=== PATIENT | female | born 1945 | race Caucasian/White ===

== ENCOUNTER 2021-08-04 17:06 | Inpatient (IN) | payer MEDICARE ==
[2021-08-04] MEDS ORDERED: NITROGLYCERIN OINT 1 INCH/GM PACKET TOPICAL STA (17:13)
[2021-08-04] MEDS ORDERED: DILTIAZEM DRIP BOLUS FROM BAG 1 MG SOLN IV ONE (17:48)
--- NOTE | 2021-08-04 17:48 | ED ---
General Adult HPI - General Chief complaint: Chest Pain Stated complaint: Chest Pain/STEPHENIE Time Seen by Provider: 08/04/21 17:06 Source: patient, EMS, RN notes reviewed, old records reviewed Mode of arrival: EMS Limitations: no limitations - History of Present Illness Initial comments: This is a 76-year-old female presents emergency department stating that she's been having chest pain for weeks. Patient states she also has associated shortness of breath. Patient states she has been [facility] the [facility] that she [facility] to commit to be evaluated but they refused to do a today she called EMS. Patient states currently she has no chest pain. Patient denies any recent fever chills or cough per patient denies any headache patient denies numbness weakness. Patient denies lightheadedness or dizziness. Patient denies abdominal pain patient denies nausea vomiting or diarrhea. - Related Data Home Medications Medication Instructions Recorded Confirmed Amiodarone HCl [Pacerone] 200 mg PO DAILY@0800 08/04/21 08/04/21 Apixaban [Eliquis] 2.5 mg PO BID@0800,1600 08/04/21 08/04/21 Aspirin EC [Ecotrin Low Dose] 81 mg PO DAILY@0800 08/04/21 08/04/21 Atorvastatin [Lipitor] 40 mg PO DAILY@1600 08/04/21 08/04/21 Cholecalciferol [Vitamin D3 (125 125 mcg PO DAILY@0800 08/04/21 08/04/21 Mcg = 5000 Iu)] Ciclopirox Solution 8% 1 applic TOPICAL HS@199908/04/21 08/04/21 Docusate [Colace] 100 mg PO BID@0800,1600 08/04/21 08/04/21 Famotidine [Pepcid] 20 mg PO DAILY@0800 08/04/21 08/04/21 Ferrous Sulfate [Feosol] 325 mg PO BID@0800,1600 08/04/21 08/04/21 HYDROcodone/APAP 5-325MG [[place] 1 tab PO Q6H PRN 08/04/21 08/04/21 5-325] Insulin Aspart 5 units SQ TID-W/MEALS 08/04/21 08/04/21 Insulin Aspart See Protocol SQ AC-TID 08/04/21 08/04/21 Insulin Detemir [Levemir Flextouch 10 units SQ BID@0800,199908/04/21 08/04/21 Pen] Isosorbide Mononitrate [Isosorbide 30 mg PO DAILY@0800 08/04/21 08/04/21 Mononitrate ER] Lactulose 20 gm PO DAILY PRN 08/04/21 08/04/21 Lisinopril [Prinivil] 10 mg PO DAILY@0800 08/04/21 08/04/21 Meclizine [Antivert] 12.5 mg PO Q8H PRN 08/04/21 08/04/21 Melatonin 10 mg PO DAILY@1600 08/04/21 08/04/21 Metoprolol Tartrate [Lopressor] 25 mg PO BID@0800,199908/04/21 08/04/21 Montelukast [Singulair] 10 mg PO DAILY@1600 08/04/21 08/04/21 Multivitamins, Thera [Multivitamin 1 tab PO DAILY@0800 08/04/21 08/04/21 (formulary)] Ondansetron [Zofran] 4 mg PO Q6H PRN 08/04/21 08/04/21 Sennosides [Senna] 8.6 mg PO BID PRN 08/04/21 08/04/21 Simethicone [Simethicone Chew] 80 mg PO Q4H PRN 08/04/21 08/04/21 Sodium Bicarbonate 650 mg PO BID@0800,1600 08/04/21 08/04/21 Sodium Chloride [Saline Nasal 2 spray EA NOSTRIL BID@0800,1600 08/04/21 08/04/21 [place]] Vit C/E/Zn/Coppr/Lutein/Zeaxan 1 tab PO BID@0800,1600 08/04/21 08/04/21 [Preservision Areds 2 Softgel] buPROPion HCL [Wellbutrin SR] 150 mg PO BID@0800,199908/04/21 08/04/21 cloNIDine HCL 0.2 mg PO TID@0500,1300,2100 08/04/21 08/04/21 polyethylene glycoL 3350 [Miralax] 17 gm PO DAILY@1600 08/04/21 08/04/21 Allergies Allergy/AdvReac Type Severity Reaction Status Date / Time amlodipine Allergy Unknown Verified 08/04/21 17:47 hydralazine Allergy Unknown Verified 08/04/21 17:47 Sulfa (Sulfonamide Allergy Unknown Verified 08/04/21 17:47 Antibiotics) Review of Systems ROS Statement: Those systems with pertinent positive or pertinent negative responses have been documented in the HPI. ROS Other: All systems not noted in ROS Statement are negative. Past Medical History Past Medical History: Atrial Fibrillation, Cancer, Heart Failure, Diabetes Mellitus, GERD/Reflux, Hypertension, Renal Disease Additional Past Medical History / Comment(s): generlaized weakness, constipation, insomnia, dizziness, cardiomegaly, anemia, chronic left heel ulcer, uterine and colon cancer History of Any Multi-Drug Resistant Organisms: None Reported Past Surgical History: Adenoidectomy, Bowel Resection, Hysterectomy, Tonsillecto my Past Psychological History: Depression Smoking Status: Former smoker Past Alcohol Use History: None Reported Past Drug Use History: None Reported General Exam - General Exam Comments Initial Comments: GENERAL: Patient is well-developed and well-nourished. Patient is nontoxic and well- hydrated and is in mild distress. ENT: Neck is soft and supple. No significant lymphadenopathy is noted. Oropharynx is clear. Moist mucous membranes. Neck has full range of motion without eliciting any pain. EYES: The sclera were anicteric and conjunctiva were pink and moist. Extraocular movements were intact and pupils were equal round and reactive to light. Eyelids were unremarkable. PULMONARY: Unlabored respirations. Good breath sounds bilaterally. No audible rales rhonchi or wheezing was noted. CARDIOVASCULAR: There is a regular rate and rhythm without any murmurs gallops or rubs. ABDOMEN: Soft and nontender with normal bowel sounds. SKIN: Skin is clear with no lesions or rashes and otherwise unremarkable. NEUROLOGIC: Patient is alert and oriented x3. Cranial nerves II through XII are grossly intact. Motor and sensory are also intact. Normal speech, volume and content. Symmetrical smile. MUSCULOSKELETAL: Normal extremities with adequate strength and full range of motion. Patient has a wound on the left foot that is newly wrapped and according to the patient it is slowly improving LYMPHATICS: No significant lymphadenopathy is noted PSYCHIATRIC: Normal psychiatric evaluation. Limitations: no limitations Course Vital Signs 08/04/21 17:14 Temperature 98.2 F Pulse Rate 112 H Respiratory 20 Rate Blood Pressure 156/104 O2 Sat by Pulse 100 Oximetry Medical Decision Making - Medical Decision Making EKG shows atrial fibrillation with rapid ventricular response at 117 bpm QRS is 100 a QT interval 320 QTC is 393. Patient's EKG shows no ST segment elevation or depression. Patient was having episodes where she was 130+ beats a minute so I started her on Cardizem after gave her a Cardizem bolus. Chest x-ray shows pulmonary edema. Patient received Lasix to the pulmonary edema. Patient will be admitted for A. fib with rapid ventricular response, pulmonary edema, chest pain. I spoke with some physicians and he agreed to admit the patient admitted the patient I wrote admitting orders. - Lab Data Result diagrams: 08/04/21 17:50 08/04/21 17:50 Lab Results 08/04/21 08/04/21 08/04/21 Range/Units 17:50 17:50 17:50 WBC 8.8 (3.8-10.6) k/uL RBC 3.45 L (3.80-5.40) m/uL Hgb 10.3 L (11.4-16.0) gm/dL Hct 33.4 L (34.0-46.0) % MCV 96.7 (80.0-100.0) fL MCH 29.7 (25.0-35.0) pg MCHC 30.7 L (31.0-37.0) g/dL RDW 15.6 H (11.5-15.5) % Plt Count 310 (150-450) k/uL MPV 7.5 Neutrophils % 83 % Lymphocytes % 8 % Monocytes % 6 % Eosinophils % 1 % Basophils % 0 % Neutrophils # 7.2 (1.3-7.7) k/uL Lymphocytes # 0.7 L (1.0-4.8) k/uL Monocytes # 0.5 (0-1.0) k/uL Eosinophils # 0.1 (0-0.7) k/uL Basophils # 0.0 (0-0.2) k/uL Hypochromasia Moderate PT 13.5 H (9.0-12.0) sec INR 1.3 H (<1.2) APTT 22.8 (22.0-30.0) sec Sodium 139 (137-145) mmol/L Potassium 3.5 (3.5-5.1) mmol/L Chloride 102 (98-107) mmol/L Carbon Dioxide 27 (22-30) mmol/L Anion Gap 10 mmol/L BUN 26 H (7-17) mg/dL Creatinine 1.60 H (0.52-1.04) mg/dL Est GFR (CKD-EPI)AfAm 35 (>60 ml/min/1.73 sqM) Est GFR (CKD-EPI)NonAf 31 (>60 ml/min/1.73 sqM) Glucose 241 H (74-99) mg/dL Calcium 8.9 (8.4-10.2) mg/dL Magnesium 1.8 (1.6-2.3) mg/dL Total Bilirubin 0.9 (0.2-1.3) mg/dL AST 366 H (14-36) U/L ALT 276 H (4-34) U/L Alkaline Phosphatase 150 H (38-126) U/L Troponin I (0.000-0.034) ng/mL Total Protein 6.6 (6.3-8.2) g/dL Albumin 3.7 (3.5-5.0) g/dL 08/04/21 Range/Units 17:50 WBC (3.8-10.6) k/uL RBC (3.80-5.40) m/uL Hgb (11.4-16.0) gm/dL Hct (34.0-46.0) % MCV (80.0-100.0) fL MCH (25.0-35.0) pg MCHC (31.0-37.0) g/dL RDW (11.5-15.5) % Plt Count (150-450) k/uL MPV Neutrophils % % Lymphocytes % % Monocytes % % Eosinophils % % Basophils % % Neutrophils # (1.3-7.7) k/uL Lymphocytes # (1.0-4.8) k/uL Monocytes # (0-1.0) k/uL Eosinophils # (0-0.7) k/uL Basophils # (0-0.2) k/uL Hypochromasia PT (9.0-12.0) sec INR (<1.2) APTT (22.0-30.0) sec Sodium (137-145) mmol/L Potassium (3.5-5.1) mmol/L Chloride (98-107) mmol/L Carbon Dioxide (22-30) mmol/L Anion Gap mmol/L BUN (7-17) mg/dL Creatinine (0.52-1.04) mg/dL Est GFR (CKD-EPI)AfAm (>60 ml/min/1.73 sqM) Est GFR (CKD-EPI)NonAf (>60 ml/min/1.73 sqM) Glucose (74-99) mg/dL Calcium (8.4-10.2) mg/dL Magnesium (1.6-2.3) mg/dL Total Bilirubin (0.2-1.3) mg/dL AST (14-36) U/L ALT (4-34) U/L Alkaline Phosphatase (38-126) U/L Troponin I 0.020 (0.000-0.034) ng/mL Total Protein (6.3-8.2) g/dL Albumin (3.5-5.0) g/dL Critical Care Time Critical Care Time: Yes Total Critical Care Time: 35 Disposition Clinical Impression: Chest pain, Acute pulmonary edema, Atrial fibrillation with rapid ventricular response Disposition: ADMITTED IP TO THIS HOSP Referrals: None,Stated [Primary Care Provider] - 1-2 days Time of Disposition: 19:00
[2021-08-04 18:04] LABS: Basophils % (A) 0 %; Eosinophils # (A) 0.1 k/uL (0-0.7); Eosinophils % (A) 1 %; HCT 33.4 % (34.0-46.0); HGB 10.3 gm/dL (11.4-16.0); Hypochromasia Moderate; Lymphocytes # (A) 0.7 k/uL (1.0-4.8); Lymphocytes % (A) 8 %; MCH 29.7 pg (25.0-35.0); MCHC 30.7 g/dL (31.0-37.0); MCV 96.7 fL (80.0-100.0); Mean Platelet Volume 7.5; Monocytes # (A) 0.5 k/uL (0-1.0); Monocytes % (A) 6 %; Neutrophils # (A) 7.2 k/uL (1.3-7.7); Neutrophils % (A) 83 %; Platelet Count 310 k/uL (150-450); RBC 3.45 m/uL (3.80-5.40); RDW 15.6 % (11.5-15.5); WBC 8.8 k/uL (3.8-10.6)
[2021-08-04 18:13] LABS: Albumin 3.7 g/dL (3.5-5.0); Calcium 8.9 mg/dL (8.4-10.2); Magnesium 1.8 mg/dL (1.6-2.3); Potassium 3.5 mmol/L (3.5-5.1); Total Bilirubin 0.9 mg/dL (0.2-1.3); Total Protein 6.6 g/dL (6.3-8.2)
--- NOTE | 2021-08-04 18:14 | XR ---
EXAMINATION TYPE: XR chest 2V DATE OF EXAM: 08/04/2021 COMPARISON: NONE HISTORY: Chest pain TECHNIQUE: Frontal and lateral views of the chest are obtained. FINDINGS: There is mild to moderate interstitial edema superimposed diffuse hazy/streaky opacities. There are small bilateral pleural effusions. No pneumothorax seen. The cardiac silhouette size is en larged. The osseous structures are intact. IMPRESSION: CHF as above.
[2021-08-04 18:15] LABS: INR 1.3 (<1.2); Partial Thromboplastin Time 22.8 sec (22.0-30.0); Prothrombin Time 13.5 sec (9.0-12.0)
[2021-08-04] MEDS ORDERED: FUROSEMIDE 10 MG/ML 10 ML VIAL IV STA (18:59)
[2021-08-04] MEDS: DILTIAZEM 125 MG in SODIUM CHLORIDE 0.9% 100 ML IV SCH (19:02)
[2021-08-04] MEDS: ASPIRIN 81 MG PO STA ×2 (19:02→19:07)
[2021-08-05] MEDS: NITROGLYCERIN OINT 1 INCH/GM PACKET TOPICAL SCH ×5 (01:09→20:26)
[2021-08-05] MEDS ORDERED: HEPARIN SODIUM 1,000 UN/ML (10ML VL) IV ONE (06:49)
[2021-08-05] MEDS ORDERED: HEPARIN SODIUM 1,000 UN/ML (10ML VL) IV PRN (06:49)
[2021-08-05] MEDS ORDERED: HEPARIN SOD,PORK IN 0.45% NACL 25,000 UNIT in 0.45% NACL 1 250ML.BAG IV SCH (07:00)
--- NOTE | 2021-08-05 07:07 | P.HPIM ---
History of Present Illness H&P Date: 08/04/21 Chief Complaint: Chest pain 76-year-old female with hypertension diabetes mellitus, CK D, A. fib on Eliquis Patient is a residential resident she reports that she's been complaining of intermittent chest pain for many weeks now she describes the chest pain as sharp episodes 8/10 that she feels on her left side of the chest can happen at rest or activity she has a sensation of doom and shortness of breath with that but denies any profuse sweating , she does report some palpitations with these episodes and sometimes feeling dizzy. Patient does not very reliable historian I felt that with my questions at suggesting symptoms and she randomly answers yes and no. There is no recent traveling no recent cardiac events patient , she does report history of congestive heart failure and A. fib Patient claims that at the residential she's been reporting to the staff that she's having chest pains but nothing has been done so far. Patient also reports some orthopnea, and edema of her legs In the ED she was found to be in A. fib with RVR, chest x-ray was suggestive of interstitial edema like mild congestive heart failure Blood work showed chronic kidney disease, stable chronic anemia, elevated liver enzymes Patient denies any smoking, recreational drugs or heavy alcohol use Review of Systems Pertinent positives as noted in HPI. All other systems were reviewed and are negative Past Medical History Past Medical History: Atrial Fibrillation, Cancer, Heart Failure, Diabetes Mellitus, GERD/Reflux, Hypertension, Renal Disease Additional Past Medical History / Comment(s): generlaized weakness, constipation, insomnia, dizziness, cardiomegaly, anemia, chronic left heel ulcer, uterine and colon cancer History of Any Multi-Drug Resistant Organisms: None Reported Past Surgical History: Adenoidectomy, Bowel Resection, Hysterectomy, Tonsillectomy Past Psychological History: Depression Smoking Status: Former smoker Past Alcohol Use History: None Reported Past Drug Use History: None Reported - Past Family History Family Family Medical History: No Reported History Medications and Allergies Home Medications Medication Instructions Recorded Confirmed Type Amiodarone HCl [Pacerone] 200 mg PO DAILY@0800 08/04/21 08/04/21 History Apixaban [Eliquis] 2.5 mg PO BID@0800,1600 08/04/21 08/04/21 History Aspirin EC [Ecotrin Low Dose] 81 mg PO DAILY@0800 08/04/21 08/04/21 History Atorvastatin [Lipitor] 40 mg PO DAILY@159908/04/21 08/04/21 History Cholecalciferol [Vitamin D3 (125 125 mcg PO DAILY@0808/04/21 08/04/21 History Mcg = 5000 Iu)] Ciclopirox Solution 8% 1 applic TOPICAL HS@199908/04/21 08/04/21 History Docusate [Colace] 100 mg PO BID@0800,159908/04/21 08/04/21 History Famotidine [Pepcid] 20 mg PO DAILY@0808/04/21 08/04/21 History Ferrous Sulfate [Feosol] 325 mg PO BID@0800,159908/04/21 08/04/21 History HYDROcodone/APAP 5-325MG [[place] 1 tab PO Q6H PRN 08/04/21 08/04/21 History 5-325] Insulin Aspart 5 units SQ TID-W/MEALS 08/04/21 08/04/21 History Insulin Aspart See Protocol SQ AC-TID 08/04/21 08/04/21 History Insulin Detemir [Levemir Flextouch 10 units SQ BID@08,199908/04/21 08/04/21 History Pen] Isosorbide Mononitrate [Isosorbide 30 mg PO DAILY@79908/04/21 08/04/21 History Mononitrate ER] Lactulose 20 gm PO DAILY PRN 08/04/21 08/04/21 History Lisinopril [Prinivil] 10 mg PO DAILY@0808/04/21 08/04/21 History Meclizine [Antivert] 12.5 mg PO Q8H PRN 08/04/21 08/04/21 History Melatonin 10 mg PO DAILY@159908/04/21 08/04/21 History Metoprolol Tartrate [Lopressor] 25 mg PO BID@0800,199908/04/21 08/04/21 History Montelukast [Singulair] 10 mg PO DAILY@1600 08/04/21 08/04/21 History Multivitamins, Thera [Multivitamin 1 tab PO DAILY@0808/04/21 08/04/21 History (formulary)] Ondansetron [Zofran] 4 mg PO Q6H PRN 08/04/21 08/04/21 History Sennosides [Senna] 8.6 mg PO BID PRN 08/04/21 08/04/21 History Simethicone [Simethicone Chew] 80 mg PO Q4H PRN 08/04/21 08/04/21 History Sodium Bicarbonate 650 mg PO BID@0800,1600 08/04/21 08/04/21 History Sodium Chloride [Saline Nasal 2 spray EA NOSTRIL BID@0800,1600 08/04/21 08/04/21 History [place]] Vit C/E/Zn/Coppr/Lutein/Zeaxan 1 tab PO BID@0800,1600 08/04/21 08/04/21 History [Preservision Areds 2 Softgel] buPROPion HCL [Wellbutrin SR] 150 mg PO BID@0800,2000 08/04/21 08/04/21 History cloNIDine HCL 0.2 mg PO TID@0500,1300,2100 08/04/21 08/04/21 History polyethylene glycoL 3350 [Miralax] 17 gm PO DAILY@1600 08/04/21 08/04/21 History Allergies Allergy/AdvReac Type Severity Reaction Status Date / Time amlodipine Allergy Unknown Verified 08/04/21 17:47 hydralazine Allergy Unknown Verified 08/04/21 17:47 Sulfa (Sulfonamide Allergy Unknown Verified 08/04/21 17:47 Antibiotics) Physical Exam Vitals: Vital Signs Temp Pulse Resp BP Pulse Ox 08/05/21 00:00 112 H 16 136/74 98 08/04/21 21:00 117 H 18 131/87 97 08/04/21 18:24 129 H 16 155/115 98 08/04/21 17:14 98.2 F 112 H 20 156/104 100 Intake and Output 08/04/21 08/04/21 08/05/21 14:59 22:59 06:59 Other: Weight 79.152 kg Constitutional: No acute distress, conversant, pleasant Eyes: Anicteric sclerae, moist conjunctiva, Pupils equal round reactive to light ENMT: NC/AT Oropharynx clear, no erythema, or exudates Neck: Supple, no masses, or JVD No carotid bruits No thyromegaly Lungs: diminished breath sounds at lung basis Clear to percussion Normal respiratory effort, no accessory muscle use Cardiovascular: Heart irregular No murmurs, gallops, or rubs + bilateral peripheral edema Abdominal: Soft Nontender, no guarding, rebound or rigidity Abdomen moving with respiration Normoactive bowel sounds No hepatomegaly, No splenomegaly No palpable mass No abdominal wall hernia noted Skin: multiple areas of echymosis over bilateral forearm , otherwise Normal temperature, tone, texture, turgor Extremities: No digital cyanosis No clubbing Pedal pulses weak and symmetrical capillary refill immediate Radial pulses intact and symmetrical No calf tenderness Psychiatric: Alert and oriented to person, place Neuro Muscles Strength 3-4/5 in all 4 extremities Sensation to light touch grossly present throughout Cranial nerves II-XII grossly intact Lymphatics: no palpable cervical or supraclavicular , or inguinal lymph nodes Results CBC & Chem 7: 08/04/21 17:50 08/04/21 17:50 Labs: Abnormal Lab Results - Last 24 Hours (Table) 08/04/21 08/04/21 08/04/21 Range/Units 17:50 17:50 17:50 RBC 3.45 L (3.80-5.40) m/uL Hgb 10.3 L (11.4-16.0) gm/dL Hct 33.4 L (34.0-46.0) % MCHC 30.7 L (31.0-37.0) g/dL RDW 15.6 H (11.5-15.5) % Lymphocytes # 0.7 L (1.0-4.8) k/uL PT 13.5 H (9.0-12.0) sec INR 1.3 H (<1.2) BUN 26 H (7-17) mg/dL Creatinine 1.60 H (0.52-1.04) mg/dL Glucose 241 H (74-99) mg/dL AST 366 H (14-36) U/L ALT 276 H (4-34) U/L Alkaline Phosphatase 150 H (38-126) U/L Assessment and Plan Assessment: A. fib with RVR Patient initiated on Cardizem drip Continue home meds Continue Eliquis EKG showed A. fib with RVR CHF exacerbation Check echocardiogram IV Lasix Monitor vital signs Daily weight Cardiology consult Supplemental oxygen as needed Resume home cardiac meds Chest x-ray showed CHF changes Trend troponins Elevated liver enzymes Possibly passive congestion from CHF exacerbation Check ultrasound of the liver Avoid hepatotoxic meds Chronic conditions CK D stable, continue with bicarb pills Chronic anemia Diabetes mellitus resume insulin sliding scale and long-acting basal insulin Hypertension resume cardiac meds Patient is full code Anticipated length of stay more than 2 midnights DVT prophylaxis patient on low-dose Eliquis from home for A. fib
--- NOTE | 2021-08-05 07:41 | US ---
EXAMINATION TYPE: US liver DATE OF EXAM: 08/05/2021 COMPARISON: NONE CLINICAL HISTORY: elevated liver enzymes. abn labs EXAM MEASUREMENTS: Liver Length: 16.9 cm Gallbladder Wall: 0.2 cm CBD: 0.4 cm Right Kidney: 9.2 x 5.4 x 4.3 cm Pancreas: Tail obscured by overlying bowel gas. Echogenic in appearance. Liver: Increased attenuation Gallbladder: Mobile chogenic focus with shadowing = 2.5 cm Evidence for sonographic Malloy's sign: neg CBD: wnl Right Kidney: Cystic lesions seen. Medial mid - 1.2 x 1.1 x 0.9 cm. Lower pole = 0.9 x 0.9 x 0.7 c m. IMPRESSION: 1. Coarsened echo pattern to the liver can be associated with hepatic steatosis or hepatocellular dis ease correlate clinically. 2. Cholelithiasis. 3. Probable tiny renal simple cysts
[2021-08-05] MEDS ORDERED: METOPROLOL TARTRATE 25 MG TAB PO SCH (08:00)
[2021-08-05 08:06] LABS: Basophils % (A) 0 %; Eosinophils # (A) 0.2 k/uL (0-0.7); Eosinophils % (A) 3 %; HCT 33.1 % (34.0-46.0); HGB 10.2 gm/dL (11.4-16.0); Hypochromasia Marked; Lymphocytes # (A) 0.7 k/uL (1.0-4.8); Lymphocytes % (A) 10 %; MCH 30.2 pg (25.0-35.0); MCHC 30.8 g/dL (31.0-37.0); Macrocytosis Slight; Mean Platelet Volume 7.3; Monocytes # (A) 0.6 k/uL (0-1.0); Monocytes % (A) 8 %; Neutrophils # (A) 5.8 k/uL (1.3-7.7); Neutrophils % (A) 76 %; Platelet Count 280 k/uL (150-450); RBC 3.38 m/uL (3.80-5.40); RDW 15.6 % (11.5-15.5); WBC 7.6 k/uL (3.8-10.6)
[2021-08-05] MEDS: FUROSEMIDE 10 MG/ML 4 ML VIAL IV SCH ×3 (08:09→20:28)
[2021-08-05] MEDS: FERROUS SULFATE 325 MG TAB PO SCH ×2 (08:10→16:39)
[2021-08-05] MEDS: SODIUM BICARBONATE TAB 650 MG TAB PO SCH ×3 (08:10→16:39)
[2021-08-05] MEDS: AMIODARONE 200 MG TAB PO SCH (08:10)
[2021-08-05] MEDS: ISOSORBIDE MONONITRATE ER 30 MG TAB.ER.24H PO SCH (08:10)
[2021-08-05] MEDS: buPROPion SR 150 MG TABLET.ER PO SCH ×2 (08:10→20:26)
[2021-08-05] MEDS: FAMOTIDINE 20 MG TAB PO SCH (08:11)
[2021-08-05] MEDS: lisinopriL 10 MG TAB PO SCH ×2 (08:11→08:16)
[2021-08-05] MEDS: APIXABAN 2.5 MG TABLET PO SCH ×2 (08:11→16:39)
[2021-08-05] MEDS: ASPIRIN 81 MG PO SCH (08:13)
[2021-08-05] MEDS: DOCUSATE 100 MG CAP PO SCH ×2 (08:14→16:39)
[2021-08-05 08:15] LABS: INR 1.2 (<1.2); Partial Thromboplastin Time 23.3 sec (22.0-30.0); Prothrombin Time 12.7 sec (9.0-12.0)
[2021-08-05 08:31] LABS: Glucose,Whole Blood 211 mg/dL (75-99)
[2021-08-05] MEDS: INSULIN DETEMIR (LEVEMIR) 100 UNIT/ML SYR SQ SCH ×2 (08:41→20:27)
--- NOTE | 2021-08-05 09:47 | ECHOF ---
Referral Reason:chf, afib MEASUREMENTS -------- HEIGHT: 160.0 cm WEIGHT: 78.9 kg BP: 136/75 RVIDd: 3.7 cm (< 3.3) IVSd: 1.5 cm (0.6 - 1.1) LVIDd: 3.7 cm (3.9 - 5.3) LVPWd: 1.5 cm (0.6 - 1.1) IVSs: 1.7 cm LVIDs: 2.7 cm LVPWs: 1.9 cm LAESV Index (A-L): 63.01 ml/m Ao Diam: 3.0 cm (2.0 - 3.7) AV Cusp: 1.7 cm (1.5 - 2.6) MV EXCURSION: 18.072 mm (> 18.000) MV EF SLOPE: 86 mm/s (70 - 150) EPSS: 0.7 cm RAP: 5.00 mmHg RVSP: 43.68 mmHg FINDINGS -------- Atrial fibrillation. This was a technically adequate study. The left ventricular size is normal. There is moderate concentric left ventricular hypertrophy. O verall left ventricular systolic function is mildly impaired with, an EF between 45 - 50 %. The right ventricle is mildly enlarged. LA is severely dilated >40 ml/m2 The right atrial size is normal. Interatrial and interventricular septum intact. There is mild aortic valve sclerosis. There is no evidence of aortic regurgitation. There is no e vidence of aortic stenosis. Moderate mitral regurgitation is present. [id number] tricuspid regurgitation present. There is mild to moderate pulmonary hypertension. The right ventricular systolic pressure, as measured by Doppler, is 43.68mmHg. There is no pulmonic regurgitation present. The aortic root size is normal. IVC Not well visulized. Echo free space represents a pericardial fat pad. There is no pericardial effusion. CONCLUSIONS -------- 1. The left ventricular size is normal. 2. There is moderate concentric left ventricular hypertrophy. 3. Overall left ventricular systolic function is mildly impaired with, an EF between 45 - 50 %. 4. The right ventricle is mildly enlarged. 5. LA is severely dilated >40 ml/m2 6. There is mild aortic valve sclerosis. 7. Moderate mitral regurgitation is present. 8. [id number] tricuspid regurgitation present. 9. There is mild to moderate pulmonary hypertension. 10. The right ventricular systolic pressure, as measured by Doppler, is 43.68mmHg. 11. Echo free space represents a pericardial fat pad. PAINT LABORATORY TECHNICIAN: Rosita Polanco RDCS
[2021-08-05] MEDS ORDERED: METOPROLOL TARTRATE 25 MG TAB PO STA (10:03)
--- NOTE | 2021-08-05 11:02 | CONS ---
CONSULTATION HISTORY OF PRESENT ILLNESS: Anabel is a 76-year-old lady with history of hypertension, diabetes and atrial fibrillation along with chronic renal insufficiency, who is currently residing in a detention complained of episodes of chest discomfort for which she was brought to the hospital and is being admitted for the same. She describes it as a sharp left- sided chest pain that is not clearly related to exertion and radiates to her neck. She also had intermittent episodes of palpitations and dizziness. The patient states that she had suffered from COVID back in February and has developed many symptoms since. At the time of my evaluation this morning, she appears comfortable at rest and is free of significant symptoms. She had 2 sets of troponins that are all within normal limits. Liver enzymes are elevated. Hemoglobin is normal at 10. Potassium is 3.5 and creatinine is elevated at 1.6. An EKG shows atrial fibrillation with nonspecific ST-T wave changes. She had an echocardiogram on this admission that revealed concentric left ventricular hypertrophy, LV systolic dysfunction with an ejection fraction of 45%. Mildly enlarged right ventricle and significantly enlarged left atrium with mild to moderate pulmonary hypertension. There is no history of coronary artery disease, but her history is significant for atrial fibrillation, hypertension and dyslipidemia along with diabetes. PAST MEDICAL HISTORY: Significant for persistent atrial fibrillation coronavirus infection, diabetes, hypertension, dyslipidemia. ALLERGIES: ALLERGIES TO AMLODIPINE, HYDRALAZINE, AND SULFA. FAMILY HISTORY: Negative for premature coronary artery disease. SOCIAL HISTORY: Negative for current smoking, EtOH abuse or drug abuse. REVIEW OF SYSTEMS: HEENT is unremarkable. CARDIAC as described above. RESPIRATORY negative. GI negative. GENITOURINARY negative. ALLERGY/IMMUNOLOGY: None. SKIN negative. MUSCULOSKELETAL: Significant for arthritis. PSYCHOSOCIAL: Negative. DERM negative. ONCOLOGICAL negative. 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 EXAM: Comfortable at rest. Afebrile. Heart rate is 86 beats per minute. Blood pressure is 140/88, respirations 18, O2 saturation is 96%. NECK: There is no jugular venous distention. CHEST exam reveals diminished air entry at the bases. HEART exam reveals first and second heart sounds. Systolic murmur at the apex. ABDOMEN: Soft. Exam of EXTREMITIES reveals mild edema. Peripheral pulses are felt. LABS: Labs show that the hemoglobin is low at 10.2, platelet count is 280, potassium is 3.5, BUN is 26, creatinine is 1.6. Troponins are negative. AST/ALT are elevated at 366 and 276. ASSESSMENT: 1. Precordial chest pain. 2. Persistent atrial fibrillation. 3. New onset congestive heart failure probably systolic. PLAN: I am going to hold the amiodarone at this time. Continue the anticoagulant. Continue the antihypertensives. Continue IV Lasix and the beta blockers. When she is more stable, I will consider an outpatient stress test on her to rule out ischemic heart disease. She follows with Dr. Abdalla in the office. We will review her outpatient records. MMODL / IJN: [id number] /
--- NOTE | 2021-08-05 11:07 | P.PN ---
Subjective Patient was examined in the emergency department not complaining of any new symptomatology. She does endorse having some shortness of breath for the past few weeks slightly progressing. She also has a pressure ulcer on her left foot/heel with no drainage noted. Patient denies any active chest pain today during my examination Leah states she had in the past and the last 24 hours which is on the left side radiating to the left neck region that was pressure- like in nature, lasted for a few seconds and resolves. During my examination she is completely asymptomatic resting comfortably vitals are stable. Case discussed with RN nurse present the ER. Objective - Vital Signs Vital signs: Vital Signs Temp 98.7 F 08/05/21 08:05 Pulse 86 08/05/21 09:59 Resp 18 08/05/21 09:59 BP 142/86 08/05/21 09:59 Pulse Ox 96 08/05/21 09:59 Intake & Output 08/04/21 08/05/21 08/05/21 18:59 06:59 18:59 Weight 79.152 kg 79.152 kg - Exam Gen. patient is awake alert oriented 3 Cardio normal S1/S2, irregularly irregular Respiratory no wheezing or rhonchi appreciated-currently on 2 L nasal cannula Abdomen is soft, nontender positive bowel sounds Extremities pressure ulcer on the left heel no erythema or drainage-dressing was removed Psych patient slightly anxious however normal - Labs CBC & Chem 7: 08/05/21 07:42 08/04/21 17:50 Labs: Abnormal Lab Results - Last 24 Hours (Table) 08/04/21 08/04/21 08/04/21 Range/Units 17:50 17:50 17:50 RBC 3.45 L (3.80-5.40) m/uL Hgb 10.3 L (11.4-16.0) gm/dL Hct 33.4 L (34.0-46.0) % MCHC 30.7 L (31.0-37.0) g/dL RDW 15.6 H (11.5-15.5) % Lymphocytes # 0.7 L (1.0-4.8) k/uL PT 13.5 H (9.0-12.0) sec INR 1.3 H (<1.2) BUN 26 H (7-17) mg/dL Creatinine 1.60 H (0.52-1.04) mg/dL Glucose 241 H (74-99) mg/dL POC Glucose (mg/dL) (75-99) mg/dL AST 366 H (14-36) U/L ALT 276 H (4-34) U/L Alkaline Phosphatase 150 H (38-126) U/L 08/05/21 08/05/21 08/05/21 Range/Units 07:42 07:42 08:29 RBC 3.38 L (3.80-5.40) m/uL Hgb 10.2 L (11.4-16.0) gm/dL Hct 33.1 L (34.0-46.0) % MCHC 30.8 L (31.0-37.0) g/dL RDW 15.6 H (11.5-15.5) % Lymphocytes # 0.7 L (1.0-4.8) k/uL PT 12.7 H (9.0-12.0) sec INR 1.2 H (<1.2) BUN (7-17) mg/dL Creatinine (0.52-1.04) mg/dL Glucose (74-99) mg/dL POC Glucose (mg/dL) 211 H (75-99) mg/dL AST (14-36) U/L ALT (4-34) U/L Alkaline Phosphatase (38-126) U/L Assessment and Plan Assessment: Assessment: #1 acute respiratory distress secondary to congestive heart failure exacerbation? #2 atrial fibrillation with RVR #3 essential hypertension #4 chronic kidney disease #5 diabetes mellitus #6 GERD #7 chest pain rule out ACS #8 transaminitis secondary to fluid overload most likely? Plan: -Admit to medicine for close monitoring -Aspiration/fall precaution -Obtain 2-D echocardiogram to evaluate for any form of hypokinesis or structural disease -Patient is currently on Cardizem will switch over to by mouth maintain heart rate less than 110 bpm. Transition with metoprolol 50 twice a day -Continue to monitor creatinine level baseline between 1.3-1.5 most likely cardiorenal syndrome -Continue to monitor LFTs most likely related to congestion. Ultrasound reviewed suggesting either hepatic steatosis or hepatocellular disease. Recommend outpatient follow-up with PCP as well. -Strict input/output, low-sodium diet, fluid restrict to less than 1.4 L -Continue with IV Lasix 40 mg 3 times a day for now will like to decrease we'll coordinate with cardiology as the patient does seem to be improving -DVT prophylaxis L course 2.5 twice a day-patient should ideally be on 5 mg twice a day we'll coordinate her cardio.
[2021-08-05] MEDS: cloNIDine HCL 0.2 MG TAB PO SCH ×2 (14:14→20:26)
[2021-08-05] MEDS ORDERED: MELATONIN 5 MG TABLET PO SCH (16:00)
[2021-08-05 16:35] LABS: Glucose,Whole Blood 284 mg/dL (75-99)
[2021-08-05] MEDS: MONTELUKAST 10 MG TAB PO SCH (16:39)
[2021-08-05] MEDS: ATORVASTATIN 40 MG TAB PO SCH (16:39)
[2021-08-05] MEDS: DILTIAZEM 125 MG in SODIUM CHLORIDE 0.9% 100 ML IV SCH (17:16)
[2021-08-05] MEDS: MELATONIN 5 MG TABLET PO SCH (20:25)
[2021-08-05] MEDS: METOPROLOL TARTRATE 50 MG TAB PO SCH (20:26)
[2021-08-05] MEDS: HYDROcodone/APAP 5-325MG 1 EACH TAB PO PRN (20:28)
[2021-08-05 20:38] LABS: Glucose,Whole Blood 275 mg/dL (75-99)
[2021-08-06] MEDS: FUROSEMIDE 10 MG/ML 4 ML VIAL IV SCH ×4 (05:03→20:34)
[2021-08-06] MEDS: cloNIDine HCL 0.2 MG TAB PO SCH ×4 (05:04→20:33)
[2021-08-06] MEDS: HYDROcodone/APAP 5-325MG 1 EACH TAB PO PRN ×2 (05:05→20:33)
[2021-08-06 06:42] LABS: Glucose,Whole Blood 231 mg/dL (75-99)
[2021-08-06 07:10] LABS: Basophils % (A) 0 %; Eosinophils # (A) 0.2 k/uL (0-0.7); Eosinophils % (A) 3 %; HCT 29.6 % (34.0-46.0); HGB 9.1 gm/dL (11.4-16.0); Hypochromasia Marked; INR 1.3 (<1.2); Lymphocytes # (A) 0.7 k/uL (1.0-4.8); Lymphocytes % (A) 12 %; MCH 30.1 pg (25.0-35.0); MCHC 30.8 g/dL (31.0-37.0); MCV 97.5 fL (80.0-100.0); Macrocytosis Slight; Mean Platelet Volume 7.1; Monocytes # (A) 0.5 k/uL (0-1.0); Monocytes % (A) 9 %; Neutrophils % (A) 72 %; Platelet Count 249 k/uL (150-450); Prothrombin Time 13.6 sec (9.0-12.0); RBC 3.03 m/uL (3.80-5.40); RDW 15.7 % (11.5-15.5); WBC 5.6 k/uL (3.8-10.6)
[2021-08-06] MEDS: AMIODARONE 200 MG TAB PO SCH (08:04)
[2021-08-06] MEDS: buPROPion SR 150 MG TABLET.ER PO SCH ×2 (08:13→20:32)
[2021-08-06] MEDS: ASPIRIN 81 MG PO SCH (08:13)
[2021-08-06] MEDS: lisinopriL 10 MG TAB PO SCH (08:13)
[2021-08-06] MEDS: DOCUSATE 100 MG CAP PO SCH ×2 (08:13→17:03)
[2021-08-06] MEDS: SODIUM BICARBONATE TAB 650 MG TAB PO SCH ×2 (08:14→17:03)
[2021-08-06] MEDS: INSULIN DETEMIR (LEVEMIR) 100 UNIT/ML SYR SQ SCH ×2 (08:14→20:34)
[2021-08-06] MEDS: FAMOTIDINE 20 MG TAB PO SCH (08:14)
[2021-08-06] MEDS: APIXABAN 2.5 MG TABLET PO SCH ×2 (08:14→17:03)
[2021-08-06] MEDS: FERROUS SULFATE 325 MG TAB PO SCH ×2 (08:14→17:03)
[2021-08-06] MEDS: ISOSORBIDE MONONITRATE ER 30 MG TAB.ER.24H PO SCH (08:14)
[2021-08-06] MEDS: METOPROLOL TARTRATE 50 MG TAB PO SCH ×2 (08:14→20:33)
[2021-08-06] MEDS: NITROGLYCERIN OINT 1 INCH/GM PACKET TOPICAL SCH ×3 (08:17→17:03)
[2021-08-06 09:49] LABS: Calcium 8.1 mg/dL (8.4-10.2); Potassium 2.8 mmol/L (3.5-5.1)
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
[2021-08-06] MEDS ORDERED: Potassium Replacement Protocol 1 EACH MISC MISCELLANE PRN (11:31)
[2021-08-06] MEDS: POTASSIUM CHLORIDE ER 20 MEQ TAB.ER PO SCH ×4 (11:39→17:03)
--- NOTE | 2021-08-06 12:47 | P.PN ---
Subjective This is a 76-year-old female past medical history of chronic kidney disease (patient did require dialysis during hospitalization in 03/2021 at [facility] due to worsening renal function and metabolic encephalopathy, Permacath not removed), hypertension, hyperlipidemia, colon cancer status post surgical resection, type 2 diabetes, Covid 19 pneumonia in 02/2021, persistent atrial fibrillation on Eliquis. She follows in the office with Dr. Abdalla. We have asked to see in consultation for congestive heart failure, chest pain, atrial fibrillation with RVR. She resides in a [facility]. She was brought to the hospital from nursing facility due to complaints of chest pain. On discharge from [facility] to the facility she states she was not placed on Lasix on discharge. EKG revealed atrial fibrillation with nonspecific STT wave changes. Troponins were negative 2.Echocardiogram revealed LV systolic dysfunction with an EF of 45, Mildly enlarged right ventricle, significant enlarged left atrium, mild to moderate pulmonary hypertension. She was started on Lasix 40mg Q8hr, and IV Cardizem 5mg/hr in the ER. 08/06/2021 Patient seen and examined at bedside, she continues to feel short of breath, with movement and ambulation. She is comfortable at rest. Her edema has improved. Per Nursing patient is refusing some of her medications. She's currently maintained on amiodarone 200mg daily, Eliquis 2.5mg BID, aspirin 80 mg daily, atorvastatin 40 mg daily, IV Lasix 40 mg every 8 hours, Imdur 30 mg daily, lisinopril 10 mg daily, Toprol titrate 50 mg twice a day Telemetry reviewed patient in atrial fibrillation with controlled rates, heart rate in the 70s-105 Lab: renal function improved sodium 138, potassium 2.8, BUN 20, sCr 1.42 GENERAL: In no acute distress. NECK: Supple without JVD or thyromegaly. LUNGS: Breath sounds crackles in the bilateral bases to auscultation bilaterally. Some wheezing left lower lobe. Respiration equal and unlabored. HEART: Irregular rate and rhythm, systolic ejection murmur, No rubs or gallops. S1 and S2 heard. EXTREMITIES: Normal range of motion, no edema. No clubbing or cyanosis. Peripheral pulses intact. 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 Replace potassium pre protocol Further recommendations based on clinical course Nurse Practitioner note has been reviewed, I agree with a documented findings and plan of care. Patient was seen and examined. Objective - Vital Signs Vital signs: Vital Signs Temp 98.5 F 08/05/21 14:16 Pulse 102 H 08/05/21 14:16 Resp 18 08/05/21 14:16 BP 147/97 08/05/21 14:16 Pulse Ox 99 08/05/21 14:16 Intake & Output 08/04/21 08/05/21 08/05/21 18:59 06:59 18:59 Weight 79.152 kg 79.152 kg - Labs CBC & Chem 7: 08/06/21 06:29 08/06/21 06:29 Labs: Abnormal Lab Results - Last 24 Hours (Table) 08/04/21 08/04/21 08/04/21 Range/Units 17:50 17:50 17:50 RBC 3.45 L (3.80-5.40) m/uL Hgb 10.3 L (11.4-16.0) gm/dL Hct 33.4 L (34.0-46.0) % MCHC 30.7 L (31.0-37.0) g/dL RDW 15.6 H (11.5-15.5) % Lymphocytes # 0.7 L (1.0-4.8) k/uL PT 13.5 H (9.0-12.0) sec INR 1.3 H (<1.2) BUN 26 H (7-17) mg/dL Creatinine 1.60 H (0.52-1.04) mg/dL Glucose 241 H (74-99) mg/dL POC Glucose (mg/dL) (75-99) mg/dL AST 366 H (14-36) U/L ALT 276 H (4-34) U/L Alkaline Phosphatase 150 H (38-126) U/L 08/05/21 08/05/21 08/05/21 Range/Units 07:42 07:42 08:29 RBC 3.38 L (3.80-5.40) m/uL Hgb 10.2 L (11.4-16.0) gm/dL Hct 33.1 L (34.0-46.0) % MCHC 30.8 L (31.0-37.0) g/dL RDW 15.6 H (11.5-15.5) % Lymphocytes # 0.7 L (1.0-4.8) k/uL PT 12.7 H (9.0-12.0) sec INR 1.2 H (<1.2) BUN (7-17) mg/dL Creatinine (0.52-1.04) mg/dL Glucose (74-99) mg/dL POC Glucose (mg/dL) 211 H (75-99) mg/dL AST (14-36) U/L ALT (4-34) U/L Alkaline Phosphatase (38-126) U/L
--- NOTE | 2021-08-06 15:20 | P.PN ---
Subjective Patient was examined at bedside today she is awake alert oriented 3. She has been slightly aggressive with the RNs. She is refusing potassium after multiple attempts and admitted by myself as well as to RNs. She states that she cannot take potassium no matter what happens. She does understand the risks associated with this including arrhythmias and worsening medical condition/and/or including . Objective - Vital Signs Vital signs: Vital Signs Temp 97.7 F 08/06/21 11:33 Pulse 91 08/06/21 11:33 Resp 16 08/06/21 11:33 BP 142/80 08/06/21 11:33 Pulse Ox 95 08/06/21 11:33 Intake & Output 08/05/21 08/06/21 08/06/21 18:59 06:59 18:59 Intake Total 111 240 Output Total 600 600 Balance 111 -360 -600 Weight 79.152 kg 75.3 kg 75.3 kg Intake: Intake, IV Titration 111 Amount Diltiazem 125 mg In 111 Sodium Chloride 0.9% 100 ml @ 5 MG/HR 5 mls/hr IV .Q24H [facility] Rx#:[id number] Oral 240 Output: Urine 600 600 Other: Voiding Method Bedside Commode # Voids 2 1 # Bowel Movements 0 - Exam Gen. patient is awake alert oriented 3 Cardio normal S1/S2, irregularly irregular Respiratory no wheezing or rhonchi appreciated-currently on 2 L nasal cannula Abdomen is soft, nontender positive bowel sounds Extremities pressure ulcer on the left heel no erythema or drainage-dressing was removed Psych patient slightly anxious however normal - Labs CBC & Chem 7: 08/06/21 06:29 08/06/21 06:29 Labs: Abnormal Lab Results - Last 24 Hours (Table) 08/05/21 08/05/21 08/06/21 Range/Units 16:33 20:37 06:29 RBC 3.03 L (3.80-5.40) m/uL Hgb 9.1 L (11.4-16.0) gm/dL Hct 29.6 L (34.0-46.0) % MCHC 30.8 L (31.0-37.0) g/dL RDW 15.7 H (11.5-15.5) % Lymphocytes # 0.7 L (1.0-4.8) k/uL PT (9.0-12.0) sec INR (<1.2) Potassium (3.5-5.1) mmol/L Carbon Dioxide (22-30) mmol/L BUN (7-17) mg/dL Creatinine (0.52-1.04) mg/dL Glucose (74-99) mg/dL POC Glucose (mg/dL) 284 H 275 H (75-99) mg/dL Calcium (8.4-10.2) mg/dL 08/06/21 08/06/21 08/06/21 Range/Units 06:29 06:29 06:31 RBC (3.80-5.40) m/uL Hgb (11.4-16.0) gm/dL Hct (34.0-46.0) % MCHC (31.0-37.0) g/dL RDW (11.5-15.5) % Lymphocytes # (1.0-4.8) k/uL PT 13.6 H (9.0-12.0) sec INR 1.3 H (<1.2) Potassium 2.8 L (3.5-5.1) mmol/L Carbon Dioxide 35 H (22-30) mmol/L BUN 20 H (7-17) mg/dL Creatinine 1.42 H (0.52-1.04) mg/dL Glucose 212 H (74-99) mg/dL POC Glucose (mg/dL) 231 H (75-99) mg/dL Calcium 8.1 L (8.4-10.2) mg/dL Assessment and Plan Assessment: Assessment: #1 acute respiratory distress secondary to congestive heart failure exacerbation? #2 atrial fibrillation with RVR #3 essential hypertension #4 chronic kidney disease #5 diabetes mellitus #6 GERD #7 chest pain rule out ACS #8 transaminitis secondary to fluid overload most likely? Plan: -Admit to medicine for close monitoring -Aspiration/fall precaution -2-D echocardiogram reviewed. -Transitioned to metoprolol 50 twice a day -Continue to monitor creatinine level baseline between 1.3-1.5 -Continue to monitor LFTs most likely related to congestion. Ultrasound reviewed suggesting either hepatic steatosis or hepatocellular disease. Recommend outpatient follow-up with PCP as well. -Strict input/output, low-sodium diet, fluid restrict to less than 1.4 L -Cardiology recommending diuresis for another 24 hours. -Patient is refusing potassium replacement after multiple times by myself as well as to RNs. -DVT prophylaxis L course 2.5 twice a day-patient should ideally be on 5 mg twi ce a day we'll coordinate her cardio.
[2021-08-06 16:35] LABS: Glucose,Whole Blood 213 mg/dL (75-99)
[2021-08-06] MEDS: INSULIN ASPART (NovoLOG) 100 UNIT/ML VIAL SQ SCH ×2 (16:58→20:35)
[2021-08-06] MEDS: MONTELUKAST 10 MG TAB PO SCH (17:03)
[2021-08-06] MEDS: ATORVASTATIN 40 MG TAB PO SCH (17:03)
[2021-08-06 20:32] LABS: Glucose,Whole Blood 181 mg/dL (75-99)
[2021-08-06] MEDS: MELATONIN 5 MG TABLET PO SCH (20:32)
[2021-08-07] MEDS: NITROGLYCERIN OINT 1 INCH/GM PACKET TOPICAL SCH ×4 (01:16→17:12)
[2021-08-07] MEDS ORDERED: HALOPERIDOL LACTATE 5 MG/ML 1 ML VIAL IM STA (01:27)
[2021-08-07] MEDS: FUROSEMIDE 10 MG/ML 4 ML VIAL IV SCH ×3 (06:00→20:37)
[2021-08-07] MEDS: cloNIDine HCL 0.2 MG TAB PO SCH ×3 (06:00→20:37)
[2021-08-07] MEDS: INSULIN ASPART (NovoLOG) 100 UNIT/ML VIAL SQ SCH ×4 (06:04→20:38)
[2021-08-07 06:30] LABS: Glucose,Whole Blood 122 mg/dL (75-99)
[2021-08-07 09:20] LABS: Albumin 3.2 g/dL (3.5-5.0); Calcium 8.4 mg/dL (8.4-10.2); Total Bilirubin 0.9 mg/dL (0.2-1.3)
[2021-08-07 09:22] LABS: Potassium 2.7 mmol/L (3.5-5.1)
[2021-08-07] MEDS ORDERED: Potassium Replacement Protocol 1 EACH MISC MISCELLANE PRN (09:24)
[2021-08-07 09:35] LABS: Basophils % (A) 0 %; Eosinophils # (A) 0.1 k/uL (0-0.7); Eosinophils % (A) 2 %; HGB 10.5 gm/dL (11.4-16.0); Hypochromasia Moderate; Lymphocytes # (A) 0.8 k/uL (1.0-4.8); Lymphocytes % (A) 10 %; MCH 29.9 pg (25.0-35.0); MCHC 30.9 g/dL (31.0-37.0); MCV 96.5 fL (80.0-100.0); Mean Platelet Volume 7.3; Monocytes # (A) 0.7 k/uL (0-1.0); Monocytes % (A) 9 %; Neutrophils # (A) 5.8 k/uL (1.3-7.7); Neutrophils % (A) 75 %; Platelet Count 283 k/uL (150-450); RBC 3.52 m/uL (3.80-5.40); RDW 15.6 % (11.5-15.5); WBC 7.7 k/uL (3.8-10.6)
[2021-08-07] MEDS: ASPIRIN 81 MG PO SCH (09:45)
[2021-08-07] MEDS: ISOSORBIDE MONONITRATE ER 30 MG TAB.ER.24H PO SCH (09:45)
[2021-08-07] MEDS: INSULIN DETEMIR (LEVEMIR) 100 UNIT/ML SYR SQ SCH ×2 (09:45→20:40)
[2021-08-07] MEDS: lisinopriL 10 MG TAB PO SCH (09:45)
[2021-08-07] MEDS: FERROUS SULFATE 325 MG TAB PO SCH ×2 (09:45→17:05)
[2021-08-07] MEDS: AMIODARONE 200 MG TAB PO SCH (09:45)
[2021-08-07] MEDS: DOCUSATE 100 MG CAP PO SCH ×2 (09:45→17:09)
[2021-08-07] MEDS: SODIUM BICARBONATE TAB 650 MG TAB PO SCH ×2 (09:46→17:09)
[2021-08-07] MEDS: FAMOTIDINE 20 MG TAB PO SCH (09:46)
[2021-08-07] MEDS: APIXABAN 2.5 MG TABLET PO SCH ×2 (09:46→17:05)
[2021-08-07] MEDS: METOPROLOL TARTRATE 50 MG TAB PO SCH ×2 (09:46→20:37)
[2021-08-07] MEDS: buPROPion SR 150 MG TABLET.ER PO SCH ×2 (09:47→20:40)
[2021-08-07] MEDS: POTASSIUM CHLORIDE ER 20 MEQ TAB.ER PO SCH ×3 (09:51→17:12)
[2021-08-07 11:43] LABS: Glucose,Whole Blood 200 mg/dL (75-99)
--- NOTE | 2021-08-07 11:56 | P.PN ---
Subjective Progress Note Date: 08/07/21 This is a 76-year-old female past medical history of chronic kidney disease (patient did require dialysis during hospitalization in 03/2021 at [facility] due to worsening renal function and metabolic encephalopathy, Permacath not removed), hypertension, hyperlipidemia, colon cancer status post surgical res ection, type 2 diabetes, Covid 19 pneumonia in 02/2021, persistent atrial fibrillation on Eliquis. She follows in the office with Dr. Abdalla. We have asked to see in consultation for congestive heart failure, chest pain, atrial fibrillation with RVR. She resides in a [place] [facility]. She was brought to the hospital from nursing facility due to complaints of chest pain. On discharge from [facility] to the facility she states she was not placed on Lasix on discharge. Telemetry reviewed patient remains in atrial fibrillation with a controlled ventricular rate. She reports her breathing is better today and feels better. She denies chest pain or shortness of breath at rest. And shortness of breath has improved with activity. Edema has improved as well. She is on Eliquis for anticoagulation. She remains on Lasix 40 mg every 8. Creatinine has improved today at 1.4. She's currently maintained on amiodarone Eliquis aspirin atorvastatin IV Lasix Imdur lisinopril Toprol Objective - Vital Signs Vital signs: Vital Signs Temp 98 F 08/07/21 09:40 Pulse 107 H 08/07/21 09:40 Resp 20 08/07/21 09:40 BP 170/87 08/07/21 09:40 Pulse Ox 98 08/07/21 09:40 Intake & Output 08/06/21 08/07/21 08/07/21 18:59 06:59 18:59 Intake Total 240 0 Output Total 1250 900 700 Balance -1010 -900 -700 Weight 75.3 kg 75.3 kg Intake: Oral 240 0 Output: Urine 1250 900 700 Other: Voiding Method Bedside Commode Bedside Commode - Exam GENERAL: In no acute distress. NECK: Supple without JVD or thyromegaly. LUNGS: Breath sounds crackles in the bilateral bases to auscultation bilaterally. Some wheezing left lower lobe. Respiration equal and unlabored. HEART: Irregular rate and rhythm, systolic ejection murmur, No rubs or gallops. S1 and S2 heard. EXTREMITIES: Normal range of motion, no edema. No clubbing or cyanosis. Peripheral pulses intact. - Labs CBC & Chem 7: 08/07/21 08:33 08/07/21 08:28 Labs: Abnormal Lab Results - Last 24 Hours (Table) 08/06/21 08/06/21 08/07/21 Range/Units 16:34 20:31 06:04 RBC (3.80-5.40) m/uL Hgb (11.4-16.0) gm/dL MCHC (31.0-37.0) g/dL RDW (11.5-15.5) % Lymphocytes # (1.0-4.8) k/uL Potassium (3.5-5.1) mmol/L Chloride (98-107) mmol/L Carbon Dioxide (22-30) mmol/L BUN (7-17) mg/dL Creatinine (0.52-1.04) mg/dL Glucose (74-99) mg/dL POC Glucose (mg/dL) 213 H 181 H 122 H (75-99) mg/dL AST (14-36) U/L ALT (4-34) U/L Total Protein (6.3-8.2) g/dL Albumin (3.5-5.0) g/dL 08/07/21 08/07/21 Range/Units 08:28 08:33 RBC 3.52 L (3.80-5.40) m/uL Hgb 10.5 L (11.4-16.0) gm/dL MCHC 30.9 L (31.0-37.0) g/dL RDW 15.6 H (11.5-15.5) % Lymphocytes # 0.8 L (1.0-4.8) k/uL Potassium 2.7 L* (3.5-5.1) mmol/L Chloride 96 L (98-107) mmol/L Carbon Dioxide 35 H (22-30) mmol/L BUN 18 H (7-17) mg/dL Creatinine 1.40 H (0.52-1.04) mg/dL Glucose 107 H (74-99) mg/dL POC Glucose (mg/dL) (75-99) mg/dL AST 72 H (14-36) U/L ALT 119 H (4-34) U/L Total Protein 6.0 L (6.3-8.2) g/dL Albumin 3.2 L (3.5-5.0) g/dL Assessment and Plan Assessment: Precordial chest pain Persistent atrial fibrillation New onset acute congestive heart failure with preserved ejection fraction, borderline EF 45-50% Chronic kidney disease History of hypertension Hyperlipidemia History of colon cancer status post surgical resection Type 2 diabetes Covid-19 Pneumonia in 02/2021 Hypokalemia Plan: We recommend continuing decreasing Lasix to 40 mg IV every 12 and possibly transitioning to by mouth tomorrow based on patient's clinical course Continue other cardiac medications 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 Replace potassium pre protocol Further recommendations based on clinical course Nurse Practitioner note has been reviewed, I agree with a documented findings and plan of care. Patient was seen and examined.
--- NOTE | 2021-08-07 13:32 | P.PN ---
Subjective Patient was examined at bedside today not complaining of any new symptomatology. Denies any chest pain, shortness of breath or palpitations. Case discussed with project management engineer. Objective - Vital Signs Vital signs: Vital Signs Temp 98 F 08/07/21 09:40 Pulse 107 H 08/07/21 09:40 Resp 20 08/07/21 09:40 BP 170/87 08/07/21 09:40 Pulse Ox 98 08/07/21 09:40 Intake & Output 08/06/21 08/07/21 08/07/21 18:59 06:59 18:59 Intake Total 240 0 Output Total 1250 900 700 Balance -1010 -900 -700 Weight 75.3 kg 75.3 kg Intake: Oral 240 0 Output: Urine 1250 900 700 Other: Voiding Method Bedside Commode Bedside Commode - Exam Gen. patient is awake alert oriented 3 Cardio normal S1/S2, irregularly irregular Respiratory no wheezing or rhonchi appreciated-currently on 2 L nasal cannula Abdomen is soft, nontender positive bowel sounds Extremities pressure ulcer on the left heel no erythema or drainage-dressing was removed Psych patient slightly anxious however normal - Labs CBC & Chem 7: 08/07/21 08:33 08/07/21 08:28 Labs: Abnormal Lab Results - Last 24 Hours (Table) 08/06/21 08/06/21 08/07/21 Range/Units 16:34 20:31 06:04 RBC (3.80-5.40) m/uL Hgb (11.4-16.0) gm/dL MCHC (31.0-37.0) g/dL RDW (11.5-15.5) % Lymphocytes # (1.0-4.8) k/uL Potassium (3.5-5.1) mmol/L Chloride (98-107) mmol/L Carbon Dioxide (22-30) mmol/L BUN (7-17) mg/dL Creatinine (0.52-1.04) mg/dL Glucose (74-99) mg/dL POC Glucose (mg/dL) 213 H 181 H 122 H (75-99) mg/dL AST (14-36) U/L ALT (4-34) U/L Total Protein (6.3-8.2) g/dL Albumin (3.5-5.0) g/dL 0308/07/21 08/07/21 Range/Units 08:28 08:33 11:42 RBC 3.52 L (3.80-5.40) m/uL Hgb 10.5 L (11.4-16.0) gm/dL MCHC 30.9 L (31.0-37.0) g/dL RDW 15.6 H (11.5-15.5) % Lymphocytes # 0.8 L (1.0-4.8) k/uL Potassium 2.7 L* (3.5-5.1) mmol/L Chloride 96 L (98-107) mmol/L Carbon Dioxide 35 H (22-30) mmol/L BUN 18 H (7-17) mg/dL Creatinine 1.40 H (0.52-1.04) mg/dL Glucose 107 H (74-99) mg/dL POC Glucose (mg/dL) 200 H (75-99) mg/dL AST 72 H (14-36) U/L ALT 119 H (4-34) U/L Total Protein 6.0 L (6.3-8.2) g/dL Albumin 3.2 L (3.5-5.0) g/dL Assessment and Plan Assessment: Assessment: #1 acute respiratory distress secondary to congestive heart failure exacerbation #2 atrial fibrillation with RVR #3 essential hypertension #4 chronic kidney disease #5 diabetes mellitus #6 GERD #7 chest pain rule out ACS #8 transaminitis secondary to fluid overload most likely? Plan: -Admit to medicine for close monitoring -Aspiration/fall precaution -2-D echocardiogram reviewed. -Transitioned to metoprolol 50 twice a day -Continue to monitor creatinine level baseline between 1.3-1.5 -LFTs are transitioning down most likely related to congestion. Recommend follow-up palpation as well. -Strict input/output, low-sodium diet, fluid restrict to less than 1.4 L -Cardiology recommending diuresis for another 24 hours. -Patient is refusing potassium replacement after multiple times by myself as well as to RNs. -DVT prophylaxis 2.5 twice a day-patient should ideally be on 5 mg twice a day we'll coordinate her cardio.
[2021-08-07 16:30] LABS: Glucose,Whole Blood 94 mg/dL (75-99)
[2021-08-07] MEDS: MONTELUKAST 10 MG TAB PO SCH (17:05)
[2021-08-07] MEDS: ATORVASTATIN 40 MG TAB PO SCH (17:09)
[2021-08-07 20:27] LABS: Glucose,Whole Blood 225 mg/dL (75-99)
[2021-08-07] MEDS: HYDROcodone/APAP 5-325MG 1 EACH TAB PO PRN (20:37)
[2021-08-07] MEDS: MELATONIN 5 MG TABLET PO SCH (20:37)
[2021-08-08] MEDS: NITROGLYCERIN OINT 1 INCH/GM PACKET TOPICAL SCH ×2 (04:24→09:28)
[2021-08-08] MEDS: FUROSEMIDE 10 MG/ML 4 ML VIAL IV SCH (05:45)
[2021-08-08] MEDS: cloNIDine HCL 0.2 MG TAB PO SCH ×3 (05:45→20:48)
[2021-08-08 06:06] LABS: Glucose,Whole Blood 41 mg/dL (75-99)
[2021-08-08] MEDS: INSULIN ASPART (NovoLOG) 100 UNIT/ML VIAL SQ SCH ×4 (06:16→20:48)
[2021-08-08 06:26] LABS: Glucose,Whole Blood 88 mg/dL (75-99)
[2021-08-08] MEDS: ISOSORBIDE MONONITRATE ER 30 MG TAB.ER.24H PO SCH (09:22)
[2021-08-08] MEDS: APIXABAN 2.5 MG TABLET PO SCH ×2 (09:22→17:26)
[2021-08-08] MEDS: FAMOTIDINE 20 MG TAB PO SCH (09:22)
[2021-08-08] MEDS: buPROPion SR 150 MG TABLET.ER PO SCH ×2 (09:23→20:47)
[2021-08-08] MEDS: DOCUSATE 100 MG CAP PO SCH ×2 (09:23→17:26)
[2021-08-08] MEDS: INSULIN DETEMIR (LEVEMIR) 100 UNIT/ML SYR SQ SCH ×2 (09:23→20:47)
[2021-08-08] MEDS: FERROUS SULFATE 325 MG TAB PO SCH ×2 (09:23→17:26)
[2021-08-08] MEDS: METOPROLOL TARTRATE 50 MG TAB PO SCH ×2 (09:23→20:48)
[2021-08-08] MEDS: SODIUM BICARBONATE TAB 650 MG TAB PO SCH ×2 (09:23→17:26)
[2021-08-08] MEDS: lisinopriL 10 MG TAB PO SCH (09:23)
[2021-08-08] MEDS: AMIODARONE 200 MG TAB PO SCH (09:23)
[2021-08-08] MEDS: ASPIRIN 81 MG PO SCH (09:32)
[2021-08-08 09:37] LABS: Basophils % (A) 0 %; Eosinophils # (A) 0.1 k/uL (0-0.7); Eosinophils % (A) 2 %; HCT 35.4 % (34.0-46.0); HGB 10.5 gm/dL (11.4-16.0); Hypochromasia Marked; Lymphocytes # (A) 0.7 k/uL (1.0-4.8); Lymphocytes % (A) 10 %; MCH 28.6 pg (25.0-35.0); MCHC 29.6 g/dL (31.0-37.0); MCV 96.5 fL (80.0-100.0); Monocytes # (A) 0.5 k/uL (0-1.0); Monocytes % (A) 7 %; Neutrophils # (A) 5.6 k/uL (1.3-7.7); Neutrophils % (A) 76 %; Platelet Count 287 k/uL (150-450); RBC 3.67 m/uL (3.80-5.40); WBC 7.3 k/uL (3.8-10.6)
[2021-08-08 09:57] LABS: Calcium 8.3 mg/dL (8.4-10.2); Potassium 3.1 mmol/L (3.5-5.1)
--- NOTE | 2021-08-08 10:31 | P.PN ---
Subjective Patient was examined at bedside today not complaining of any new symptomatology. I asked if she had any shortness of breath states that she does not want to repeat the same question asked multiple times by other people. She is saturating above 92% on room air case discussed with RN present at bedside. She continues to refuse potassium supplements despite going over the risks associated with hypokalemia including arrhythmia and . She is aware and states that she will never take potassium supplements. Objective - Vital Signs Vital signs: Vital Signs Temp 97.7 F 08/08/21 09:20 Pulse 96 08/08/21 09:20 Resp 20 08/08/21 09:20 BP 138/82 08/08/21 09:20 Pulse Ox 92 L 08/08/21 09:20 Intake & Output 08/07/21 08/08/21 08/08/21 17:59 06:59 18:59 Intake Total 180 Output Total Balance 180 Weight Intake: Oral 180 Output: Urine Other: Voiding Method # Voids - Exam Gen. patient is awake alert oriented 3 Cardio normal S1/S2, irregularly irregular Respiratory no wheezing or rhonchi appreciated-currently on 2 L nasal cannula Abdomen is soft, nontender positive bowel sounds Extremities pressure ulcer on the left heel no erythema or drainage-dressing was removed, no pitting edema noted Psych patient slightly anxious however normal - Labs CBC & Chem 7: 08/08/21 09:00 08/08/21 09:00 Labs: Abnormal Lab Results - Last 24 Hours (Table) 08/07/21 08/07/21 08/07/21 Range/Units 08:33 11:42 20:26 RBC 3.52 L (3.80-5.40) m/uL Hgb 10.5 L (11.4-16.0) gm/dL MCHC 30.9 L (31.0-37.0) g/dL RDW 15.6 H (11.5-15.5) % Lymphocytes # 0.8 L (1.0-4.8) k/uL Potassium (3.5-5.1) mmol/L Chloride (98-107) mmol/L Carbon Dioxide (22-30) mmol/L BUN (7-17) mg/dL Creatinine (0.52-1.04) mg/dL POC Glucose (mg/dL) 200 H 225 H (75-99) mg/dL Calcium (8.4-10.2) mg/dL 08/08/21 08/08/21 08/08/21 Range/Units 06:05 09:00 09:00 RBC 3.67 L (3.80-5.40) m/uL Hgb 10.5 L (11.4-16.0) gm/dL MCHC 29.6 L (31.0-37.0) g/dL RDW 16.0 H (11.5-15.5) % Lymphocytes # 0.7 L (1.0-4.8) k/uL Potassium 3.1 L (3.5-5.1) mmol/L Chloride 97 L (98-107) mmol/L Carbon Dioxide 38 H (22-30) mmol/L BUN 18 H (7-17) mg/dL Creatinine 1.61 H (0.52-1.04) mg/dL POC Glucose (mg/dL) 41 L (75-99) mg/dL Calcium 8.3 L (8.4-10.2) mg/dL Assessment and Plan Assessment: Assessment: #1 acute respiratory distress secondary to congestive heart failure exacerbation #2 atrial fibrillation currently rate controlled on anticoagulation #3 congestive heart failure with preserved ejection fraction NYHA class III Stage C #4 chronic kidney disease #5 diabetes mellitus #6 GERD #7 chest pain rule out ACS #8 transaminitis secondary to fluid overload most likely? Plan: -Admit to medicine for close monitoring -Aspiration/fall precaution -I will discontinue IV Lasix 40 mg 3 times a day and transitioned to 40 mg daily patient is euvolemic. -2-D echocardiogram reviewed. -Transitioned to metoprolol 50 twice a day -Continue to monitor creatinine level baseline between 1.3-1.5 -LFTs are transitioning down most likely related to congestion. Recommend follow-up outpatient. -Strict input/output, low-sodium diet, fluid restrict to less than 1.4 L -Patient is refusing potassium replacement after multiple times by myself as well as to RNs. -Disposition anticipate discharge pending authorization by case management. -DVT prophylaxis 2.5 twice a day-patient should ideally be on 5 mg twice a day we'll coordinate her cardio.
[2021-08-08] MEDS ORDERED: Potassium Replacement Protocol 1 EACH MISC MISCELLANE PRN (11:21)
[2021-08-08 11:39] LABS: Glucose,Whole Blood 197 mg/dL (75-99)
--- NOTE | 2021-08-08 12:52 | P.PN ---
Subjective Progress Note Date: 08/08/21 This is a 76-year-old female past medical history of chronic kidney disease (patient did require dialysis during hospitalization in 03/2021 at [facility] due to worsening renal function and metabolic encephalopathy, Permacath not removed), hypertension, hyperlipidemia, colon cancer status post surgical res ection, type 2 diabetes, Covid 19 pneumonia in 02/2021, persistent atrial fibrillation on Eliquis. She follows in the office with Dr. Abdalla. We have asked to see in consultation for congestive heart failure, chest pain, atrial fibrillation with RVR. She resides in a long-term. She was brought to the hospital from nursing facility due to complaints of chest pain. On discharge from [facility] to the facility she states she was not placed on Lasix on discharge. Telemetry reviewed she is atrial fibrillation with a controlled ventricular rate. She denies shortness of breath, chest pain, and improved lower extremity edema. She is on Eliquis for anticoagulation. Patient will be transitioned to oral Lasix Creatinine has improved today at 1.6. Potassium is 3.1 and has been supplemented She's currently maintained on amiodarone Eliquis aspirin atorvastatin Lasix Imdur lisinopril Toprol Objective - Vital Signs Vital signs: Vital Signs Temp 97.7 F 08/08/21 09:20 Pulse 96 08/08/21 09:20 Resp 20 08/08/21 09:20 BP 138/82 08/08/21 09:20 Pulse Ox 92 L 08/08/21 09:20 Intake & Output 08/07/21 08/08/21 08/08/21 17:59 06:59 18:59 Intake Total 180 Output Total Balance 180 Weight Intake: Oral 180 Output: Urine Other: Voiding Method Bedside Commode # Voids - Exam GENERAL: In no acute distress. NECK: Supple without JVD or thyromegaly. LUNGS: Breath sounds crackles in the bilateral bases to auscultation bilaterally. Some wheezing left lower lobe. Respiration equal and unlabored. HEART: Irregular rate and rhythm, systolic ejection murmur, No rubs or gallops. S1 and S2 heard. EXTREMITIES: Normal range of motion, no edema. No clubbing or cyanosis. Peripheral pulses intact. - Labs CBC & Chem 7: 08/08/21 09:00 08/08/21 09:00 Labs: Abnormal Lab Results - Last 24 Hours (Table) 08/07/21 08/08/21 08/08/21 Range/Units 20:26 06:05 09:00 RBC 3.67 L (3.80-5.40) m/uL Hgb 10.5 L (11.4-16.0) gm/dL MCHC 29.6 L (31.0-37.0) g/dL RDW 16.0 H (11.5-15.5) % Lymphocytes # 0.7 L (1.0-4.8) k/uL Potassium (3.5-5.1) mmol/L Chloride (98-107) mmol/L Carbon Dioxide (22-30) mmol/L BUN (7-17) mg/dL Creatinine (0.52-1.04) mg/dL POC Glucose (mg/dL) 225 H 41 L (75-99) mg/dL Calcium (8.4-10.2) mg/dL 08/08/21 08/08/21 Range/Units 09:00 11:37 RBC (3.80-5.40) m/uL Hgb (11.4-16.0) gm/dL MCHC (31.0-37.0) g/dL RDW (11.5-15.5) % Lymphocytes # (1.0-4.8) k/uL Potassium 3.1 L (3.5-5.1) mmol/L Chloride 97 L (98-107) mmol/L Carbon Dioxide 38 H (22-30) mmol/L BUN 18 H (7-17) mg/dL Creatinine 1.61 H (0.52-1.04) mg/dL POC Glucose (mg/dL) 197 H (75-99) mg/dL Calcium 8.3 L (8.4-10.2) mg/dL Assessment and Plan Assessment: Precordial chest pain Persistent atrial fibrillation New onset acute congestive heart failure with preserved ejection fraction, borderline EF 45-50% Chronic kidney disease History of hypertension Hyperlipidemia History of colon cancer status post surgical resection Type 2 diabetes Covid-19 Pneumonia in 02/2021 Hypokalemia Plan: Patient will be transitioned to oral Lasix Continue other cardiac medications 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 Replace potassium Expected discharge in the next 24 hours Further recommendations based on clinical course Nurse Practitioner note has been reviewed, I agree with a documented findings and plan of care. Patient was seen and examined.
[2021-08-08] MEDS: POTASSIUM CHLORIDE ER 20 MEQ TAB.ER PO SCH ×2 (13:22→17:25)
[2021-08-08 16:33] LABS: Glucose,Whole Blood 139 mg/dL (75-99)
[2021-08-08] MEDS: MONTELUKAST 10 MG TAB PO SCH (17:25)
[2021-08-08] MEDS: ATORVASTATIN 40 MG TAB PO SCH (17:26)
[2021-08-08] MEDS: HYDROcodone/APAP 5-325MG 1 EACH TAB PO PRN (17:36)
[2021-08-08 20:06] LABS: Glucose,Whole Blood 111 mg/dL (75-99)
[2021-08-08] MEDS: MELATONIN 5 MG TABLET PO SCH (20:48)
[2021-08-09 06:02] LABS: Glucose,Whole Blood 176 mg/dL (75-99)
[2021-08-09] MEDS: cloNIDine HCL 0.2 MG TAB PO SCH ×3 (06:11→20:54)
[2021-08-09] MEDS: INSULIN ASPART (NovoLOG) 100 UNIT/ML VIAL SQ SCH ×4 (06:12→20:55)
[2021-08-09] MEDS: DOCUSATE 100 MG CAP PO SCH ×2 (09:02→17:15)
[2021-08-09] MEDS: buPROPion SR 150 MG TABLET.ER PO SCH ×2 (09:02→20:53)
[2021-08-09] MEDS: METOPROLOL TARTRATE 50 MG TAB PO SCH ×2 (09:03→20:53)
[2021-08-09] MEDS: SPIRONOLACTONE 25 MG TAB PO SCH (09:03)
[2021-08-09] MEDS: lisinopriL 10 MG TAB PO SCH (09:03)
[2021-08-09] MEDS: FERROUS SULFATE 325 MG TAB PO SCH ×2 (09:03→17:16)
[2021-08-09] MEDS: FUROSEMIDE 40 MG TAB PO SCH (09:03)
[2021-08-09] MEDS: ISOSORBIDE MONONITRATE ER 30 MG TAB.ER.24H PO SCH (09:03)
[2021-08-09] MEDS: ASPIRIN 81 MG PO SCH (09:03)
[2021-08-09] MEDS: FAMOTIDINE 20 MG TAB PO SCH (09:03)
[2021-08-09] MEDS: INSULIN DETEMIR (LEVEMIR) 100 UNIT/ML SYR SQ SCH ×2 (09:04→20:54)
[2021-08-09] MEDS: AMIODARONE 200 MG TAB PO SCH (09:04)
[2021-08-09] MEDS: APIXABAN 2.5 MG TABLET PO SCH ×2 (09:04→17:15)
[2021-08-09] MEDS: SODIUM BICARBONATE TAB 650 MG TAB PO SCH ×2 (09:04→17:15)
[2021-08-09 11:21] LABS: Glucose,Whole Blood 199 mg/dL (75-99)
--- NOTE | 2021-08-09 14:00 | P.PN ---
Subjective Progress Note Date: 08/09/21 No new complaints today. Pt is cooperative with me and willing to work with PT. Discharge planning ongoing. Gen: awake, alert HEENT: normocephalic, atraumatic, good hearing acuity, moist mucous membranes Resp: good air exchange, breathing comfortably with no accessory muscle use CVS: good distal perfusion x 4, GI: soft, NTTP, ND : no SPT, no CVAT, bobo catheter not present MSK: no pitting edema, no clubbing Neuro: non-focal, moving all extremities Psych: cooperative, euthymic mood Assessment/plan: Acute hypoxemic respiratory failure Acute on chronic systolic heart failure, EF 45-50% -Admit inpatient, telemetry -Cardiology following -Lasix transitioned to by mouth -Added spironolactone -Echo with EF of 45% -Continue metoprolol -Oxygen as needed -Strict ins and outs -PT consult Permanent atrial fibrillation, rate controlled Chronic kidney disease, stage IIIB Diabetes type 2 Hypertension Hyperlipidemia -Home medications reviewed and reconciled Patient is a full code Objective - Vital Signs Vital signs: Vital Signs Temp 98 F 08/09/21 08:00 Pulse 109 H 08/09/21 12:00 Resp 16 08/09/21 12:00 BP 124/81 08/09/21 12:00 Pulse Ox 98 08/09/21 12:00 Intake & Output 08/08/21 08/09/21 08/09/21 18:59 06:59 18:59 Intake Total 660 360 Balance 660 360 Weight 83 kg Intake: Oral 660 360 Other: Voiding Method Bedside Commode Bedside Commode Bedside Commode # Voids 1 # Bowel Movements 1 - Labs CBC & Chem 7: 08/08/21 09:00 08/08/21 09:00 Labs: Abnormal Lab Results - Last 24 Hours (Table) 08/08/21 08/08/21 08/09/21 Range/Units 16:32 20:04 05:57 POC Glucose (mg/dL) 139 H 111 H 176 H (75-99) mg/dL 08/09/21 Range/Units 11:15 POC Glucose (mg/dL) 199 H (75-99) mg/dL
[2021-08-09 17:06] LABS: Glucose,Whole Blood 258 mg/dL (75-99)
[2021-08-09] MEDS: ATORVASTATIN 40 MG TAB PO SCH (17:15)
[2021-08-09] MEDS: MONTELUKAST 10 MG TAB PO SCH (17:15)
[2021-08-09 20:12] LABS: Glucose,Whole Blood 322 mg/dL (75-99)
[2021-08-09] MEDS: MELATONIN 5 MG TABLET PO SCH (20:53)
[2021-08-10 06:09] LABS: Glucose,Whole Blood 72 mg/dL (75-99)
[2021-08-10] MEDS: cloNIDine HCL 0.2 MG TAB PO SCH ×2 (06:17→12:34)
[2021-08-10] MEDS: INSULIN ASPART (NovoLOG) 100 UNIT/ML VIAL SQ SCH ×2 (06:20→12:35)
[2021-08-10 08:25] VITALS: RESP 18; TEMP 97.9
[2021-08-10] MEDS: FERROUS SULFATE 325 MG TAB PO SCH (08:26)
[2021-08-10] MEDS: FAMOTIDINE 20 MG TAB PO SCH (08:26)
[2021-08-10] MEDS: FUROSEMIDE 40 MG TAB PO SCH (08:26)
[2021-08-10] MEDS: ISOSORBIDE MONONITRATE ER 30 MG TAB.ER.24H PO SCH (08:26)
[2021-08-10] MEDS: ASPIRIN 81 MG PO SCH (08:26)
[2021-08-10] MEDS: buPROPion SR 150 MG TABLET.ER PO SCH (08:27)
[2021-08-10] MEDS: METOPROLOL TARTRATE 50 MG TAB PO SCH (08:27)
[2021-08-10] MEDS: APIXABAN 2.5 MG TABLET PO SCH (08:27)
[2021-08-10] MEDS: AMIODARONE 200 MG TAB PO SCH (08:27)
[2021-08-10] MEDS: SPIRONOLACTONE 25 MG TAB PO SCH (08:27)
[2021-08-10] MEDS: DOCUSATE 100 MG CAP PO SCH (08:28)
[2021-08-10] MEDS: SODIUM BICARBONATE TAB 650 MG TAB PO SCH (08:28)
[2021-08-10] MEDS: lisinopriL 10 MG TAB PO SCH (08:28)
[2021-08-10] MEDS: INSULIN DETEMIR (LEVEMIR) 100 UNIT/ML SYR SQ SCH (08:28)
[2021-08-10 10:52] VITALS: BMI 28.3
[2021-08-10 11:48] LABS: Glucose,Whole Blood 135 mg/dL (75-99)
[2021-08-10 12:34] VITALS: BP 134/87; PULSE 95
--- NOTE | 2021-08-10 13:57 | P.CN ---
Psychiatric Consult - . Consult date: 08/10/21 Consult:: 08/10/21 12:43 patient was referred to mental health for consultation of her behavior change : a few days ago she was described as exhibiting negative affect and had difficulty to engage with the nursing. She presented with multiple medical condtions including 1. hypertension Type II diabetes 3. hyperlipidemia 4. atrial fibrillation 5. history of chronic kidney disease requring dialysis at [facility] She was referred to [facility] and was admitted to medical team CONSULTation of her CHF, chest pain , atrial fibrillation and RVR ON further inquiry, I did not find any previous note documenting mood or any otehr psychiatric disorders. When the patient was assessed in person, she was alert, oriented , maintained good eye contact. She was not in any physical distress. Earlier< I reviewed Progress note and medical history to corroborate any of her medical complaints. She was very updated regarding how various medical team members attended to her medical care. She noted that prior to her admission, she experienced dizziness for whcih she was seen by neurologist. She was aware of her multiple medical problems as listed above, but I fail to find any excessive preoccupation with her somatic issues. She was not worried about any recuirrence of her colon cancer. She was aware of her cardiac history of CHF and her recent compaint of chest pain. No history of panic attacks. No hypochondirasis. I inquied whether bupropion was precribed for her derpession or for her smoking cessation. She has quit smoking for 3 years and has not relapsed. She attributed to maintenance therapy with bupropion. I inquried into her psycho-social history. She did not elaborate much on her spouse whether he is living or . She has close relationship with her granddaughter and her support consisted of her neighbor. She claimed she was otherwise independent in her ADL She has been invovled with her primary care provider who has been semi-retired after 35 years. She has a new PCP who has moved in to the new clinic. MSE: she was pleasant cooperative with good eye contact. Affect-authymic congruent with her thought content. no psychotic symptoms of hallucinations. She did not emdorse any delusional thought no loosening of associations. Cog: no complaint of any memory issues. 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 No MDD. 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 No further psychaitric follow up > I communicated with medical yessenia PEDROZA about the outcome of my brief consultation.
--- NOTE | 2021-08-10 15:12 | P.DS ---
Providers Date of admission: 08/04/21 19:01 Expected date of discharge: 08/10/21 Attending physician: Afshan Fenton MD Consults: 08/04/21 19:01 Consult Physician Routine Consulting Provider: [facility] Consult Reason/Comments: Acute pulmonary edema, chest pain, A. fib with rapid ventricular response Do you want consulting provider notified?: Yes 08/09/21 14:00 Consult Physician Routine Consulting Provider: Gary Blanco Consult Reason/Comments: behavioral issues, aggressive Do you want consulting provider notified?: Yes Primary care physician: Stated None Hospital Course: Acute hypoxemic respiratory failure Acute on chronic systolic heart failure, EF 45-50% -Admitted inpatient, with telemetry. Cardiology followed along, patient was diuresed with Lasix IV, then transition to by mouth Lasix. Echocardiogram was done and showed an ejection fraction of 45%. Patient had episodes of hypokalemia, but refused potassium supplements, was started on spironolactone for both hypokalemia as well as heart failure with reduced ejection fraction. Patient was returned to room air by the time of discharge. PT consult recommended half-way facility for rehab. Patient was subsequent sent to [facility]. Permanent atrial fibrillation, rate controlled Chronic kidney disease, stage IIIB Diabetes type 2 Hypertension Hyperlipidemia -Home medications reviewed and reconciled, notable changes include the addition of Lasix and Aldactone to her home regimen. I spent 45 minutes coordinating this complex discharge Gen: awake, alert HEENT: normocephalic, atraumatic, good hearing acuity, moist mucous membranes Resp: good air exchange, breathing comfortably with no accessory muscle use CVS: good distal perfusion x 4, GI: soft, NTTP, ND : no SPT, no CVAT, bobo catheter not present MSK: no pitting edema, no clubbing Neuro: non-focal, moving all extremities Psych: cooperative, euthymic mood Patient Condition at Discharge: Good Plan - Discharge Summary Discharge Rx Participant: No New Discharge Prescriptions: New Spironolactone [Aldactone] 25 mg PO DAILY #30 tab Furosemide [Lasix] 40 mg PO DAILY #30 tab Continue cloNIDine HCL 0.2 mg PO TID@0500,1300,2100 Sodium Bicarbonate 650 mg PO BID@0800,1600 Ferrous Sulfate [Iron (65 MG Elemental)] 325 mg PO BID@0800,1600 Multivitamins, Thera [Multivitamin (formulary)] 1 tab PO DAILY@0800 Lisinopril [Prinivil] 10 mg PO DAILY@0800 Isosorbide Mononitrate [Isosorbide Mononitrate ER] 30 mg PO DAILY@0800 Amiodarone HCl [Pacerone] 200 mg PO DAILY@0800 Docusate [Colace] 100 mg PO BID@0800,1600 Cholecalciferol [Vitamin D3 (125 Mcg = 5000 Iu)] 125 mcg PO DAILY@0800 Sennosides [Senna] 8.6 mg PO BID PRN PRN Reason: Constipation Insulin Aspart 5 units SQ TID-W/MEALS Vit C/E/Zn/Coppr/Lutein/Zeaxan [Preservision Areds 2 Softgel] 1 tab PO BID@0800,1600 Sodium Chloride [Saline Nasal Arnot] 2 spray EA NOSTRIL BID@0800,1600 polyethylene glycoL 3350 [Miralax] 17 gm PO DAILY@1600 Montelukast [Singulair] 10 mg PO DAILY@1600 Melatonin 10 mg PO DAILY@1600 Famotidine [Pepcid] 20 mg PO DAILY@0800 Ciclopirox Solution 8% 1 applic TOPICAL HS@2000 Atorvastatin [Lipitor] 40 mg PO DAILY@1600 Aspirin EC [Ecotrin Low Dose] 81 mg PO DAILY@0800 Apixaban [Eliquis] 2.5 mg PO BID@0800,1600 buPROPion HCL [Wellbutrin SR] 150 mg PO BID@0800,2000 Insulin Aspart See Protocol SQ AC-TID Ondansetron [Zofran] 4 mg PO Q6H PRN PRN Reason: Nausea HYDROcodone/APAP 5-325MG [[place] 5-325] 1 tab PO Q6H PRN PRN Reason: Pain Meclizine [Antivert] 12.5 mg PO Q8H PRN PRN Reason: Vertigo Lactulose 20 gm PO DAILY PRN PRN Reason: Constipation Simethicone [Simethicone Chew] 80 mg PO Q4H PRN PRN Reason: Heartburn Changed Insulin Detemir [Levemir Flextouch Pen] 3 units SQ BID@08,1999 #0 Metoprolol Tartrate [Lopressor] 50 mg PO BID@08,1999 #120 tab Discharge Medication List Amiodarone HCl [Pacerone] 200 mg PO DAILY@0800 08/04/21 [History] Apixaban [Eliquis] 2.5 mg PO BID@0800,1600 08/04/21 [History] Aspirin EC [Ecotrin Low Dose] 81 mg PO DAILY@0800 08/04/21 [History] Atorvastatin [Lipitor] 40 mg PO DAILY@1600 08/04/21 [History] Cholecalciferol [Vitamin D3 (125 Mcg = 5000 Iu)] 125 mcg PO DAILY@0808/04/21 [History] Ciclopirox Solution 8% 1 applic TOPICAL HS@199908/04/21 [History] Docusate [Colace] 100 mg PO BID@0800,1600 08/04/21 [History] Famotidine [Pepcid] 20 mg PO DAILY@0800 08/04/21 [History] Ferrous Sulfate [Iron (65 MG Elemental)] 325 mg PO BID@0800,1600 08/04/21 [History] HYDROcodone/APAP 5-325MG [[place] 5-325] 1 tab PO Q6H PRN 08/04/21 [History] Insulin Aspart 5 units SQ TID-W/MEALS 08/04/21 [History] Insulin Aspart See Protocol SQ AC-TID 08/04/21 [History] Isosorbide Mononitrate [Isosorbide Mononitrate ER] 30 mg PO DAILY@0800 08/04/21 [History] Lactulose 20 gm PO DAILY PRN 08/04/21 [History] Lisinopril [Prinivil] 10 mg PO DAILY@0800 08/04/21 [History] Meclizine [Antivert] 12.5 mg PO Q8H PRN 08/04/21 [History] Melatonin 10 mg PO DAILY@1600 08/04/21 [History] Montelukast [Singulair] 10 mg PO DAILY@1600 08/04/21 [History] Multivitamins, Thera [Multivitamin (formulary)] 1 tab PO DAILY@0800 08/04/21 [History] Ondansetron [Zofran] 4 mg PO Q6H PRN 08/04/21 [History] Sennosides [Senna] 8.6 mg PO BID PRN 08/04/21 [History] Simethicone [Simethicone Chew] 80 mg PO Q4H PRN 08/04/21 [History] Sodium Bicarbonate 650 mg PO BID@0800,1600 08/04/21 [History] Sodium Chloride [Saline Nasal Arnot] 2 spray EA NOSTRIL BID@0800,1600 08/04/21 [History] Vit C/E/Zn/Coppr/Lutein/Zeaxan [Preservision Areds 2 Softgel] 1 tab PO BID@0800,159908/04/21 [History] buPROPion HCL [Wellbutrin SR] 150 mg PO BID@0800,199908/04/21 [History] cloNIDine HCL 0.2 mg PO TID@0500,1300,2100 08/04/21 [History] polyethylene glycoL 3350 [Miralax] 17 gm PO DAILY@159908/04/21 [History] Furosemide [Lasix] 40 mg PO DAILY #30 tab 08/09/21 [Rx] Insulin Detemir [Levemir Flextouch Pen] 3 units SQ BID@799,1999 #0 08/09/21 [Rx] Metoprolol Tartrate [Lopressor] 50 mg PO BID@08,1999 #120 tab 08/09/21 [Rx] Spironolactone [Aldactone] 25 mg PO DAILY #30 tab 08/09/21 [Rx] Follow up Appointment(s)/Referral(s): Marilia Abdalla MD [STAFF PHYSICIAN] - 2 Weeks None,Stated [Primary Care Provider] - 1-2 days Discharge Disposition: TRANSFER TO SNF/ECF
[2021-08-10] MEDS ORDERED: HALOPERIDOL LACTATE 5 MG/ML 1 ML VIAL IM PRN (16:43)
[2021-08-10 16:53] LABS: Glucose,Whole Blood 233 mg/dL (75-99)
== END 2021-08-10 19:50 | DRG 291 ==
LOC: EC 17:06 → 3SCARD 19:01
PROVIDERS: ADMIT Internal Medicine; ATTEND Internal Medicine
DX: I13.0 Hypertensive heart and chronic kidney disease with heart failure and stage 1 through stage 4 chronic kidney disease, or unspecified chronic kidney disease (principal); I50.43 Acute on chronic combined systolic (congestive) and diastolic (congestive) heart failure; J96.21 Acute and chronic respiratory failure with hypoxia; I48.21 Permanent atrial fibrillation; K21.9 Gastro-esophageal reflux disease without esophagitis; L89.622 Pressure ulcer of left heel, stage 2; N18.32 Chronic kidney disease, stage 3b; L97.509 Non-pressure chronic ulcer of other part of unspecified foot with unspecified severity; E11.22 Type 2 diabetes mellitus with diabetic chronic kidney disease; D63.1 Anemia in chronic kidney disease; Z79.4 Long term (current) use of insulin; E11.40 Type 2 diabetes mellitus with diabetic neuropathy, unspecified; E11.621 Type 2 diabetes mellitus with foot ulcer; E78.5 Hyperlipidemia, unspecified; E87.6 Hypokalemia; F43.22 Adjustment disorder with anxiety; I27.20 Pulmonary hypertension, unspecified; F91.9 Conduct disorder, unspecified; Z79.01 Long term (current) use of anticoagulants; Z79.82 Long term (current) use of aspirin; Z79.899 Other long term (current) drug therapy; Z80.49 Family history of malignant neoplasm of other genital organs; Z80.7 Family history of other malignant neoplasms of lymphoid, hematopoietic and related tissues; Z82.49 Family history of ischemic heart disease and other diseases of the circulatory system; Z85.038 Personal history of other malignant neoplasm of large intestine; Z85.42 Personal history of malignant neoplasm of other parts of uterus; Z86.16 Personal history of COVID-19; Z87.01 Personal history of pneumonia (recurrent); Z87.891 Personal history of nicotine dependence; Z90.710 Acquired absence of both cervix and uterus; Z98.890 Other specified postprocedural states; Z98.42 Cataract extraction status, left eye; Z98.41 Cataract extraction status, right eye; Z96.1 Presence of intraocular lens; Z88.2 Allergy status to sulfonamides; Z88.8 Allergy status to other drugs, medicaments and biological substances
CPT/HCPCS: 36415; 71046; 76705; 80048; 80053; 83735; 84484; 85025; 85610; 85730; 93005; 93306; 94760; 96374; 96375; 99291

== ENCOUNTER 2021-11-11 06:24 | Day surgery (SDC) | payer OTHER ==
[2021-11-10 09:52] VITALS: BMI 29.3
[~2021-11-11 06:24] MED LIST: SODIUM CHLORIDE 0.9% 1,000 ML IV SCH
[2021-11-11 06:59] LABS: Glucose,Whole Blood 156 mg/dL (70-110)
[2021-11-11] MEDS ORDERED: ETOMIDATE 2 MG/ML 10 ML VIAL ONE (07:30)
[2021-11-11] MEDS ORDERED: SODIUM CHLORIDE 0.9% 500 ML 500 ML IV ONE (07:47)
[2021-11-11 07:57] VITALS: RESP 16
[2021-11-11 08:05] VITALS: TEMP 96.8
[2021-11-11 10:31] VITALS: BP 140/92; PULSE 56
--- NOTE | 2021-11-11 10:52 | PCN ---
PROCEDURE NOTE DATE OF SERVICE: 11/11/2021. PROCEDURE: Electrical cardioversion. INDICATION: Persistent atrial fibrillation. CLINICAL INFORMATION: Mrs. Muñoz is a 76-year-old lady with a history of diabetes, chronic kidney disease, who had short term dialysis in the past. She has hypertension, hyperlipidemia. She developed atrial fibrillation and this resulted in a significant decrease in LV function. 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 PROCEDURE NOTE: Under the influence of [id number] intravenous anesthetic agent with the attendance of the anesthesiologist, a single shock was given in a synchronized fashion to the R-wave with anterior and posterior patches. She converted to sinus rhythm and had sinus bradycardia at 46 beats per minute. Hemodynamically stable. Once she is more awake and alert, she will be ambulating and after having had a meal, she will be discharged back to [facility]. I will see her in the office in 1 week. We will reduce the beta ilene, metoprolol tartrate from 50 mg t.i.d. to 25 mg b.i.d. I discussed my thoughts in detail with the patient and the caregiver. There is no family available. She will go to the [facility] and once awake, alert and ambulatory after meals she will be discharged. SAMINA / SARA: [id number] / MTDD
== END 2021-11-11 10:33 | disposition home or self-care (01) ==
LOC: CATHCVL 06:24
PROVIDERS: ATTEND Internal Medicine Interventional Cardiology
DX: I48.19 Other persistent atrial fibrillation (principal); E78.5 Hyperlipidemia, unspecified; Z82.49 Family history of ischemic heart disease and other diseases of the circulatory system; Z72.0 Tobacco use; Z85.038 Personal history of other malignant neoplasm of large intestine; E11.22 Type 2 diabetes mellitus with diabetic chronic kidney disease; I13.0 Hypertensive heart and chronic kidney disease with heart failure and stage 1 through stage 4 chronic kidney disease, or unspecified chronic kidney disease; N18.32 Chronic kidney disease, stage 3b; I50.22 Chronic systolic (congestive) heart failure; Z79.4 Long term (current) use of insulin; Z79.01 Long term (current) use of anticoagulants; Z79.899 Other long term (current) drug therapy; Z88.2 Allergy status to sulfonamides
CPT/HCPCS: 92960

== ENCOUNTER 2022-04-17 09:17 | Inpatient (IN) | payer MEDICARE, OTHER ==
[2022-04-17 10:00] LABS: Basophils # (A) 0.1 k/uL (0-0.2); Basophils % (A) 1 %; Eosinophils # (A) 0.4 k/uL (0-0.7); Eosinophils % (A) 4 %; HCT 27.1 % (34.0-46.0); HGB 8.8 gm/dL (11.4-16.0); Hypochromasia Slight; Lymphocytes % (A) 10 %; MCHC 32.6 g/dL (31.0-37.0); MCV 92.1 fL (80.0-100.0); Mean Platelet Volume 7.6; Monocytes # (A) 0.5 k/uL (0-1.0); Monocytes % (A) 5 %; Neutrophils # (A) 7.4 k/uL (1.3-7.7); Neutrophils % (A) 77 %; Platelet Count 393 k/uL (150-450); RBC 2.94 m/uL (3.80-5.40); RDW 13.4 % (11.5-15.5); WBC 9.6 k/uL (3.8-10.6)
--- NOTE | 2022-04-17 10:01 | ED ---
General Adult HPI - General Chief complaint: Weakness Stated complaint: lethargic Time Seen by Provider: 04/17/22 09:19 Source: EMS Mode of arrival: EMS Limitations: altered mental status - History of Present Illness Initial comments: Dictation was produced using [employer] dictation software. please excuse any grammatical, word or spelling errors. Chief Complaint: 77-year-old female presents emergency department for weakness and burning urination History of Present Illness: 77-year-old female she is brought into the emergency department from local residential. Patient states that she is here today for weakness and burning in urination. Patient states that she has been at the residential for approximately one week. States that she was recently treated for UTI. She felt like she has UTI and because of burning on urination. According to EMS patient was also been having some weakness and lethargy for the last 2 days. Patient states that she feels mildly weak but does not really feel all that different. Denies any fever or constitutional symptoms. No chest pain or shortness of breath. The ROS documented in this emergency department record has been reviewed and confirmed by me. Those systems with pertinent positive or negative responses have been documented in the HPI. All other systems are other negative and/or noncontributory. PHYSICAL EXAM: General Impression: Alert and oriented x3, not in acute distress HEENT: Normocephalic atraumatic, extra-ocular movements intact, pupils equal and reactive to light bilaterally, mucous membranes moist. Cardiovascular: Heart regular rate and rhythm Chest: Able to complete full sentences, no retractions, no tachypnea Abdomen: abdomen soft, non-tender, non-distended, no organomegaly Musculoskeletal: Pulses present and equal in all extremities, no peripheral brayan a Motor: no focal deficits noted Neurological: CN II-XII grossly intact, no focal motor or sensory deficits noted Skin: Intact with no visualized rashes Psych: Normal affect and mood ED course: 77-year-old well-appearing female multiple comorbidities presents emergency department for allegedly to to 3 days of weakness. She complains of urinary symptoms. Vital signs upon arrival are within acceptable limits. Laboratory evaluation obtained. CBC, coag panel, metabolic panel is within acceptable limits. Patient's kidney markers are slightly above the spine according to recent labs. Urinalysis shows UTI. 4 panel viral PCR is negative. Patient observed in emergency department for approximately 3 hours. Reevaluated bedside at 12:20 PM found with stable medical condition. Patient be admitted for UTI with lethargy. Admitted to Dr. Woodruff. Patient given a dose of ceftriaxone. - Related Data Home Medications Medication Instructions Recorded Confirmed Apixaban [Eliquis] 2.5 mg PO BID@0800,1600 08/04/21 11/11/21 Atorvastatin [Lipitor] 40 mg PO HS 08/04/21 11/11/21 Cholecalciferol [Vitamin D3 (125 125 mcg PO DAILY@0800 08/04/21 11/10/21 Mcg = 5000 Iu)] Docusate [Colace] 100 mg PO BID@0800,1600 08/04/21 11/10/21 Famotidine [Pepcid] 20 mg PO DAILY@0800 08/04/21 11/11/21 Ferrous Sulfate [Iron (65 MG 325 mg PO BID@0800,1600 08/04/21 11/10/21 Elemental)] Insulin Aspart See Protocol SQ AC-TID 08/04/21 11/10/21 Isosorbide Mononitrate [Isosorbide 30 mg PO DAILY@0800 08/04/21 11/10/21 Mononitrate ER] Lactulose 20 gm PO DAILY PRN 08/04/21 11/10/21 Meclizine [Antivert] 12.5 mg PO Q8H PRN 08/04/21 11/10/21 Melatonin [Melatonin ER] 10 mg PO HS 08/04/21 11/11/21 Multivitamins, Thera [Multivitamin 1 tab PO DAILY@0800 08/04/21 11/10/21 (formulary)] Simethicone [Simethicone Chew] 80 mg PO Q4H PRN 08/04/21 11/10/21 Sodium Bicarbonate 650 mg PO BID@0800,1600 08/04/21 11/10/21 Vit C/E/Zn/Coppr/Lutein/Zeaxan 1 tab PO BID@0800,1600 08/04/21 11/10/21 [Preservision Areds 2 Softgel] buPROPion HCL [Wellbutrin SR] 150 mg PO BID@0800,2000 08/04/21 11/11/21 cloNIDine HCL 0.2 mg PO TID@0500,1300,2100 08/04/21 11/11/21 lisinopriL [Prinivil] 10 mg PO DAILY@0800 08/04/21 11/10/21 Insulin Lispro [humaLOG Kwikpen] 5 unit SQ TID-W/MEALS 11/10/21 11/10/21 Metoprolol Tartrate [Lopressor] 50 mg PO Q8H 11/10/21 11/11/21 Montelukast [Singulair] 10 mg PO DAILY 11/11/21 11/11/21 risperiDONE [RisperDAL] 1 mg PO BID 11/11/21 11/11/21 Previous Rx's Medication Instructions Recorded Furosemide [Lasix] 40 mg PO DAILY #30 tab 08/09/21 Insulin Detemir [Levemir Flextouch 3 units SQ BID@0800,1999 #0 08/09/21 Pen] Spironolactone [Aldactone] 25 mg PO DAILY #30 tab 08/09/21 Allergies Allergy/AdvReac Type Severity Reaction Status Date / Time amlodipine Allergy HIVES Verified 04/17/22 09:31 hydralazine Allergy HIVES Verified 04/17/22 09:31 Sulfa (Sulfonamide Allergy HIVES Verified 04/17/22 09:31 Antibiotics) Review of Systems ROS Statement: Those systems with pertinent positive or pertinent negative responses have been documented in the HPI. ROS Other: All systems not noted in ROS Statement are negative. Past Medical History Past Medical History: Atrial Fibrillation, Cancer, Heart Failure, Diabetes Mellitus, GERD/Reflux, Hypertension, Osteoarthritis (OA), Renal Disease Additional Past Medical History / Comment(s): IDDM type II, neuropathy bilateral feet, current L heel ulcer, cardiomegaly, CKD stage III, anemia, generalized weakness/FALLS, vertigo, covid 02/2021, uterine cancer with hysterectomy, bowel cancer with resection, i History of Any Multi-Drug Resistant Organisms: None Reported Past Surgical History: Adenoidectomy, Bowel Resection, Hysterectomy, Tonsillectomy Additional Past Surgical History / Comment(s): Abdominal laparoscopy, several D&Cs, bilateral cataract removal/lens implant. Past Anesthesia/Blood Transfusion Reactions: No Reported Reaction, Motion Sickness Past Psychological History: Depression Smoking Status: Former smoker Past Alcohol Use History: None Reported Past Drug Use History: None Reported - Past Family History Mother Family Medical History: Cancer Additional Family Medical History / Comment(s): Uterine cancer and of nonhodgkins lymphoma Father Family Medical History: Congestive Heart Failure (CHF) Family Family Medical History: No Reported History General Exam Limitations: altered mental status Course Vital Signs 04/17/22 04/17/22 09:19 10:32 Temperature 97.6 F 98.0 F Pulse Rate 83 93 Respiratory 18 14 Rate Blood Pressure 112/86 103/83 O2 Sat by Pulse 96 94 L Oximetry Medical Decision Making - Lab Data Result diagrams: 04/17/22 09:31 04/17/22 09:31 Lab Results 04/17/22 04/17/22 04/17/22 Range/Units 09:31 09:31 09:31 WBC 9.6 (3.8-10.6) k/uL RBC 2.94 L (3.80-5.40) m/uL Hgb 8.8 L (11.4-16.0) gm/dL Hct 27.1 L (34.0-46.0) % MCV 92.1 (80.0-100.0) fL MCH 30.0 (25.0-35.0) pg MCHC 32.6 (31.0-37.0) g/dL RDW 13.4 (11.5-15.5) % Plt Count 393 (150-450) k/uL MPV 7.6 Neutrophils % 77 % Lymphocytes % 10 % Monocytes % 5 % Eosinophils % 4 % Basophils % 1 % Neutrophils # 7.4 (1.3-7.7) k/uL Lymphocytes # 1.0 (1.0-4.8) k/uL Monocytes # 0.5 (0-1.0) k/uL Eosinophils # 0.4 (0-0.7) k/uL Basophils # 0.1 (0-0.2) k/uL Hypochromasia Slight PT 12.9 H (9.0-12.0) sec INR 1.2 H (<1.2) APTT 22.7 (22.0-30.0) sec Sodium 139 (137-145) mmol/L Potassium 3.4 L (3.5-5.1) mmol/L Chloride 104 (98-107) mmol/L Carbon Dioxide 26 (22-30) mmol/L Anion Gap 9 mmol/L BUN 41 H (7-17) mg/dL Creatinine 2.72 H (0.52-1.04) mg/dL Est GFR (CKD-EPI)AfAm 19 (>60 ml/min/1.73 sqM) Est GFR (CKD-EPI)NonAf 16 (>60 ml/min/1.73 sqM) Glucose 135 H (74-99) mg/dL Plasma Lactic Acid Kyle (0.7-2.0) mmol/L Calcium 8.1 L (8.4-10.2) mg/dL Magnesium 2.0 (1.6-2.3) mg/dL Total Bilirubin 0.7 (0.2-1.3) mg/dL AST 79 H (14-36) U/L ALT 79 H (4-34) U/L Alkaline Phosphatase 110 (38-126) U/L Total Protein 5.9 L (6.3-8.2) g/dL Albumin 2.9 L (3.5-5.0) g/dL TSH 2.690 (0.465-4.680) mIU/L Urine Color Urine Appearance (Clear) Urine pH (5.0-8.0) Ur Specific Preemption (1.001-1.035) Urine Protein (Negative) Urine Glucose (UA) (Negative) Urine Ketones (Negative) Urine Blood (Negative) Urine Nitrite (Negative) Urine Bilirubin (Negative) Urine Urobilinogen (<2.0) mg/dL Ur Leukocyte Esterase (Negative) Urine RBC (0-5) /hpf Urine WBC (0-5) /hpf Urine WBC Clumps (None) /hpf Urine Bacteria (None) /hpf Influenza Type A (PCR) (Not Detectd) Influenza Type B (PCR) (Not Detectd) RSV (PCR) (Not Detectd) SARS-CoV-2 (PCR) (Not Detectd) 04/17/22 04/17/22 04/17/22 Range/Units 09:31 10:10 10:39 WBC (3.8-10.6) k/uL RBC (3.80-5.40) m/uL Hgb (11.4-16.0) gm/dL Hct (34.0-46.0) % MCV (80.0-100.0) fL MCH (25.0-35.0) pg MCHC (31.0-37.0) g/dL RDW (11.5-15.5) % Plt Count (150-450) k/uL MPV Neutrophils % % Lymphocytes % % Monocytes % % Eosinophils % % Basophils % % Neutrophils # (1.3-7.7) k/uL Lymphocytes # (1.0-4.8) k/uL Monocytes # (0-1.0) k/uL Eosinophils # (0-0.7) k/uL Basophils # (0-0.2) k/uL Hypochromasia PT (9.0-12.0) sec INR (<1.2) APTT (22.0-30.0) sec Sodium (137-145) mmol/L Potassium (3.5-5.1) mmol/L Chloride (98-107) mmol/L Carbon Dioxide (22-30) mmol/L Anion Gap mmol/L BUN (7-17) mg/dL Creatinine (0.52-1.04) mg/dL Est GFR (CKD-EPI)AfAm (>60 ml/min/1.73 sqM) Est GFR (CKD-EPI)NonAf (>60 ml/min/1.73 sqM) Glucose (74-99) mg/dL Plasma Lactic Acid Kyle 1.8 (0.7-2.0) mmol/L Calcium (8.4-10.2) mg/dL Magnesium (1.6-2.3) mg/dL Total Bilirubin (0.2-1.3) mg/dL AST (14-36) U/L ALT (4-34) U/L Alkaline Phosphatase (38-126) U/L Total Protein (6.3-8.2) g/dL Albumin (3.5-5.0) g/dL TSH (0.465-4.680) mIU/L Urine Color Yellow Urine Appearance Cloudy H (Clear) Urine pH 6.5 (5.0-8.0) Ur Specific Preemption 1.013 (1.001-1.035) Urine Protein 1+ H (Negative) Urine Glucose (UA) Negative (Negative) Urine Ketones Negative (Negative) Urine Blood Small H (Negative) Urine Nitrite Positive H (Negative) Urine Bilirubin Negative (Negative) Urine Urobilinogen 2.0 (<2.0) mg/dL Ur Leukocyte Esterase Large H (Negative) Urine RBC 7 H (0-5) /hpf Urine WBC >182 H (0-5) /hpf Urine WBC Clumps Few H (None) /hpf Urine Bacteria Rare H (None) /hpf Influenza Type A (PCR) Not Detected (Not Detectd) Influenza Type B (PCR) Not Detected (Not Detectd) RSV (PCR) Not Detected (Not Detectd) SARS-CoV-2 (PCR) Not Detected (Not Detectd) Disposition Clinical Impression: UTI (urinary tract infection), Lethargy Disposition: ADMITTED IP TO THIS HOSP Condition: Fair Referrals: Ron Lynn MD [Primary Care Provider] - 1-2 days Decision Time: 12:23
[2022-04-17 10:12] LABS: Albumin 2.9 g/dL (3.5-5.0); Calcium 8.1 mg/dL (8.4-10.2); Potassium 3.4 mmol/L (3.5-5.1); Total Bilirubin 0.7 mg/dL (0.2-1.3); Total Protein 5.9 g/dL (6.3-8.2)
[2022-04-17 10:13] LABS: INR 1.2 (<1.2); Partial Thromboplastin Time 22.7 sec (22.0-30.0); Prothrombin Time 12.9 sec (9.0-12.0)
[2022-04-17 10:28] LABS: Appearance,Urine Cloudy (Clear); Bacteria,Urine Rare /hpf; Bilirubin,Urine Negative (Negative); Blood,Urine Small (Negative); Color,Urine Yellow; Glucose,Urine (UA) Negative (Negative); Ketones,Urine Negative (Negative); Leukocyte Esterase,Urine Large (Negative); Nitrite,Urine Positive (Negative); PH, Urine 6.5 (5.0-8.0); Protein,Urine 1+ (Negative); RBC,Urine 7 /hpf (0-5); Specific Gravity,Urine 1.013 (1.001-1.035); WBC,Urine >182 /hpf (0-5)
[2022-04-17] MEDS ORDERED: cefTRIAXone IN SWFI 1,000 MG/10 ML SYRINGE IVP STA (11:32)
[2022-04-17] MEDS ORDERED: NALOXONE 0.4 MG/ML 1 ML VIAL IV PRN (12:21)
[2022-04-17] MEDS ORDERED: ACETAMINOPHEN TAB 325 MG TAB PO PRN (12:21)
[2022-04-17] MEDS: SODIUM CHLORIDE 0.9% 1,000 ML IV SCH (13:58)
[2022-04-17] MEDS ORDERED: LACTULOSE 200 GM/300 ML (FROM 1/2 GAL JUG) PO PRN (16:46)
[2022-04-17] MEDS ORDERED: SENNOSIDES 8.6 MG TAB PO PRN (16:46)
[2022-04-17] MEDS ORDERED: MUPIROCIN 2% OINT 22 GM TUBE TOPICAL PRN (16:46)
[2022-04-17] MEDS ORDERED: ACETAMINOPHEN 650 MG PO PRN (16:46)
[2022-04-17] MEDS ORDERED: SIMETHICONE 80 MG CHEWABLE PO PRN (16:46)
[2022-04-17] MEDS ORDERED: MECLIZINE 12.5 MG TAB PO PRN (16:46)
[2022-04-17] MEDS: lisinopriL 10 MG TAB PO SCH (18:30)
[2022-04-17] MEDS: METOPROLOL TARTRATE 25 MG TAB PO SCH (18:30)
[2022-04-17] MEDS: cloNIDine HCL 0.2 MG TAB PO SCH (18:30)
[2022-04-17] MEDS: ISOSORBIDE MONONITRATE ER 30 MG TAB.ER.24H PO SCH (18:30)
[2022-04-17 18:34] LABS: Glucose,Whole Blood 121 mg/dL (70-110)
[2022-04-17] MEDS: INSULIN ASPART (NovoLOG) 100 UNIT/ML VIAL SQ SCH (19:22)
[2022-04-17] MEDS: INSULIN DETEMIR (LEVEMIR) 100 UNIT/ML SYR SQ SCH (19:22)
--- NOTE | 2022-04-18 00:59 | HP ---
HISTORY AND PHYSICAL CHIEF COMPLAINT: Weakness and has dysuria. HISTORY OF PRESENT ILLNESS: This 77-year-old woman with a past medical history of multiple medical problems including atrial fibrillation, diabetes mellitus type 2, GERD, was complaining of dysuria. The patient also complains of weakness. The patient came to [facility], was found to have evidence of UTI. The patient admitted for further evaluation and treatment. There is no history of any fever, rigors, or chills at this time. PAST MEDICAL HISTORY: Reviewed and include atrial fibrillation, history of diabetes mellitus type 2. The rest of the history and rest of the chart is reviewed. HOME MEDICATIONS: Reviewed and include Risperdal, dose and rest of medication reviewed, to be confirmed by Pharmacy yet. ALLERGIES: Reviewed and include Norvasc. FAMILY HISTORY: History of uterine cancer. SOCIAL HISTORY: Previous history of smoking. REVIEW OF SYSTEMS: A 14-point review of system is negative as mentioned earlier. PHYSICAL EXAMINATION: VITAL SIGNS: Pulse is 118, blood pressure 148/93, respirations 17. HEENT: Conjunctivae normal. NECK: No JVD. CARDIOVASCULAR: S1, S2 normal. RESPIRATIONS: Breath sounds diminished at the bases. Scattered rhonchi and crackles. ABDOMEN: Soft, nontender. LEGS: No edema. NERVOUS SYSTEM: Nonfocal. LABORATORY DATA: WBC ntd hemoglobin is 8.8. The rest of the labs are noted. ASSESSMENT: 1. Acute urinary tract infection, present on admission. 2. Atrial fibrillation. 3. Diabetes mellitus, type 2. 4. Multiple medical issues. RECOMMENDATIONS: In this 77-year-old woman, who presented with multiple complex medical issues, we will monitor the patient closely. We will initiate IV Rocephin and obtain the cultures. The overall prognosis is guarded. Further recommendations to follow. I would also recommend to resume the home medications as well, and see orders for further details. MMODL / IJN: [id number] / MTDD
[2022-04-18] MEDS: METOPROLOL TARTRATE 25 MG TAB PO SCH ×2 (03:03→10:37)
[2022-04-18] MEDS: MONTELUKAST 10 MG TAB PO SCH ×2 (05:44→21:10)
[2022-04-18] MEDS: buPROPion SR 150 MG TABLET.ER PO SCH ×3 (05:44→21:36)
[2022-04-18] MEDS: FERROUS SULFATE 325 MG TAB PO SCH ×3 (05:44→21:10)
[2022-04-18] MEDS: PSYLLIUM HUSK 100% 6 GM PACKET PO SCH ×2 (05:44→10:38)
[2022-04-18] MEDS: MULTIVITAMINS, THERA 1 EACH TAB PO SCH ×2 (05:44→21:34)
[2022-04-18] MEDS: DOCUSATE 100 MG CAP PO SCH ×3 (05:44→21:03)
[2022-04-18] MEDS: polyethylene glycoL 3350 17 GM POWD.PACK PO SCH ×2 (05:44→21:03)
[2022-04-18] MEDS: ATORVASTATIN 40 MG TAB PO SCH ×2 (05:44→21:10)
[2022-04-18] MEDS: NON FORMULARY DRUG (Vit C/E/Zn/Coppr/Lutein/Zeaxan [Preservision Areds 2 Softgel] 1 EACH C PO SCH ×3 (05:50→21:11)
[2022-04-18] MEDS: SODIUM BICARBONATE TAB 650 MG TAB PO SCH ×3 (05:51→21:10)
[2022-04-18] MEDS: cloNIDine HCL 0.2 MG TAB PO SCH ×2 (05:51→10:35)
[2022-04-18] MEDS: MELATONIN 5 MG TABLET PO SCH ×2 (05:51→21:10)
[2022-04-18 08:44] LABS: Glucose,Whole Blood 193 mg/dL (70-110)
[2022-04-18] MEDS ORDERED: cefTRIAXone 1,000 MG VIAL (IM USE) IM SCH (09:00)
[2022-04-18] MEDS ORDERED: FUROSEMIDE 40 MG TAB PO SCH (09:00)
[2022-04-18 09:03] LABS: Basophils # (A) 0.09 X 10*3/uL (0.00-0.10); Basophils % (A) 0.7 %; Eosinophils # (A) 0.41 X 10*3/uL (0.04-0.35); Eosinophils % (A) 3.1 %; HGB 9.1 g/dL (12.0-15.0); Lymphocytes # (A) 0.93 X 10*3/uL (0.90-5.00); Lymphocytes % (A) 6.9 %; MCH 30.2 pg (27.0-32.0); MCHC 31.4 g/dL (32.0-37.0); MCV 96.3 fL (80.0-97.0); Mean Platelet Volume 9.4 fL (9.5-12.2); Monocytes # (A) 1.01 X 10*3/uL (0.20-1.00); Monocytes % (A) 7.5 %; NRBC Per 100 WBC 0 /100 WBCS (0.0-0.0); Neutrophils # (A) 10.85 X 10*3/uL (1.80-7.70); Neutrophils % (A) 80.8 %; Platelet Count 381 X 10*3/uL (140-440); RBC 3.01 X 10*6/uL (4.10-5.20); WBC 13.43 X 10*3/uL (4.50-10.00)
[2022-04-18 09:20] LABS: African American GFR (CKD) 19.5 (60.0-200.0); Anion Gap 15.9 mmol/L (10.00-18.00); BUN/Creat Ratio 14.62 Ratio (12.00-20.00); Carbon Dioxide 24.1 mmol/L (20.0-27.5); Non-African American GFR(CKD) 16.9 (60.0-200.0); Potassium 4.1 mmol/L (3.5-5.5)
[2022-04-18] MEDS: SPIRONOLACTONE 25 MG TAB PO SCH (10:35)
[2022-04-18] MEDS: ISOSORBIDE MONONITRATE ER 30 MG TAB.ER.24H PO SCH (10:35)
[2022-04-18] MEDS: CHOLECALCIFEROL 125 MCG (5000 IU) TABLET PO SCH (10:35)
[2022-04-18] MEDS: FAMOTIDINE 20 MG TAB PO SCH (10:35)
[2022-04-18] MEDS: lisinopriL 10 MG TAB PO SCH (10:35)
[2022-04-18] MEDS: APIXABAN 2.5 MG TABLET PO SCH ×2 (10:35→17:27)
[2022-04-18] MEDS: INSULIN DETEMIR (LEVEMIR) 100 UNIT/ML SYR SQ SCH ×2 (10:38→17:28)
[2022-04-18] MEDS: INSULIN ASPART (NovoLOG) 100 UNIT/ML VIAL SQ SCH ×3 (10:38→17:04)
[2022-04-18] MEDS ORDERED: METOPROLOL TARTRATE 25 MG TAB PO STA (11:20)
[2022-04-18] MEDS: SODIUM CHLORIDE 0.9% 1,000 ML IV SCH ×2 (11:36→11:59)
[2022-04-18] MEDS: SODIUM CHLORIDE 0.9% 250 ML IV SCH ×7 (11:36→21:04)
[2022-04-18 11:43] LABS: Glucose,Whole Blood 281 mg/dL (70-110)
[2022-04-18] MEDS: risperiDONE 1 MG TAB PO SCH ×2 (11:58→17:28)
[2022-04-18] MEDS: cloNIDine HCL 0.1 MG TAB PO SCH ×2 (11:58→21:10)
--- NOTE | 2022-04-18 12:51 | P.CRDCN ---
History of Present Illness Consult date: 04/18/22 History of present illness: HISTORY OF PRESENT ILLNESS: This is a 77-year-old female with a past medical history significant for hypertension, hyperlipidemia, diabetes, atrial fibrillation, nonischemic cardiomyopathy with ejection fraction around 30%, and cardioversion in October 2021. Patient follows in the office with Dr. Abdalla. We have been asked to see the patient in consultation for atrial fibrillation with RVR. Patient examined at the bedside. Patient is admitted to the hospital secondary to altered mental status and urinary tract infection. Patient is currently in atrial fibrillation with uncontrolled heart rates. She denies chest pain or pressure. Denies SOB. Blood pressure is stable. * EKG reveals atrial fibrillation with a heart rate of 105 * Laboratory data: WBC 13.4. Hemoglobin 9.1. Platelet count 381. Sodium 138. Potassium 4.1. BUN 38. Creatinine 2.6. TSH 2.690. * Current home cardiac medications include Eliquis 2.5mg BID, Lipitor 40 mg at night, Imdur 30 mg daily, Lasix 40 mg daily, Aldactone 25 mg daily, metoprolol titrate 25 mg twice a day, clonidine 0.2 mg every 8 hours * Most recent echocardiogram obtained in October 2021 revealed ejection fraction 30%, global hypokinesis, mild MR, and moderate TR * Cardiac catheterization history: Unknown REVIEW OF SYSTEMS: At the time of my exam: CONSTITUTIONAL: Denies fever or chills. HEENT: Denies blurred vision, vision changes, or eye pain. Denies hemoptysis CARDIOVASCULAR: Denies chest pain. Denies orthopnea. Denies PND. Denies palp itations RESPIRATORY: Denies shortness of breath. GASTROINTESTINAL: Denies abdominal pain. Denies nausea or vomiting. HEMATOLOGIC: Denies bleeding disorders. GENITOURINARY: Denies any blood in urine. SKIN: Denies pruitis. Denies rash. PHYSICAL EXAM: VITAL SIGNS: Reviewed. GENERAL: Well-developed in no acute distress. HEENT: Head is normocephalic. Pupils are equal, round. Sclerae anicteric. Mucous membranes of the mouth are moist. Neck supple. No JVD or thyromegaly LUNGS: Respirations even and unlabored. Lungs essentially clear to auscultation bilaterally. HEART: Tachycardic. Iregular rate and rhythm. S1 and S2 heard. ABDOMEN: Soft. Nondistended. Nontender. EXTREMITIES: Normal range of motion. No clubbing or cyanosis. Peripheral pulses intact. No lower extremity edema NEUROLOGIC: Lethargic. Oriented x 1-2. ASSESSMENT: Mental status Urinary tract infection Paroxysmal atrial fibrillation with RVR History of cardioversion, October 2021 Nonischemic cardiomyopathy, ejection fraction 30% Hypertension Hyperlipidemia Diabetes Former nicotine dependence PLAN: Hold Lasix Give 250cc bolus and begin fluids at 50cc/hr Decrease Catapres to 0.1 mg 3 times a day Increase metoprolol to 50mg BID Begin telemetry monitoring Further recommendations pending patient course Nurse practitioner note has been reviewed by physician. Signing provider agrees with the documented findings, assessment, and plan of care. Past Medical History Past Medical History: Atrial Fibrillation, Cancer, Heart Failure, Diabetes Mellitus, GERD/Reflux, Hypertension, Osteoarthritis (OA), Renal Disease Additional Past Medical History / Comment(s): IDDM type II, neuropathy bilateral feet, current L heel ulcer, cardiomegaly, CKD stage III, anemia, generalized weakness/FALLS, vertigo, covid 02/2021, uterine cancer with hysterectomy, bowel cancer with resection, i History of Any Multi-Drug Resistant Organisms: None Reported Past Surgical History: Adenoidectomy, Bowel Resection, Hysterectomy, Tonsillect unruly Additional Past Surgical History / Comment(s): Abdominal laparoscopy, several D&Cs, bilateral cataract removal/lens implant. Past Anesthesia/Blood Transfusion Reactions: No Reported Reaction, Motion Sickness Smoking Status: Former smoker - Past Family History Mother Family Medical History: Cancer Additional Family Medical History / Comment(s): Uterine cancer and of nonhodgkins lymphoma Father Family Medical History: Congestive Heart Failure (CHF) Family Family Medical History: No Reported History Medications and Allergies Home Medications Medication Instructions Recorded Confirmed Type Apixaban [Eliquis] 2.5 mg PO BID@0800,1600 08/04/21 04/17/22 History Atorvastatin [Lipitor] 40 mg PO HS@199908/04/21 04/17/22 History Cholecalciferol [Vitamin D3 (125 125 mcg PO DAILY 08/04/21 04/17/22 History Mcg = 5000 Iu)] Docusate [Colace] 100 mg PO BID 08/04/21 04/17/22 History Famotidine [Pepcid] 20 mg PO DAILY 08/04/21 04/17/22 History Ferrous Sulfate [Iron (65 MG 325 mg PO BID 08/04/21 04/17/22 History Elemental)] Isosorbide Mononitrate [Isosorbide 30 mg PO DAILY 08/04/21 04/17/22 History Mononitrate ER] Lactulose 30 ml PO DAILY PRN 08/04/21 04/17/22 History Meclizine [Antivert] 12.5 mg PO Q8H PRN 08/04/21 04/17/22 History Melatonin [Melatonin ER] 10 mg PO HS 08/04/21 04/17/22 History Multivitamins, Thera [Multivitamin 1 tab PO HS 08/04/21 04/17/22 History (formulary)] Simethicone [Simethicone Chew] 80 mg PO Q4H PRN 08/04/21 04/17/22 History Sodium Bicarbonate 650 mg PO BID 08/04/21 04/17/22 History Vit C/E/Zn/Coppr/Lutein/Zeaxan 1 cap PO BID 08/04/21 04/17/22 History [Preservision Areds 2 Softgel] buPROPion HCL [Wellbutrin SR] 150 mg PO BID@0800,2000 08/04/21 04/17/22 History cloNIDine HCL 0.2 mg PO Q8H 08/04/21 04/17/22 History lisinopriL [Prinivil] 10 mg PO DAILY 08/04/21 04/17/22 History Furosemide [Lasix] 40 mg PO DAILY #30 tab 08/09/21 04/17/22 Rx Spironolactone [Aldactone] 25 mg PO DAILY #30 tab 08/09/21 04/17/22 Rx Insulin Lispro [humaLOG Kwikpen] 10 unit SQ AC-TID 11/10/21 04/17/22 History Metoprolol Tartrate [Lopressor] 25 mg PO BID 11/10/21 04/17/22 History Montelukast [Singulair] 10 mg PO HS 11/11/21 04/17/22 History risperiDONE [RisperDAL] 1 mg PO BID@0800,1600 11/11/21 04/17/22 History Acetaminophen [Acetaminophen ER] 650 mg PO Q6H PRN 04/17/22 04/17/22 History Glucagon Emergency Kit 1 mg IM ONCE PRN 04/17/22 04/17/22 History Hydrocodone/Acetaminophen 1 tab PO Q6H PRN 04/17/22 04/17/22 History [Hydrocodone/Acetaminophen 5-325] Insulin Glargine,Hum.rec.anlog 10 unit SQ Q12H 04/17/22 04/17/22 History [Lantus Solostar Pen] Metamucil 28% Packet 1 packet PO DAILY 04/17/22 04/17/22 History Mupirocin 2% Oint [Bactroban 2% 1 applic TOPICAL Q12H PRN 04/17/22 04/17/22 History Oint] Sennosides [Senokot] 8.6 mg PO Q12H PRN 04/17/22 04/17/22 History polyethylene glycoL 3350 [Miralax] 17 gm PO HS 04/17/22 04/17/22 History Allergies Allergy/AdvReac Type Severity Reaction Status Date / Time amlodipine Allergy HIVES Verified 04/17/22 14:15 hydralazine Allergy HIVES Verified 04/17/22 14:15 Sulfa (Sulfonamide Allergy HIVES Verified 04/17/22 14:15 Antibiotics) Physical Exam Vitals: Vital Signs Temp Pulse Pulse Resp BP BP Pulse Ox 04/18/22 08:57 97.8 F 121 H 16 122/81 97 04/18/22 07:28 97.9 F 133 H 18 121/82 98 04/18/22 07:00 121 H 16 04/18/22 06:41 126 H 16 108/76 99 04/18/22 04:56 99.1 F 135 H 16 108/90 98 04/18/22 03:49 118 H 16 150/65 04/18/22 01:49 138 H 16 117/87 95 04/17/22 18:44 99 F 130 H 18 128/89 96 04/17/22 17:00 134 H 18 137/83 96 04/17/22 16:05 116 H 18 137/90 94 L 04/17/22 15:00 104 H 18 127/80 94 L 04/17/22 14:00 97.8 F 126 H 16 142/92 94 L 04/17/22 13:00 118 H 17 141/93 94 L Intake and Output 04/17/22 04/18/22 04/18/22 22:59 06:59 14:59 Other: Voiding Method Bedside Commode Diaper Incontinent Weight 77.564 kg Results 04/18/22 06:11 04/18/22 06:11 CBC 04/18/22 Range/Units 06:11 WBC 13.43 H (4.50-10.00) X 10*3/uL RBC 3.01 L (4.10-5.20) X 10*6/uL Hgb 9.1 L (12.0-15.0) g/dL Hct 29.0 L (37.2-46.3) % Plt Count 381 (140-440) X 10*3/uL Comprehensive Metabolic Panel 04/18/22 Range/Units 06:11 Sodium 138 (135-145) mmol/L Potassium 4.1 (3.5-5.5) mmol/L Chloride 98 (96-109) mmol/L Carbon Dioxide 24.1 (20.0-27.5) mmol/L BUN 38.0 H (9.0-27.0) mg/dL Creatinine 2.6 H (0.6-1.5) mg/dL Glucose 115 H (70-110) mg/dL Calcium 9.0 (8.7-10.3) mg/dL Current Medications Generic Name Dose Route Start Last Admin Trade Name Freq PRN Reason Stop Dose Admin Acetaminophen 650 mg 04/17/22 12:21 Acetaminophen Tab 325 Mg Tab PO Q6HR PRN Mild Pain or Fever > 100.5 Hydrocodone Bitart/Acetaminophen 1 each 04/17/22 16:46 Hydrocodone/Apap 5-325mg 1 Each Tab PO Q6H PRN Moderate Pain (Scale 4 to 6) Apixaban 2.5 mg 04/18/22 08:00 04/18/22 10:35 Apixaban 2.5 Mg Tablet PO 2.5 mg BID@0800,1600 [facility] Administration Protocol Atorvastatin Calcium 40 mg 04/17/22 20:00 04/18/22 05:44 Atorvastatin 40 Mg Tab PO 40 mg HS@1999 MAIKEL Administration Bupropion HCl 150 mg 04/17/22 20:00 04/18/22 11:58 Bupropion Sr 150 Mg Tablet.Er PO 150 mg BID@799,1999 [facility] Administration Cholecalciferol 125 mcg 04/18/22 09:00 04/18/22 10:35 Cholecalciferol 125 Mcg (5000 Iu) Tablet PO 125 mcg DAILY MAIKEL Administration Clonidine 0.1 mg 04/18/22 13:00 04/18/22 11:58 Clonidine Hcl 0.1 Mg Tab PO 0.1 mg 0500,1300,2100 MAIKEL Administration Docusate Sodium 100 mg 04/17/22 21:00 04/18/22 10:43 Docusate 100 Mg Cap PO Not Given BID MAIKEL Famotidine 20 mg 04/18/22 09:00 04/18/22 10:35 Famotidine 20 Mg Tab PO 20 mg DAILY [facility]IKEL Administration Ferrous Sulfate 325 mg 04/17/22 21:00 04/18/22 10:37 Ferrous Sulfate 325 Mg Tab PO 325 mg BID MAIKEL Administration Furosemide 40 mg 04/18/22 09:00 04/18/22 10:35 Furosemide 40 Mg Tab PO 40 mg DAILY [facility]IKEL Administration Sodium Chloride 1,000 mls @ 20 mls/hr 04/17/22 12:30 04/18/22 11:59 Saline 0.9% IV 20 mls/hr .Q24H [facility]IKEL Administration Sodium Chloride 250 mls @ 999 mls/hr 04/18/22 11:30 04/18/22 12:22 Saline 0.9% IV Not Given .Q16M MAIKEL Sodium Chloride 1,000 mls @ 50 mls/hr 04/18/22 11:30 04/18/22 11:36 Saline 0.9% IV 50 mls/hr .Q20H [facility]IK[facility] Administration Ceftriaxone Sodium 1 gm/ 50 mls @ 100 mls/hr 04/18/22 12:00 04/18/22 11:57 Sodium Chloride IVPB 100 mls/hr Q24HR [facility]IK[facility] Administration Protocol Insulin Aspart 10 unit 04/17/22 17:30 04/18/22 11:58 Insulin Aspart (Novolog) 100 Unit/Ml Vial SQ 10 unit AC-TID [facility]IKEL Administration Insulin Detemir 10 unit 04/17/22 17:00 04/18/22 10:38 Insulin Detemir (Levemir) 100 Unit/Ml Syr SQ 10 unit Q12H [facility] Administration Isosorbide Mononitrate 30 mg 04/17/22 17:00 04/18/22 10:35 Isosorbide Mononitrate Er 30 Mg Tab.Er.24h PO 30 mg DAILY [facility]IKEL Administration Lactulose 20 gm 04/17/22 16:46 Lactulose 200 Gm/300 Ml (From 12 Gal Jug) PO DAILY PRN Constipation Lisinopril 10 mg 04/17/22 17:00 04/18/22 10:35 Lisinopril 10 Mg Tab PO 10 mg DAILY [facility]IK[facility] Administration Meclizine HCl 12.5 mg 04/17/22 16:46 Meclizine 12.5 Mg Tab PO Q8H PRN Vertigo Melatonin 10 mg 04/17/22 21:00 04/18/22 05:51 Melatonin 5 Mg Tablet PO Not Given HS MAIKEL Metoprolol Tartrate 50 mg 04/18/22 21:00 Metoprolol Tartrate 50 Mg Tab PO BID MAIKEL Montelukast Sodium 10 mg 04/17/22 21:00 04/18/22 05:44 Montelukast 10 Mg Tab PO 10 mg HS [facility]IK[facility] Administration Multivitamins 1 each 04/17/22 21:00 04/18/22 05:44 Multivitamins, Thera 1 Each Tab PO 1 each HS [facility]IKEL Administration Mupirocin 1 applic 04/17/22 16:46 Mupirocin 2% Oint 22 Gm Tube TOPICAL Q12H PRN Inflammation from excoriation Protocol Naloxone HCl 0.2 mg 04/17/22 12:21 Naloxone 0.4 Mg/Ml 1 Ml Vial IV Q2M PRN Opioid Reversal Non-Formulary Medication 1 cap 04/17/22 21:00 04/18/22 10:35 Vit C/E/Zn/Coppr/Lutein/Zeaxan [Preservision Areds 2 Softgel] PO Not Given BID MAIKEL Polyethylene Glycol 17 gm 04/17/22 21:00 04/18/22 05:44 Polyethylene Glycol 3350 17 Gm Powd.Pack PO 17 gm HS [facility]IKEL Administration Psyllium Hydrophilic Mucilloid 1 gm 04/17/22 17:00 04/18/22 10:38 Psyllium Husk 100% 6 Gm Packet PO 1 gm DAILY [facility] Administration Risperidone 1 mg 04/18/22 08:00 04/18/22 11:58 Risperidone 1 Mg Tab PO 1 mg BID@0800,1600 [facility] Administration Senna 8.6 mg 04/17/22 16:46 Sennosides 8.6 Mg Tab PO Q12H PRN Constipation Simethicone 80 mg 04/17/22 16:46 Simethicone 80 Mg Chewable PO Q4H PRN Heartburn Sodium Bicarbonate 650 mg 04/17/22 21:00 04/18/22 10:37 Sodium Bicarbonate Tab 650 Mg Tab PO 650 mg BID [facility] Administration Spironolactone 25 mg 04/18/22 09:00 04/18/22 10:35 Spironolactone 25 Mg Tab PO 25 mg DAILY [facility] Administration Intake and Output 04/17/22 04/18/22 04/18/22 22:59 06:59 14:59 Other: Voiding Method Bedside Commode Diaper Incontinent Weight 77.564 kg 04/18/22 06:11 04/18/22 06:11
[2022-04-18 17:02] LABS: Glucose,Whole Blood 166 mg/dL (70-110)
[2022-04-18 21:07] LABS: Glucose,Whole Blood 196 mg/dL (70-110)
[2022-04-18] MEDS: METOPROLOL TARTRATE 50 MG TAB PO SCH (21:10)
--- NOTE | 2022-04-18 22:39 | P.PN ---
Progress Note - Text Progress Note Date: 04/18/22 Presenting complaint: Weakness Hospital course: Patient admitted with weakness and lethargy for 2 days. and urinary symptoms. Admitted with medical debility acute, acute UTI. A. fib. 04/18/2022: I assumed care of the patient. From [facility] hospitalist today. Appetite fair. Tired. Laying in bed. Atrial fibrillation on 100. IV ceftriaxone. Active Medications Acetaminophen (Acetaminophen Tab 325 Mg Tab) 650 mg PO Q6HR PRN PRN Reason: Mild Pain or Fever > 100.5 Hydrocodone Bitart/Acetaminophen (Hydrocodone/Apap 5-325mg 1 Each Tab) 1 each PO Q6H PRN PRN Reason: Moderate Pain (Scale 4 to 6) Apixaban (Apixaban 2.5 Mg Tablet) 2.5 mg PO BID@0800,1600 [facility]; Protocol Last Admin: 04/18/22 17:27 Dose: 2.5 mg Atorvastatin Calcium (Atorvastatin 40 Mg Tab) 40 mg PO HS@2000 [facility] Last Admin: 04/18/22 21:10 Dose: 40 mg Bupropion HCl (Bupropion Sr 150 Mg Tablet.Er) 150 mg PO BID@0800,2000 [facility] Last Admin: 04/18/22 21:36 Dose: 150 mg Cholecalciferol (Cholecalciferol 125 Mcg (5000 Iu) Tablet) 125 mcg PO DAILY [facility] Last Admin: 04/18/22 10:35 Dose: 125 mcg Clonidine (Clonidine Hcl 0.1 Mg Tab) 0.1 mg PO 0500,1300,2100 [facility] Last Admin: 04/18/22 21:10 Dose: 0.1 mg Docusate Sodium (Docusate 100 Mg Cap) 100 mg PO BID [facility] Last Admin: 04/18/22 21:03 Dose: Not Given Famotidine (Famotidine 20 Mg Tab) 20 mg PO DAILY [facility] Last Admin: 04/18/22 10:35 Dose: 20 mg Ferrous Sulfate (Ferrous Sulfate 325 Mg Tab) 325 mg PO BID [facility] Last Admin: 04/18/22 21:10 Dose: 325 mg Sodium Chloride (Saline 0.9%) 1,000 mls @ 20 mls/hr IV .Q24H [facility] Last Admin: 04/18/22 11:59 Dose: 20 mls/hr Sodium Chloride (Saline 0.9%) 1,000 mls @ 50 mls/hr IV .Q20H [facility] Last Admin: 04/18/22 11:36 Dose: 50 mls/hr Ceftriaxone Sodium 1 gm/ (Sodium Chloride) 50 mls @ 100 mls/hr IVPB Q24HR [facility]; Protocol Last Admin: 04/18/22 11:57 Dose: 100 mls/hr Insulin Aspart (Insulin Aspart (Novolog) 100 Unit/Ml Vial) 10 unit SQ AC-TID [facility] Last Admin: 04/18/22 17:04 Dose: Not Given Insulin Detemir (Insulin Detemir (Levemir) 100 Unit/Ml Syr) 10 unit SQ Q12H [facility] Last Admin: 04/18/22 17:28 Dose: 10 unit Isosorbide Mononitrate (Isosorbide Mononitrate Er 30 Mg Tab.Er.24h) 30 mg PO DAILY [facility] Last Admin: 04/18/22 10:35 Dose: 30 mg Lactulose (Lactulose 200 Gm/300 Ml (From 05/30 Gal Jug)) 20 gm PO DAILY PRN PRN Reason: Constipation Lisinopril (Lisinopril 10 Mg Tab) 10 mg PO DAILY [facility] Last Admin: 04/18/22 10:35 Dose: 10 mg Meclizine HCl (Meclizine 12.5 Mg Tab) 12.5 mg PO Q8H PRN PRN Reason: Vertigo Melatonin (Melatonin 5 Mg Tablet) 10 mg PO [facility] Last Admin: 04/18/22 21:10 Dose: 10 mg Metoprolol Tartrate (Metoprolol Tartrate 50 Mg Tab) 50 mg PO BID [facility] Last Admin: 04/18/22 21:10 Dose: 50 mg Montelukast Sodium (Montelukast 10 Mg Tab) 10 mg PO [facility] Last Admin: 04/18/22 21:10 Dose: 10 mg Multivitamins (Multivitamins, Thera 1 Each Tab) 1 each PO [facility] Last Admin: 04/18/22 21:34 Dose: Not Given Mupirocin (Mupirocin 2% Oint 22 Gm Tube) 1 applic TOPICAL Q12H PRN; Protocol PRN Reason: Inflammation from excoriation Naloxone HCl (Naloxone 0.4 Mg/Ml 1 Ml Vial) 0.2 mg IV Q2M PRN PRN Reason: Opioid Reversal Non-Formulary Medication (Vit C/E/Zn/Coppr/Lutein/Zeaxan [Preservision Areds 2 Softgel]) 1 cap PO BID [facility] Last Admin: 04/18/22 21:11 Dose: Not Given Polyethylene Glycol (Polyethylene Glycol 3350 17 Gm Powd.Pack) 17 gm PO HS [facility] Last Admin: 04/18/22 21:03 Dose: Not Given Psyllium Hydrophilic Mucilloid (Psyllium Husk 100% 6 Gm Packet) 1 gm PO DAILY [facility] Last Admin: 04/18/22 10:38 Dose: 1 gm Risperidone (Risperidone 1 Mg Tab) 1 mg PO BID@0800,1600 [facility] Last Admin: 04/18/22 17:28 Dose: 1 mg Senna (Sennosides 8.6 Mg Tab) 8.6 mg PO Q12H PRN PRN Reason: Constipation Simethicone (Simethicone 80 Mg Chewable) 80 mg PO Q4H PRN PRN Reason: Heartburn Sodium Bicarbonate (Sodium Bicarbonate Tab 650 Mg Tab) 650 mg PO BID [facility] Last Admin: 04/18/22 21:10 Dose: 650 mg Spironolactone (Spironolactone 25 Mg Tab) 25 mg PO DAILY [facility] Last Admin: 04/18/22 10:35 Dose: 25 mg On examination: VITAL SIGNS: [97.8, 120, 16, 122/81, 97% on 2 L] GENERAL APPEARANCE: Laying in bed, awake, tired HEENT: Normal external appearance of nose and ear. Oral cavity normal EYES: Pupils equal. Conjunctiva normal. NECK: JVD not raised. Mass not palpable. RESPIRATORY: Respiratory effort normal. Lungs clear to auscultation. CARDIOVASCULAR: Heart sounds irregular. No edema. ABDOMEN: Soft. Liver and spleen not palpable. No tenderness. No mass palpable. PSYCHIATRY: Laying in bed awake, tired, answering questions INVESTIGATIONS, reviewed in the clinical context: WBC 13.4 hemoglobin 9.1 platelets 381 potassium 4.1 BUN 38 creatinine 2.6 EKG tracing personally reviewed by me-atrial fibrillation. Rate 105 Assessment and plan: -Paroxysmal atrial fibrillation, currently in atrial fibrillation rate uncontrolled Eliquis. 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 Other medications to continue. If Blood pressure is on the lower then DC Catapres. Discussed with patient. IV ceftriaxone.
[2022-04-19] MEDS: INSULIN ASPART (NovoLOG) 100 UNIT/ML VIAL SQ SCH ×3 (05:56→16:37)
[2022-04-19 05:57] LABS: Glucose,Whole Blood 81 mg/dL (70-110)
[2022-04-19] MEDS: cloNIDine HCL 0.1 MG TAB PO SCH (05:59)
[2022-04-19] MEDS: HYDROcodone/APAP 5-325MG 1 EACH TAB PO PRN (06:02)
[2022-04-19] MEDS: INSULIN DETEMIR (LEVEMIR) 100 UNIT/ML SYR SQ SCH ×3 (06:05→22:39)
[2022-04-19] MEDS: SODIUM CHLORIDE 0.9% 250 ML IV SCH ×3 (06:06→08:59)
[2022-04-19 07:54] LABS: African American GFR (CKD) 21 (>60 ml/min/1.73 sqM); Anion Gap 10 mmol/L; Blood Urea Nitrogen 37 mg/dL (7-17); Calcium 8.2 mg/dL (8.4-10.2); Carbon Dioxide 26 mmol/L (22-30); Chloride 103 mmol/L (98-107); Glucose 133 mg/dL (74-99); Non-African American GFR(CKD) 18 (>60 ml/min/1.73 sqM); Potassium 3.6 mmol/L (3.5-5.1); Sodium 139 mmol/L (137-145)
[2022-04-19] MEDS: NON FORMULARY DRUG (Vit C/E/Zn/Coppr/Lutein/Zeaxan [Preservision Areds 2 Softgel] 1 EACH C PO SCH ×2 (08:22→22:44)
[2022-04-19] MEDS: APIXABAN 2.5 MG TABLET PO SCH ×2 (08:26→15:21)
[2022-04-19] MEDS: SODIUM CHLORIDE 0.9% 1,000 ML IV SCH (08:26)
[2022-04-19] MEDS: buPROPion SR 150 MG TABLET.ER PO SCH ×2 (08:27→22:38)
[2022-04-19] MEDS: risperiDONE 1 MG TAB PO SCH ×2 (08:27→15:21)
[2022-04-19] MEDS: CHOLECALCIFEROL 125 MCG (5000 IU) TABLET PO SCH (08:27)
[2022-04-19] MEDS: DOCUSATE 100 MG CAP PO SCH ×2 (08:27→22:38)
[2022-04-19] MEDS: lisinopriL 10 MG TAB PO SCH (08:28)
[2022-04-19] MEDS: METOPROLOL TARTRATE 50 MG TAB PO SCH ×2 (08:28→22:41)
[2022-04-19] MEDS: ISOSORBIDE MONONITRATE ER 30 MG TAB.ER.24H PO SCH (08:28)
[2022-04-19] MEDS: SPIRONOLACTONE 25 MG TAB PO SCH (08:28)
[2022-04-19] MEDS: FAMOTIDINE 20 MG TAB PO SCH (08:28)
[2022-04-19] MEDS: PSYLLIUM HUSK 100% 6 GM PACKET PO SCH (08:28)
[2022-04-19] MEDS: FERROUS SULFATE 325 MG TAB PO SCH ×2 (08:28→22:40)
[2022-04-19] MEDS: SODIUM BICARBONATE TAB 650 MG TAB PO SCH ×2 (08:28→22:38)
[2022-04-19] MEDS ORDERED: lisinopriL 5 MG TAB PO SCH (09:30)
--- NOTE | 2022-04-19 10:47 | P.PN ---
Subjective Progress Note Date: 04/19/22 HISTORY OF PRESENT ILLNESS: This is a 77-year-old female with a past medical history significant for hypertension, hyperlipidemia, diabetes, atrial fibrillation, nonischemic cardiomyopathy with ejection fraction around 30%, and cardioversion in October 2021. Patient follows in the office with Dr. Abdalla. We have been asked to see the patient in consultation for atrial fibrillation with RVR. Patient examined at the bedside. Patient is admitted to the hospital secondary to altered mental status and urinary tract infection. Patient is currently in atrial fibrillation with uncontrolled heart rates. She denies chest pain or pressure. Denies SOB. Blood pressure is stable. * EKG reveals atrial fibrillation with a heart rate of 105 * Laboratory data: WBC 13.4. Hemoglobin 9.1. Platelet count 381. Sodium 138. Potassium 4.1. BUN 38. Creatinine 2.6. TSH 2.690. * Current home cardiac medications include Eliquis 2.5mg BID, Lipitor 40 mg at night, Imdur 30 mg daily, Lasix 40 mg daily, Aldactone 25 mg daily, metoprolol titrate 25 mg twice a day, clonidine 0.2 mg every 8 hours * Most recent echocardiogram obtained in October 2021 revealed ejection fraction 30%, global hypokinesis, mild MR, and moderate TR * Cardiac catheterization history: Unknown 04/19/2022 Patient examined this morning. Patient is sitting up in the chair. Patient appears more awake and alert today. She denies any chest pain or pressure. She denies any shortness of breath. She does report having episodes of lightheadedness. She also reports like she feels her legs are going to give out when she walks. Telemetry reveals atrial fibrillation with a heart rate in the low 100s. Blood pressures remain soft. PHYSICAL EXAM: VITAL SIGNS: Reviewed. GENERAL: Well-developed in no acute distress. HEENT: Head is normocephalic. Pupils are equal, round. Sclerae anicteric. Mucous membranes of the mouth are moist. Neck supple. No JVD or thyromegaly LUNGS: Respirations even and unlabored. Lungs essentially clear to auscultation bilaterally. HEART: Tachycardic. Irregular rate and rhythm. S1 and S2 heard. ABDOMEN: Soft. Nondistended. Nontender. EXTREMITIES: Normal range of motion. No clubbing or cyanosis. Peripheral pulses intact. No lower extremity edema NEUROLOGIC: Lethargic. Oriented x 1-2. ASSESSMENT: Altered mental status Urinary tract infection Paroxysmal atrial fibrillation with RVR History of cardioversion, October 2021 Nonischemic cardiomyopathy, ejection fraction 30% Hypertension Hyperlipidemia Diabetes Former nicotine dependence PLAN: Hold Lasix Continue gentle IV fluid hydration Discontinue Catapres Decrease lisinopril to 5 mg daily Continue to monitor blood pressure Check orthostatic blood pressures Continue telemetry monitoring Further recommendations pending patient course Nurse practitioner note has been reviewed by physician. Signing provider agrees with the documented findings, assessment, and plan of care. Objective - Vital Signs Vital signs: Vital Signs Temp 98.1 F 04/19/22 07:34 Pulse 110 H 04/19/22 07:34 Resp 15 04/19/22 07:34 BP 98/62 04/19/22 07:34 Pulse Ox 95 04/19/22 07:34 FiO2 Intake & Output 04/18/22 04/19/22 04/19/22 18:59 06:59 18:59 Intake Total 500 Balance 500 Intake: Oral 500 Other: Voiding Method Bedside Commode Bedside Commode Bedside Commode Diaper Incontinent # Voids 1 2 - Labs CBC & Chem 7: 04/18/22 06:11 04/19/22 06:50 Labs: Abnormal Lab Results - Last 24 Hours (Table) 04/18/22 04/18/22 04/18/22 Range/Units 11:35 17:00 21:06 BUN (7-17) mg/dL Creatinine (0.52-1.04) mg/dL Glucose (74-99) mg/dL POC Glucose (mg/dL) 281 H 166 H 196 H (70-110) mg/dL Calcium (8.4-10.2) mg/dL 04/19/22 Range/Units 06:50 BUN 37 H (7-17) mg/dL Creatinine 2.46 H (0.52-1.04) mg/dL Glucose 133 H (74-99) mg/dL POC Glucose (mg/dL) (70-110) mg/dL Calcium 8.2 L (8.4-10.2) mg/dL Microbiology - Last 24 Hours (Table) 04/17/22 10:10 Urine Culture - Final Urine,Voided Pseudomonas aeruginosa 04/17/22 14:51 Blood Culture - Preliminary Blood No Growth after 24 hours
[2022-04-19 11:25] LABS: Glucose,Whole Blood 180 mg/dL (70-110)
--- NOTE | 2022-04-19 14:50 | CDI ---
Documentation Clarification Form Date: 04/19/2022 02:32:42 PM From: Michelle Pierre Admit Date: 04/17/2022 12:21:00 PM Patient Name: Anabel Muñoz Visit Number: [id number] Discharge Date: ATTENTION: The Clinical Documentation Specialists (CDI) and [facility] Coding Staff appreciate your assistance in clarifying documentation. Please respond to the clarification below the line at the bottom and electronically sign. The CDI & [facility] Coding staff will review the response and follow-up if needed. Please note: Queries are made part of the Legal Health Record. If you have any questions, please contact the author of this message via ITS. Dr. Kyler Osborne Your patient has the documented diagnosis of unspecified Heart failure 04/18, Cardiology consult. Additional information regarding the type, acuity of Heart failure is requested. History/Risk Factors: 77-year-old female presents to the ED with weakness. Medical history: Heart failure; Atrial fibrillation and renal disease. Cardiology consult, 04/18. Clinical Indicators: VS/Pulse OX: 04/17 B/P 112/86; HR 83; Temp 97.6 F Oral; RR 18; SpO2 96% room air Echocardiogram Results: 08/05/21 EF 45-50% Moderate left ventricular hypertrophy. Right ventricle is mildly enlarged. LA is severely dilated >40 ml/m2. Mild aortic valve sclerosis. Moderate mitral regurgitation is present mild to moderate tricuspid regurgitation . mild to moderate pulmonary hypertension. Cardiology consult: 04/18 Nonischemic cardiomyopathy, ejection fraction 30%. Treatment: Lasix 40mg PO Daily one dose then d/cd; Lopressor 25mg PO x 1; Lopressor 50mg PO BID; Aldactone 25mg PO Daily; Imdur 30mg PO Daily. In your professional opinion, can you please clarify the acuity and type of CHF if known? [ + ] Chronic Systolic Heart Failure (reduced EF) [ ] Chronic Diastolic Heart Failure (preserved EF) [ ] Chronic Systolic & Diastolic Heart Failure [ ] Other, please specify [ ] Unable to determine (Template Last Revised: June 2020) MTDD
--- NOTE | 2022-04-19 15:24 | P.PN ---
Progress Note - Text Progress Note Date: 04/19/22 Presenting complaint: Weakness Hospital course: Patient admitted with weakness and lethargy for 2 days. and urinary symptoms. Admitted with medical debility acute, acute UTI. A. fib. 04/18/2022: I assumed care of the patient. From [facility] hospitalist today. Appetite fair. Tired. Laying in bed. Atrial fibrillation on 100. IV ceftriaxone. 04/19/2022: Oral intake better. Eating about 50%. A. fib with heart rate around 1 teens. On Lopressor. Blood pressure the lower side. Catapres discontinued. Patient tired. Urine culture growing Pseudomonas. Change IV ceftriaxone to Levaquin. Active Medications Acetaminophen (Acetaminophen Tab 325 Mg Tab) 650 mg PO Q6HR PRN PRN Reason: Mild Pain or Fever > 100.5 Hydrocodone Bitart/Acetaminophen (Hydrocodone/Apap 5-325mg 1 Each Tab) 1 each PO Q6H PRN PRN Reason: Moderate Pain (Scale 4 to 6) Last Admin: 04/19/22 06:02 Dose: 1 each Apixaban (Apixaban 2.5 Mg Tablet) 2.5 mg PO BID@0800,1600 [facility]; Protocol Last Admin: 04/19/22 08:26 Dose: 2.5 mg Atorvastatin Calcium (Atorvastatin 40 Mg Tab) 40 mg PO HS@1999 [facility] Last Admin: 04/18/22 21:10 Dose: 40 mg Bupropion HCl (Bupropion Sr 150 Mg Tablet.Er) 150 mg PO BID@0800,2000 [facility] Last Admin: 04/19/22 08:27 Dose: 150 mg Cholecalciferol (Cholecalciferol 125 Mcg (5000 Iu) Tablet) 125 mcg PO DAILY [facility] Last Admin: 04/19/22 08:27 Dose: 125 mcg Docusate Sodium (Docusate 100 Mg Cap) 100 mg PO BID [facility] Last Admin: 04/19/22 08:27 Dose: 100 mg Famotidine (Famotidine 20 Mg Tab) 20 mg PO DAILY [facility] Last Admin: 04/19/22 08:28 Dose: 20 mg Ferrous Sulfate (Ferrous Sulfate 325 Mg Tab) 325 mg PO BID [facility] Last Admin: 04/19/22 08:28 Dose: 325 mg Sodium Chloride (Saline 0.9%) 1,000 mls @ 50 mls/hr IV .Q20H [facility] Last Admin: 04/19/22 08:26 Dose: 50 mls/hr Ceftriaxone Sodium 1 gm/ (Sodium Chloride) 50 mls @ 100 mls/hr IVPB Q24HR [facility]; Protocol Last Admin: 04/19/22 08:27 Dose: 100 mls/hr Insulin Aspart (Insulin Aspart (Novolog) 100 Unit/Ml Vial) 10 unit SQ AC-TID [facility] Last Admin: 04/19/22 12:24 Dose: 10 unit Insulin Detemir (Insulin Detemir (Levemir) 100 Unit/Ml Syr) 10 unit SQ Q12H [facility] Last Admin: 04/19/22 08:27 Dose: 10 unit Isosorbide Mononitrate (Isosorbide Mononitrate Er 30 Mg Tab.Er.24h) 30 mg PO DAILY [facility] Last Admin: 04/19/22 08:28 Dose: 30 mg Lactulose (Lactulose 200 Gm/300 Ml (From 05/30 Gal Jug)) 20 gm PO DAILY PRN PRN Reason: Constipation Lisinopril (Lisinopril 5 Mg Tab) 5 mg PO DAILY [facility] Meclizine HCl (Meclizine 12.5 Mg Tab) 12.5 mg PO Q8H PRN PRN Reason: Vertigo Melatonin (Melatonin 5 Mg Tablet) 10 mg PO HS [facility] Last Admin: 04/18/22 21:10 Dose: 10 mg Metoprolol Tartrate (Metoprolol Tartrate 50 Mg Tab) 50 mg PO BID [facility] Last Admin: 04/19/22 08:28 Dose: 50 mg Montelukast Sodium (Montelukast 10 Mg Tab) 10 mg PO HS [facility] Last Admin: 04/18/22 21:10 Dose: 10 mg Multivitamins (Multivitamins, Thera 1 Each Tab) 1 each PO HS [facility] Last Admin: 04/18/22 21:34 Dose: Not Given Mupirocin (Mupirocin 2% Oint 22 Gm Tube) 1 applic TOPICAL Q12H PRN; Protocol PRN Reason: Inflammation from excoriation Naloxone HCl (Naloxone 0.4 Mg/Ml 1 Ml Vial) 0.2 mg IV Q2M PRN PRN Reason: Opioid Reversal Non-Formulary Medication (Vit C/E/Zn/Coppr/Lutein/Zeaxan [Preservision Areds 2 Softgel]) 1 cap PO BID [facility] Last Admin: 04/19/22 08:22 Dose: Not Given Polyethylene Glycol (Polyethylene Glycol 3350 17 Gm Powd.Pack) 17 gm PO HS [facility] Last Admin: 04/18/22 21:03 Dose: Not Given Psyllium Hydrophilic Mucilloid (Psyllium Husk 100% 6 Gm Packet) 1 gm PO DAILY [facility] Last Admin: 04/19/22 08:28 Dose: 1 gm Risperidone (Risperidone 1 Mg Tab) 1 mg PO BID@0800,1600 [facility] Last Admin: 04/19/22 08:27 Dose: 1 mg Senna (Sennosides 8.6 Mg Tab) 8.6 mg PO Q12H PRN PRN Reason: Constipation Simethicone (Simethicone 80 Mg Chewable) 80 mg PO Q4H PRN PRN Reason: Heartburn Sodium Bicarbonate (Sodium Bicarbonate Tab 650 Mg Tab) 650 mg PO BID [facility] Last Admin: 04/19/22 08:28 Dose: 650 mg Spironolactone (Spironolactone 25 Mg Tab) 25 mg PO DAILY [facility] Last Admin: 04/19/22 08:28 Dose: 25 mg On examination: VITAL SIGNS: 98.1, 110, 15, 98/62, 95% on 1 L GENERAL APPEARANCE: Laying in bed, awake, tired HEENT: Normal external appearance of nose and ear. Oral cavity normal EYES: Pupils equal. Conjunctiva normal. NECK: JVD not raised. Mass not palpable. RESPIRATORY: Respiratory effort normal. Lungs clear to auscultation. CARDIOVASCULAR: Heart sounds irregular. No edema. ABDOMEN: Soft. Liver and spleen not palpable. No tenderness. No mass palpable. PSYCHIATRY: Laying in bed awake, tired, answering questions INVESTIGATIONS, reviewed in the clinical context: Urine culture growing: IV ceftriaxone. 04/19/2022: Potassium 3.6 BUN 37 creatinine 2.46 WBC 13.4 hemoglobin 9.1 platelets 381 potassium 4.1 BUN 38 creatinine 2.6 EKG tracing personally reviewed by me-atrial fibrillation. Rate 105 Assessment and plan: -Paroxysmal atrial fibrillation, currently in atrial fibrillation rate uncontrolled Eliquis. Lopressor 50 mg twice a day -Hyperlipidemia Lipitor -Depression and anxiety not otherwise specified Wellbutrin SR 150 mg twice a day -Acute UTI with cystitis, pseudomonas aeruginosa IV ceftriaxone, oil changer to oral Levaquin -Essential hypertension, blood pressure in lower side. 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 DC IV ceftriaxone. Changed to oral Levaquin. Eating better.
[2022-04-19] MEDS ORDERED: LEVOFLOXACIN 500 MG TAB PO SCH (16:00)
[2022-04-19 16:21] LABS: Glucose,Whole Blood 126 mg/dL (70-110)
[2022-04-19 22:01] LABS: Glucose,Whole Blood 95 mg/dL (70-110)
[2022-04-19] MEDS: MONTELUKAST 10 MG TAB PO SCH (22:37)
[2022-04-19] MEDS: ATORVASTATIN 40 MG TAB PO SCH (22:38)
[2022-04-19] MEDS: MULTIVITAMINS, THERA 1 EACH TAB PO SCH (22:38)
[2022-04-19] MEDS: MELATONIN 5 MG TABLET PO SCH (22:38)
[2022-04-19] MEDS: polyethylene glycoL 3350 17 GM POWD.PACK PO SCH (22:39)
[2022-04-20] MEDS: SODIUM CHLORIDE 0.9% 1,000 ML IV SCH ×2 (03:03→21:28)
[2022-04-20] MEDS: INSULIN ASPART (NovoLOG) 100 UNIT/ML VIAL SQ SCH ×3 (06:09→17:30)
[2022-04-20 06:13] LABS: Glucose,Whole Blood 98 mg/dL (70-110)
[2022-04-20] MEDS: METOPROLOL TARTRATE 50 MG TAB PO SCH ×3 (09:07→21:23)
[2022-04-20] MEDS: NON FORMULARY DRUG (Vit C/E/Zn/Coppr/Lutein/Zeaxan [Preservision Areds 2 Softgel] 1 EACH C PO SCH ×2 (09:17→21:25)
[2022-04-20] MEDS: lisinopriL 5 MG TAB PO SCH (09:19)
[2022-04-20] MEDS: SODIUM BICARBONATE TAB 650 MG TAB PO SCH ×2 (09:19→21:23)
[2022-04-20] MEDS: ISOSORBIDE MONONITRATE ER 30 MG TAB.ER.24H PO SCH (09:19)
[2022-04-20] MEDS: SPIRONOLACTONE 25 MG TAB PO SCH (09:19)
[2022-04-20] MEDS: CHOLECALCIFEROL 125 MCG (5000 IU) TABLET PO SCH (09:19)
[2022-04-20] MEDS: APIXABAN 2.5 MG TABLET PO SCH ×2 (09:19→17:30)
[2022-04-20] MEDS: FERROUS SULFATE 325 MG TAB PO SCH ×2 (09:20→21:22)
[2022-04-20] MEDS: DOCUSATE 100 MG CAP PO SCH ×2 (09:20→21:22)
[2022-04-20] MEDS: INSULIN DETEMIR (LEVEMIR) 100 UNIT/ML SYR SQ SCH ×2 (09:20→21:24)
[2022-04-20] MEDS: buPROPion SR 150 MG TABLET.ER PO SCH ×2 (09:20→21:22)
[2022-04-20] MEDS: FAMOTIDINE 20 MG TAB PO SCH (09:20)
[2022-04-20] MEDS: PSYLLIUM HUSK 100% 6 GM PACKET PO SCH (09:20)
[2022-04-20] MEDS: risperiDONE 1 MG TAB PO SCH ×2 (09:20→17:30)
--- NOTE | 2022-04-20 10:48 | P.PN ---
Subjective Progress Note Date: 04/20/22 HISTORY OF PRESENT ILLNESS: This is a 77-year-old female with a past medical history significant for hypertension, hyperlipidemia, diabetes, atrial fibrillation, nonischemic cardiomyopathy with ejection fraction around 30%, and cardioversion in October 2021. Patient follows in the office with Dr. Abdalla. We have been asked to see the patient in consultation for atrial fibrillation with RVR. Patient examined at the bedside. Patient is admitted to the hospital secondary to altered mental status and urinary tract infection. Patient is currently in atrial fibrillation with uncontrolled heart rates. She denies chest pain or pressure. Denies SOB. Blood pressure is stable. * EKG reveals atrial fibrillation with a heart rate of 105 * Laboratory data: WBC 13.4. Hemoglobin 9.1. Platelet count 381. Sodium 138. Potassium 4.1. BUN 38. Creatinine 2.6. TSH 2.690. * Current home cardiac medications include Eliquis 2.5mg BID, Lipitor 40 mg at night, Imdur 30 mg daily, Lasix 40 mg daily, Aldactone 25 mg daily, metoprolol titrate 25 mg twice a day, clonidine 0.2 mg every 8 hours * Most recent echocardiogram obtained in October 2021 revealed ejection fraction 30%, global hypokinesis, mild MR, and moderate TR * Cardiac catheterization history: Unknown 04/19/2022 Patient examined this morning. Patient is sitting up in the chair. Patient appears more awake and alert today. She denies any chest pain or pressure. She denies any shortness of breath. She does report having episodes of lightheadedness. She also reports like she feels her legs are going to give out when she walks. Telemetry reveals atrial fibrillation with a heart rate in the low 100s. Blood pressures remain soft. 04/20/2022 Patient examined this morning the bedside. Patient denies chest pain or pressure. She denies shortness of breath. Telemetry reveals atrial fibrillation with a heart rate between 120s and 130s. She does report feeling dizzy occasionally. Blood pressure 146/91. PHYSICAL EXAM: VITAL SIGNS: Reviewed. GENERAL: Well-developed in no acute distress. HEENT: Head is normocephalic. Pupils are equal, round. Sclerae anicteric. Mucous membranes of the mouth are moist. Neck supple. No JVD or thyromegaly LUNGS: Respirations even and unlabored. Lungs essentially clear to auscultation bilaterally. HEART: Tachycardic. Irregular rate and rhythm. S1 and S2 heard. ABDOMEN: Soft. Nondistended. Nontender. EXTREMITIES: Normal range of motion. No clubbing or cyanosis. Peripheral pulses intact. No lower extremity edema NEUROLOGIC: Lethargic. Oriented x 1-2. ASSESSMENT: Altered mental status Urinary tract infection Paroxysmal atrial fibrillation with RVR History of cardioversion, October 2021 Nonischemic cardiomyopathy, ejection fraction 30% Hypertension Hyperlipidemia Diabetes Former nicotine dependence PLAN: Continue to hold Lasix Catapres discontinued yesterday secondary to borderline hypotension Increase metoprolol to 100 mg twice a day for optimal heart rate control Continue telemetry monitoring Further recommendations pending patient course Nurse practitioner note has been reviewed by physician. Signing provider agrees with the documented findings, assessment, and plan of care. Objective - Vital Signs Vital signs: Vital Signs Temp 98.4 F 04/20/22 07:43 Pulse 132 H 04/20/22 07:43 Resp 17 04/20/22 07:43 BP 146/91 04/20/22 07:43 Pulse Ox 96 04/20/22 07:43 FiO2 Intake & Output 04/19/22 04/20/22 04/20/22 18:59 06:59 18:59 Other: Voiding Method Bedside Commode Bedside Commode Bedside Commode # Voids 1 4 - Labs CBC & Chem 7: 04/18/22 06:11 04/19/22 06:50 Labs: Abnormal Lab Results - Last 24 Hours (Table) 04/19/22 04/19/22 Range/Units 11:19 16:17 POC Glucose (mg/dL) 180 H 126 H (70-110) mg/dL Microbiology - Last 24 Hours (Table) 04/17/22 14:51 Blood Culture - Preliminary Blood No Growth after 48 hours 04/17/22 10:10 Urine Culture - Final Urine,Voided Pseudomonas aeruginosa
[2022-04-20 11:21] LABS: Glucose,Whole Blood 177 mg/dL (70-110)
[2022-04-20 16:30] LABS: Glucose,Whole Blood 173 mg/dL (70-110)
--- NOTE | 2022-04-20 17:05 | P.PN ---
Progress Note - Text Progress Note Date: 04/20/22 Presenting complaint: Weakness Hospital course: Patient admitted with weakness and lethargy for 2 days. and urinary symptoms. Admitted with medical debility acute, acute UTI. A. fib. 04/18/2022: I assumed care of the patient. From [facility] hospitalist today. Appetite fair. Tired. Laying in bed. Atrial fibrillation on 100. IV ceftriaxone. 04/19/2022: Oral intake better. Eating about 50%. A. fib with heart rate around 1 teens. On Lopressor. Blood pressure the lower side. Catapres discontinued. Patient tired. Urine culture growing Pseudomonas. Change IV ceftriaxone to Levaquin. 04/20/2022: Remains in A. fib uncontrolled heart rate up to 130s. Lopressor increased to 100 mg twice a day. On Levaquin. Blood pressure medications cutback. Active Medications Acetaminophen (Acetaminophen Tab 325 Mg Tab) 650 mg PO Q6HR PRN PRN Reason: Mild Pain or Fever > 100.5 Hydrocodone Bitart/Acetaminophen (Hydrocodone/Apap 5-325mg 1 Each Tab) 1 each PO Q6H PRN PRN Reason: Moderate Pain (Scale 4 to 6) Last Admin: 04/19/22 06:02 Dose: 1 each Apixaban (Apixaban 2.5 Mg Tablet) 2.5 mg PO BID@0800,1600 [facility]; Protocol Last Admin: 04/20/22 09:19 Dose: 2.5 mg Atorvastatin Calcium (Atorvastatin 40 Mg Tab) 40 mg PO HS@1999 [facility] Last Admin: 04/19/22 22:38 Dose: 40 mg Bupropion HCl (Bupropion Sr 150 Mg Tablet.Er) 150 mg PO BID@0800,1999 [facility] Last Admin: 04/20/22 09:20 Dose: 150 mg Cholecalciferol (Cholecalciferol 125 Mcg (5000 Iu) Tablet) 125 mcg PO DAILY [facility] Last Admin: 04/20/22 09:19 Dose: 125 mcg Docusate Sodium (Docusate 100 Mg Cap) 100 mg PO BID [facility] Last Admin: 04/20/22 09:20 Dose: 100 mg Famotidine (Famotidine 20 Mg Tab) 20 mg PO DAILY [facility] Last Admin: 04/20/22 09:20 Dose: 20 mg Ferrous Sulfate (Ferrous Sulfate 325 Mg Tab) 325 mg PO BID [facility] Last Admin: 04/20/22 09:20 Dose: 325 mg Sodium Chloride (Saline 0.9%) 1,000 mls @ 50 mls/hr IV .Q20H [facility] Last Admin: 04/20/22 03:03 Dose: Not Given Insulin Aspart (Insulin Aspart (Novolog) 100 Unit/Ml Vial) 10 unit SQ AC-TID [facility] Last Admin: 04/20/22 15:27 Dose: Not Given Insulin Detemir (Insulin Detemir (Levemir) 100 Unit/Ml Syr) 10 unit SQ Q12H [facility] Last Admin: 04/20/22 09:20 Dose: 10 unit Isosorbide Mononitrate (Isosorbide Mononitrate Er 30 Mg Tab.Er.24h) 30 mg PO DAILY [facility] Last Admin: 04/20/22 09:19 Dose: 30 mg Lactulose (Lactulose 200 Gm/300 Ml (From 05/30 Gal Jug)) 20 gm PO DAILY PRN PRN Reason: Constipation Levofloxacin (Levofloxacin 250 Mg Tab) 250 mg PO Q48H [facility]; Protocol Lisinopril (Lisinopril 5 Mg Tab) 5 mg PO DAILY [facility] Last Admin: 04/20/22 09:19 Dose: 5 mg Meclizine HCl (Meclizine 12.5 Mg Tab) 12.5 mg PO Q8H PRN PRN Reason: Vertigo Melatonin (Melatonin 5 Mg Tablet) 10 mg PO [facility] Last Admin: 04/19/22 22:38 Dose: 10 mg Metoprolol Tartrate (Metoprolol Tartrate 50 Mg Tab) 100 mg PO BID [facility] Last Admin: 04/20/22 09:19 Dose: 100 mg Montelukast Sodium (Montelukast 10 Mg Tab) 10 mg PO [facility] Last Admin: 04/19/22 22:37 Dose: 10 mg Multivitamins (Multivitamins, Thera 1 Each Tab) 1 each PO [facility] Last Admin: 04/19/22 22:38 Dose: 1 each Mupirocin (Mupirocin 2% Oint 22 Gm Tube) 1 applic TOPICAL Q12H PRN; Protocol PRN Reason: Inflammation from excoriation Naloxone HCl (Naloxone 0.4 Mg/Ml 1 Ml Vial) 0.2 mg IV Q2M PRN PRN Reason: Opioid Reversal Non-Formulary Medication (Vit C/E/Zn/Coppr/Lutein/Zeaxan [Preservision Areds 2 Softgel]) 1 cap PO BID [facility] Last Admin: 04/20/22 09:17 Dose: Not Given Polyethylene Glycol (Polyethylene Glycol 3350 17 Gm Powd.Pack) 17 gm PO HS [facility] Last Admin: 04/19/22 22:39 Dose: 17 gm Psyllium Hydrophilic Mucilloid (Psyllium Husk 100% 6 Gm Packet) 1 gm PO DAILY [facility] Last Admin: 04/20/22 09:20 Dose: 1 gm Risperidone (Risperidone 1 Mg Tab) 1 mg PO BID@0800,1600 [facility] Last Admin: 04/20/22 09:20 Dose: 1 mg Senna (Sennosides 8.6 Mg Tab) 8.6 mg PO Q12H PRN PRN Reason: Constipation Simethicone (Simethicone 80 Mg Chewable) 80 mg PO Q4H PRN PRN Reason: Heartburn Sodium Bicarbonate (Sodium Bicarbonate Tab 650 Mg Tab) 650 mg PO BID [facility] Last Admin: 04/20/22 09:19 Dose: 650 mg Spironolactone (Spironolactone 25 Mg Tab) 25 mg PO DAILY [facility] Last Admin: 04/20/22 09:19 Dose: 25 mg On examination: VITAL SIGNS: 98.4, 132, 17, 146.91, 96% room air GENERAL APPEARANCE: Laying in bed, awake, tired HEENT: Normal external appearance of nose and ear. Oral cavity normal EYES: Pupils equal. Conjunctiva normal. NECK: JVD not raised. Mass not palpable. RESPIRATORY: Respiratory effort normal. Lungs clear to auscultation. CARDIOVASCULAR: Heart sounds irregular. No edema. ABDOMEN: Soft. Liver and spleen not palpable. No tenderness. No mass palpable. PSYCHIATRY: Laying in bed awake, tired, answering questions INVESTIGATIONS, reviewed in the clinical context: Urine culture growing: IV ceftriaxone. 04/19/2022: Potassium 3.6 BUN 37 creatinine 2.46 WBC 13.4 hemoglobin 9.1 platelets 381 potassium 4.1 BUN 38 creatinine 2.6 EKG tracing personally reviewed by me-atrial fibrillation. Rate 105 Assessment and plan: -Paroxysmal atrial fibrillation, currently in atrial fibrillation rate uncontrolled Eliquis. 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 A. fib uncontrolled. Lopressor increased 100 mg twice a day. Other medications to continue. Discussed.
[2022-04-20] MEDS: LEVOFLOXACIN 250 MG TAB PO SCH (17:30)
[2022-04-20] MEDS: ATORVASTATIN 40 MG TAB PO SCH (21:22)
[2022-04-20] MEDS: MONTELUKAST 10 MG TAB PO SCH (21:23)
[2022-04-20] MEDS: polyethylene glycoL 3350 17 GM POWD.PACK PO SCH (21:23)
[2022-04-20] MEDS: MULTIVITAMINS, THERA 1 EACH TAB PO SCH (21:23)
[2022-04-20] MEDS: MELATONIN 5 MG TABLET PO SCH (21:23)
[2022-04-20 21:24] LABS: Glucose,Whole Blood 126 mg/dL (70-110)
[2022-04-21 06:14] LABS: Glucose,Whole Blood 70 mg/dL (70-110)
[2022-04-21] MEDS: INSULIN ASPART (NovoLOG) 100 UNIT/ML VIAL SQ SCH ×3 (06:20→17:22)
[2022-04-21] MEDS: APIXABAN 2.5 MG TABLET PO SCH ×2 (08:36→15:38)
[2022-04-21] MEDS: lisinopriL 5 MG TAB PO SCH (08:36)
[2022-04-21] MEDS: risperiDONE 1 MG TAB PO SCH ×2 (08:36→15:38)
[2022-04-21] MEDS: METOPROLOL TARTRATE 50 MG TAB PO SCH ×2 (08:36→22:52)
[2022-04-21] MEDS: FAMOTIDINE 20 MG TAB PO SCH (08:36)
[2022-04-21] MEDS: SPIRONOLACTONE 25 MG TAB PO SCH (08:36)
[2022-04-21] MEDS: buPROPion SR 150 MG TABLET.ER PO SCH ×2 (08:36→22:51)
[2022-04-21] MEDS: DOCUSATE 100 MG CAP PO SCH ×2 (08:36→22:52)
[2022-04-21] MEDS: SODIUM BICARBONATE TAB 650 MG TAB PO SCH ×2 (08:36→22:52)
[2022-04-21] MEDS: CHOLECALCIFEROL 125 MCG (5000 IU) TABLET PO SCH (08:36)
[2022-04-21] MEDS: FERROUS SULFATE 325 MG TAB PO SCH ×2 (08:36→22:52)
[2022-04-21] MEDS: ISOSORBIDE MONONITRATE ER 30 MG TAB.ER.24H PO SCH (08:36)
[2022-04-21] MEDS: NON FORMULARY DRUG (Vit C/E/Zn/Coppr/Lutein/Zeaxan [Preservision Areds 2 Softgel] 1 EACH C PO SCH ×2 (08:37→22:55)
[2022-04-21] MEDS: PSYLLIUM HUSK 100% 6 GM PACKET PO SCH (08:37)
[2022-04-21 08:49] LABS: African American GFR (CKD) 32 (>60 ml/min/1.73 sqM); Anion Gap 10 mmol/L; Blood Urea Nitrogen 24 mg/dL (7-17); Calcium 8.7 mg/dL (8.4-10.2); Carbon Dioxide 23 mmol/L (22-30); Chloride 108 mmol/L (98-107); Glucose 84 mg/dL (74-99); Non-African American GFR(CKD) 28 (>60 ml/min/1.73 sqM); Potassium 3.9 mmol/L (3.5-5.1); Sodium 141 mmol/L (137-145)
[2022-04-21] MEDS: INSULIN DETEMIR (LEVEMIR) 100 UNIT/ML SYR SQ SCH ×2 (10:27→22:44)
[2022-04-21 11:48] LABS: Glucose,Whole Blood 155 mg/dL (70-110)
--- NOTE | 2022-04-21 14:59 | P.PN ---
Progress Note - Text Progress Note Date: 04/21/22 Presenting complaint: Weakness Hospital course: Patient admitted with weakness and lethargy for 2 days. and urinary symptoms. Admitted with medical debility acute, acute UTI. A. fib. 04/18/2022: I assumed care of the patient. From [facility] hospitalist today. Appetite fair. Tired. Laying in bed. Atrial fibrillation on 100. IV ceftriaxone. 04/19/2022: Oral intake better. Eating about 50%. A. fib with heart rate around 1 teens. On Lopressor. Blood pressure the lower side. Catapres discontinued. Patient tired. Urine culture growing Pseudomonas. Change IV ceftriaxone to Levaquin. 04/20/2022: Remains in A. fib uncontrolled heart rate up to 130s. Lopressor increased to 100 mg twice a day. On Levaquin. Blood pressure medications cutback. 04/21/2022: Remains in atrial fibrillation. Heart rate remains uncontrolled. Add Cardizem 30 mg 3 times a day. Active Medications Acetaminophen (Acetaminophen Tab 325 Mg Tab) 650 mg PO Q6HR PRN PRN Reason: Mild Pain or Fever > 100.5 Hydrocodone Bitart/Acetaminophen (Hydrocodone/Apap 5-325mg 1 Each Tab) 1 each PO Q6H PRN PRN Reason: Moderate Pain (Scale 4 to 6) Last Admin: 04/19/22 06:02 Dose: 1 each Apixaban (Apixaban 2.5 Mg Tablet) 2.5 mg PO BID@0800,1600 [facility]; Protocol Last Admin: 04/21/22 08:36 Dose: 2.5 mg Atorvastatin Calcium (Atorvastatin 40 Mg Tab) 40 mg PO HS@1999 [facility] Last Admin: 04/20/22 21:22 Dose: 40 mg Bupropion HCl (Bupropion Sr 150 Mg Tablet.Er) 150 mg PO BID@0800,1999 [facility] Last Admin: 04/21/22 08:36 Dose: 150 mg Cholecalciferol (Cholecalciferol 125 Mcg (5000 Iu) Tablet) 125 mcg PO DAILY [facility] Last Admin: 04/21/22 08:36 Dose: 125 mcg Docusate Sodium (Docusate 100 Mg Cap) 100 mg PO BID [facility] Last Admin: 04/21/22 08:36 Dose: 100 mg Famotidine (Famotidine 20 Mg Tab) 20 mg PO DAILY [facility] Last Admin: 04/21/22 08:36 Dose: 20 mg Ferrous Sulfate (Ferrous Sulfate 325 Mg Tab) 325 mg PO BID [facility] Last Admin: 04/21/22 08:36 Dose: 325 mg Sodium Chloride (Saline 0.9%) 1,000 mls @ 50 mls/hr IV .Q20H [facility] Last Admin: 04/20/22 21:28 Dose: 50 mls/hr Insulin Aspart (Insulin Aspart (Novolog) 100 Unit/Ml Vial) 10 unit SQ AC-TID [facility] Last Admin: 04/21/22 11:51 Dose: 5 unit Insulin Detemir (Insulin Detemir (Levemir) 100 Unit/Ml Syr) 10 unit SQ Q12H [facility] Last Admin: 04/21/22 10:27 Dose: Not Given Isosorbide Mononitrate (Isosorbide Mononitrate Er 30 Mg Tab.Er.24h) 30 mg PO DAILY [facility] Last Admin: 04/21/22 08:36 Dose: 30 mg Lactulose (Lactulose 200 Gm/300 Ml (From 05/30 Jug)) 20 gm PO DAILY PRN PRN Reason: Constipation Levofloxacin (Levofloxacin 250 Mg Tab) 250 mg PO Q48H [facility]; Protocol Last Admin: 04/20/22 17:30 Dose: 250 mg Lisinopril (Lisinopril 5 Mg Tab) 5 mg PO DAILY [facility] Last Admin: 04/21/22 08:36 Dose: 5 mg Meclizine HCl (Meclizine 12.5 Mg Tab) 12.5 mg PO Q8H PRN PRN Reason: Vertigo Melatonin (Melatonin 5 Mg Tablet) 10 mg PO [facility] Last Admin: 04/20/22 21:23 Dose: 10 mg Metoprolol Tartrate (Metoprolol Tartrate 50 Mg Tab) 100 mg PO BID [facility] Last Admin: 04/21/22 08:36 Dose: 100 mg Montelukast Sodium (Montelukast 10 Mg Tab) 10 mg PO [facility] Last Admin: 04/20/22 21:23 Dose: 10 mg Multivitamins (Multivitamins, Thera 1 Each Tab) 1 each PO [facility] Last Admin: 04/20/22 21:23 Dose: 1 each Mupirocin (Mupirocin 2% Oint 22 Gm Tube) 1 applic TOPICAL Q12H PRN; Protocol PRN Reason: Inflammation from excoriation Naloxone HCl (Naloxone 0.4 Mg/Ml 1 Ml Vial) 0.2 mg IV Q2M PRN PRN Reason: Opioid Reversal Non-Formulary Medication (Vit C/E/Zn/Coppr/Lutein/Zeaxan [Preservision Areds 2 Softgel]) 1 cap PO BID [facility] Last Admin: 04/21/22 08:37 Dose: Not Given Polyethylene Glycol (Polyethylene Glycol 3350 17 Gm Powd.Pack) 17 gm PO HS [facility] Last Admin: 04/20/22 21:23 Dose: Not Given Psyllium Hydrophilic Mucilloid (Psyllium Husk 100% 6 Gm Packet) 1 gm PO DAILY [facility] Last Admin: 04/21/22 08:37 Dose: Not Given Risperidone (Risperidone 1 Mg Tab) 1 mg PO BID@0800,1600 [facility] Last Admin: 04/21/22 08:36 Dose: 1 mg Senna (Sennosides 8.6 Mg Tab) 8.6 mg PO Q12H PRN PRN Reason: Constipation Simethicone (Simethicone 80 Mg Chewable) 80 mg PO Q4H PRN PRN Reason: Heartburn Sodium Bicarbonate (Sodium Bicarbonate Tab 650 Mg Tab) 650 mg PO BID [facility] Last Admin: 04/21/22 08:36 Dose: 650 mg Spironolactone (Spironolactone 25 Mg Tab) 25 mg PO DAILY [facility] Last Admin: 04/21/22 08:36 Dose: 25 mg On examination: VITAL SIGNS: 97.3, 124, 15, 1 4587, 94% room air GENERAL APPEARANCE: Laying in bed, awake, tired HEENT: Normal external appearance of nose and ear. Oral cavity normal EYES: Pupils equal. Conjunctiva normal. NECK: JVD not raised. Mass not palpable. RESPIRATORY: Respiratory effort normal. Lungs clear to auscultation. CARDIOVASCULAR: Heart sounds irregular. No edema. ABDOMEN: Soft. Liver and spleen not palpable. No tenderness. No mass palpable. PSYCHIATRY: Laying in bed awake, tired, answering questions INVESTIGATIONS, reviewed in the clinical context: Urine culture: Pseudomonas aeruginosa 04/19/2022: Potassium 3.6 BUN 37 creatinine 2.46 WBC 13.4 hemoglobin 9.1 platelets 381 potassium 4.1 BUN 38 creatinine 2.6 EKG tracing personally reviewed by me-atrial fibrillation. Rate 105 Assessment and plan: -Paroxysmal atrial fibrillation, currently in atrial fibrillation rate uncontrolled Eliquis. Lopressor 100 mg twice a day. 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 A. fib uncontrolled. Add Cardizem 30 mg 3 times a day. Other medications to continue.
--- NOTE | 2022-04-21 15:17 | P.PN ---
Subjective HISTORY OF PRESENT ILLNESS: This is a 77-year-old female with a past medical history significant for hypertension, hyperlipidemia, diabetes, atrial fibrillation, nonischemic cardiomyopathy with ejection fraction around 30%, and cardioversion in October 2021. Patient follows in the office with Dr. Abdalla. We have been asked to see the patient in consultation for atrial fibrillation with RVR. Patient examined at the bedside. Patient is admitted to the hospital secondary to altered mental status and urinary tract infection. Patient is currently in atrial fibrillation with uncontrolled heart rates. She denies chest pain or pressure. Denies SOB. Blood pressure is stable. * EKG reveals atrial fibrillation with a heart rate of 105 * Laboratory data: WBC 13.4. Hemoglobin 9.1. Platelet count 381. Sodium 138. Potassium 4.1. BUN 38. Creatinine 2.6. TSH 2.690. * Current home cardiac medications include Eliquis 2.5mg BID, Lipitor 40 mg at night, Imdur 30 mg daily, Lasix 40 mg daily, Aldactone 25 mg daily, metoprolol titrate 25 mg twice a day, clonidine 0.2 mg every 8 hours * Most recent echocardiogram obtained in October 2021 revealed ejection fraction 30%, global hypokinesis, mild MR, and moderate TR * Cardiac catheterization history: Unknown 04/19/2022 Patient examined this morning. Patient is sitting up in the chair. Patient appears more awake and alert today. She denies any chest pain or pressure. She denies any shortness of breath. She does report having episodes of lightheadedness. She also reports like she feels her legs are going to give out when she walks. Telemetry reveals atrial fibrillation with a heart rate in the low 100s. Blood pressures remain soft. 04/20/2022 Patient examined this morning the bedside. Patient denies chest pain or pressure. She denies shortness of breath. Telemetry reveals atrial fibri llation with a heart rate between 120s and 130s. She does report feeling dizzy occasionally. Blood pressure 146/91. 04/19 Patient seen and examined. Heart rates somewhat improved to 100s to 110s on telemetry and vitals reading more in the 120s. Cardizem was added today. Denies any chest pain or pressure. Patient still somewhat confused however feeling somewhat better. So receiving normal saline at 50 mL per hour. PHYSICAL EXAM: VITAL SIGNS: Reviewed. GENERAL: Well-developed in no acute distress. HEENT: Head is normocephalic. Pupils are equal, round. Sclerae anicteric. Mucous membranes of the mouth are moist. Neck supple. No JVD or thyromegaly LUNGS: Respirations even and unlabored. Lungs essentially clear to auscultation bilaterally. HEART: Tachycardic. Irregular rate and rhythm. S1 and S2 heard. ABDOMEN: Soft. Nondistended. Nontender. EXTREMITIES: Normal range of motion. No clubbing or cyanosis. Peripheral pulses intact. No lower extremity edema NEUROLOGIC: More alert Oriented x 1-2. ASSESSMENT: Altered mental status Urinary tract infection Paroxysmal atrial fibrillation with RVR History of cardioversion, October 2021 Nonischemic cardiomyopathy, ejection fraction 30% Hypertension Hyperlipidemia Diabetes Former nicotine dependence PLAN: Continue to hold Lasix Catapres discontinued secondary to borderline hypotension Increased metoprolol to 100 mg twice a day and Cardizem was added to day. Monitor and may consider increasing Metoprolol to TID if HR remains elevated. Continue telemetry monitoring Further recommendations pending patient course Objective - Vital Signs Vital signs: Vital Signs Temp 97.3 F L 04/21/22 07:02 Pulse 124 H 04/21/22 07:02 Resp 15 04/21/22 07:02 BP 145/87 04/21/22 07:02 Pulse Ox 94 L 04/21/22 07:02 FiO2 Intake & Output 04/20/22 04/21/22 04/21/22 18:59 06:59 18:59 Intake Total 900 Balance 900 Intake: Oral 900 Other: Voiding Method Bedside Commode # Voids 2 2 - Labs CBC & Chem 7: 04/18/22 06:11 04/21/22 07:48 Labs: Abnormal Lab Results - Last 24 Hours (Table) 04/20/22 04/20/22 04/21/22 Range/Units 16:27 21:19 07:48 Chloride 108 H (98-107) mmol/L BUN 24 H (7-17) mg/dL Creatinine 1.74 H (0.52-1.04) mg/dL POC Glucose (mg/dL) 173 H 126 H (70-110) mg/dL 04/21/22 Range/Units 11:47 Chloride (98-107) mmol/L BUN (7-17) mg/dL Creatinine (0.52-1.04) mg/dL POC Glucose (mg/dL) 155 H (70-110) mg/dL Microbiology - Last 24 Hours (Table) 04/17/22 14:51 Blood Culture - Preliminary Blood No Growth after 72 hours
[2022-04-21] MEDS: DILTIAZEM ORAL 30 MG TAB PO SCH ×2 (15:38→22:51)
[2022-04-21 16:13] LABS: Glucose,Whole Blood 196 mg/dL (70-110)
[2022-04-21 22:44] LABS: Glucose,Whole Blood 98 mg/dL (70-110)
[2022-04-21] MEDS: MONTELUKAST 10 MG TAB PO SCH (22:51)
[2022-04-21] MEDS: MELATONIN 5 MG TABLET PO SCH (22:51)
[2022-04-21] MEDS: MULTIVITAMINS, THERA 1 EACH TAB PO SCH (22:51)
[2022-04-21] MEDS: ATORVASTATIN 40 MG TAB PO SCH (22:52)
[2022-04-21] MEDS: polyethylene glycoL 3350 17 GM POWD.PACK PO SCH (22:53)
[2022-04-21] MEDS: SODIUM CHLORIDE 0.9% 1,000 ML IV SCH (22:53)
[2022-04-22 06:43] LABS: Glucose,Whole Blood 142 mg/dL (70-110)
[2022-04-22] MEDS: INSULIN ASPART (NovoLOG) 100 UNIT/ML VIAL SQ SCH ×3 (07:40→16:35)
[2022-04-22] MEDS: METOPROLOL TARTRATE 50 MG TAB PO SCH ×4 (07:51→22:30)
[2022-04-22] MEDS: buPROPion SR 150 MG TABLET.ER PO SCH ×2 (07:53→22:27)
[2022-04-22] MEDS: risperiDONE 1 MG TAB PO SCH ×2 (07:53→15:19)
[2022-04-22] MEDS: lisinopriL 5 MG TAB PO SCH (07:53)
[2022-04-22] MEDS: FERROUS SULFATE 325 MG TAB PO SCH ×2 (07:53→22:27)
[2022-04-22] MEDS: DILTIAZEM ORAL 30 MG TAB PO SCH (07:53)
[2022-04-22] MEDS: DOCUSATE 100 MG CAP PO SCH ×2 (07:53→22:27)
[2022-04-22] MEDS: FAMOTIDINE 20 MG TAB PO SCH (07:53)
[2022-04-22] MEDS: ISOSORBIDE MONONITRATE ER 30 MG TAB.ER.24H PO SCH (07:54)
[2022-04-22] MEDS: APIXABAN 2.5 MG TABLET PO SCH ×2 (07:54→15:18)
[2022-04-22] MEDS: NON FORMULARY DRUG (Vit C/E/Zn/Coppr/Lutein/Zeaxan [Preservision Areds 2 Softgel] 1 EACH C PO SCH ×2 (07:54→20:23)
[2022-04-22] MEDS: SODIUM BICARBONATE TAB 650 MG TAB PO SCH ×2 (07:54→22:27)
[2022-04-22] MEDS: CHOLECALCIFEROL 125 MCG (5000 IU) TABLET PO SCH (07:54)
[2022-04-22] MEDS: SPIRONOLACTONE 25 MG TAB PO SCH (07:54)
[2022-04-22] MEDS: PSYLLIUM HUSK 100% 6 GM PACKET PO SCH (07:55)
[2022-04-22] MEDS: INSULIN DETEMIR (LEVEMIR) 100 UNIT/ML SYR SQ SCH ×2 (08:07→22:18)
--- NOTE | 2022-04-22 08:35 | P.PN ---
Subjective Progress Note Date: 04/22/22 HISTORY OF PRESENT ILLNESS: This is a 77-year-old female with a past medical history significant for hypertension, hyperlipidemia, diabetes, atrial fibrillation, nonischemic cardiomyopathy with ejection fraction around 30%, and cardioversion in October 2021. Patient follows in the office with Dr. Abdalla. We have been asked to see the patient in consultation for atrial fibrillation with RVR. Patient examined at the bedside. Patient is admitted to the hospital secondary to altered mental status and urinary tract infection. Patient is currently in atrial fibrillation with uncontrolled heart rates. She denies chest pain or pressure. Denies SOB. Blood pressure is stable. * EKG reveals atrial fibrillation with a heart rate of 105 * Laboratory data: WBC 13.4. Hemoglobin 9.1. Platelet count 381. Sodium 138. Potassium 4.1. BUN 38. Creatinine 2.6. TSH 2.690. * Current home cardiac medications include Eliquis 2.5mg BID, Lipitor 40 mg at night, Imdur 30 mg daily, Lasix 40 mg daily, Aldactone 25 mg daily, metoprolol titrate 25 mg twice a day, clonidine 0.2 mg every 8 hours * Most recent echocardiogram obtained in October 2021 revealed ejection fraction 30%, global hypokinesis, mild MR, and moderate TR * Cardiac catheterization history: Unknown 04/19/2022 Patient examined this morning. Patient is sitting up in the chair. Patient appears more awake and alert today. She denies any chest pain or pressure. She denies any shortness of breath. She does report having episodes of lightheadedness. She also reports like she feels her legs are going to give out when she walks. Telemetry reveals atrial fibrillation with a heart rate in the low 100s. Blood pressures remain soft. 04/20/2022 Patient examined this morning the bedside. Patient denies chest pain or pressure. She denies shortness of breath. Telemetry reveals atrial fibrillation with a heart rate between 120s and 130s. She does report feeling dizzy occasionally. Blood pressure 146/91. 04/22/2022 Patient examined this morning at the bedside. Patient denies chest pain or pressure. She denies shortness of breath. She reports having episodes of diarrhea this morning. Telemetry reveals atrial fibrillation with a heart rate around 110. Blood pressure 153/91. PHYSICAL EXAM: VITAL SIGNS: Reviewed. GENERAL: Well-developed in no acute distress. HEENT: Head is normocephalic. Pupils are equal, round. Sclerae anicteric. Mucous membranes of the mouth are moist. Neck supple. No JVD or thyromegaly LUNGS: Respirations even and unlabored. Lungs essentially clear to auscultation bilaterally. HEART: Tachycardic. Irregular rate and rhythm. S1 and S2 heard. ABDOMEN: Soft. Nondistended. Nontender. EXTREMITIES: Normal range of motion. No clubbing or cyanosis. Peripheral pulses intact. No lower extremity edema NEUROLOGIC: Lethargic. Oriented x 1-2. ASSESSMENT: Altered mental status Urinary tract infection Paroxysmal atrial fibrillation with RVR History of cardioversion, October 2021 Nonischemic cardiomyopathy, ejection fraction 30% Hypertension Hyperlipidemia Diabetes Former nicotine dependence PLAN: Continue to hold Lasix Catapres discontinued secondary to borderline hypotension Increase metoprolol to 3 times a day dosing for optimal heart rate control Oral Cardizem added by primary service 04/21/2022. Not optimal treatment due to cardiomyopathy but will defer to internal medicine as they prescribed it. Add amio 400mg BID pending repeat LFTs this morning. If normal, begin amio. Continue telemetry monitoring. Further recommendations pending patient course Nurse practitioner note has been reviewed by physician. Signing provider agrees with the documented findings, assessment, and plan of care. Objective - Vital Signs Vital signs: Vital Signs Temp 97.4 F L 04/22/22 07:25 Pulse 121 H 04/22/22 07:25 Resp 18 04/22/22 07:25 BP 153/91 04/22/22 07:25 Pulse Ox 90 L 04/22/22 07:25 FiO2 Intake & Output 04/21/22 04/22/22 04/22/22 18:59 06:59 18:59 Intake Total 540 Balance 540 Intake: Oral 540 Other: Voiding Method Bedside Commode # Voids 2 - Labs CBC & Chem 7: 04/18/22 06:11 04/21/22 07:48 Labs: Abnormal Lab Results - Last 24 Hours (Table) 04/21/22 04/21/22 04/21/22 Range/Units 07:48 11:47 16:11 Chloride 108 H (98-107) mmol/L BUN 24 H (7-17) mg/dL Creatinine 1.74 H (0.52-1.04) mg/dL POC Glucose (mg/dL) 155 H 196 H (70-110) mg/dL 04/22/22 Range/Units 06:41 Chloride (98-107) mmol/L BUN (7-17) mg/dL Creatinine (0.52-1.04) mg/dL POC Glucose (mg/dL) 142 H (70-110) mg/dL Microbiology - Last 24 Hours (Table) 04/17/22 14:51 Blood Culture - Preliminary Blood No Growth after 96 hours
[2022-04-22 10:26] LABS: Glucose,Whole Blood 150 mg/dL (70-110)
[2022-04-22 11:44] LABS: ALT 42 U/L (4-34); AST 34 U/L (14-36)
[2022-04-22] MEDS: SODIUM CHLORIDE 0.9% 1,000 ML IV SCH (12:43)
[2022-04-22] MEDS: LEVOFLOXACIN 250 MG TAB PO SCH (15:18)
--- NOTE | 2022-04-22 16:23 | CDI ---
Documentation Clarification Form Date: 04/22/2022 04:16:44 PM From: Merlene Pritchett RN, CCDS Email: [email or web address] Admit Date: 04/17/2022 12:21:00 PM Patient Name: Anabel Muñoz Visit Number: [id number] Discharge Date: ATTENTION: The Clinical Documentation Specialists (CDI) and [facility] Coding Staff appreciate your assistance in clarifying documentation. Please respond to the clarification below the line at the bottom and electronically sign. The CDI & [facility] Coding staff will review the response and follow-up if needed. Please note: Queries are made part of the Legal Health Record. If you have any questions, please contact the author of this message via ITS. Dr. Kyler Osborne Your patient has the documented symptom of Altered Mental Status in the ED note and progress notes. Additional clarification regarding the etiology/cause of this symptom is requested. History/Risk Factors: atrial fibrillation,diabetes mellitus type 2,GERD, was complaining of dysuria. The patient also complains ofweakness. Patient was found to have evidence of UTI. Clinical Indicators: 04/17 ED: "altered mental status." 04/18 Cardiology Consult: "Patient is admitted to the hospital secondary to altered mental status and urinary tract infection. Patient is currently in atrial fibrillation with uncontrolled heart rates." 04/21 Cardiology: "Altered mental status. Neurologic: More alert Oriented x 1- 2." Labs: 04/18 WBC 13.43, Cr 2.72, positive U/A Treatment: IV Rocephin 1gm Q24H, Levaquin 250mg po Q48H, 1L IV bolus, Amiodarone 400mg po BID Please clarify the etiology of the symptom of Altered Mental Status: [ + ] Metabolic encephalopathy [ ] Other condition (please specify) [ ] Unable to determine MTDD
[2022-04-22 16:29] LABS: Glucose,Whole Blood 119 mg/dL (70-110)
[2022-04-22] MEDS: SODIUM CHLORIDE 0.9% 250 ML IV SCH ×2 (16:37→16:38)
[2022-04-22 20:05] LABS: Glucose,Whole Blood 84 mg/dL (70-110)
--- NOTE | 2022-04-22 20:17 | P.PN ---
Progress Note - Text Progress Note Date: 04/22/22 Presenting complaint: Weakness Hospital course: Patient admitted with weakness and lethargy for 2 days. and urinary symptoms. Admitted with medical debility acute, acute UTI. A. fib. 04/18/2022: I assumed care of the patient. From [facility] hospitalist today. Appetite fair. Tired. Laying in bed. Atrial fibrillation on 100. IV ceftriaxone. 04/19/2022: Oral intake better. Eating about 50%. A. fib with heart rate around 1 teens. On Lopressor. Blood pressure the lower side. Catapres discontinued. Patient tired. Urine culture growing Pseudomonas. Change IV ceftriaxone to Levaquin. 04/20/2022: Remains in A. fib uncontrolled heart rate up to 130s. Lopressor increased to 100 mg twice a day. On Levaquin. Blood pressure medications cutback. 04/21/2022: Remains in atrial fibrillation. Heart rate remains uncontrolled. Add Cardizem 30 mg 3 times a day. 04/22/2022: Remains in atrial fibrillation uncontrolled. Sitting up in a chair. Lopressor increased to 100 mg 3 times a day. I did stop the Cardizem. Active Medications Acetaminophen (Acetaminophen Tab 325 Mg Tab) 650 mg PO Q6HR PRN PRN Reason: Mild Pain or Fever > 100.5 Hydrocodone Bitart/Acetaminophen (Hydrocodone/Apap 5-325mg 1 Each Tab) 1 each PO Q6H PRN PRN Reason: Moderate Pain (Scale 4 to 6) Last Admin: 04/19/22 06:02 Dose: 1 each Apixaban (Apixaban 2.5 Mg Tablet) 2.5 mg PO BID@0800,1600 ON LICENSE OF [facility]; Protocol Last Admin: 04/22/22 15:18 Dose: 2.5 mg Atorvastatin Calcium (Atorvastatin 40 Mg Tab) 40 mg PO HS@1999 ON LICENSE OF [facility] Last Admin: 04/21/22 22:52 Dose: 40 mg Bupropion HCl (Bupropion Sr 150 Mg Tablet.Er) 150 mg PO BID@799,1999 ON LICENSE OF [facility] Last Admin: 04/22/22 07:53 Dose: 150 mg Cholecalciferol (Cholecalciferol 125 Mcg (5000 Iu) Tablet) 125 mcg PO DAILY ON LICENSE OF [facility] Last Admin: 04/22/22 07:54 Dose: 125 mcg Docusate Sodium (Docusate 100 Mg Cap) 100 mg PO BID ON LICENSE OF [facility] Last Admin: 04/22/22 07:53 Dose: Not Given Famotidine (Famotidine 20 Mg Tab) 20 mg PO DAILY ON LICENSE OF [facility] Last Admin: 04/22/22 07:53 Dose: 20 mg Ferrous Sulfate (Ferrous Sulfate 325 Mg Tab) 325 mg PO BID ON LICENSE OF [facility] Last Admin: 04/22/22 07:53 Dose: 325 mg Sodium Chloride (Saline 0.9%) 1,000 mls @ 50 mls/hr IV .Q20H ON LICENSE OF [facility] Last Admin: 04/22/22 12:43 Dose: 50 mls/hr Insulin Aspart (Insulin Aspart (Novolog) 100 Unit/Ml Vial) 10 unit SQ AC-TID ON LICENSE OF [facility] Last Admin: 04/22/22 16:35 Dose: Not Given Insulin Detemir (Insulin Detemir (Levemir) 100 Unit/Ml Syr) 10 unit SQ Q12H ON LICENSE OF [facility] Last Admin: 04/22/22 08:07 Dose: 10 unit Isosorbide Mononitrate (Isosorbide Mononitrate Er 30 Mg Tab.Er.24h) 30 mg PO DAILY ON LICENSE OF [facility] Last Admin: 04/22/22 07:54 Dose: 30 mg Lactulose (Lactulose 200 Gm/300 Ml (From 05/30)) 20 gm PO DAILY PRN PRN Reason: Constipation Levofloxacin (Levofloxacin 250 Mg Tab) 250 mg PO Q48H ON LICENSE OF [facility]; Protocol Last Admin: 04/22/22 15:18 Dose: 250 mg Lisinopril (Lisinopril 5 Mg Tab) 5 mg PO DAILY ON LICENSE OF [facility] Last Admin: 04/22/22 07:53 Dose: 5 mg Meclizine HCl (Meclizine 12.5 Mg Tab) 12.5 mg PO Q8H PRN PRN Reason: Vertigo Melatonin (Melatonin 5 Mg Tablet) 10 mg PO [facility] Last Admin: 04/21/22 22:51 Dose: 10 mg Metoprolol Tartrate (Metoprolol Tartrate 50 Mg Tab) 100 mg PO TID ON LICENSE OF [facility] Last Admin: 04/22/22 15:18 Dose: 100 mg Montelukast Sodium (Montelukast 10 Mg Tab) 10 mg PO [facility] Last Admin: 04/21/22 22:51 Dose: 10 mg Multivitamins (Multivitamins, Thera 1 Each Tab) 1 each PO HS ON LICENSE OF [facility] Last Admin: 04/21/22 22:51 Dose: 1 each Mupirocin (Mupirocin 2% Oint 22 Gm Tube) 1 applic TOPICAL Q12H PRN; Protocol PRN Reason: Inflammation from excoriation Naloxone HCl (Naloxone 0.4 Mg/Ml 1 Ml Vial) 0.2 mg IV Q2M PRN PRN Reason: Opioid Reversal Non-Formulary Medication (Vit C/E/Zn/Coppr/Lutein/Zeaxan [Preservision Areds 2 Softgel]) 1 cap PO BID ON LICENSE OF [facility] Last Admin: 04/22/22 07:54 Dose: Not Given Polyethylene Glycol (Polyethylene Glycol 3350 17 Gm Powd.Pack) 17 gm PO HS ON LICENSE OF [facility] Last Admin: 04/21/22 22:53 Dose: Not Given Psyllium Hydrophilic Mucilloid (Psyllium Husk 100% 6 Gm Packet) 1 gm PO DAILY ON LICENSE OF [facility] Last Admin: 04/22/22 07:55 Dose: Not Given Risperidone (Risperidone 1 Mg Tab) 1 mg PO BID@0800,1600 ON LICENSE OF [facility] Last Admin: 04/22/22 15:19 Dose: 1 mg Senna (Sennosides 8.6 Mg Tab) 8.6 mg PO Q12H PRN PRN Reason: Constipation Simethicone (Simethicone 80 Mg Chewable) 80 mg PO Q4H PRN PRN Reason: Heartburn Sodium Bicarbonate (Sodium Bicarbonate Tab 650 Mg Tab) 650 mg PO BID ON LICENSE OF [facility] Last Admin: 04/22/22 07:54 Dose: 650 mg Spironolactone (Spironolactone 25 Mg Tab) 25 mg PO DAILY ON LICENSE OF [facility] Last Admin: 04/22/22 07:54 Dose: 25 mg On examination: VITAL SIGNS: 97.4, 120, 18, 153.91, 90% room air GENERAL APPEARANCE: Sitting on a chair, tired HEENT: Normal external appearance of nose and ear. Oral cavity normal EYES: Pupils equal. Conjunctiva normal. NECK: JVD not raised. Mass not palpable. RESPIRATORY: Respiratory effort normal. Lungs clear to auscultation. CARDIOVASCULAR: Heart sounds irregular. No edema. ABDOMEN: Soft. Liver and spleen not palpable. No tenderness. No mass palpable. PSYCHIATRY: AO 3, mood and affect tired INVESTIGATIONS, reviewed in the clinical context: Urine culture: Pseudomonas aeruginosa 04/19/2022: Potassium 3.6 BUN 37 creatinine 2.46 WBC 13.4 hemoglobin 9.1 platelets 381 potassium 4.1 BUN 38 creatinine 2.6 EKG tracing personally reviewed by me-atrial fibrillation. Rate 105 Assessment and plan: -Paroxysmal atrial fibrillation, currently in atrial fibrillation rate uncontrolled Eliquis. Increase Lopressor 100 mg 3 times a day -Hyperlipidemia Lipitor -Depression and anxiety not otherwise specified Wellbutrin SR 150 mg twice a day -Acute UTI with cystitis, pseudomonas aeruginosa Levaquin -Essential hypertension, Zestril 10 mg, Lopressor 100 mg twice a day -Diabetes mellitus type 2, chronically on insulin Follow Accu-Cheks with sliding scale -Acute kidney injury, probable previously no Admission creatinine 2.72. 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 A. fib uncontrolled. Increase Lopressor to 100 mg 3 times a day. Cardizem discontinued.. Follow labs.
[2022-04-22 21:43] LABS: Glucose,Whole Blood 69 mg/dL (70-110)
[2022-04-22] MEDS: DEXTROSE 50% SYRINGE 50 ML IVP STA ×2 (21:58→22:26)
[2022-04-22 22:18] LABS: Glucose,Whole Blood 72 mg/dL (70-110)
[2022-04-22] MEDS: MELATONIN 5 MG TABLET PO SCH (22:27)
[2022-04-22] MEDS: MONTELUKAST 10 MG TAB PO SCH (22:27)
[2022-04-22] MEDS: ATORVASTATIN 40 MG TAB PO SCH (22:27)
[2022-04-22] MEDS: MULTIVITAMINS, THERA 1 EACH TAB PO SCH (22:28)
[2022-04-22] MEDS: polyethylene glycoL 3350 17 GM POWD.PACK PO SCH (22:30)
[2022-04-22 22:34] LABS: Glucose,Whole Blood 117 mg/dL (70-110)
[2022-04-23 01:48] LABS: Glucose,Whole Blood 207 mg/dL (70-110)
[2022-04-23 06:12] LABS: Glucose,Whole Blood 154 mg/dL (70-110)
[2022-04-23] MEDS: NON FORMULARY DRUG (Vit C/E/Zn/Coppr/Lutein/Zeaxan [Preservision Areds 2 Softgel] 1 EACH C PO SCH ×2 (07:11→21:31)
[2022-04-23] MEDS: INSULIN ASPART (NovoLOG) 100 UNIT/ML VIAL SQ SCH ×3 (07:30→17:27)
[2022-04-23] MEDS: APIXABAN 2.5 MG TABLET PO SCH ×2 (07:31→15:53)
[2022-04-23] MEDS: METOPROLOL TARTRATE 50 MG TAB PO SCH ×3 (07:31→21:30)
[2022-04-23] MEDS: INSULIN DETEMIR (LEVEMIR) 100 UNIT/ML SYR SQ SCH ×2 (07:31→21:46)
[2022-04-23] MEDS: risperiDONE 1 MG TAB PO SCH ×2 (07:31→15:53)
[2022-04-23] MEDS: SODIUM BICARBONATE TAB 650 MG TAB PO SCH ×2 (07:31→21:30)
[2022-04-23] MEDS: PSYLLIUM HUSK 100% 6 GM PACKET PO SCH (07:32)
[2022-04-23] MEDS: SPIRONOLACTONE 25 MG TAB PO SCH (07:32)
[2022-04-23] MEDS: ISOSORBIDE MONONITRATE ER 30 MG TAB.ER.24H PO SCH (07:32)
[2022-04-23] MEDS: CHOLECALCIFEROL 125 MCG (5000 IU) TABLET PO SCH (07:32)
[2022-04-23] MEDS: lisinopriL 5 MG TAB PO SCH (07:32)
[2022-04-23] MEDS: DOCUSATE 100 MG CAP PO SCH ×2 (07:32→21:30)
[2022-04-23] MEDS: buPROPion SR 150 MG TABLET.ER PO SCH ×2 (07:32→21:30)
[2022-04-23] MEDS: FAMOTIDINE 20 MG TAB PO SCH (07:32)
[2022-04-23] MEDS: FERROUS SULFATE 325 MG TAB PO SCH ×2 (07:32→21:30)
[2022-04-23] MEDS: SODIUM CHLORIDE 0.9% 1,000 ML IV SCH (07:53)
[2022-04-23 10:05] LABS: Potassium 3.8 mmol/L (3.5-5.1)
[2022-04-23 10:06] LABS: African American GFR (CKD) 31 (>60 ml/min/1.73 sqM); Anion Gap 11 mmol/L; Blood Urea Nitrogen 27 mg/dL (7-17); Calcium 8.6 mg/dL (8.4-10.2); Carbon Dioxide 21 mmol/L (22-30); Chloride 108 mmol/L (98-107); Glucose 206 mg/dL (74-99); Non-African American GFR(CKD) 27 (>60 ml/min/1.73 sqM); Sodium 140 mmol/L (137-145)
[2022-04-23 11:30] LABS: Glucose,Whole Blood 216 mg/dL (70-110)
--- NOTE | 2022-04-23 15:48 | P.PN ---
Progress Note - Text Progress Note Date: 04/23/22 Presenting complaint: Weakness Hospital course: Patient admitted with weakness and lethargy for 2 days. and urinary symptoms. Admitted with medical debility acute, acute UTI. A. fib. 04/18/2022: I assumed care of the patient. From [facility] hospitalist today. Appetite fair. Tired. Laying in bed. Atrial fibrillation on 100. IV ceftriaxone. 04/19/2022: Oral intake better. Eating about 50%. A. fib with heart rate around 1 teens. On Lopressor. Blood pressure the lower side. Catapres discontinued. Patient tired. Urine culture growing Pseudomonas. Change IV ceftriaxone to Levaquin. 04/20/2022: Remains in A. fib uncontrolled heart rate up to 130s. Lopressor increased to 100 mg twice a day. On Levaquin. Blood pressure medications cutback. 04/21/2022: Remains in atrial fibrillation. Heart rate remains uncontrolled. Add Cardizem 30 mg 3 times a day. 04/22/2022: Remains in atrial fibrillation uncontrolled. Sitting up in a chair. Lopressor increased to 100 mg 3 times a day. I did stop the Cardizem. 04/23/2022: Remains in atrial fibrillation, around 110. On Lopressor 100 mg 3 times a day. Oral intake fair. Up in a chair. On eliquis. Active Medications Acetaminophen (Acetaminophen Tab 325 Mg Tab) 650 mg PO Q6HR PRN PRN Reason: Mild Pain or Fever > 100.5 Hydrocodone Bitart/Acetaminophen (Hydrocodone/Apap 5-325mg 1 Each Tab) 1 each PO Q6H PRN PRN Reason: Moderate Pain (Scale 4 to 6) Last Admin: 04/19/22 06:02 Dose: 1 each Apixaban (Apixaban 2.5 Mg Tablet) 2.5 mg PO BID@0800,1600 [facility]; Protocol Last Admin: 04/23/22 07:31 Dose: 2.5 mg Atorvastatin Calcium (Atorvastatin 40 Mg Tab) 40 mg PO HS@1999 [facility] Last Admin: 04/22/22 22:27 Dose: 40 mg Bupropion HCl (Bupropion Sr 150 Mg Tablet.Er) 150 mg PO BID@0800,1999 [facility] Last Admin: 04/23/22 07:32 Dose: 150 mg Cholecalciferol (Cholecalciferol 125 Mcg (5000 Iu) Tablet) 125 mcg PO DAILY [facility] Last Admin: 04/23/22 07:32 Dose: 125 mcg Docusate Sodium (Docusate 100 Mg Cap) 100 mg PO BID [facility] Last Admin: 04/23/22 07:32 Dose: 100 mg Famotidine (Famotidine 20 Mg Tab) 20 mg PO DAILY [facility] Last Admin: 04/23/22 07:32 Dose: 20 mg Ferrous Sulfate (Ferrous Sulfate 325 Mg Tab) 325 mg PO BID [facility] Last Admin: 04/23/22 07:32 Dose: 325 mg Sodium Chloride (Saline 0.9%) 1,000 mls @ 50 mls/hr IV .Q20H [facility] Last Admin: 04/23/22 07:53 Dose: Not Given Insulin Aspart (Insulin Aspart (Novolog) 100 Unit/Ml Vial) 10 unit SQ AC-TID [facility] Last Admin: 04/23/22 11:43 Dose: 10 unit Insulin Detemir (Insulin Detemir (Levemir) 100 Unit/Ml Syr) 10 unit SQ Q12H [facility] Last Admin: 04/23/22 07:31 Dose: 10 unit Isosorbide Mononitrate (Isosorbide Mononitrate Er 30 Mg Tab.Er.24h) 30 mg PO DAILY [facility] Last Admin: 04/23/22 07:32 Dose: 30 mg Lactulose (Lactulose 200 Gm/300 Ml (From 05/30 Gal Jug)) 20 gm PO DAILY PRN PRN Reason: Constipation Levofloxacin (Levofloxacin 250 Mg Tab) 250 mg PO Q48H [facility]; Protocol Last Admin: 04/22/22 15:18 Dose: 250 mg Lisinopril (Lisinopril 5 Mg Tab) 5 mg PO DAILY [facility] Last Admin: 04/23/22 07:32 Dose: 5 mg Meclizine HCl (Meclizine 12.5 Mg Tab) 12.5 mg PO Q8H PRN PRN Reason: Vertigo Melatonin (Melatonin 5 Mg Tablet) 10 mg PO [facility] Last Admin: 04/22/22 22:27 Dose: 10 mg Metoprolol Tartrate (Metoprolol Tartrate 50 Mg Tab) 100 mg PO TID [facility] Last Admin: 04/23/22 07:31 Dose: 100 mg Montelukast Sodium (Montelukast 10 Mg Tab) 10 mg PO [facility] Last Admin: 04/22/22 22:27 Dose: 10 mg Multivitamins (Multivitamins, Thera 1 Each Tab) 1 each PO HS [facility] Last Admin: 04/22/22 22:28 Dose: 1 each Mupirocin (Mupirocin 2% Oint 22 Gm Tube) 1 applic TOPICAL Q12H PRN; Protocol PRN Reason: Inflammation from excoriation Naloxone HCl (Naloxone 0.4 Mg/Ml 1 Ml Vial) 0.2 mg IV Q2M PRN PRN Reason: Opioid Reversal Non-Formulary Medication (Vit C/E/Zn/Coppr/Lutein/Zeaxan [Preservision Areds 2 Softgel]) 1 cap PO BID [facility] Last Admin: 04/23/22 07:11 Dose: Not Given Polyethylene Glycol (Polyethylene Glycol 3350 17 Gm Powd.Pack) 17 gm PO HS [facility] Last Admin: 04/22/22 22:30 Dose: 17 gm Psyllium Hydrophilic Mucilloid (Psyllium Husk 100% 6 Gm Packet) 1 gm PO DAILY [facility] Last Admin: 04/23/22 07:32 Dose: 1 gm Risperidone (Risperidone 1 Mg Tab) 1 mg PO BID@0800,1600 [facility] Last Admin: 04/23/22 07:31 Dose: 1 mg Senna (Sennosides 8.6 Mg Tab) 8.6 mg PO Q12H PRN PRN Reason: Constipation Simethicone (Simethicone 80 Mg Chewable) 80 mg PO Q4H PRN PRN Reason: Heartburn Sodium Bicarbonate (Sodium Bicarbonate Tab 650 Mg Tab) 650 mg PO BID [facility] Last Admin: 04/23/22 07:31 Dose: 650 mg Spironolactone (Spironolactone 25 Mg Tab) 25 mg PO DAILY [facility] Last Admin: 04/23/22 07:32 Dose: 25 mg On examination: VITAL SIGNS: 97.4, 112, 17, 1 3688, 94% room air GENERAL APPEARANCE: Sitting on a chair, HEENT: Normal external appearance of nose and ear. Oral cavity normal EYES: Pupils equal. Conjunctiva normal. NECK: JVD not raised. Mass not palpable. RESPIRATORY: Respiratory effort normal. Lungs clear to auscultation. CARDIOVASCULAR: Heart sounds irregular. No edema. ABDOMEN: Soft. Liver and spleen not palpable. No tenderness. No mass palpable. PSYCHIATRY: AO 3, mood and affect tired INVESTIGATIONS, reviewed in the clinical context: 04/23/2022: Potassium 3.8 creatinine 1.78 Urine culture: Pseudomonas aeruginosa 04/19/2022: Potassium 3.6 BUN 37 creatinine 2.46 WBC 13.4 hemoglobin 9.1 platelets 381 potassium 4.1 BUN 38 creatinine 2.6 EKG tracing personally reviewed by me-atrial fibrillation. Rate 105 Assessment and plan: -Paroxysmal atrial fibrillation, currently in atrial fibrillation rate uncontrolled Eliquis. Lopressor 100 mg 3 times a day -Hyperlipidemia Lipitor -Depression and anxiety not otherwise specified Wellbutrin SR 150 mg twice a day -Acute UTI with cystitis, pseudomonas aeruginosa Levaquin -Essential hypertension, Zestril 10 mg, Lopressor 100 mg 3 times a day -Diabetes mellitus type 2, chronically on insulin Follow Accu-Cheks with sliding scale -Acute kidney injury, probable prerenal Admission creatinine 2.72. 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 A. fib uncontrolled. Continue Lopressor to 100 mg 3 times a day. The medications to continue.
[2022-04-23 16:31] LABS: Glucose,Whole Blood 159 mg/dL (70-110)
--- NOTE | 2022-04-23 17:40 | P.PN ---
Subjective HISTORY OF PRESENT ILLNESS: This is a 77-year-old female with a past medical history significant for hypertension, hyperlipidemia, diabetes, atrial fibrillation, nonischemic cardiomyopathy with ejection fraction around 30%, and cardioversion in October 2021. Patient follows in the office with Dr. Abdalla. We have been asked to see the patient in consultation for atrial fibrillation with RVR. Patient examined at the bedside. Patient is admitted to the hospital secondary to altered mental status and urinary tract infection. Patient is currently in atrial fibrillation with uncontrolled heart rates. She denies chest pain or pressure. Denies SOB. Blood pressure is stable. * EKG reveals atrial fibrillation with a heart rate of 105 * Laboratory data: WBC 13.4. Hemoglobin 9.1. Platelet count 381. Sodium 138. Potassium 4.1. BUN 38. Creatinine 2.6. TSH 2.690. * Current home cardiac medications include Eliquis 2.5mg BID, Lipitor 40 mg at night, Imdur 30 mg daily, Lasix 40 mg daily, Aldactone 25 mg daily, metoprolol titrate 25 mg twice a day, clonidine 0.2 mg every 8 hours * Most recent echocardiogram obtained in October 2021 revealed ejection fraction 30%, global hypokinesis, mild MR, and moderate TR * Cardiac catheterization history: Unknown 04/19/2022 Patient examined this morning. Patient is sitting up in the chair. Patient appears more awake and alert today. She denies any chest pain or pressure. She denies any shortness of breath. She does report having episodes of lightheadedness. She also reports like she feels her legs are going to give out when she walks. Telemetry reveals atrial fibrillation with a heart rate in the low 100s. Blood pressures remain soft. 04/20/2022 Patient examined this morning the bedside. Patient denies chest pain or pressure. She denies shortness of breath. Telemetry reveals atrial fibri llation with a heart rate between 120s and 130s. She does report feeling dizzy occasionally. Blood pressure 146/91. 04/22/2022 Patient examined this morning at the bedside. Patient denies chest pain or pressure. She denies shortness of breath. She reports having episodes of diarrhea this morning. Telemetry reveals atrial fibrillation with a heart rate around 110. Blood pressure 153/91. 04/23 Patient seen and examined. She states she did have a little bit of shortness breath this morning. Creatinine 1.78 this morning with bicarb 21, potassium 3.8. HR's still 90-110's. PHYSICAL EXAM: VITAL SIGNS: Reviewed. GENERAL: Well-developed in no acute distress. HEENT: Head is normocephalic. Pupils are equal, round. Sclerae anicteric. Mucous membranes of the mouth are moist. Neck supple. No JVD or thyromegaly LUNGS: Respirations even and unlabored. Lungs essentially clear to auscultation bilaterally. HEART: Tachycardic. Irregular rate and rhythm. S1 and S2 heard. ABDOMEN: Soft. Nondistended. Nontender. EXTREMITIES: Normal range of motion. No clubbing or cyanosis. Peripheral puls es intact. No lower extremity edema NEUROLOGIC: Lethargic. Oriented x 1-2. ASSESSMENT: Altered mental status Urinary tract infection Paroxysmal atrial fibrillation with RVR History of cardioversion, October 2021 Nonischemic cardiomyopathy, ejection fraction 30% Hypertension Hyperlipidemia Diabetes Former nicotine dependence PLAN: Continue to hold Lasix Catapres discontinued secondary to borderline hypotension Increased metoprolol to 3 times a day dosing for optimal heart rate control Add amio 400mg BID , LFTs normal 04/22. Cr improving Continue telemetry monitoring. Further recommendations pending patient course Objective - Vital Signs Vital signs: Vital Signs Temp 97.6 F 04/23/22 14:00 Pulse 98 04/23/22 14:00 Resp 16 04/23/22 14:00 BP 116/69 04/23/22 14:00 Pulse Ox 94 L 04/23/22 14:00 FiO2 Intake & Output 04/22/22 04/23/22 04/23/22 18:59 06:59 18:59 Intake Total 1000 360 480 Output Total 500 300 Balance 500 360 180 Intake: Intake, IV Titration 500 Amount Sodium Chloride 0.9% 1, 500 000 ml @ 50 mls/hr IV . Q20H [facility] Rx#:[id number] Oral 500 360 480 Output: Urine 500 300 Other: Voiding Method Bedside Commode Bedside Commode # Voids 2 - Labs CBC & Chem 7: 04/18/22 06:11 04/23/22 09:20 Labs: Abnormal Lab Results - Last 24 Hours (Table) 04/22/22 04/22/22 04/23/22 Range/Units 21:41 22:32 01:46 Chloride (98-107) mmol/L Carbon Dioxide (22-30) mmol/L BUN (7-17) mg/dL Creatinine (0.52-1.04) mg/dL Glucose (74-99) mg/dL POC Glucose (mg/dL) 69 L 117 H 207 H (70-110) mg/dL 04/23/22 04/23/22 04/23/22 Range/Units 06:09 09:20 11:28 Chloride 108 H (98-107) mmol/L Carbon Dioxide 21 L (22-30) mmol/L BUN 27 H (7-17) mg/dL Creatinine 1.78 H (0.52-1.04) mg/dL Glucose 206 H (74-99) mg/dL POC Glucose (mg/dL) 154 H 216 H (70-110) mg/dL 04/23/22 Range/Units 16:29 Chloride (98-107) mmol/L Carbon Dioxide (22-30) mmol/L BUN (7-17) mg/dL Creatinine (0.52-1.04) mg/dL Glucose (74-99) mg/dL POC Glucose (mg/dL) 159 H (70-110) mg/dL Microbiology - Last 24 Hours (Table) 04/17/22 14:51 Blood Culture - Final Blood No Growth after 144 hours
[2022-04-23] MEDS: AMIODARONE 200 MG TAB PO SCH ×2 (18:05→21:34)
[2022-04-23 21:20] LABS: Glucose,Whole Blood 65 mg/dL (70-110)
[2022-04-23] MEDS: polyethylene glycoL 3350 17 GM POWD.PACK PO SCH (21:28)
[2022-04-23] MEDS: ATORVASTATIN 40 MG TAB PO SCH (21:30)
[2022-04-23] MEDS: MONTELUKAST 10 MG TAB PO SCH (21:30)
[2022-04-23] MEDS: MELATONIN 5 MG TABLET PO SCH (21:30)
[2022-04-23] MEDS: MULTIVITAMINS, THERA 1 EACH TAB PO SCH (21:31)
[2022-04-23 21:38] LABS: Glucose,Whole Blood 77 mg/dL (70-110)
[2022-04-24 05:18] LABS: Glucose,Whole Blood 65 mg/dL (70-110)
[2022-04-24 05:27] LABS: Glucose,Whole Blood 79 mg/dL (70-110)
[2022-04-24 06:25] LABS: Glucose,Whole Blood 128 mg/dL (70-110)
[2022-04-24] MEDS: INSULIN ASPART (NovoLOG) 100 UNIT/ML VIAL SQ SCH ×2 (08:13→13:01)
[2022-04-24] MEDS: APIXABAN 2.5 MG TABLET PO SCH ×2 (08:17→15:44)
[2022-04-24] MEDS: FAMOTIDINE 20 MG TAB PO SCH (08:17)
[2022-04-24] MEDS: CHOLECALCIFEROL 125 MCG (5000 IU) TABLET PO SCH (08:17)
[2022-04-24] MEDS: AMIODARONE 200 MG TAB PO SCH ×2 (08:17→21:37)
[2022-04-24] MEDS: ISOSORBIDE MONONITRATE ER 30 MG TAB.ER.24H PO SCH (08:17)
[2022-04-24] MEDS: DOCUSATE 100 MG CAP PO SCH ×2 (08:17→21:38)
[2022-04-24] MEDS: SPIRONOLACTONE 25 MG TAB PO SCH (08:18)
[2022-04-24] MEDS: SODIUM BICARBONATE TAB 650 MG TAB PO SCH ×2 (08:18→21:38)
[2022-04-24] MEDS: METOPROLOL TARTRATE 50 MG TAB PO SCH ×3 (08:18→21:38)
[2022-04-24] MEDS: risperiDONE 1 MG TAB PO SCH ×2 (08:18→15:44)
[2022-04-24] MEDS: lisinopriL 5 MG TAB PO SCH (08:18)
[2022-04-24] MEDS: INSULIN DETEMIR (LEVEMIR) 100 UNIT/ML SYR SQ SCH (08:18)
[2022-04-24] MEDS: FERROUS SULFATE 325 MG TAB PO SCH ×2 (08:18→21:38)
[2022-04-24] MEDS: buPROPion SR 150 MG TABLET.ER PO SCH ×2 (08:18→21:40)
[2022-04-24 08:19] LABS: Glucose,Whole Blood 137 mg/dL (70-110)
[2022-04-24] MEDS: PSYLLIUM HUSK 100% 6 GM PACKET PO SCH (08:19)
[2022-04-24] MEDS: NON FORMULARY DRUG (Vit C/E/Zn/Coppr/Lutein/Zeaxan [Preservision Areds 2 Softgel] 1 EACH C PO SCH ×2 (08:27→21:33)
[2022-04-24] MEDS ORDERED: DEXTROSE 50% SYRINGE 50 ML IVP PRN ×2 (08:28)
[2022-04-24 11:14] LABS: Glucose,Whole Blood 148 mg/dL (70-110)
--- NOTE | 2022-04-24 13:55 | P.PN ---
Subjective HISTORY OF PRESENT ILLNESS: This is a 77-year-old female with a past medical history significant for hypertension, hyperlipidemia, diabetes, atrial fibrillation, nonischemic cardiomyopathy with ejection fraction around 30%, and cardioversion in October 2021. Patient follows in the office with Dr. Abdalla. We have been asked to see the patient in consultation for atrial fibrillation with RVR. Patient examined at the bedside. Patient is admitted to the hospital secondary to altered mental status and urinary tract infection. Patient is currently in atrial fibrillation with uncontrolled heart rates. She denies chest pain or pressure. Denies SOB. Blood pressure is stable. * EKG reveals atrial fibrillation with a heart rate of 105 * Laboratory data: WBC 13.4. Hemoglobin 9.1. Platelet count 381. Sodium 138. Potassium 4.1. BUN 38. Creatinine 2.6. TSH 2.690. * Current home cardiac medications include Eliquis 2.5mg BID, Lipitor 40 mg at night, Imdur 30 mg daily, Lasix 40 mg daily, Aldactone 25 mg daily, metoprolol titrate 25 mg twice a day, clonidine 0.2 mg every 8 hours * Most recent echocardiogram obtained in October 2021 revealed ejection fraction 30%, global hypokinesis, mild MR, and moderate TR * Cardiac catheterization history: Unknown 04/19/2022 Patient examined this morning. Patient is sitting up in the chair. Patient appears more awake and alert today. She denies any chest pain or pressure. She denies any shortness of breath. She does report having episodes of lightheadedness. She also reports like she feels her legs are going to give out when she walks. Telemetry reveals atrial fibrillation with a heart rate in the low 100s. Blood pressures remain soft. 04/20/2022 Patient examined this morning the bedside. Patient denies chest pain or pressure. She denies shortness of breath. Telemetry reveals atrial fibri llation with a heart rate between 120s and 130s. She does report feeling dizzy occasionally. Blood pressure 146/91. 04/22/2022 Patient examined this morning at the bedside. Patient denies chest pain or pressure. She denies shortness of breath. She reports having episodes of diarrhea this morning. Telemetry reveals atrial fibrillation with a heart rate around 110. Blood pressure 153/91. 04/23 Patient seen and examined. She states she did have a little bit of shortness breath this morning. Creatinine 1.78 this morning with bicarb 21, potassium 3.8. HR's still 90-110's. 04/24 Patient still has some nausea at times sometimes when she moves around. No chest pain or pressure. Blood work not resulted today. HRs better controlled in the 80-90's PHYSICAL EXAM: VITAL SIGNS: Reviewed. GENERAL: Well-developed in no acute distress. HEENT: Head is normocephalic. Pupils are equal, round. Sclerae anicteric. Mucous membranes of the mouth are moist. Neck supple. No JVD or thyromegaly LUNGS: Respirations even and unlabored. Lungs essentially clear to auscultation bilaterally. HEART: Tachycardic. Irregular rate and rhythm. S1 and S2 heard. ABDOMEN: Soft. Nondistended. Nontender. EXTREMITIES: Normal range of motion. No clubbing or cyanosis. Peripheral pulses intact. No lower extremity edema NEUROLOGIC: Lethargic. Oriented x 1-2. ASSESSMENT: Altered mental status Urinary tract infection Paroxysmal atrial fibrillation with RVR History of cardioversion, October 2021 Nonischemic cardiomyopathy, ejection fraction 30% Hypertension Hyperlipidemia Diabetes Former nicotine dependence PLAN: Continue to hold Lasix Catapres discontinued secondary to borderline hypotension Increased metoprolol to 3 times a day dosing for optimal heart rate control Continue amio 400mg BID , LFTs normal 04/22. Monitor Cr Continue telemetry monitoring. Hopeful DC home soon. HR's appear stable Objective - Vital Signs Vital signs: Vital Signs Temp 98.2 F 04/24/22 07:42 Pulse 93 04/24/22 07:42 Resp 17 04/24/22 07:42 BP 126/64 04/24/22 07:42 Pulse Ox 95 04/24/22 08:20 FiO2 21 04/24/22 08:20 Intake & Output 04/23/22 04/24/22 04/24/22 18:59 06:59 18:59 Intake Total 480 Output Total 300 Balance 180 Intake: Oral 480 Output: Urine 300 Other: Voiding Method Bedside Commode Bedside Commode - Labs CBC & Chem 7: 04/18/22 06:11 04/23/22 09:20 Labs: Abnormal Lab Results - Last 24 Hours (Table) 04/23/22 04/23/22 04/24/22 Range/Units 16:29 21:18 05:15 POC Glucose (mg/dL) 159 H 65 L 65 L (70-110) mg/dL 04/24/22 04/24/22 04/24/22 Range/Units 06:24 08:17 11:12 POC Glucose (mg/dL) 128 H 137 H 148 H (70-110) mg/dL Microbiology - Last 24 Hours (Table) 04/17/22 14:51 Blood Culture - Final Blood No Growth after 144 hours
[2022-04-24] MEDS: LEVOFLOXACIN 250 MG TAB PO SCH (15:44)
[2022-04-24] MEDS: SODIUM CHLORIDE 0.9% 1,000 ML IV SCH (15:44)
[2022-04-24 16:47] LABS: Glucose,Whole Blood 115 mg/dL (70-110)
[2022-04-24 18:51] LABS: Glucose,Whole Blood 137 mg/dL (70-110)
--- NOTE | 2022-04-24 19:09 | P.PN ---
Progress Note - Text Progress Note Date: 04/24/22 Presenting complaint: Weakness Hospital course: Patient admitted with weakness and lethargy for 2 days. and urinary symptoms. Admitted with medical debility acute, acute UTI. A. fib. 04/18/2022: I assumed care of the patient. From [facility] hospitalist today. Appetite fair. Tired. Laying in bed. Atrial fibrillation on 100. IV ceftriaxone. 04/19/2022: Oral intake better. Eating about 50%. A. fib with heart rate around 1 teens. On Lopressor. Blood pressure the lower side. Catapres discontinued. Patient tired. Urine culture growing Pseudomonas. Change IV ceftriaxone to Levaquin. 04/20/2022: Remains in A. fib uncontrolled heart rate up to 130s. Lopressor increased to 100 mg twice a day. On Levaquin. Blood pressure medications cutback. 04/21/2022: Remains in atrial fibrillation. Heart rate remains uncontrolled. Add Cardizem 30 mg 3 times a day. 04/22/2022: Remains in atrial fibrillation uncontrolled. Sitting up in a chair. Lopressor increased to 100 mg 3 times a day. I did stop the Cardizem. 04/23/2022: Remains in atrial fibrillation, around 110. On Lopressor 100 mg 3 times a day. Oral intake fair. Up in a chair. On eliquis. 04/24/2022: Heart rate better controlled to about 90s. Oral intake remediable. Patient sleepy during the daytime 2. Stop morning dose of Risperdal. Active Medications Acetaminophen (Acetaminophen Tab 325 Mg Tab) 650 mg PO Q6HR PRN PRN Reason: Mild Pain or Fever > 100.5 Hydrocodone Bitart/Acetaminophen (Hydrocodone/Apap 5-325mg 1 Each Tab) 1 each PO Q6H PRN PRN Reason: Moderate Pain (Scale 4 to 6) Last Admin: 04/19/22 06:02 Dose: 1 each Apixaban (Apixaban 2.5 Mg Tablet) 2.5 mg PO BID@0800,1600 MAIKEL; Protocol Last Admin: 04/23/22 07:31 Dose: 2.5 mg Atorvastatin Calcium (Atorvastatin 40 Mg Tab) 40 mg PO HS@2000 MAIKEL Last Admin: 04/22/22 22:27 Dose: 40 mg Bupropion HCl (Bupropion Sr 150 Mg Tablet.Er) 150 mg PO BID@0800,2000 [facility] Last Admin: 04/23/22 07:32 Dose: 150 mg Cholecalciferol (Cholecalciferol 125 Mcg (5000 Iu) Tablet) 125 mcg PO DAILY [facility] Last Admin: 04/23/22 07:32 Dose: 125 mcg Docusate Sodium (Docusate 100 Mg Cap) 100 mg PO BID [facility] Last Admin: 04/23/22 07:32 Dose: 100 mg Famotidine (Famotidine 20 Mg Tab) 20 mg PO DAILY [facility] Last Admin: 04/23/22 07:32 Dose: 20 mg Ferrous Sulfate (Ferrous Sulfate 325 Mg Tab) 325 mg PO BID [facility] Last Admin: 04/23/22 07:32 Dose: 325 mg Sodium Chloride (Saline 0.9%) 1,000 mls @ 50 mls/hr IV .Q20H [facility] Last Admin: 04/23/22 07:53 Dose: Not Given Insulin Aspart (Insulin Aspart (Novolog) 100 Unit/Ml Vial) 10 unit SQ AC-TID [facility] Last Admin: 04/23/22 11:43 Dose: 10 unit Insulin Detemir (Insulin Detemir (Levemir) 100 Unit/Ml Syr) 10 unit SQ Q12H [facility] Last Admin: 04/23/22 07:31 Dose: 10 unit Isosorbide Mononitrate (Isosorbide Mononitrate Er 30 Mg Tab.Er.24h) 30 mg PO DAILY [facility] Last Admin: 04/23/22 07:32 Dose: 30 mg Lactulose (Lactulose 200 Gm/300 Ml (From 05/30 Gal Jug)) 20 gm PO DAILY PRN PRN Reason: Constipation Levofloxacin (Levofloxacin 250 Mg Tab) 250 mg PO Q48H [facility]; Protocol Last Admin: 04/22/22 15:18 Dose: 250 mg Lisinopril (Lisinopril 5 Mg Tab) 5 mg PO DAILY [facility] Last Admin: 04/23/22 07:32 Dose: 5 mg Meclizine HCl (Meclizine 12.5 Mg Tab) 12.5 mg PO Q8H PRN PRN Reason: Vertigo Melatonin (Melatonin 5 Mg Tablet) 10 mg PO HS [facility] Last Admin: 04/22/22 22:27 Dose: 10 mg Metoprolol Tartrate (Metoprolol Tartrate 50 Mg Tab) 100 mg PO TID [facility] Last Admin: 04/23/22 07:31 Dose: 100 mg Montelukast Sodium (Montelukast 10 Mg Tab) 10 mg PO HS [facility] Last Admin: 04/22/22 22:27 Dose: 10 mg Multivitamins (Multivitamins, Thera 1 Each Tab) 1 each PO HS [facility] Last Admin: 04/22/22 22:28 Dose: 1 each Mupirocin (Mupirocin 2% Oint 22 Gm Tube) 1 applic TOPICAL Q12H PRN; Protocol PRN Reason: Inflammation from excoriation Naloxone HCl (Naloxone 0.4 Mg/Ml 1 Ml Vial) 0.2 mg IV Q2M PRN PRN Reason: Opioid Reversal Non-Formulary Medication (Vit C/E/Zn/Coppr/Lutein/Zeaxan [Preservision Areds 2 Softgel]) 1 cap PO BID [facility] Last Admin: 04/23/22 07:11 Dose: Not Given Polyethylene Glycol (Polyethylene Glycol 3350 17 Gm Powd.Pack) 17 gm PO HS [facility] Last Admin: 04/22/22 22:30 Dose: 17 gm Psyllium Hydrophilic Mucilloid (Psyllium Husk 100% 6 Gm Packet) 1 gm PO DAILY [facility] Last Admin: 04/23/22 07:32 Dose: 1 gm Risperidone (Risperidone 1 Mg Tab) 1 mg PO BID@0800,1600 [facility] Last Admin: 04/23/22 07:31 Dose: 1 mg Senna (Sennosides 8.6 Mg Tab) 8.6 mg PO Q12H PRN PRN Reason: Constipation Simethicone (Simethicone 80 Mg Chewable) 80 mg PO Q4H PRN PRN Reason: Heartburn Sodium Bicarbonate (Sodium Bicarbonate Tab 650 Mg Tab) 650 mg PO BID [facility] Last Admin: 04/23/22 07:31 Dose: 650 mg Spironolactone (Spironolactone 25 Mg Tab) 25 mg PO DAILY [facility] Last Admin: 04/23/22 07:32 Dose: 25 mg On examination: VITAL SIGNS: 97.4, 112, 17, 1 3688, 94% room air GENERAL APPEARANCE: Sitting on a chair, HEENT: Normal external appearance of nose and ear. Oral cavity normal EYES: Pupils equal. Conjunctiva normal. NECK: JVD not raised. Mass not palpable. RESPIRATORY: Respiratory effort normal. Lungs clear to auscultation. CARDIOVASCULAR: Heart sounds irregular. No edema. ABDOMEN: Soft. Liver and spleen not palpable. No tenderness. No mass palpable. PSYCHIATRY: AO 3, mood and affect tired INVESTIGATIONS, reviewed in the clinical context: 04/23/2022: Potassium 3.8 creatinine 1.78 Urine culture: Pseudomonas aeruginosa 04/19/2022: Potassium 3.6 BUN 37 creatinine 2.46 WBC 13.4 hemoglobin 9.1 platelets 381 potassium 4.1 BUN 38 creatinine 2.6 EKG tracing personally reviewed by me-atrial fibrillation. Rate 105 Assessment and plan: -Paroxysmal atrial fibrillation, currently in atrial fibrillation rate controlled Eliquis. Lopressor 100 mg 3 times a day -Daytime somnolence. DC morning dose of Risperdal. -Hyperlipidemia Lipitor -Depression and anxiety not otherwise specified Wellbutrin SR 150 mg twice a day -Acute UTI with cystitis, pseudomonas aeruginosa Levaquin -Essential hypertension, Zestril 10 mg, Lopressor 100 mg 3 times a day -Diabetes mellitus type 2, chronically on insulin Follow Accu-Cheks with sliding scale -Acute kidney injury, probable prerenal Admission creatinine 2.72. 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 A. fib controlled. DC morning dose of Risperdal due to somnolence. Looking to go to rehab.
[2022-04-24 19:34] VITALS: TEMP 97.4
[2022-04-24] MEDS ORDERED: INSULIN DETEMIR (LEVEMIR) 100 UNIT/ML SYR SQ SCH (21:00)
[2022-04-24] MEDS ORDERED: MELATONIN 5 MG TABLET PO SCH (21:00)
[2022-04-24] MEDS: MONTELUKAST 10 MG TAB PO SCH (21:38)
[2022-04-24] MEDS: MULTIVITAMINS, THERA 1 EACH TAB PO SCH (21:39)
[2022-04-24] MEDS: ATORVASTATIN 40 MG TAB PO SCH (21:39)
[2022-04-24] MEDS: polyethylene glycoL 3350 17 GM POWD.PACK PO SCH (21:43)
[2022-04-25] MEDS: SODIUM CHLORIDE 0.9% 1,000 ML IV SCH (03:00)
[2022-04-25 03:15] LABS: Glucose,Whole Blood 45 mg/dL (70-110)
[2022-04-25 03:15] LABS: Glucose,Whole Blood 41 mg/dL (70-110)
[2022-04-25 03:20] LABS: Glucose,Whole Blood 56 mg/dL (70-110)
[2022-04-25 03:26] LABS: Glucose,Whole Blood 57 mg/dL (70-110)
[2022-04-25 03:32] LABS: Glucose,Whole Blood 61 mg/dL (70-110)
[2022-04-25 03:42] LABS: Glucose,Whole Blood 223 mg/dL (70-110)
[2022-04-25 04:25] LABS: Glucose,Whole Blood 153 mg/dL (70-110)
[2022-04-25 05:18] LABS: Glucose,Whole Blood 136 mg/dL (70-110)
[2022-04-25 06:12] LABS: Glucose,Whole Blood 124 mg/dL (70-110)
[2022-04-25] MEDS: DOCUSATE 100 MG CAP PO SCH (08:55)
[2022-04-25] MEDS: lisinopriL 5 MG TAB PO SCH (08:55)
[2022-04-25] MEDS: FAMOTIDINE 20 MG TAB PO SCH (08:55)
[2022-04-25] MEDS: SPIRONOLACTONE 25 MG TAB PO SCH (08:55)
[2022-04-25] MEDS: METOPROLOL TARTRATE 50 MG TAB PO SCH (08:55)
[2022-04-25] MEDS: FERROUS SULFATE 325 MG TAB PO SCH (08:55)
[2022-04-25] MEDS: ISOSORBIDE MONONITRATE ER 30 MG TAB.ER.24H PO SCH (08:55)
[2022-04-25] MEDS: AMIODARONE 200 MG TAB PO SCH (08:55)
[2022-04-25] MEDS: SODIUM BICARBONATE TAB 650 MG TAB PO SCH (08:55)
[2022-04-25] MEDS: APIXABAN 2.5 MG TABLET PO SCH (08:55)
[2022-04-25] MEDS: buPROPion SR 150 MG TABLET.ER PO SCH (08:55)
[2022-04-25] MEDS: PSYLLIUM HUSK 100% 6 GM PACKET PO SCH (08:56)
[2022-04-25] MEDS: CHOLECALCIFEROL 125 MCG (5000 IU) TABLET PO SCH (08:56)
[2022-04-25] MEDS: NON FORMULARY DRUG (Vit C/E/Zn/Coppr/Lutein/Zeaxan [Preservision Areds 2 Softgel] 1 EACH C PO SCH (09:03)
--- NOTE | 2022-04-25 09:25 | P.PN ---
Subjective This is a 77-year-old female with a past medical history significant for hypertension, hyperlipidemia, diabetes, atrial fibrillation, nonischemic car diomyopathy with ejection fraction around 30%, and cardioversion in October 2021. Patient follows in the office with Dr. Abdalla. We have been asked to see the patient in consultation for atrial fibrillation with RVR. Patient examined at the bedside. Patient is admitted to the hospital secondary to altered mental status and urinary tract infection. Patient is currently in atrial fibrillation with uncontrolled heart rates. She denies chest pain or pressure. Denies SOB. Blood pressure is stable. * EKG reveals atrial fibrillation with a heart rate of 105 * Most recent echocardiogram obtained in October 2021 revealed ejection fraction 30%, global hypokinesis, mild MR, and moderate TR * Cardiac catheterization history: Unknown 04/25 Patient's and examined at bedside, no distress. She denies any chest pain or shortness of breath. She continues to be in atrial fibrillation. Her heart rates are controlled, heart rates 70s90s. Blood pressure 121/63. She is currently maintained on amiodarone 400 mg twice a day, Eliquis 2.5 mg twice a day, atorvastatin 40 mg nightly, Imdur 30 mg daily, lisinopril 5 mg daily, metoprolol titrate 100 mg 3 times a day, spironolactone 25 mg daily PHYSICAL EXAM: VITAL SIGNS: Reviewed. GENERAL: Well-developed in no acute distress. HEENT: Head is normocephalic. Neck supple. No JVD or thyromegaly LUNGS: Respirations even and unlabored. Lungs essentially clear to auscultation bilaterally. HEART: Irregular rate and rhythm. S1 and S2 heard. ABDOMEN: Soft. Nondistended. Nontender. EXTREMITIES: Normal range of motion. No clubbing or cyanosis. Peripheral pulses intact. No lower extremity edema NEUROLOGIC: Lethargic. Oriented x 1-2. ASSESSMENT: Altered mental status Urinary tract infection Paroxysmal atrial fibrillation with RVR History of cardioversion, October 2021 Nonischemic cardiomyopathy, ejection fraction 30% Hypertension Hyperlipidemia Diabetes Former nicotine dependence PLAN: Continue to hold Lasix Catapres discontinued secondary to borderline hypotension Continue metoprolol TID dosing for optimal heart rate control Continue amio 400mg BID , LFTs normal 04/22, taper as outpatient From a cardiology perspective, patient stable to be discharged home. Follow-up with Dr. Abdalla in one week Nurse practitioner note has been reviewed by physician. Signing provider agrees with the documented findings, assessment, and plan of care. Objective - Vital Signs Vital signs: Vital Signs Temp 97.4 F L 04/25/22 01:46 Pulse 96 04/25/22 01:46 Resp 13 04/25/22 01:46 BP 121/63 04/25/22 01:46 Pulse Ox 94 L 04/25/22 01:46 FiO2 21 04/24/22 08:20 Intake & Output 04/24/22 04/25/22 04/25/22 18:59 06:59 18:59 Other: Voiding Method Bedside Commode Bedside Commode # Voids 3 1 # Bowel Movements 1 - Labs CBC & Chem 7: 04/18/22 06:11 04/23/22 09:20 Labs: Abnormal Lab Results - Last 24 Hours (Table) 04/24/22 04/24/22 04/24/22 Range/Units 08:17 11:12 16:45 POC Glucose (mg/dL) 137 H 148 H 115 H (70-110) mg/dL 04/24/22 04/25/22 04/25/22 Range/Units 18:50 03:05 03:13 POC Glucose (mg/dL) 137 H 45 L 41 L (70-110) mg/dL 04/25/22 04/25/22 04/25/22 Range/Units 03:18 03:25 03:31 POC Glucose (mg/dL) 56 L 57 L 61 L (70-110) mg/dL 04/25/22 04/25/22 04/25/22 Range/Units 03:40 04:24 05:17 POC Glucose (mg/dL) 223 H 153 H 136 H (70-110) mg/dL 04/25/22 Range/Units 06:11 POC Glucose (mg/dL) 124 H (70-110) mg/dL
[2022-04-25 11:47] LABS: Glucose,Whole Blood 133 mg/dL (70-110)
--- NOTE | 2022-04-25 13:09 | P.DS ---
Providers Date of admission: 04/17/22 12:21 Expected date of discharge: 04/25/22 Attending physician: Kyler Osborne Consults: 04/17/22 16:51 Consult Physician Urgent Consulting Provider: John Cruz Consult Reason/Comments: afib rvr Do you want consulting provider notified?: Yes Primary care physician: Ron Lynn Procedures: Presenting complaint: Weakness Hospital course: Patient admitted with weakness and lethargy for 2 days. and urinary symptoms. Admitted with medical debility acute, acute UTI. A. fib. 04/18/2022: I assumed care of the patient. From [facility] Hospitalist today. Appetite fair. Tired. Laying in bed. Atrial fibrillation on 100. IV ceftriaxone. 04/19/2022: Oral intake better. Eating about 50%. A. fib with heart rate around 1 teens. On Lopressor. Blood pressure the lower side. Catapres discontinued. Patient tired. Urine culture growing Pseudomonas. Change IV ceftriaxone to Levaquin. 04/20/2022: Remains in A. fib uncontrolled heart rate up to 130s. Lopressor increased to 100 mg twice a day. On Levaquin. Blood pressure medications cutback. 04/21/2022: Remains in atrial fibrillation. Heart rate remains uncontrolled. Add Cardizem 30 mg 3 times a day. 04/22/2022: Remains in atrial fibrillation uncontrolled. Sitting up in a chair. Lopressor increased to 100 mg 3 times a day. I did stop the Cardizem. 04/23/2022: Remains in atrial fibrillation, around 110. On Lopressor 100 mg 3 times a day. Oral intake fair. Up in a chair. On eliquis. 04/24/2022: Heart rate better controlled to about 90s. Oral intake remediable. Patient sleepy during the daytime 2. Stop morning dose of Risperdal. 04/25/2022: Stable. Discussed with cardiology. Okay for DC. Discussed with patient.. Accu-Chek stable on current dose of Lantus. Discussion and discharge planning more than 35 minutes . On examination: VITAL SIGNS: 97.4, 96, 13, 1 21 x 63, 94% room air GENERAL APPEARANCE: Sitting on a chair, comfortable HEENT: Normal external appearance of nose and ear. Oral cavity normal EYES: Pupils equal. Conjunctiva normal. NECK: JVD not raised. Mass not palpable. RESPIRATORY: Respiratory effort normal. Lungs clear to auscultation. CARDIOVASCULAR: Heart sounds irregular. No edema. ABDOMEN: Soft. Liver and spleen not palpable. No tenderness. No mass palpable. PSYCHIATRY: AO 3, mood and affect tired INVESTIGATIONS, reviewed in the clinical context: 04/23/2022: Potassium 3.8 creatinine 1.78 Urine culture: Pseudomonas aeruginosa 04/19/2022: Potassium 3.6 BUN 37 creatinine 2.46 WBC 13.4 hemoglobin 9.1 platelets 381 potassium 4.1 BUN 38 creatinine 2.6 EKG tracing personally reviewed by me-atrial fibrillation. Rate 105 Assessment and plan: -Paroxysmal atrial fibrillation, currently in atrial fibrillation rate controlled Eliquis. Lopressor 100 mg 3 times a day -Daytime somnolence. morning dose of Risperdal discontinued. -Hyperlipidemia Lipitor -Depression and anxiety not otherwise specified Wellbutrin SR 150 mg twice a day -Acute UTI with cystitis, pseudomonas aeruginosa Levaquin complete course -Essential hypertension, Lopressor 100 mg 3 times a day -Diabetes mellitus type 2, chronically on insulin Lantus 15 units subcu daily at bedtime. Follow Accu-Cheks with sliding scale -Acute kidney injury, probable prerenal Admission creatinine 2.72. 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 Patient Condition at Discharge: Fair Plan - Discharge Summary New Discharge Prescriptions: New Amiodarone [Cordarone] 400 mg PO BID #120 tab Levofloxacin [Levaquin] 250 mg PO Q48H #3 tab Melatonin 5 mg PO HS tab Metoprolol Tartrate [Lopressor] 100 mg PO TID tab polyethylene glycoL 3350 [Miralax] 17 gm PO HS packet lisinopriL [Zestril] 5 mg PO DAILY tab Continue Sodium Bicarbonate 650 mg PO BID Ferrous Sulfate [Iron (65 MG Elemental)] 325 mg PO BID Multivitamins, Thera [Multivitamin (formulary)] 1 tab PO HS Isosorbide Mononitrate [Isosorbide Mononitrate ER] 30 mg PO DAILY Cholecalciferol [Vitamin D3 (125 Mcg = 5000 Iu)] 125 mcg PO DAILY Spironolactone [Aldactone] 25 mg PO DAILY #30 tab Metamucil 28% Packet 1 packet PO DAILY Acetaminophen [Acetaminophen ER] 650 mg PO Q6H PRN PRN Reason: Pain Glucagon Emergency Kit 1 mg IM ONCE PRN PRN Reason: BS <60 Mupirocin 2% Oint [Bactroban 2% Oint] 1 applic TOPICAL Q12H PRN PRN Reason: Inflammation from excoriation Vit C/E/Zn/Coppr/Lutein/Zeaxan [Preservision Areds 2 Softgel] 1 cap PO BID Famotidine [Pepcid] 20 mg PO DAILY Atorvastatin [Lipitor] 40 mg PO HS@1999 Apixaban [Eliquis] 2.5 mg PO BID@0800,1600 buPROPion HCL [Wellbutrin SR] 150 mg PO BID@0800,1999 Meclizine [Antivert] 12.5 mg PO Q8H PRN PRN Reason: Vertigo Lactulose 30 ml PO DAILY PRN PRN Reason: Constipation Simethicone [Simethicone Chew] 80 mg PO Q4H PRN PRN Reason: Heartburn Montelukast [Singulair] 10 mg PO HS Sennosides [Senokot] 8.6 mg PO Q12H PRN PRN Reason: Constipation Hydrocodone/Acetaminophen [Hydrocodone/Acetaminophen 5-325] 1 tab PO Q6H PRN #12 tab PRN Reason: Moderate Pain (Scale 4 To 6) Changed Insulin Glargine,Hum.rec.anlog [Lantus Solostar Pen] 15 unit SQ HS #0 risperiDONE [RisperDAL] 1 mg PO HS #3 tab Discontinued cloNIDine HCL 0.2 mg PO Q8H lisinopriL [Prinivil] 10 mg PO DAILY Docusate [Colace] 100 mg PO BID Furosemide [Lasix] 40 mg PO DAILY #30 tab Insulin Lispro [humaLOG Kwikpen] 10 unit SQ AC-TID Melatonin [Melatonin ER] 10 mg PO HS Metoprolol Tartrate [Lopressor] 25 mg PO BID polyethylene glycoL 3350 [Miralax] 17 gm PO HS Discharge Medication List Apixaban [Eliquis] 2.5 mg PO BID@0800,1600 08/04/21 [History] Atorvastatin [Lipitor] 40 mg PO HS@199908/04/21 [History] Cholecalciferol [Vitamin D3 (125 Mcg = 5000 Iu)] 125 mcg PO DAILY 08/04/21 [History] Famotidine [Pepcid] 20 mg PO DAILY 08/04/21 [History] Ferrous Sulfate [Iron (65 MG Elemental)] 325 mg PO BID 08/04/21 [History] Isosorbide Mononitrate [Isosorbide Mononitrate ER] 30 mg PO DAILY 08/04/21 [History] Lactulose 30 ml PO DAILY PRN 08/04/21 [History] Meclizine [Antivert] 12.5 mg PO Q8H PRN 08/04/21 [History] Multivitamins, Thera [Multivitamin (formulary)] 1 tab PO HS 08/04/21 [History] Simethicone [Simethicone Chew] 80 mg PO Q4H PRN 08/04/21 [History] Sodium Bicarbonate 650 mg PO BID 08/04/21 [History] Vit C/E/Zn/Coppr/Lutein/Zeaxan [Preservision Areds 2 Softgel] 1 cap PO BID 08/04/21 [History] buPROPion HCL [Wellbutrin SR] 150 mg PO BID@08,199908/04/21 [History] Spironolactone [Aldactone] 25 mg PO DAILY #30 tab 08/09/21 [Rx] Montelukast [Singulair] 10 mg PO HS 11/11/21 [History] Acetaminophen [Acetaminophen ER] 650 mg PO Q6H PRN 04/17/22 [History] Glucagon Emergency Kit 1 mg IM ONCE PRN 04/17/22 [History] Metamucil 28% Packet 1 packet PO DAILY 04/17/22 [History] Mupirocin 2% Oint [Bactroban 2% Oint] 1 applic TOPICAL Q12H PRN 04/17/22 [History] Sennosides [Senokot] 8.6 mg PO Q12H PRN 04/17/22 [History] Amiodarone [Cordarone] 400 mg PO BID #120 tab 04/25/22 [Rx] Hydrocodone/Acetaminophen [Hydrocodone/Acetaminophen 5-325] 1 tab PO Q6H PRN #12 tab 11/28/22 [Rx] Insulin Glargine,Hum.rec.anlog [Lantus Solostar Pen] 15 unit SQ HS #0 04/25/22 [Rx] Levofloxacin [Levaquin] 250 mg PO Q48H #3 tab 04/25/22 [Rx] Melatonin 5 mg PO HS tab 04/25/22 [Rx] Metoprolol Tartrate [Lopressor] 100 mg PO TID tab 04/25/22 [Rx] lisinopriL [Zestril] 5 mg PO DAILY tab 04/25/22 [Rx] polyethylene glycoL 3350 [Miralax] 17 gm PO HS packet 04/25/22 [Rx] risperiDONE [RisperDAL] 1 mg PO HS #3 tab 04/25/22 [Rx] Follow up Appointment(s)/Referral(s): Marilia Abdalla MD [STAFF PHYSICIAN] - 05/09/22 2:15 pm Ron Lynn MD [Primary Care Provider] - 1-2 days Patient Instructions/Handouts: Amiodarone (By mouth) Activity/Diet/Wound Care/Special Instructions: Your new medication Amiodarone dose needs to be decreased. Please follow these instructions with further changes by Dr. Abdalla in the office on your follow up appointment. Take 400mg Twice a day 04/25/2022-04/29/2022 Then decrease dose to 200mg Twice a day starting 04/30/2022-05/06/2022 Then decrease dose to 200mg daily starting 05/07/2022-05/13/2022 Then take 100mg daily starting 05/14 for 1 week. Or further changes by Dr. Abdalla in the office.
[2022-04-25 13:50] VITALS: BMI 31.2
[2022-04-25] MEDS: HYDROcodone/APAP 5-325MG 1 EACH TAB PO PRN (14:16)
[2022-04-25 15:17] VITALS: BP 128/65; PULSE 82; RESP 16
[2022-04-25] MEDS ORDERED: risperiDONE 1 MG TAB PO SCH (21:00)
== END 2022-04-25 16:22 | DRG 689 ==
LOC: EC 09:17 → EEVIPCON 12:21 → 5NMEDONC 12:21 → 4SSUR 04-18 04:32
PROVIDERS: ADMIT Hospitalist; ATTEND Hospitalist
DX: N30.90 Cystitis, unspecified without hematuria (principal); G93.41 Metabolic encephalopathy; N17.9 Acute kidney failure, unspecified; I13.0 Hypertensive heart and chronic kidney disease with heart failure and stage 1 through stage 4 chronic kidney disease, or unspecified chronic kidney disease; I42.8 Other cardiomyopathies; L97.429 Non-pressure chronic ulcer of left heel and midfoot with unspecified severity; N18.30 Chronic kidney disease, stage 3 unspecified; B96.5 Pseudomonas (aeruginosa) (mallei) (pseudomallei) as the cause of diseases classified elsewhere; E11.22 Type 2 diabetes mellitus with diabetic chronic kidney disease; E11.42 Type 2 diabetes mellitus with diabetic polyneuropathy; E78.5 Hyperlipidemia, unspecified; F32.A Depression, unspecified; F41.9 Anxiety disorder, unspecified; I48.0 Paroxysmal atrial fibrillation; I50.9 Heart failure, unspecified; K21.9 Gastro-esophageal reflux disease without esophagitis; K59.00 Constipation, unspecified; M19.91 Primary osteoarthritis, unspecified site; Z79.01 Long term (current) use of anticoagulants; Z79.4 Long term (current) use of insulin; Z79.899 Other long term (current) drug therapy; Z80.49 Family history of malignant neoplasm of other genital organs; Z80.7 Family history of other malignant neoplasms of lymphoid, hematopoietic and related tissues; Z82.49 Family history of ischemic heart disease and other diseases of the circulatory system; Z85.42 Personal history of malignant neoplasm of other parts of uterus; Z86.16 Personal history of COVID-19; Z87.440 Personal history of urinary (tract) infections; Z87.891 Personal history of nicotine dependence; Z90.710 Acquired absence of both cervix and uterus; Z71.3 Dietary counseling and surveillance; Z90.49 Acquired absence of other specified parts of digestive tract
CPT/HCPCS: 36415; 80048; 80053; 81001; 83605; 83735; 84443; 84450; 84460; 85025; 85610; 85730; 87040; 87077; 87086; 87186; 87636; 93005; 94760; 96374; 99285

== ENCOUNTER 2022-04-29 13:43 | Emergency (ER) | payer MEDICARE, OTHER ==
[2022-04-29 13:51] VITALS: TEMP 97.6
--- NOTE | 2022-04-29 14:48 | ED ---
Fall HPI - General Chief Complaint: Fall Stated Complaint: Fall Time Seen by Provider: 04/29/22 13:48 Source: patient, EMS, RN notes reviewed, old records reviewed Mode of arrival: EMS - History of Present Illness Initial Comments: Patient is a pleasant 77 female presents to the emergency room via EMS after attempting to reach a magazine while lying in bed earlier today at [facility] where she has been living and fell out of bed hitting the left side of her head. She denies any headache not directly related to the trauma, loss of consciousness, dizziness, focal neurological deficits, weakness or changes in mental status with baseline of poor historian due to early dementia. She denies pain to any other regions and denies hitting any extremity. She is on Eliquis for history of A. fib which she is being given as prescribed. She denies any other complaints or concerns and is hopeful to be able to return to [facility] later today. In addition to her atrial fibrillation and dementia history she has a past medical history significant for diabetes chronic kidney disease stage III, anemia, uterine cancer with hysterectomy bowel cancer with resection, hypertension, GERD and osteoarthritis. - Related Data Home Medications Medication Instructions Recorded Confirmed Apixaban [Eliquis] 2.5 mg PO BID@0800,1600 08/04/21 04/17/22 Atorvastatin [Lipitor] 40 mg PO HS@199908/04/21 04/17/22 Cholecalciferol [Vitamin D3 (125 125 mcg PO DAILY 08/04/21 04/17/22 Mcg = 5000 Iu)] Famotidine [Pepcid] 20 mg PO DAILY 08/04/21 04/17/22 Ferrous Sulfate [Iron (65 MG 325 mg PO BID 08/04/21 04/17/22 Elemental)] Isosorbide Mononitrate [Isosorbide 30 mg PO DAILY 08/04/21 04/17/22 Mononitrate ER] Lactulose 30 ml PO DAILY PRN 08/04/21 04/17/22 Meclizine [Antivert] 12.5 mg PO Q8H PRN 08/04/21 04/17/22 Multivitamins, Thera [Multivitamin 1 tab PO HS 08/04/21 04/17/22 (formulary)] Simethicone [Simethicone Chew] 80 mg PO Q4H PRN 08/04/21 04/17/22 Sodium Bicarbonate 650 mg PO BID 08/04/21 04/17/22 Vit C/E/Zn/Coppr/Lutein/Zeaxan 1 cap PO BID 08/04/21 04/17/22 [Preservision Areds 2 Softgel] buPROPion HCL [Wellbutrin SR] 150 mg PO BID@0800,199908/04/21 04/17/22 Montelukast [Singulair] 10 mg PO HS 11/11/21 04/17/22 Acetaminophen [Acetaminophen ER] 650 mg PO Q6H PRN 04/17/22 04/17/22 Glucagon Emergency Kit 1 mg IM ONCE PRN 04/17/22 04/17/22 Metamucil 28% Packet 1 packet PO DAILY 04/17/22 04/17/22 Mupirocin 2% Oint [Bactroban 2% 1 applic TOPICAL Q12H PRN 04/17/22 04/17/22 Oint] Sennosides [Senokot] 8.6 mg PO Q12H PRN 04/17/22 04/17/22 Previous Rx's Medication Instructions Recorded Spironolactone [Aldactone] 25 mg PO DAILY #30 tab 08/09/21 Amiodarone [Cordarone] 400 mg PO BID #120 tab 04/25/22 Hydrocodone/Acetaminophen 1 tab PO Q6H PRN #12 tab 04/25/22 [Hydrocodone/Acetaminophen 5-325] Insulin Glargine,Hum.rec.anlog 15 unit SQ HS #0 04/25/22 [Lantus Solostar Pen] Levofloxacin [Levaquin] 250 mg PO Q48H #3 tab 04/25/22 Melatonin 5 mg PO HS tab 04/25/22 Metoprolol Tartrate [Lopressor] 100 mg PO TID tab 04/25/22 lisinopriL [Zestril] 5 mg PO DAILY tab 04/25/22 polyethylene glycoL 3350 [Miralax] 17 gm PO HS packet 04/25/22 risperiDONE [RisperDAL] 1 mg PO HS #3 tab 04/25/22 Allergies Allergy/AdvReac Type Severity Reaction Status Date / Time amlodipine Allergy HIVES Verified 04/29/22 13:51 hydralazine Allergy HIVES Verified 04/29/22 13:51 Sulfa (Sulfonamide Allergy HIVES Verified 04/29/22 13:51 Antibiotics) Review of Systems ROS Statement: Those systems with pertinent positive or pertinent negative responses have been documented in the HPI. ROS Other: All systems not noted in ROS Statement are negative. Past Medical History Past Medical History: Atrial Fibrillation, Cancer, Heart Failure, Diabetes Mellitus, GERD/Reflux, Hypertension, Osteoarthritis (OA), Renal Disease Additional Past Medical History / Comment(s): IDDM type II, neuropathy bilateral feet, current L heel ulcer, cardiomegaly, CKD stage III, anemia, generalized weakness/FALLS, vertigo, covid 02/2021, uterine cancer with hysterectomy, bowel cancer with resection, i History of Any Multi-Drug Resistant Organisms: None Reported Past Surgical History: Adenoidectomy, Bowel Resection, Hysterectomy, Tonsillectomy Additional Past Surgical History / Comment(s): Abdominal laparoscopy, several D&Cs, bilateral cataract removal/lens implant. Past Anesthesia/Blood Transfusion Reactions: No Reported Reaction, Motion Sickness Past Psychological History: Depression Smoking Status: Former smoker Past Alcohol Use History: None Reported Past Drug Use History: None Reported - Past Family History Mother Family Medical History: Cancer Additional Family Medical History / Comment(s): Uterine cancer and of nonhodgkins lymphoma Father Family Medical History: Congestive Heart Failure (CHF) Family Family Medical History: No Reported History General Exam General appearance: alert, in no apparent distress Head exam: Present: normocephalic, normal inspection Expanded Head exam: Absent: laceration, abrasion, contusion, hematoma, general tenderness Eye exam: Present: normal appearance, PERRL, EOMI. Absent: scleral icterus, conjunctival injection, periorbital swelling ENT exam: Present: normal exam, mucous membranes moist Neck exam: Present: normal inspection, full ROM Respiratory exam: Present: normal lung sounds bilaterally. Absent: respiratory distress, wheezes, rales, rhonchi, stridor Cardiovascular Exam: Present: regular rate, irregular rhythm, normal heart so unds, systolic murmur. Absent: diastolic murmur, rubs, gallop, clicks GI/Abdominal exam: Present: soft, normal bowel sounds. Absent: distended, tenderness, guarding, rebound, rigid Extremities exam: Present: normal inspection. Absent: tenderness, pedal edema, joint swelling Back exam: Present: normal inspection Neurological exam: Present: alert, oriented X3, CN II-XII intact Psychiatric exam: Present: normal affect, normal mood Skin exam: Present: warm, dry, intact, normal color. Absent: rash Course Vital Signs 04/29/22 13:46 Temperature 97.6 F Pulse Rate 102 H Respiratory 19 Rate Blood Pressure 136/87 O2 Sat by Pulse 97 Oximetry Medical Decision Making - Medical Decision Making 77-year-old female presenting to the emergency room with evaluate for evaluation after a fall hitting her head on blood thinners earlier today at her skilled nursing facility. No loss of consciousness, no dizziness, no focal neurolo gical deficits are altered mental status. Will obtain CT of the brain and cervical spine due to fall on blood thinners. No indication for other diagnostic imaging or laboratory studies at this time. No significant pain. She denies any analgesic need. Will monitor. CT of the brain and cervical spine without contrast image intravertebral him a showing significant atrophy no evidence of intracranial hemorrhage, mass or acute ischemia. No cervical spine fracture or dislocation. Radiologist's report also reviewed. Patient resting comfortably. No indication for further diagnostic imaging or laboratory studies. Will arrange for discharge back to [facility] in stable condition with follow-up with her primary team at the facility. Fall precautions encouraged. Case discussed with Dr. Servin. - Radiology Data Radiology results: report reviewed, image reviewed CT of the brain and cervical spine without contrast and impression by radiologist moderate generalized atrophy and moderate burden of chronic small vessel ischemic disease. 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 No acute intracranial abnormality seen. No acute fracture or malalignment of the cervical spine. Moderate to advanced spondylitic changes. Abnormal upper chest clear with underlying pleural effusions and airspace disease. Possible pulmonary edema (this is consistent with previous past medical history). Disposition Clinical Impression: Fall Disposition: HOME SELF-CARE Condition: Stable Instructions (If sedation given, give patient instructions): Fall Prevention for Older Adults (ED), Fall Prevention (ED) Additional Instructions: Please return to the Emergency Department if symptoms worsen or any other concerns. Patient may utilize Tylenol as needed for pain. Please maintain safety utilizing fall precautions. Is patient prescribed a controlled substance at d/c from ED?: No Referrals: Ron Lynn MD [Primary Care Provider] - 1-2 days Time of Disposition: 17:02
--- NOTE | 2022-04-29 15:29 | CT ---
EXAMINATION TYPE: CT brain rich james DATE OF EXAM: 04/29/2022 COMPARISON: None HISTORY: 77-year-old female with pain after Fall CT DLP: 1593.4 mGycm Automated exposure control for dose reduction was used. Technique: Examination of the head was done in axial plane without intravenous contrast. Coronal and sagittal reconstructions performed. CT of the cervical spine was obtained in axial plane without intravenous injection of contrast mater ial. Coronal and sagittal reformatted images were obtained from the axial views for evaluation of f ractures, spinal alignment and canal. FINDINGS: Head: There is no evidence of acute intracranial hemorrhage, acute ischemic changes, mass, mass-effect, or extra-axial fluid collection. There is no effacement of cerebral sulci or basal subarachnoid cister ns. There is no midline shift. Hanson-white matter distinction is preserved. Moderate generalized supratentorial volume loss. Secondary prominence to the ventricular system. Mode rate white matter hypodensities in posterior hemispheres. There is encephalomalacia within the left t emporal lobe and also anterior medial right frontal lobe from prior infarcts. Additional encephalomal acia posterior inferior left cerebellar hemisphere. Rightward nasal septal deviation. Mastoid air cells well pneumatized. Orbits and globes are intact. Cervical spine: No craniocervical junction abnormality, predental space widening, or prevertebral soft tissue swellin g. Degenerative change at the C1 dens articulation. Moderate to advanced disc/endplate degenerative change especially mid to lower cervical spine. Disc osteophyte complex C3-C4 contributes to mild spinal canal stenosis. Alignment is maintained. Multilevel facet and uncovertebral joint arthropathy is present. No acute fracture seen of the cervical spine. Left lobe thyroid gland either small or surgically absent. Underlying layering pleural effusions and groundglass airspace disease in the visualized upper lungs. Sagittal and coronal reformatted images confirm above findings. COMBINED IMPRESSION: 1. Moderate generalized atrophy and moderate burden of chronic small vessel ischemic disease. A few a reas of encephalomalacia relating to old infarcts, medial right frontal lobe, left temporal lobe, and left PICA distribution. No acute intracranial abnormality seen. 2. No acute fracture or malalignment of the cervical spine. Moderate to advanced spondylotic change. 3. Abnormal upper chest with layering pleural effusions and airspace disease. Possible pulmonary huseyin ma.
[2022-04-29 17:11] VITALS: BP 142/93; PULSE 107; RESP 18
== END 2022-04-29 17:11 | disposition home or self-care (01) ==
LOC: EC 13:43
DX: Z04.3 Encounter for examination and observation following other accident (principal); I48.91 Unspecified atrial fibrillation; I13.0 Hypertensive heart and chronic kidney disease with heart failure and stage 1 through stage 4 chronic kidney disease, or unspecified chronic kidney disease; I50.9 Heart failure, unspecified; N18.30 Chronic kidney disease, stage 3 unspecified; E11.9 Type 2 diabetes mellitus without complications; K21.9 Gastro-esophageal reflux disease without esophagitis; M19.90 Unspecified osteoarthritis, unspecified site; F32.A Depression, unspecified; Z87.891 Personal history of nicotine dependence; Z88.8 Allergy status to other drugs, medicaments and biological substances; Z88.2 Allergy status to sulfonamides; Z79.01 Long term (current) use of anticoagulants; Z79.899 Other long term (current) drug therapy; W06.XXXA Fall from bed, initial encounter
CPT/HCPCS: 70450; 72125; 99284

== ENCOUNTER 2022-05-04 17:10 | Emergency (ER) | payer MEDICARE, OTHER ==
--- NOTE | 2022-05-04 17:47 | ED ---
General Adult HPI - General Stated complaint: Weakness Time Seen by Provider: 05/04/22 17:31 - History of Present Illness Initial comments: This patient is a 77-year-old woman [facility] to have evaluation for change in respiratory status. The [facility] transferred notes state that the patient seemed to be different so they listened and they reported to find crackles over the lungs bilaterally. When I review the patient, she states that she feels crappy but that she has done so going back approximately one year since she first contracted coronavirus. She has not noted fever or chills. She is denying pain except for some low back pain that she states is chronic. She states she does have occasional cough. The patient reportedly on oxygen long-term at the nursing facility. Onset/Timin -: days(s) Severity scale (1-10): 0 Consistency: constant Improves with: none Worsens with: none Associated Symptoms: denies other symptoms - Related Data Home Medications Medication Instructions Recorded Confirmed Apixaban [Eliquis] 2.5 mg PO BID 08/04/21 05/04/22 Atorvastatin [Lipitor] 40 mg PO HS 08/04/21 05/04/22 Famotidine [Pepcid] 20 mg PO DAILY 08/04/21 05/04/22 Ferrous Sulfate [Iron (65 MG 325 mg PO BID 08/04/21 05/04/22 Elemental)] Lactulose 30 ml PO DAILY PRN 08/04/21 05/04/22 Meclizine [Antivert] 12.5 mg PO Q8H PRN 08/04/21 05/04/22 Multivitamins, Thera [Multivitamin 1 tab PO HS 08/04/21 05/04/22 (formulary)] Simethicone [Simethicone Chew] 80 mg PO Q4H PRN 08/04/21 05/04/22 Sodium Bicarbonate 650 mg PO BID 08/04/21 05/04/22 Vit C/E/Zn/Coppr/Lutein/Zeaxan 2 cap PO BID@0800,1600 08/04/21 05/04/22 [Preservision Areds 2 Softgel] buPROPion HCL [Wellbutrin SR] 150 mg PO BID@0800,1600 08/04/21 05/04/22 Montelukast [Singulair] 10 mg PO HS 11/11/21 05/04/22 Glucagon Emergency Kit 1 mg IM ONCE PRN 04/17/22 05/04/22 Metamucil 28% Packet 1 packet PO HS 04/17/22 05/04/22 Mupirocin 2% Oint [Bactroban 2% 1 applic TOPICAL Q12H PRN 04/17/22 05/04/22 Oint] Sennosides [Senokot] 8.6 mg PO Q12H PRN 04/17/22 05/04/22 Acetaminophen Tab [Tylenol] 650 mg PO Q6H PRN 04/29/22 05/04/22 Cholecalciferol [Vitamin D3 (25 25 mcg PO DAILY@0800 04/29/22 05/04/22 Mcg = 1000 Iu)] Metoprolol Tartrate [Lopressor] 100 mg PO TID@05,,04/29/22 05/04/22 polyethylene glycoL 3350 [Miralax] 17 gm PO DAILY@0800 04/29/22 05/04/22 Amiodarone [Cordarone] See Taper PO DIRECTED 05/04/22 05/04/22 House Supplement 120 ml PO DAILY 05/04/22 05/04/22 Insulin Glargine,Hum.rec.anlog 20 unit SQ HS 05/04/22 05/04/22 [Lantus Solostar Pen] Isosorbide Mononitrate ER [Imdur] 30 mg PO DAILY@0800 05/04/22 05/04/22 Previous Rx's Medication Instructions Recorded Spironolactone [Aldactone] 25 mg PO DAILY #30 tab 08/09/21 Hydrocodone/Acetaminophen 1 tab PO Q6H PRN #12 tab 04/25/22 [Hydrocodone/Acetaminophen 5-325] Melatonin 5 mg PO HS tab 04/25/22 lisinopriL [Zestril] 5 mg PO DAILY tab 04/25/22 Allergies Allergy/AdvReac Type Severity Reaction Status Date / Time amlodipine Allergy HIVES Verified 05/04/22 18:00 hydralazine Allergy HIVES Verified 05/04/22 18:00 Sulfa (Sulfonamide Allergy HIVES Verified 05/04/22 18:00 Antibiotics) Review of Systems ROS Statement: Those systems with pertinent positive or pertinent negative responses have been documented in the HPI. ROS Other: All systems not noted in ROS Statement are negative. Constitutional: Reports: weakness (Chronic). Denies: fever, chills Respiratory: Reports: as per HPI, cough. Denies: stridor Cardiovascular: Denies: chest pain, palpitations, edema Gastrointestinal: Denies: abdominal pain, vomiting, diarrhea Genitourinary: Denies: dysuria, hematuria Musculoskeletal: Reports: back pain (Chronic) Skin: Denies: rash Neurological: Denies: headache, weakness Past Medical History Past Medical History: Atrial Fibrillation, Cancer, Heart Failure, Diabetes Mellitus, GERD/Reflux, Hypertension, Osteoarthritis (OA), Renal Disease Additional Past Medical History / Comment(s): IDDM type II, neuropathy bilateral feet, current L heel ulcer, cardiomegaly, CKD stage III, anemia, generalized weakness/FALLS, vertigo, covid 02/2021, uterine cancer with hysterectomy, bowel cancer with resection, i History of Any Multi-Drug Resistant Organisms: None Reported Past Surgical History: Adenoidectomy, Bowel Resection, Hysterectomy, Tonsillectomy Additional Past Surgical History / Comment(s): Abdominal laparoscopy, several D&Cs, bilateral cataract removal/lens implant. Past Anesthesia/Blood Transfusion Reactions: No Reported Reaction, Motion Sickness Past Psychological History: Depression Smoking Status: Former smoker Past Alcohol Use History: None Reported Past Drug Use History: None Reported - Past Family History Mother Family Medical History: Cancer Additional Family Medical History / Comment(s): Uterine cancer and of nonhodgkins lymphoma Father Family Medical History: Congestive Heart Failure (CHF) Family Family Medical History: No Reported History General Exam General appearance: alert, in no apparent distress Head exam: Present: atraumatic, normocephalic Eye exam: Present: normal appearance. Absent: scleral icterus, conjunctival injection Neck exam: Present: normal inspection Respiratory exam: Present: normal lung sounds bilaterally, rales (Trace crackles at the bases bilaterally). Absent: respiratory distress, wheezes, rhonchi, stridor Cardiovascular Exam: Present: regular rate, normal rhythm, normal heart sounds. Absent: systolic murmur, diastolic murmur, rubs, gallop GI/Abdominal exam: Present: soft. Absent: distended, tenderness, guarding, rebound, rigid, mass Extremities exam: Present: normal inspection, normal capillary refill. Absent: pedal edema, calf tenderness Back exam: Present: normal inspection. Absent: CVA tenderness (R), CVA tenderness (L) Neurological exam: Present: alert Skin exam: Present: warm, dry, intact, normal color. Absent: rash Course Vital Signs 05/04/22 05/04/22 05/04/22 17:48 18:30 18:56 Temperature 97.4 F L Pulse Rate 80 103 H Respiratory 15 21 20 Rate Blood Pressure 140/115 150/105 O2 Sat by Pulse 95 100 Oximetry EKG Findings - EKG Results: EKG: interpreted by ERMD - Dysrhythmias: Supraventricular dysrhythmia: atrial fibrillation (Rate 87 bpm) - Blocks, [place], Hypertrophy, ST Abn: QRS axis and voltage: low voltage (<0.5 MV total QRS and <1.0 MV in each precordial lead) Medical Decision Making - Lab Data Result diagrams: 05/04/22 17:56 05/04/22 17:56 Lab Results 05/04/22 05/04/22 05/04/22 Range/Units 17:56 17:56 17:56 WBC 8.8 (3.8-10.6) k/uL RBC 3.03 L (3.80-5.40) m/uL Hgb 9.5 L (11.4-16.0) gm/dL Hct 28.9 L (34.0-46.0) % MCV 95.4 (80.0-100.0) fL MCH 31.3 (25.0-35.0) pg MCHC 32.8 (31.0-37.0) g/dL RDW 15.3 (11.5-15.5) % Plt Count 271 (150-450) k/uL MPV 8.1 Neutrophils % 75 % Lymphocytes % 12 % Monocytes % 5 % Eosinophils % 4 % Basophils % 1 % Neutrophils # 6.6 (1.3-7.7) k/uL Lymphocytes # 1.0 (1.0-4.8) k/uL Monocytes # 0.5 (0-1.0) k/uL Eosinophils # 0.3 (0-0.7) k/uL Basophils # 0.1 (0-0.2) k/uL Hypochromasia Marked Poikilocytosis Slight PT 12.0 (9.0-12.0) sec INR 1.2 H (<1.2) APTT 24.9 (22.0-30.0) sec Sodium 140 (137-145) mmol/L Potassium 3.9 (3.5-5.1) mmol/L Chloride 108 H (98-107) mmol/L Carbon Dioxide 25 (22-30) mmol/L Anion Gap 7 mmol/L BUN 23 H (7-17) mg/dL Creatinine 1.52 H (0.52-1.04) mg/dL Est GFR (CKD-EPI)AfAm 37 (>60 ml/min/1.73 sqM) Est GFR (CKD-EPI)NonAf 32 (>60 ml/min/1.73 sqM) Glucose 164 H (74-99) mg/dL Plasma Lactic Acid Kyle (0.7-2.0) mmol/L Calcium 8.7 (8.4-10.2) mg/dL Total Bilirubin 0.7 (0.2-1.3) mg/dL AST 28 (14-36) U/L ALT 22 (4-34) U/L Alkaline Phosphatase 118 (38-126) U/L Troponin I (0.000-0.034) ng/mL NT-Pro-B Natriuret Pep pg/mL Total Protein 6.4 (6.3-8.2) g/dL Albumin 3.3 L (3.5-5.0) g/dL 05/04/22 05/04/22 05/04/22 Range/Units 17:56 17:56 17:56 WBC (3.8-10.6) k/uL RBC (3.80-5.40) m/uL Hgb (11.4-16.0) gm/dL Hct (34.0-46.0) % MCV (80.0-100.0) fL MCH (25.0-35.0) pg MCHC (31.0-37.0) g/dL RDW (11.5-15.5) % Plt Count (150-450) k/uL MPV Neutrophils % % Lymphocytes % % Monocytes % % Eosinophils % % Basophils % % Neutrophils # (1.3-7.7) k/uL Lymphocytes # (1.0-4.8) k/uL Monocytes # (0-1.0) k/uL Eosinophils # (0-0.7) k/uL Basophils # (0-0.2) k/uL Hypochromasia Poikilocytosis PT (9.0-12.0) sec INR (<1.2) APTT (22.0-30.0) sec Sodium (137-145) mmol/L Potassium (3.5-5.1) mmol/L Chloride (98-107) mmol/L Carbon Dioxide (22-30) mmol/L Anion Gap mmol/L BUN (7-17) mg/dL Creatinine (0.52-1.04) mg/dL Est GFR (CKD-EPI)AfAm (>60 ml/min/1.73 sqM) Est GFR (CKD-EPI)NonAf (>60 ml/min/1.73 sqM) Glucose (74-99) mg/dL Plasma Lactic Acid Kyle 1.2 (0.7-2.0) mmol/L Calcium (8.4-10.2) mg/dL Total Bilirubin (0.2-1.3) mg/dL AST (14-36) U/L ALT (4-34) U/L Alkaline Phosphatase (38-126) U/L Troponin I <0.012 (0.000-0.034) ng/mL NT-Pro-B Natriuret Pep 5110 pg/mL Total Protein (6.3-8.2) g/dL Albumin (3.5-5.0) g/dL Disposition Clinical Impression: Congestive heart failure Disposition: HOME SELF-CARE Condition: Good Is patient prescribed a controlled substance at d/c from ED?: No Referrals: Ron Lynn MD [Primary Care Provider] - 1-2 days
[2022-05-04 17:53] VITALS: TEMP 97.4
[2022-05-04 18:16] LABS: Basophils # (A) 0.1 k/uL (0-0.2); Basophils % (A) 1 %; Eosinophils # (A) 0.3 k/uL (0-0.7); Eosinophils % (A) 4 %; HCT 28.9 % (34.0-46.0); HGB 9.5 gm/dL (11.4-16.0); Hypochromasia Marked; Lymphocytes % (A) 12 %; MCH 31.3 pg (25.0-35.0); MCHC 32.8 g/dL (31.0-37.0); MCV 95.4 fL (80.0-100.0); Mean Platelet Volume 8.1; Monocytes # (A) 0.5 k/uL (0-1.0); Monocytes % (A) 5 %; Neutrophils # (A) 6.6 k/uL (1.3-7.7); Neutrophils % (A) 75 %; Platelet Count 271 k/uL (150-450); Poikilocytosis Slight; RBC 3.03 m/uL (3.80-5.40); RDW 15.3 % (11.5-15.5); WBC 8.8 k/uL (3.8-10.6)
[2022-05-04 18:26] LABS: INR 1.2 (<1.2); Partial Thromboplastin Time 24.9 sec (22.0-30.0)
[2022-05-04 18:28] LABS: Albumin 3.3 g/dL (3.5-5.0); Calcium 8.7 mg/dL (8.4-10.2); Potassium 3.9 mmol/L (3.5-5.1); Total Bilirubin 0.7 mg/dL (0.2-1.3); Total Protein 6.4 g/dL (6.3-8.2)
--- NOTE | 2022-05-04 18:45 | XR ---
EXAMINATION TYPE: XR chest 2V DATE OF EXAM: 05/04/2022 COMPARISON: 08/04/2021 HISTORY: Difficulty breathing TECHNIQUE: 2 views FINDINGS: Heart is borderline enlarged. There is mild pulmonary vascular congestion. There is bluntin g of the costophrenic angles bilaterally. There is fluid in the major fissures. There are chest leads . IMPRESSION: Congestive heart failure with pleural effusions and no significant change compared to old exam.
[2022-05-04] MEDS ORDERED: FUROSEMIDE 10 MG/ML 4 ML VIAL IV STA (19:22)
[2022-05-04] MEDS ORDERED: ENALAPRILAT 1.25 MG/ML 1 ML VIAL IVP STA (19:24)
[2022-05-04 21:26] VITALS: BP 129/92; PULSE 84; RESP 18
== END 2022-05-04 21:26 | disposition home or self-care (01) ==
LOC: EC 17:10
DX: I50.20 Unspecified systolic (congestive) heart failure (principal); I48.91 Unspecified atrial fibrillation; E11.9 Type 2 diabetes mellitus without complications; I13.0 Hypertensive heart and chronic kidney disease with heart failure and stage 1 through stage 4 chronic kidney disease, or unspecified chronic kidney disease; N18.30 Chronic kidney disease, stage 3 unspecified; M19.90 Unspecified osteoarthritis, unspecified site; K21.9 Gastro-esophageal reflux disease without esophagitis; F32.A Depression, unspecified; Z87.891 Personal history of nicotine dependence; Z88.8 Allergy status to other drugs, medicaments and biological substances; Z88.2 Allergy status to sulfonamides; Z79.01 Long term (current) use of anticoagulants; Z79.4 Long term (current) use of insulin; Z79.899 Other long term (current) drug therapy
CPT/HCPCS: 36415; 93005; 83880; 80053; 83605; 84484; 85025; 85610; 85730; 71046; 99285; 96374; 96375; J1940

== ENCOUNTER 2022-05-19 11:39 | Inpatient (IN) | payer MEDICARE, OTHER ==
[2022-05-19] MEDS ORDERED: IPRATROPIUM-ALBUTEROL 3 ML NEB INHALATION STA (12:00)
[2022-05-19 12:37] LABS: Anisocytosis Slight; Basophils % (A) 0 %; Eosinophils # (A) 0.1 k/uL (0-0.7); Eosinophils % (A) 2 %; HCT 30.5 % (34.0-46.0); HGB 9.6 gm/dL (11.4-16.0); Hypochromasia Marked; Lymphocytes # (A) 0.7 k/uL (1.0-4.8); Lymphocytes % (A) 7 %; MCH 30.8 pg (25.0-35.0); MCHC 31.4 g/dL (31.0-37.0); MCV 98.1 fL (80.0-100.0); Macrocytosis Slight; Mean Platelet Volume 7.6; Monocytes # (A) 0.7 k/uL (0-1.0); Monocytes % (A) 7 %; Neutrophils % (A) 81 %; Platelet Count 227 k/uL (150-450); RBC 3.11 m/uL (3.80-5.40); WBC 9.8 k/uL (3.8-10.6)
--- NOTE | 2022-05-19 12:38 | ED ---
SOB HPI - General Chief Complaint: Fall Stated Complaint: Fall,SOB Time Seen by Provider: 05/19/22 11:46 Source: patient, EMS, RN notes reviewed Mode of arrival: EMS Limitations: no limitations - History of Present Illness Initial Comments: This is a 77-year-old female who presents to the emergency department for shortness of breath. Patient is from [facility]. States that she has felt short of breath over the last 1-2 days. Denies any chest pain. She does have minor associated coughing and body aches. Additionally, [facility] states that she had a fall 3 days ago and hit her head. She is on Eliquis daily. Patient states that she does not particularly recall this event. Per EMS and review of prior records, the patient is on oxygen at home. It is not clear how much oxygen she is on. The provider at [facility] was reportedly concerned about the mottling in her feet and wanted to rule out an NC. Denies any fevers, chills, sore throat, chest pain, palpitations, abdominal pain, nausea, vomiting, diarrhea, or headaches. MD Complaint: shortness of breath, cough - Related Data Home Medications Medication Instructions Recorded Confirmed Apixaban [Eliquis] 2.5 mg PO BID 08/04/21 05/19/22 Atorvastatin [Lipitor] 40 mg PO HS 08/04/21 05/19/22 Famotidine [Pepcid] 20 mg PO DAILY 08/04/21 05/19/22 Ferrous Sulfate [Iron (65 MG 325 mg PO BID 08/04/21 05/19/22 Elemental)] Lactulose 30 ml PO DAILY PRN 08/04/21 05/19/22 Meclizine [Antivert] 12.5 mg PO Q8H PRN 08/04/21 05/19/22 Multivitamins, Thera [Multivitamin 1 tab PO HS 08/04/21 05/19/22 (formulary)] Simethicone [Simethicone Chew] 80 mg PO Q4H PRN 08/04/21 05/19/22 Sodium Bicarbonate 650 mg PO BID 08/04/21 05/19/22 Vit C/E/Zn/Coppr/Lutein/Zeaxan 2 cap PO BID@0800,1600 08/04/21 05/19/22 [Preservision Areds 2 Softgel] buPROPion HCL [Wellbutrin SR] 150 mg PO BID@0800,1600 08/04/21 05/19/22 Montelukast [Singulair] 10 mg PO HS 11/11/21 05/19/22 Metamucil 28% Packet 1 packet PO HS 04/17/22 05/19/22 Mupirocin 2% Oint [Bactroban 2% 1 applic TOPICAL Q12H PRN 04/17/22 05/19/22 Oint] Sennosides [Senokot] 8.6 mg PO Q12H PRN 04/17/22 05/19/22 Acetaminophen Tab [Tylenol] 650 mg PO Q6H PRN 04/29/22 05/19/22 Cholecalciferol [Vitamin D3 (25 25 mcg PO DAILY@0800 04/29/22 05/19/22 Mcg = 1000 Iu)] polyethylene glycoL 3350 [Miralax] 17 gm PO DAILY@0800 04/29/22 05/19/22 Amiodarone [Cordarone] 200 mg PO DAILY@0800 05/04/22 05/19/22 House Supplement 120 ml PO DAILY 05/04/22 05/19/22 Insulin Glargine,Hum.rec.anlog 20 unit SQ HS 05/04/22 05/19/22 [Lantus Solostar Pen] Isosorbide Mononitrate ER [Imdur] 30 mg PO DAILY@0800 05/04/22 05/19/22 Metoprolol Tartrate [Lopressor] 100 mg PO BID@0800,1600 05/19/22 05/19/22 Previous Rx's Medication Instructions Recorded Spironolactone [Aldactone] 25 mg PO DAILY #30 tab 08/09/21 Hydrocodone/Acetaminophen 1 tab PO Q6H PRN #12 tab 04/25/22 [Hydrocodone/Acetaminophen 5-325] Melatonin 5 mg PO HS tab 04/25/22 lisinopriL [Zestril] 5 mg PO DAILY tab 04/25/22 Allergies Allergy/AdvReac Type Severity Reaction Status Date / Time amlodipine Allergy HIVES Verified 05/19/22 11:48 hydralazine Allergy HIVES Verified 05/19/22 11:48 Sulfa (Sulfonamide Allergy HIVES Verified 05/19/22 11:48 Antibiotics) Review of Systems ROS Statement: Those systems with pertinent positive or pertinent negative responses have been documented in the HPI. ROS Other: All systems not noted in ROS Statement are negative. Past Medical History Past Medical History: Atrial Fibrillation, Cancer, Heart Failure, Diabetes Mellitus, GERD/Reflux, Hypertension, Osteoarthritis (OA), Renal Disease Additional Past Medical History / Comment(s): IDDM type II, neuropathy bilateral feet, current L heel ulcer, cardiomegaly, CKD stage III, anemia, generalized weakness/FALLS, vertigo, covid 02/2021, uterine cancer with hysterectomy, bowel cancer with resection, i History of Any Multi-Drug Resistant Organisms: None Reported Past Surgical History: Adenoidectomy, Bowel Resection, Hysterectomy, Tonsillectomy Additional Past Surgical History / Comment(s): Abdominal laparoscopy, several D&Cs, bilateral cataract removal/lens implant. Past Anesthesia/Blood Transfusion Reactions: No Reported Reaction, Motion Sickness Past Psychological History: Depression Smoking Status: Former smoker Past Alcohol Use History: None Reported Past Drug Use History: None Reported - Past Family History Mother Family Medical History: Cancer Additional Family Medical History / Comment(s): Uterine cancer and of nonhodgkins lymphoma Father Family Medical History: Congestive Heart Failure (CHF) Family Family Medical History: No Reported History General Exam Limitations: no limitations General appearance: alert, in no apparent distress Head exam: Present: atraumatic, normocephalic, normal inspection Respiratory exam: Present: wheezes, rhonchi Cardiovascular Exam: Present: regular rate, normal rhythm, normal heart sounds. Absent: systolic murmur, diastolic murmur, rubs, gallop, clicks Extremities exam: Absent: pedal edema Neurological exam: Present: alert Psychiatric exam: Present: normal affect, normal mood Skin exam: Present: warm, dry, intact, normal color. Absent: rash Course Vital Signs 05/19/22 05/19/22 05/19/22 11:40 13:56 14:06 Temperature 97.3 F L Pulse Rate 99 90 94 Respiratory 20 Rate Blood Pressure 136/99 O2 Sat by Pulse 100 Oximetry 05/19/22 05/19/22 14:52 17:44 Temperature Pulse Rate 88 Respiratory 28 H 18 Rate Blood Pressure 137/89 O2 Sat by Pulse 84 L 96 Oximetry Medical Decision Making - Medical Decision Making This is a 77-year-old female who presents to the emergency department for shortness of breath and a fall. Lab work obtained revealing an elevated BNP at 12,000. My interpretation of the chest x-ray reveals pulmonary venous congestion with cardiomegaly. However, she does appear to have a distal right clavicle fracture. We attempted to give the patient 40 mg of Lasix, however she refused this and states that she does not like to take this because it makes her urinate too much. She is on spironolactone at home and no other diuretics. Because she was noted to fall 3 days ago, computed tomography scan of the brain and C-spine obtained, revealing no evidence of an acute intracranial hemorrhage or neck fractures. A couple of hours later, she started to complain of right hip and right mid to upper back pain as a result of the fall. Computed tomography scan of the right hip and thoracic/lumbar spine was subsequently obtained. My interpretation of these identifies no acute fractures or dislocations. Patient be admitted to medicine with cardiology consult for CHF exacerbation. Orthopedics consulted for the clavicle fracture. This case was discussed in detail with the attending ED physician. Presentation, findings, and treatment plan discussed in detail as well. Was pt. sent in by a medical professional or institution? @ -[facility] Did you speak to anyone other than the patient for history? @ -EMS Did you review nursing and triage notes? @ -Agree, accurate with regards to the patient's symptoms. Were old charts reviewed? @ -group home records, prior EKGs Differential Diagnosis? @ -Differential Dyspnea: Coronary syndrome, arrhythmia, tamponade, asthma, COPD, pulmonary embolism, pneumonia, pneumothorax, pulmonary effusion, anaphylaxis, diabetic ketoacidosis, flailed chest, pulmonary contusion, diaphragmatic rupture, anemia, neuromuscular, this is not meant to be an all-inclusive list. EKG interpreted by me (3pts min.)? @ Atrial fibrillation. Ventricular rate 87 bpm, QRS duration 101 ms, QTC 434 ms. EKG interpreted by myself and ED attending. What testing was considered but not performed? (CT, X-rays, U/S, labs)? Why? @ D-dimer was considered, however due to patient's multiple comorbidities, this will likely be elevated regardless. Additionally, the patient is already taking Eliquis. Did you discuss the management of the patient with other professionals? @ - Dr. Villaseñor and Lela Nieves NP Did you reconcile home meds? @ -Yes Were there social determinants of health that impacted care today? How? (Homelessness, low income, unemployed, alcoholism, drug addiction, transportation, low edu. Level, literacy, decrease access to med. care, fpc, rehab)? @ -No Was there de-escalation of care discussed even if they declined? (Discuss DNR or withdrawal of care, Hospice)? @ -No What co-morbidities impacted this encounter? (DM, HTN, Smoking, COPD, CAD, Cancer, CVA, Hep., AIDS, mental health diagnosis, sleep apnea, morbid obesity)? @ -Diabetes, CHF, renal disease, A. fib Drug Therapy requiring intensive monitoring for toxicity (Heparin, Nitro, Insulin, Cardizem)? @ -None Were any procedures done? @ -None Diagnosis/symptom? @ -Acute CHF exacerbation Acute, or Chronic, or Acute on Chronic? @ -Acute on chronic Uncomplicated (without systemic symptoms) or Complicated (systemic symptoms)? @ -Complicated Side effects of treatment? @ -Attempted to treat with Lasix, if the patient agrees, this can lead to increased urination and increased thirst. There is also the concern for worsening renal function. Exacerbation, Progression, or Severe Exacerbation] @ -Severe exacerbation Poses a threat to life or bodily function? @ -Yes Diagnosis/symptom? @ -Right clavicle fracture Acute, or Chronic, or Acute on Chronic? @ -Acute Uncomplicated (without systemic symptoms) or Complicated (systemic symptoms)? @ -Uncomplicated Side effects of treatment? @ -Reduced use of right upper extremity when in a sling Poses a threat to life or bodily function? @ -May pose a threat to bodily function in terms of adequate use of the right upper extremity - Lab Data Result diagrams: 05/19/22 12:12 05/19/22 12:12 Lab Results 05/19/22 05/19/22 05/19/22 Range/Units 12:12 12:12 12:12 WBC 9.8 (3.8-10.6) k/uL RBC 3.11 L (3.80-5.40) m/uL Hgb 9.6 L (11.4-16.0) gm/dL Hct 30.5 L (34.0-46.0) % MCV 98.1 (80.0-100.0) fL MCH 30.8 (25.0-35.0) pg MCHC 31.4 (31.0-37.0) g/dL RDW 16.0 H (11.5-15.5) % Plt Count 227 (150-450) k/uL MPV 7.6 Neutrophils % 81 % Lymphocytes % 7 % Monocytes % 7 % Eosinophils % 2 % Basophils % 0 % Neutrophils # 8.0 H (1.3-7.7) k/uL Lymphocytes # 0.7 L (1.0-4.8) k/uL Monocytes # 0.7 (0-1.0) k/uL Eosinophils # 0.1 (0-0.7) k/uL Basophils # 0.0 (0-0.2) k/uL Hypochromasia Marked Anisocytosis Slight Macrocytosis Slight PT 13.5 H (9.0-12.0) sec INR 1.3 H (<1.2) APTT 25.2 (22.0-30.0) sec VBG pH (7.31-7.41) VBG pCO2 (37-51) mmHg VBG HCO3 (24-28) mmol/L Sodium 141 (137-145) mmol/L Potassium 3.7 (3.5-5.1) mmol/L Chloride 105 (98-107) mmol/L Carbon Dioxide 29 (22-30) mmol/L Anion Gap 7 mmol/L BUN 24 H (7-17) mg/dL Creatinine 1.65 H (0.52-1.04) mg/dL Est GFR (CKD-EPI)AfAm 34 (>60 ml/min/1.73 sqM) Est GFR (CKD-EPI)NonAf 29 (>60 ml/min/1.73 sqM) Glucose 94 (74-99) mg/dL Plasma Lactic Acid Kyle (0.7-2.0) mmol/L Calcium 8.7 (8.4-10.2) mg/dL Total Bilirubin 1.2 (0.2-1.3) mg/dL AST 32 (14-36) U/L ALT 21 (4-34) U/L Alkaline Phosphatase 111 (38-126) U/L Troponin I (0.000-0.034) ng/mL NT-Pro-B Natriuret Pep pg/mL Total Protein 6.4 (6.3-8.2) g/dL Albumin 3.4 L (3.5-5.0) g/dL Influenza Type A (PCR) (Not Detectd) Influenza Type B (PCR) (Not Detectd) RSV (PCR) (Not Detectd) SARS-CoV-2 (PCR) (Not Detectd) 05/19/22 05/19/22 05/19/22 Range/Units 12:12 12:12 12:12 WBC (3.8-10.6) k/uL RBC (3.80-5.40) m/uL Hgb (11.4-16.0) gm/dL Hct (34.0-46.0) % MCV (80.0-100.0) fL MCH (25.0-35.0) pg MCHC (31.0-37.0) g/dL RDW (11.5-15.5) % Plt Count (150-450) k/uL MPV Neutrophils % % Lymphocytes % % Monocytes % % Eosinophils % % Basophils % % Neutrophils # (1.3-7.7) k/uL Lymphocytes # (1.0-4.8) k/uL Monocytes # (0-1.0) k/uL Eosinophils # (0-0.7) k/uL Basophils # (0-0.2) k/uL Hypochromasia Anisocytosis Macrocytosis PT (9.0-12.0) sec INR (<1.2) APTT (22.0-30.0) sec VBG pH (7.31-7.41) VBG pCO2 (37-51) mmHg VBG HCO3 (24-28) mmol/L Sodium (137-145) mmol/L Potassium (3.5-5.1) mmol/L Chloride (98-107) mmol/L Carbon Dioxide (22-30) mmol/L Anion Gap mmol/L BUN (7-17) mg/dL Creatinine (0.52-1.04) mg/dL Est GFR (CKD-EPI)AfAm (>60 ml/min/1.73 sqM) Est GFR (CKD-EPI)NonAf (>60 ml/min/1.73 sqM) Glucose (74-99) mg/dL Plasma Lactic Acid Kyle 1.4 (0.7-2.0) mmol/L Calcium (8.4-10.2) mg/dL Total Bilirubin (0.2-1.3) mg/dL AST (14-36) U/L ALT (4-34) U/L Alkaline Phosphatase (38-126) U/L Troponin I 0.014 (0.000-0.034) ng/mL NT-Pro-B Natriuret Pep 08010 pg/mL Total Protein (6.3-8.2) g/dL Albumin (3.5-5.0) g/dL Influenza Type A (PCR) (Not Detectd) Influenza Type B (PCR) (Not Detectd) RSV (PCR) (Not Detectd) SARS-CoV-2 (PCR) (Not Detectd) 05/19/22 05/19/22 Range/Units 12:12 13:10 WBC (3.8-10.6) k/uL RBC (3.80-5.40) m/uL Hgb (11.4-16.0) gm/dL Hct (34.0-46.0) % MCV (80.0-100.0) fL MCH (25.0-35.0) pg MCHC (31.0-37.0) g/dL RDW (11.5-15.5) % Plt Count (150-450) k/uL MPV Neutrophils % % Lymphocytes % % Monocytes % % Eosinophils % % Basophils % % Neutrophils # (1.3-7.7) k/uL Lymphocytes # (1.0-4.8) k/uL Monocytes # (0-1.0) k/uL Eosinophils # (0-0.7) k/uL Basophils # (0-0.2) k/uL Hypochromasia Anisocytosis Macrocytosis PT (9.0-12.0) sec INR (<1.2) APTT (22.0-30.0) sec VBG pH 7.37 (7.31-7.41) VBG pCO2 53 H (37-51) mmHg VBG HCO3 29 H (24-28) mmol/L Sodium (137-145) mmol/L Potassium (3.5-5.1) mmol/L Chloride (98-107) mmol/L Carbon Dioxide (22-30) mmol/L Anion Gap mmol/L BUN (7-17) mg/dL Creatinine (0.52-1.04) mg/dL Est GFR (CKD-EPI)AfAm (>60 ml/min/1.73 sqM) Est GFR (CKD-EPI)NonAf (>60 ml/min/1.73 sqM) Glucose (74-99) mg/dL Plasma Lactic Acid Kyle (0.7-2.0) mmol/L Calcium (8.4-10.2) mg/dL Total Bilirubin (0.2-1.3) mg/dL AST (14-36) U/L ALT (4-34) U/L Alkaline Phosphatase (38-126) U/L Troponin I (0.000-0.034) ng/mL NT-Pro-B Natriuret Pep pg/mL Total Protein (6.3-8.2) g/dL Albumin (3.5-5.0) g/dL Influenza Type A (PCR) Not Detected (Not Detectd) Influenza Type B (PCR) Not Detected (Not Detectd) RSV (PCR) Not Detected (Not Detectd) SARS-CoV-2 (PCR) Not Detected (Not Detectd) - EKG Data EKG Comments: Atrial fibrillation. Ventricular rate 87 bpm, QRS duration 101 ms, QTC 434 ms. EKG interpreted by myself and ED attending. - Radiology Data Radiology results: report reviewed, image reviewed Disposition Clinical Impression: Acute exacerbation of CHF (congestive heart failure), Acute pulmonary edema, Right clavicle fracture Disposition: ADMITTED IP TO THIS HOSP
[2022-05-19 12:49] LABS: Albumin 3.4 g/dL (3.5-5.0); Calcium 8.7 mg/dL (8.4-10.2); Potassium 3.7 mmol/L (3.5-5.1); Total Bilirubin 1.2 mg/dL (0.2-1.3); Total Protein 6.4 g/dL (6.3-8.2)
[2022-05-19 13:06] LABS: INR 1.3 (<1.2); Partial Thromboplastin Time 25.2 sec (22.0-30.0); Prothrombin Time 13.5 sec (9.0-12.0)
[2022-05-19 13:38] LABS: VBG PH 7.37 (7.31-7.41)
--- NOTE | 2022-05-19 14:03 | CT ---
EXAMINATION TYPE: CT brain rich james DATE OF EXAM: 05/19/2022 COMPARISON: 04/29/2022 HISTORY: Fall CT DLP: 1506.[address] of the brain was performed. The ventricles, basal cisterns and sulci overlying the cerebral convexities demonstrate moderate enla rgement. Remote left cerebellar insult. There is no evidence for intracranial hemorrhage or sulcal effacement. There is decreased attenuatio n about the periventricular white matter and deep white matter of both cerebral hemispheres, compatib le with chronic small vessel ischemia. No mass effects are seen. If symptoms persist consider MRI. Osseous calvarium is intact. IMPRESSION: 1. Age related atrophic and chronic small vessel ischemic change without acute intracranial process seen at this time. CT Cervical Spine: Unenhanced CT of the cervical spine was performed with bone and soft tissue window settings submitted . Coronal and sagittal reconstruction is obtained. There is normal alignment and prevertebral soft tissues. No evidence for acute cervical fracture . Scattered degenerative disc disease and spondylosis. Biapical scarring. Comminuted distal right cla vicular fracture appears acute. Correlate clinically. IMPRESSION: 1. No evidence for acute fracture or subluxation of the cervical spine. 2.Comminuted distal right clavicular fracture appears acute. Correlate clinically.
--- NOTE | 2022-05-19 14:06 | XR ---
EXAMINATION TYPE: XR chest 2V DATE OF EXAM: 05/19/2022 COMPARISON: 05/04/2022 HISTORY: Shortness of breath TECHNIQUE: Frontal and lateral views of the chest are obtained. FINDINGS: Scattered senescent parenchymal changes noted. Hyperinflation compatible with COPD. No evidence for infiltrate. No evidence for atelectasis. Organomegaly pulmonary venous congestion and pleural effusions. Correlate for congestive failure. Mediastinal structures are stable and grossly unremarkable. No evidence for hilar prominence. Degenerative changes dorsal spine. Distal right clavicular fracture. IMPRESSION: 1. Correlate for congestive failure. 2. Right clavicular fracture.
[2022-05-19] MEDS ORDERED: FUROSEMIDE 10 MG/ML 4 ML VIAL IV STA (14:40)
[2022-05-19] MEDS ORDERED: MORPHINE SULFATE 2 MG/ML SYRINGE IVP STA (15:38)
--- NOTE | 2022-05-19 16:20 | CT ---
EXAMINATION TYPE: CT thor lumbar spine wo con DATE OF EXAM: 05/19/2022 COMPARISON: None HISTORY: back pain following fall CT DLP: 2314.5 mGycm Automated exposure control for dose reduction was used. Unenhanced CT of the thoracic and lumbar spin e was performed with bone and soft tissue window settings submitted. FINDINGS: There is no evidence for fracture or malalignment. Severe multilevel degenerative disc disease is see n with vacuum disc at multiple lower thoracic and thoracic levels. Degenerative ventral spurring dors al spur formation noted. Multilevel lower lumbar central stenosis at L1-2 through L4-5. IMPRESSION: NO EVIDENCE FOR FRACTURE OR MALALIGNMENT.
--- NOTE | 2022-05-19 16:28 | CT ---
EXAMINATION TYPE: CT hip RT wo con DATE OF EXAM: 05/19/2022 COMPARISON: None HISTORY: right hip pain following fall CT DLP: 770.9 mGycm Automated exposure control for dose reduction was used. Unenhanced CT of the right hip was performed with bone and soft tissue window settings submitted. FINDINGS: There is no evidence for fracture or dislocation. [id number] degenerative narrowing right hip j oint space. No evidence of soft tissue mass. Pelvic structures are unremarkable. IMPRESSION: NO EVIDENCE FOR FRACTURE OR DISLOCATION.
[2022-05-19] MEDS ORDERED: ONDANSETRON 4 MG/2 ML VIAL IVP PRN (17:02)
[2022-05-19] MEDS ORDERED: NALOXONE 0.4 MG/ML 1 ML VIAL IV PRN (17:02)
[2022-05-19] MEDS ORDERED: MECLIZINE 12.5 MG TAB PO PRN (17:04)
[2022-05-19] MEDS ORDERED: LACTULOSE 20 GM/30 ML CUP PO PRN (17:04)
--- NOTE | 2022-05-19 19:49 | XR ---
EXAMINATION TYPE: XR shoulder complete RT DATE OF EXAM: 05/19/2022 COMPARISON: NONE HISTORY: Pain TECHNIQUE: Shoulder examined in 3 projections FINDINGS: The humeral head articulates with the glenoid. The acromio-clavicular junction has inferior spurring. Distal right clavicular fracture may be presen t. Clinical correlation with location of patient's pain is recommended Humerus appears intact. Scapula appears intact. A follow up study can be performed 7-10 days from acute trauma for continued pain. IMPRESSION: 1. Clinical correlation recommended for distal clavicular fracture.
[2022-05-19 20:05] LABS: Glucose,Whole Blood 94 mg/dL (70-110)
--- NOTE | 2022-05-19 20:36 | HP ---
HISTORY AND PHYSICAL CHIEF COMPLAINT: Fall and shortness of breath. HISTORY OF PRESENT ILLNESS: This 77-year-old woman with a past medical history of multiple medical problems including atrial fibrillation, diabetes mellitus type 2, was complaining of shortness of breath. The patient apparently had a fall and pain in the right shoulder also. There is no history of any fever, rigors, or chills. The patient is refusing Lasix at this time. The patient is mildly confused. PAST MEDICAL HISTORY: Reviewed and include diabetes mellitus type 2, GERD. HOME MEDICATIONS: Again, reviewed and include amiodarone. Dose and rest of medications reviewed. ALLERGIES: Amlodipine. The rest of the allergies reviewed. FAMILY HISTORY: History of uterine cancer. SOCIAL HISTORY: Previous history of smoking. REVIEW OF SYSTEMS: A 14-point review of systems is negative except as mentioned earlier. PHYSICAL EXAMINATION: VITAL SIGNS: Pulse is 88, blood pressure n, respirations 18. HEENT: Conjunctivae normal. NECK: No jugular venous distention. CARDIOVASCULAR: S1, S2. RESPIRATION: Breath sounds diminished at the bases. A few scattered rhonchi and crackles. ABDOMEN: Soft, nontender. LEGS: Bilateral leg edema. NERVOUS SYSTEM: Nonfocal. EXTREMITIES: Right shoulder is slightly painful. LABORATORY DATA: Hemoglobin _ntd ASSESSMENT: 1. Congestive heart failure acute exacerbation. 2. Atrial fibrillation. 3. Diabetes mellitus type 2. 4. Hypertension. 5. Right shoulder pain. RECOMMENDATIONS AND DISCUSSION: I recommend to continue current medications and symptomatic treatment. Otherwise at this time, I would recommend IV diuretics. Cardiology consultation. Continue symptomatic treatment, right shoulder x-ray. Prognosis guarded. Further recommendations to follow. MMODL / IJN: [id number] / MTDD
[2022-05-19] MEDS: SODIUM BICARBONATE TAB 650 MG TAB PO SCH (21:26)
[2022-05-19] MEDS: FERROUS SULFATE 325 MG TAB PO SCH (21:26)
[2022-05-19] MEDS: ATORVASTATIN 40 MG TAB PO SCH (21:26)
[2022-05-19] MEDS: MONTELUKAST 10 MG TAB PO SCH (21:26)
[2022-05-19] MEDS: APIXABAN 2.5 MG TABLET PO SCH (21:27)
[2022-05-19] MEDS: MELATONIN 5 MG TABLET PO SCH (21:27)
[2022-05-19] MEDS: MULTIVITAMINS, THERA 1 EACH TAB PO SCH (21:27)
[2022-05-20 05:59] LABS: Glucose,Whole Blood 64 mg/dL (70-110)
[2022-05-20 06:17] LABS: Glucose,Whole Blood 52 mg/dL (70-110)
[2022-05-20] MEDS ORDERED: DEXTROSE 50% SYRINGE 50 ML IVP PRN ×2 (06:22)
[2022-05-20 06:32] LABS: Glucose,Whole Blood 86 mg/dL (70-110)
[2022-05-20] MEDS: INSULIN ASPART (NovoLOG) 100 UNIT/ML VIAL SQ SCH ×4 (06:34→20:34)
[2022-05-20 06:40] LABS: Appearance,Urine Cloudy (Clear); Bacteria,Urine Rare /hpf; Bilirubin,Urine Negative (Negative); Blood,Urine Trace (Negative); Color,Urine Yellow; Glucose,Urine (UA) Negative (Negative); Hyaline Casts,Urine 41 /lpf (0-2); Ketones,Urine Negative (Negative); Leukocyte Esterase,Urine Large (Negative); Mucus,Urine Rare /hpf; Nitrite,Urine Negative (Negative); PH, Urine 6.5 (5.0-8.0); Protein,Urine 2+ (Negative); RBC,Urine 32 /hpf (0-5); Specific Gravity,Urine 1.021 (1.001-1.035); Squamous Epithelial Cell,Urine 2 /hpf (0-4); WBC,Urine >182 /hpf (0-5)
[2022-05-20 07:33] LABS: Anisocytosis Slight; Basophils % (A) 0 %; Eosinophils # (A) 0.1 k/uL (0-0.7); Eosinophils % (A) 2 %; HCT 31.5 % (34.0-46.0); HGB 9.6 gm/dL (11.4-16.0); Hypochromasia Marked; Lymphocytes # (A) 0.5 k/uL (1.0-4.8); Lymphocytes % (A) 7 %; MCHC 30.6 g/dL (31.0-37.0); MCV 101.5 fL (80.0-100.0); Macrocytosis Slight; Mean Platelet Volume 7.9; Monocytes # (A) 0.4 k/uL (0-1.0); Monocytes % (A) 6 %; Neutrophils # (A) 6.2 k/uL (1.3-7.7); Neutrophils % (A) 82 %; Platelet Count 203 k/uL (150-450); RBC 3.11 m/uL (3.80-5.40); RDW 16.2 % (11.5-15.5); WBC 7.5 k/uL (3.8-10.6)
[2022-05-20 07:51] LABS: Calcium 8.6 mg/dL (8.4-10.2); Potassium 3.5 mmol/L (3.5-5.1)
[2022-05-20] MEDS: polyethylene glycoL 3350 17 GM POWD.PACK PO SCH (09:24)
[2022-05-20] MEDS: AMIODARONE 100 MG TAB PO SCH (09:25)
[2022-05-20] MEDS: METOPROLOL TARTRATE 50 MG TAB PO SCH ×2 (09:26→15:13)
[2022-05-20] MEDS: FERROUS SULFATE 325 MG TAB PO SCH ×2 (09:26→20:33)
[2022-05-20] MEDS: FAMOTIDINE 20 MG TAB PO SCH (09:26)
[2022-05-20] MEDS: SODIUM BICARBONATE TAB 650 MG TAB PO SCH ×2 (09:26→20:33)
[2022-05-20] MEDS: APIXABAN 2.5 MG TABLET PO SCH ×2 (09:26→20:32)
[2022-05-20] MEDS: SPIRONOLACTONE 25 MG TAB PO SCH (09:26)
[2022-05-20] MEDS: ISOSORBIDE MONONITRATE ER 30 MG TAB.ER.24H PO SCH (09:26)
[2022-05-20] MEDS: NON FORMULARY DRUG (Vit C/E/Zn/Coppr/Lutein/Zeaxan [Preservision Areds 2 Softgel] 1 EACH C PO SCH ×2 (09:27→14:59)
[2022-05-20] MEDS: CHOLECALCIFEROL 25 MCG (1000 IU) TABLET PO SCH (09:27)
[2022-05-20] MEDS: buPROPion SR 150 MG TABLET.ER PO SCH ×2 (09:27→15:16)
--- NOTE | 2022-05-20 11:08 | P.CRDCN ---
History of Present Illness History of present illness: HISTORY OF PRESENT ILLNESS: This is a 77-year-old female with a past medical history significant for hypertension, hyperlipidemia, diabetes, atrial fibrillation, nonischemic cardiomyopathy with ejection fraction around 30%, and cardioversion in October 2021. Patient follows in the office with Dr. Abdalla. Patient states she had a mechanical fall and fell on her right shoulder as well as states she hit her head. She feels sore all over however no chest pain or pressure. She additionally feels short of breath which has been going on the last few days. She has been refusing Lasix. She also unable to supply a clear history and appears somewhat confused. She has had 3 hospitalizations this month. * EKG shows atrial fibrillation with controlled rates with nonspecific ST depressions in the inferior and lateral leads. * White blood cell 9.8, hemoglobin 9.6, creatinine 1.6, proBNP 12,000 previously 5000, troponin 0.014, 0.016. * Most recent echocardiogram obtained in October 2021 revealed ejection fraction 30%, global hypokinesis, mild MR, and moderate TR * Cardiac catheterization history: Unknown REVIEW OF SYSTEMS: At the time of my exam: CONSTITUTIONAL: Denies fever or chills. HEENT: Denies blurred vision, vision changes, or eye pain. Denies hemoptysis CARDIOVASCULAR: Denies chest pain. Denies orthopnea. Denies PND. Denies palpitations RESPIRATORY: +shortness of breath. GASTROINTESTINAL: Denies abdominal pain. Denies nausea or vomiting. HEMATOLOGIC: Denies bleeding disorders. GENITOURINARY: Denies any blood in urine. SKIN: Denies pruitis. Denies rash. PHYSICAL EXAM: VITAL SIGNS: Reviewed. GENERAL: Well-developed in no acute distress. HEENT: Head is normocephalic. Pupils are equal, round. Sclerae anicteric. Mucous membranes of the mouth are moist. Neck supple. No JVD or thyromegaly LUNGS: Respirations even and unlabored. Mild crackles at bases HEART: Tachycardic. Iregular rate and rhythm. S1 and S2 heard. ABDOMEN: Soft. Nondistended. Nontender. EXTREMITIES: Normal range of motion. No clubbing or cyanosis. Peripheral pulses intact. No lower extremity edema NEUROLOGIC: Lethargic. Oriented x 1-2. ASSESSMENT: Mechanical fall Acute on chronic systolic heart failure Paroxysmal atrial fibrillation with RVR History of cardioversion, October 2021 Nonischemic cardiomyopathy, ejection fraction 30% Hypertension Hyperlipidemia Diabetes Former nicotine dependence PLAN: Patient with mechanical fall and has had multiple admissions with debility and altered mental status. Appears more mechanical fall and in Senior monitor hemodynamics. Patient does however appear mildly volume overloaded and had been refusing Lasix. IV Lasix and monitor response. Past Medical History Past Medical History: Atrial Fibrillation, Cancer, Heart Failure, Diabetes Mellitus, GERD/Reflux, Hypertension, Osteoarthritis (OA), Renal Disease Additional Past Medical History / Comment(s): IDDM type II, neuropathy bilateral feet, current L heel ulcer, cardiomegaly, CKD stage III, anemia, generalized weakness/FALLS, vertigo, covid 02/2021, uterine cancer with hysterectomy, bowel cancer with resection, i History of Any Multi-Drug Resistant Organisms: None Reported Past Surgical History: Adenoidectomy, Bowel Resection, Hysterectomy, Tonsillectomy Additional Past Surgical History / Comment(s): Abdominal laparoscopy, several D&Cs, bilateral cataract removal/lens implant. Past Anesthesia/Blood Transfusion Reactions: No Reported Reaction, Motion Sickness Past Psychological History: Depression Smoking Status: Former smoker Past Alcohol Use History: None Reported Past Drug Use History: None Reported - Past Family History Mother Family Medical History: Cancer Additional Family Medical History / Comment(s): Uterine cancer and of nonhodgkins lymphoma Father Family Medical History: Congestive Heart Failure (CHF) Family Family Medical History: No Reported History Medications and Allergies Home Medications Medication Instructions Recorded Confirmed Type Apixaban [Eliquis] 2.5 mg PO BID 08/04/21 05/19/22 History Atorvastatin [Lipitor] 40 mg PO HS 08/04/21 05/19/22 History Famotidine [Pepcid] 20 mg PO DAILY 08/04/21 05/19/22 History Ferrous Sulfate [Iron (65 MG 325 mg PO BID 08/04/21 05/19/22 History Elemental)] Lactulose 30 ml PO DAILY PRN 08/04/21 05/19/22 History Meclizine [Antivert] 12.5 mg PO Q8H PRN 08/04/21 05/19/22 History Multivitamins, Thera [Multivitamin 1 tab PO HS 08/04/21 05/19/22 History (formulary)] Simethicone [Simethicone Chew] 80 mg PO Q4H PRN 08/04/21 05/19/22 History Sodium Bicarbonate 650 mg PO BID 08/04/21 05/19/22 History Vit C/E/Zn/Coppr/Lutein/Zeaxan 2 cap PO BID@0800,1600 08/04/21 05/19/22 History [Preservision Areds 2 Softgel] buPROPion HCL [Wellbutrin SR] 150 mg PO BID@0800,1600 08/04/21 05/19/22 History Spironolactone [Aldactone] 25 mg PO DAILY #30 tab 08/09/21 05/19/22 Rx Montelukast [Singulair] 10 mg PO HS 11/11/21 05/19/22 History Metamucil 28% Packet 1 packet PO HS 04/17/22 05/19/22 History Mupirocin 2% Oint [Bactroban 2% 1 applic TOPICAL Q12H PRN 04/17/22 05/19/22 History Oint] Sennosides [Senokot] 8.6 mg PO Q12H PRN 04/17/22 05/19/22 History Hydrocodone/Acetaminophen 1 tab PO Q6H PRN #12 tab 04/25/22 05/19/22 Rx [Hydrocodone/Acetaminophen 5-325] Melatonin 5 mg PO HS tab 04/25/22 05/19/22 Rx lisinopriL [Zestril] 5 mg PO DAILY tab 04/25/22 05/19/22 Rx Acetaminophen Tab [Tylenol] 650 mg PO Q6H PRN 04/29/22 05/19/22 History Cholecalciferol [Vitamin D3 (25 25 mcg PO DAILY@0800 04/29/22 05/19/22 History Mcg = 1000 Iu)] polyethylene glycoL 3350 [Miralax] 17 gm PO DAILY@0800 04/29/22 05/19/22 History Amiodarone [Cordarone] 200 mg PO DAILY@0800 05/04/22 05/19/22 History House Supplement 120 ml PO DAILY 05/04/22 05/19/22 History Insulin Glargine,Hum.rec.anlog 20 unit SQ HS 05/04/22 05/19/22 History [Lantus Solostar Pen] Isosorbide Mononitrate ER [Imdur] 30 mg PO DAILY@0800 05/04/22 05/19/22 History Metoprolol Tartrate [Lopressor] 100 mg PO BID@0800,1600 05/19/22 05/19/22 History Allergies Allergy/AdvReac Type Severity Reaction Status Date / Time amlodipine Allergy HIVES Verified 05/19/22 11:48 hydralazine Allergy HIVES Verified 05/19/22 11:48 Sulfa (Sulfonamide Allergy HIVES Verified 05/19/22 11:48 Antibiotics) Physical Exam Vitals: Vital Signs Temp Pulse Pulse Resp BP BP Pulse Ox 05/20/22 08:00 97.0 F L 94 20 103/64 100 05/20/22 03:20 97.1 F L 95 18 139/87 97 05/19/22 23:51 97.7 F 95 18 137/86 96 05/19/22 19:59 97.1 F L 100 18 146/96 98 05/19/22 18:18 97.8 F 05/19/22 18:13 93 L 05/19/22 18:12 85 20 119/83 80 L 05/19/22 17:44 88 18 137/89 96 05/19/22 14:52 28 H 84 L 05/19/22 14:06 94 05/19/22 13:56 90 05/19/22 11:40 97.3 F L 99 20 136/99 100 Intake and Output 05/19/22 05/20/22 05/20/22 22:59 06:59 14:59 Output Total 450 Balance -450 Output: Urine 450 Straight 450 Other: Voiding Method Incontinent Incontinent External Catheter External Catheter Weight 63.957 kg Results 05/20/22 06:26 05/20/22 06:26 Cardiac Enzymes 05/19/22 05/19/22 05/19/22 Range/Units 12:12 12:12 17:33 AST 32 (14-36) U/L Troponin I 0.014 0.016 (0.000-0.034) ng/mL 05/19/22 Range/Units 20:29 AST (14-36) U/L Troponin I <0.012 (0.000-0.034) ng/mL Coagulation 05/19/22 Range/Units 12:12 PT 13.5 H (9.0-12.0) sec APTT 25.2 (22.0-30.0) sec CBC 05/19/22 05/20/22 Range/Units 12:12 06:26 WBC 9.8 7.5 (3.8-10.6) k/uL RBC 3.11 L 3.11 L (3.80-5.40) m/uL Hgb 9.6 L 9.6 L (11.4-16.0) gm/dL Hct 30.5 L 31.5 L (34.0-46.0) % Plt Count 227 203 (150-450) k/uL Comprehensive Metabolic Panel 05/19/22 05/20/22 Range/Units 12: 06:26 Sodium 141 142 (137-145) mmol/L Potassium 3.7 3.5 (3.5-5.1) mmol/L Chloride 105 108 H (98-107) mmol/L Carbon Dioxide 29 27 (22-30) mmol/L BUN 24 H 25 H (7-17) mg/dL Creatinine 1.65 H 1.54 H (0.52-1.04) mg/dL Glucose 94 55 L (74-99) mg/dL Calcium 8.7 8.6 (8.4-10.2) mg/dL AST 32 (14-36) U/L ALT 21 (4-34) U/L Alkaline Phosphatase 111 (38-126) U/L Total Protein 6.4 (6.3-8.2) g/dL Albumin 3.4 L (3.5-5.0) g/dL Current Medications Generic Name Dose Route Start Last Admin Trade Name Ernestoq PRN Reason Stop Dose Admin Acetaminophen 650 mg 05/19/22 17:02 Acetaminophen Tab 325 Mg Tab PO Q6HR PRN Mild Pain or Fever > 100.5 Hydrocodone Bitart/Acetaminophen 1 each 05/19/22 17:04 Hydrocodone/Apap 5-325mg 1 Each Tab PO Q6H PRN Moderate Pain (Scale 4 to 6) Amiodarone HCl 200 mg 05/20/22 08:00 05/20/22 09:25 Amiodarone 100 Mg Tab PO 200 mg DAILY@0800 MAIKEL Administration Apixaban 2.5 mg 05/19/22 21:00 05/20/22 09:26 Apixaban 2.5 Mg Tablet PO 2.5 mg BID MAIKEL Administration Protocol Atorvastatin Calcium 40 mg 05/19/22 21:00 05/19/22 21:26 Atorvastatin 40 Mg Tab PO 40 mg HS [facility] Administration Bupropion HCl 150 mg 05/20/22 08:00 05/20/22 09:27 Bupropion Sr 150 Mg Tablet.Er PO 150 mg BID@0800,1600 [facility] Administration Cholecalciferol 25 mcg 05/20/22 08:00 05/20/22 09:27 Cholecalciferol 25 Mcg (1000 Iu) Tablet PO 25 mcg DAILY@0800 MAIKEL Administration Dextrose/Water 25 ml 05/20/22 06:22 Dextrose 50% Syringe 50 Ml IVP PER PROTOCOL PRN Hypoglycemia Protocol Dextrose/Water 50 ml 05/20/22 06:22 Dextrose 50% Syringe 50 Ml IVP PER PROTOCOL PRN Hypoglycemia Protocol Famotidine 20 mg 05/20/22 09:00 05/20/22 09:26 Famotidine 20 Mg Tab PO 20 mg DAILY MAIKEL Administration Ferrous Sulfate 325 mg 05/19/22 21:00 05/20/22 09:26 Ferrous Sulfate 325 Mg Tab PO 325 mg BID MAIKEL Administration Insulin Aspart 0 unit 05/20/22 07:30 05/20/22 06:34 Insulin Aspart (Novolog) 100 Unit/Ml Vial SQ Not Given ACHS [facility] Protocol Isosorbide Mononitrate 30 mg 05/20/22 08:00 05/20/22 09:26 Isosorbide Mononitrate Er 30 Mg Tab.Er.24h PO 30 mg DAILY@0800 [facility] Administration Lactulose 20 gm 05/19/22 17:04 Lactulose 20 Gm/30 Ml Cup PO DAILY PRN Constipation Lisinopril 5 mg 05/20/22 09:00 Lisinopril 5 Mg Tab PO DAILY MAIKEL Meclizine HCl 12.5 mg 05/19/22 17:04 Meclizine 12.5 Mg Tab PO Q8H PRN dizziness Melatonin 5 mg 05/19/22 21:00 05/19/22 21:27 Melatonin 5 Mg Tablet PO 5 mg HS [facility] Administration Metoprolol Tartrate 100 mg 05/20/22 08:00 05/20/22 09:26 Metoprolol Tartrate 50 Mg Tab PO 100 mg BID@0800,1600 [facility] Administration Montelukast Sodium 10 mg 05/19/22 21:00 05/19/22 21:26 Montelukast 10 Mg Tab PO 10 mg HS [facility] Administration Multivitamins 1 each 05/19/22 21:00 05/19/22 21:27 Multivitamins, Thera 1 Each Tab PO 1 each HS [facility]IK[facility] Administration Naloxone HCl 0.2 mg 05/19/22 17:02 Naloxone 0.4 Mg/Ml 1 Ml Vial IV Q2M PRN Opioid Reversal Non-Formulary Medication 2 cap 05/20/22 08:00 05/20/22 09:27 Vit C/E/Zn/Coppr/Lutein/Zeaxan [Preservision Areds 2 Softgel] PO Not Given BID@0800,1600 [facility] Ondansetron HCl 4 mg 05/19/22 17:02 Ondansetron 4 Mg/2 Ml Vial IVP Q8HR PRN Nausea And Vomiting Polyethylene Glycol 17 gm 05/20/22 08:00 05/20/22 09:24 Polyethylene Glycol 3350 17 Gm Powd.Pack PO 17 gm DAILY@0800 MAIKEL Administration Sodium Bicarbonate 650 mg 05/19/22 21:00 05/20/22 09:26 Sodium Bicarbonate Tab 650 Mg Tab PO 650 mg BID [facility]IKEL Administration Spironolactone 25 mg 05/20/22 09:00 05/20/22 09:26 Spironolactone 25 Mg Tab PO 25 mg DAILY [facility]IKEL Administration Intake and Output 05/19/22 05/20/22 05/20/22 22:59 06:59 14:59 Output Total 450 Balance -450 Output: Urine 450 Straight 450 Other: Voiding Method Incontinent Incontinent External Catheter External Catheter Weight 63.957 kg 05/20/22 06:26 05/20/22 06:26
[2022-05-20 11:36] LABS: Glucose,Whole Blood 77 mg/dL (70-110)
[2022-05-20] MEDS ORDERED: SENNOSIDES 8.6 MG TAB PO PRN (12:02)
[2022-05-20] MEDS ORDERED: SIMETHICONE 80 MG CHEWABLE PO PRN (12:02)
[2022-05-20] MEDS: lisinopriL 5 MG TAB PO SCH (12:15)
[2022-05-20] MEDS: FUROSEMIDE 10 MG/ML 4 ML VIAL IV SCH (12:15)
--- NOTE | 2022-05-20 12:38 | P.CNOR ---
History of Present Illness - [facility] Consult date: 05/20/22 Consult reason: fracture (Right clavicle fracture) History of present illness: The patient is a 77 y/o female with a extensive medical history, who presented to the ER yesterday from [facility] for shortness of breath. She states she fell twice in the recent past, the last fall being a couple of days ago. She has had right shoulder pain since. The patient states she did hit her head. She has right hip pain as well. CT of the head/neck and hip were all negative for fractures. She was found to have a distal clavicle fracture. Orthopedics was consulted for further evaluation and care for the fracture. Today, the patient states she is unable to lift her arm due to the pain. She does not ambulate. Review of Systems Constitutional: Denies chills, Denies fatigue, Denies fever Cardiovascular: Reports shortness of breath, Denies chest pain Gastrointestinal: Denies diarrhea, Denies nausea, Denies vomiting Musculoskeletal: right: shoulder pain, shoulder stiffness, shoulder swelling Past Medical History Past Medical History: Atrial Fibrillation, Cancer, Heart Failure, Diabetes Mellitus, GERD/Reflux, Hypertension, Osteoarthritis (OA), Renal Disease Additional Past Medical History / Comment(s): IDDM type II, neuropathy bilateral feet, current L heel ulcer, cardiomegaly, CKD stage III, anemia, generalized weakness/FALLS, vertigo, covid 02/2021, uterine cancer with hysterectomy, bowel cancer with resection, i History of Any Multi-Drug Resistant Organisms: None Reported Past Surgical History: Adenoidectomy, Bowel Resection, Hysterectomy, Tonsillectomy Additional Past Surgical History / Comment(s): Abdominal laparoscopy, several D&Cs, bilateral cataract removal/lens implant. Past Anesthesia/Blood Transfusion Reactions: No Reported Reaction, Motion Sickness Past Psychological History: Depression Smoking Status: Former smoker Past Alcohol Use History: None Reported Past Drug Use History: None Reported - Past Family History Mother Family Medical History: Cancer Additional Family Medical History / Comment(s): Uterine cancer and of nonhodgkins lymphoma Father Family Medical History: Congestive Heart Failure (CHF) Family Family Medical History: No Reported History Medications and Allergies Home Medications Medication Instructions Recorded Confirmed Type Apixaban [Eliquis] 2.5 mg PO BID 08/04/21 05/19/22 History Atorvastatin [Lipitor] 40 mg PO HS 08/04/21 05/19/22 History Famotidine [Pepcid] 20 mg PO DAILY 08/04/21 05/19/22 History Ferrous Sulfate [Iron (65 MG 325 mg PO BID 08/04/21 05/19/22 History Elemental)] Lactulose 30 ml PO DAILY PRN 08/04/21 05/19/22 History Meclizine [Antivert] 12.5 mg PO Q8H PRN 08/04/21 05/19/22 History Multivitamins, Thera [Multivitamin 1 tab PO HS 08/04/21 05/19/22 History (formulary)] Simethicone [Simethicone Chew] 80 mg PO Q4H PRN 08/04/21 05/19/22 History Sodium Bicarbonate 650 mg PO BID 08/04/21 05/19/22 History Vit C/E/Zn/Coppr/Lutein/Zeaxan 2 cap PO BID@0800,1600 08/04/21 05/19/22 History [Preservision Areds 2 Softgel] buPROPion HCL [Wellbutrin SR] 150 mg PO BID@0800,1600 08/04/21 05/19/22 History Spironolactone [Aldactone] 25 mg PO DAILY #30 tab 08/09/21 05/19/22 Rx Montelukast [Singulair] 10 mg PO HS 11/11/21 05/19/22 History Metamucil 28% Packet 1 packet PO HS 04/17/22 05/19/22 History Mupirocin 2% Oint [Bactroban 2% 1 applic TOPICAL Q12H PRN 04/17/22 05/19/22 History Oint] Sennosides [Senokot] 8.6 mg PO Q12H PRN 04/17/22 05/19/22 History Hydrocodone/Acetaminophen 1 tab PO Q6H PRN #12 tab 04/25/22 05/19/22 Rx [Hydrocodone/Acetaminophen 5-325] Melatonin 5 mg PO HS tab 04/25/22 05/19/22 Rx lisinopriL [Zestril] 5 mg PO DAILY tab 04/25/22 05/19/22 Rx Acetaminophen Tab [Tylenol] 650 mg PO Q6H PRN 04/29/22 05/19/22 History Cholecalciferol [Vitamin D3 (25 25 mcg PO DAILY@0800 04/29/22 05/19/22 History Mcg = 1000 Iu)] polyethylene glycoL 3350 [Miralax] 17 gm PO DAILY@0800 04/29/22 05/19/22 History Amiodarone [Cordarone] 200 mg PO DAILY@0800 05/04/22 05/19/22 History House Supplement 120 ml PO DAILY 05/04/22 05/19/22 History Insulin Glargine,Hum.rec.anlog 20 unit SQ HS 05/04/22 05/19/22 History [Lantus Solostar Pen] Isosorbide Mononitrate ER [Imdur] 30 mg PO DAILY@0800 05/04/22 05/19/22 History Metoprolol Tartrate [Lopressor] 100 mg PO BID@0800,1600 05/19/22 05/19/22 History Allergies Allergy/AdvReac Type Severity Reaction Status Date / Time amlodipine Allergy HIVES Verified 05/19/22 11:48 hydralazine Allergy HIVES Verified 05/19/22 11:48 Sulfa (Sulfonamide Allergy HIVES Verified 05/19/22 11:48 Antibiotics) Physical Examination The patient is a 77 y/o female in no acute distress. She is alert and oriented x3. Exam of the right upper extremity reveals bruising to the shoulder and upper chest and back. There is swelling to the fracture area. No tenting of the skin is present. There are skin tears to the lateral elbow and forearm. No signs of infection. Good wrist, finger and hand motion. Neurological status is intact. Good radial pulse. Results X-rays of the right shoulder reveal a minimally displaced comminuted distal clavicle fracture. Fracture alignment is satisfactory. - Labs Labs: Abnormal Lab Results - Last 24 Hours (Table) 05/19/22 05/19/22 05/19/22 Range/Units 12:12 12:12 12:12 RBC 3.11 L (3.80-5.40) m/uL Hgb 9.6 L (11.4-16.0) gm/dL Hct 30.5 L (34.0-46.0) % MCV (80.0-100.0) fL MCHC (31.0-37.0) g/dL RDW 16.0 H (11.5-15.5) % Neutrophils # 8.0 H (1.3-7.7) k/uL Lymphocytes # 0.7 L (1.0-4.8) k/uL PT 13.5 H (9.0-12.0) sec INR 1.3 H (<1.2) VBG pCO2 (37-51) mmHg VBG HCO3 (24-28) mmol/L Chloride (98-107) mmol/L BUN 24 H (7-17) mg/dL Creatinine 1.65 H (0.52-1.04) mg/dL Glucose (74-99) mg/dL POC Glucose (mg/dL) (70-110) mg/dL Albumin 3.4 L (3.5-5.0) g/dL Urine Appearance (Clear) Urine Protein (Negative) Urine Blood (Negative) Ur Leukocyte Esterase (Negative) Urine RBC (0-5) /hpf Urine WBC (0-5) /hpf Urine WBC Clumps (None) /hpf Urine Bacteria (None) /hpf Hyaline Casts (0-2) /lpf Urine Mucus (None) /hpf 05/19/22 05/20/22 05/20/22 Range/Units 13:10 05:45 05:57 RBC (3.80-5.40) m/uL Hgb (11.4-16.0) gm/dL Hct (34.0-46.0) % MCV (80.0-100.0) fL MCHC (31.0-37.0) g/dL RDW (11.5-15.5) % Neutrophils # (1.3-7.7) k/uL Lymphocytes # (1.0-4.8) k/uL PT (9.0-12.0) sec INR (<1.2) VBG pCO2 53 H (37-51) mmHg VBG HCO3 29 H (24-28) mmol/L Chloride (98-107) mmol/L BUN (7-17) mg/dL Creatinine (0.52-1.04) mg/dL Glucose (74-99) mg/dL POC Glucose (mg/dL) 64 L (70-110) mg/dL Albumin (3.5-5.0) g/dL Urine Appearance Cloudy H (Clear) Urine Protein 2+ H (Negative) Urine Blood Trace H (Negative) Ur Leukocyte Esterase Large H (Negative) Urine RBC 32 H (0-5) /hpf Urine WBC >182 H (0-5) /hpf Urine WBC Clumps Few H (None) /hpf Urine Bacteria Rare H (None) /hpf Hyaline Casts 41 H (0-2) /lpf Urine Mucus Rare H (None) /hpf 05/20/22 05/20/22 05/20/22 Range/Units 06:15 06:26 06:26 RBC 3.11 L (3.80-5.40) m/uL Hgb 9.6 L (11.4-16.0) gm/dL Hct 31.5 L (34.0-46.0) % MCV 101.5 H (80.0-100.0) fL MCHC 30.6 L (31.0-37.0) g/dL RDW 16.2 H (11.5-15.5) % Neutrophils # (1.3-7.7) k/uL Lymphocytes # 0.5 L (1.0-4.8) k/uL PT (9.0-12.0) sec INR (<1.2) VBG pCO2 (37-51) mmHg VBG HCO3 (24-28) mmol/L Chloride 108 H (98-107) mmol/L BUN 25 H (7-17) mg/dL Creatinine 1.54 H (0.52-1.04) mg/dL Glucose 55 L (74-99) mg/dL POC Glucose (mg/dL) 52 L (70-110) mg/dL Albumin (3.5-5.0) g/dL Urine Appearance (Clear) Urine Protein (Negative) Urine Blood (Negative) Ur Leukocyte Esterase (Negative) Urine RBC (0-5) /hpf Urine WBC (0-5) /hpf Urine WBC Clumps (None) /hpf Urine Bacteria (None) /hpf Hyaline Casts (0-2) /lpf Urine Mucus (None) /hpf H & H 05/19/22 05/20/22 Range/Units 12:12 06:26 Hgb 9.6 L 9.6 L (11.4-16.0) gm/dL Hct 30.5 L 31.5 L (34.0-46.0) % Coagulation 05/19/22 Range/Units 12:12 INR 1.3 H (<1.2) Result Diagrams: 05/20/22 06:26 05/20/22 06:26 Assessment and Plan (1) Acute exacerbation of CHF (congestive heart failure) Current Visit: Yes Status: Acute Code(s): I50.9 - HEART FAILURE, UNSPECIFIED SNOMED Code(s): 025825879 (2) Right clavicle fracture Current Visit: Yes Status: Acute Code(s): S42.001A - FRACTURE OF UNSP PART OF RIGHT CLAVICLE, INIT FOR CLOS FX SNOMED Code(s): 47176724 (3) Fall Current Visit: No Status: Acute Code(s): W19.XXXA - UNSPECIFIED FALL, INITIAL ENCOUNTER SNOMED Code(s): 9608929 Plan: The clinical and x-ray findings were discussed with the patient. The case was discussed with Dr. Galvan. No surgical intervention is planned. An arm sling will be ordered. She was advised to rest the arm. She will follow up in our office on an outpatient basis for fracture follow up in 2 weeks. I encouraged elbow, wrist, and hand motion as tolerated. No motion of the shoulder at this time. The patient is orthopedically stable for discharge back to [facility] when medically cleared. We will sign off at this time.
[2022-05-20] MEDS: ACETAMINOPHEN TAB 325 MG TAB PO PRN (15:16)
[2022-05-20 16:42] LABS: Glucose,Whole Blood 279 mg/dL (70-110)
[2022-05-20 17:26] LABS: Glucose,Whole Blood 214 mg/dL (70-110)
[2022-05-20] MEDS: SODIUM CHLORIDE 0.9% 1,000 ML IV SCH (18:50)
[2022-05-20 20:03] LABS: Glucose,Whole Blood 172 mg/dL (70-110)
[2022-05-20] MEDS: ATORVASTATIN 40 MG TAB PO SCH (20:33)
[2022-05-20] MEDS: HYDROcodone/APAP 5-325MG 1 EACH TAB PO PRN (20:33)
[2022-05-20] MEDS: MELATONIN 5 MG TABLET PO SCH (20:33)
[2022-05-20] MEDS: MULTIVITAMINS, THERA 1 EACH TAB PO SCH (20:33)
[2022-05-20] MEDS: MONTELUKAST 10 MG TAB PO SCH (20:33)
[2022-05-20] MEDS: INSULIN DETEMIR (LEVEMIR) 100 UNIT/ML SYR SQ SCH (20:35)
[2022-05-21 06:02] LABS: Glucose,Whole Blood 56 mg/dL (70-110)
[2022-05-21 06:24] LABS: Glucose,Whole Blood 64 mg/dL (70-110)
[2022-05-21] MEDS: INSULIN ASPART (NovoLOG) 100 UNIT/ML VIAL SQ SCH ×4 (06:31→20:46)
[2022-05-21 06:32] LABS: Glucose,Whole Blood 61 mg/dL (70-110)
[2022-05-21 06:50] LABS: Glucose,Whole Blood 132 mg/dL (70-110)
[2022-05-21 07:50] LABS: Anisocytosis Slight; Basophils % (A) 0 %; Eosinophils # (A) 0.3 k/uL (0-0.7); Eosinophils % (A) 3 %; HCT 33.6 % (34.0-46.0); HGB 10.4 gm/dL (11.4-16.0); Hypochromasia Marked; Lymphocytes # (A) 0.7 k/uL (1.0-4.8); Lymphocytes % (A) 7 %; MCH 31.4 pg (25.0-35.0); MCHC 30.9 g/dL (31.0-37.0); MCV 101.3 fL (80.0-100.0); Macrocytosis Slight; Mean Platelet Volume 7.7; Monocytes # (A) 0.6 k/uL (0-1.0); Monocytes % (A) 6 %; Neutrophils # (A) 7.9 k/uL (1.3-7.7); Neutrophils % (A) 80 %; Platelet Count 232 k/uL (150-450); RBC 3.31 m/uL (3.80-5.40); RDW 16.3 % (11.5-15.5); WBC 9.8 k/uL (3.8-10.6)
--- NOTE | 2022-05-21 08:06 | PN ---
PROGRESS NOTE DATE OF SERVICE: 05/20/2022 SUBJECTIVE: This 77-year-old woman, who was admitted with shortness of breath and possibly CHF, also had possible UTI. The patient being closely monitored. No chest pain. No palpitations. The patient continues to be confused at this time. The shoulder x-ray done showed possibly a distal clavicular fracture also. PHYSICAL EXAMINATION: VITAL SIGNS: The pulse is 94, blood pressure is 103/62, respirations 20. HEENT: Conjunctivae normal. NECK: No JVD. CARDIOVASCULAR: S1, S2. RESPIRATIONS: n ABDOMEN: Soft. NERVOUS SYSTEM: No focal deficits. EXTREMITIES: Right shoulder tenderness present. LABORATORY DATA: Hemoglobin 9.7. Rest of the labs and chest x-ray reviewed personally. ASSESSMENT: 1. Congestive heart failure acute exacerbation. 2. Right shoulder injury, rule out clavicular fracture. 3. Acute urinary tract infection, present on admission possibly. 4. Atrial fibrillation. 5. Diabetes mellitus type 2. 6. Hypertension. 7. Chronic complex medical issues. RECOMMENDATIONS: In this 77-year-old woman presented with multiple complex medical issues, at this time I recommend to continue current medications, symptomatic treatment. Closely follow with Cardiology. Otherwise, I would also recommend empiric antibiotics. Follow the cultures. Orthopedic evaluation. Guarded prognosis because of multiple complex medical issues. PT/OT evaluation. Further recommendations to follow. See orders for details. MMODL / IJN: [id number] / MTDD
[2022-05-21 08:12] LABS: Albumin 3.3 g/dL (3.5-5.0); Calcium 8.4 mg/dL (8.4-10.2); Potassium 3.8 mmol/L (3.5-5.1); Total Bilirubin 0.9 mg/dL (0.2-1.3); Total Protein 6.3 g/dL (6.3-8.2)
[2022-05-21] MEDS: FUROSEMIDE 10 MG/ML 4 ML VIAL IV SCH (09:53)
[2022-05-21] MEDS: ISOSORBIDE MONONITRATE ER 30 MG TAB.ER.24H PO SCH (09:53)
[2022-05-21] MEDS: polyethylene glycoL 3350 17 GM POWD.PACK PO SCH (09:53)
[2022-05-21] MEDS: FAMOTIDINE 20 MG TAB PO SCH (09:53)
[2022-05-21] MEDS: APIXABAN 2.5 MG TABLET PO SCH ×2 (09:54→20:36)
[2022-05-21] MEDS: lisinopriL 5 MG TAB PO SCH (09:54)
[2022-05-21] MEDS: METOPROLOL TARTRATE 50 MG TAB PO SCH ×2 (09:54→15:19)
[2022-05-21] MEDS: HYDROcodone/APAP 5-325MG 1 EACH TAB PO PRN ×2 (09:54→20:37)
[2022-05-21] MEDS: FERROUS SULFATE 325 MG TAB PO SCH ×2 (09:54→20:36)
[2022-05-21] MEDS: SPIRONOLACTONE 25 MG TAB PO SCH (09:55)
[2022-05-21] MEDS: buPROPion SR 150 MG TABLET.ER PO SCH ×2 (09:55→15:19)
[2022-05-21] MEDS: SODIUM BICARBONATE TAB 650 MG TAB PO SCH ×2 (09:55→20:36)
[2022-05-21] MEDS: AMIODARONE 100 MG TAB PO SCH (09:55)
[2022-05-21] MEDS: NON FORMULARY DRUG (Vit C/E/Zn/Coppr/Lutein/Zeaxan [Preservision Areds 2 Softgel] 1 EACH C PO SCH ×2 (11:08→14:26)
--- NOTE | 2022-05-21 11:32 | P.PN ---
Subjective Progress Note Date: 05/21/22 HISTORY OF PRESENT ILLNESS: This is a 77-year-old female with a past medical history significant for hy pertension, hyperlipidemia, diabetes, atrial fibrillation, nonischemic cardiomyopathy with ejection fraction around 30%, and cardioversion in October 2021. Patient follows in the office with Dr. Abdalla. Patient states she had a mechanical fall and fell on her right shoulder as well as states she hit her head. She feels sore all over however no chest pain or pressure. She additionally feels short of breath which has been going on the last few days. She has been refusing Lasix. She also unable to supply a clear history and appears somewhat confused. She has had 3 hospitalizations this month. * EKG shows atrial fibrillation with controlled rates with nonspecific ST depressions in the inferior and lateral leads. * White blood cell 9.8, hemoglobin 9.6, creatinine 1.6, proBNP 12,000 previously 5000, troponin 0.014, 0.016. * Most recent echocardiogram obtained in October 2021 revealed ejection fraction 30%, global hypokinesis, mild MR, and moderate TR * Cardiac catheterization history: Unknown 05/21 Heart rate is running in the 90s to 100. BUN 24 creatinine 1.96 which is increased from 1.54. Patient is currently on Lopressor 100 mg twice daily and Lasix 40 mg every day IV. PHYSICAL EXAM: VITAL SIGNS: Reviewed. GENERAL: Well-developed in no acute distress. HEENT: Head is normocephalic. Pupils are equal, round. Sclerae anicteric. Mucous membranes of the mouth are moist. Neck supple. No JVD or thyromegaly LUNGS: Respirations even and unlabored. HEART: Tachycardic. Iregular rate and rhythm. S1 and S2 heard. ABDOMEN: Soft. Nondistended. Nontender. EXTREMITIES: Normal range of motion. No clubbing or cyanosis. Peripheral pulses intact. No lower extremity edema NEUROLOGIC: Lethargic. Oriented x 1. ASSESSMENT: Mechanical fall Acute on chronic systolic heart failure Paroxysmal atrial fibrillation with RVR History of cardioversion, October 2021 Nonischemic cardiomyopathy, ejection fraction 30% Hypertension Hyperlipidemia Diabetes Former nicotine dependence PLAN: Patient with mechanical fall and has had multiple admissions with debility and altered mental status. Discontinue IV Lasix Recheck BMP in the morning Start patient on Cardizem 30 mg oral every 8 hours Continue other cardiac medications including Imdur, Lopressor, Aldactone and lisinopril Further recommendations as patient progresses. Nurse practitioner note has been reviewed, I agree with the documented findings and plan of care. Patient was seen and examined. Objective - Vital Signs Vital signs: Vital Signs Temp 98.0 F 05/21/22 03:05 Pulse 92 05/21/22 03:05 Resp 16 05/21/22 03:05 BP 151/91 05/21/22 03:05 Pulse Ox 98 05/21/22 08:37 FiO2 Intake & Output 05/20/22 05/21/22 05/21/22 18:59 06:59 18:59 Intake Total 380 118 Output Total 425 Balance 380 -425 118 Weight 63.957 kg 77.4 kg Intake: Oral 380 118 Output: Urine 425 Straight 425 Other: Voiding Method Incontinent Incontinent External Catheter External Catheter - Labs CBC & Chem 7: 05/21/22 07:11 05/21/22 07:11 Labs: Abnormal Lab Results - Last 24 Hours (Table) 05/20/22 05/20/22 05/20/22 Range/Units 16:40 17:14 20:02 RBC (3.80-5.40) m/uL Hgb (11.4-16.0) gm/dL Hct (34.0-46.0) % MCV (80.0-100.0) fL MCHC (31.0-37.0) g/dL RDW (11.5-15.5) % Neutrophils # (1.3-7.7) k/uL Lymphocytes # (1.0-4.8) k/uL BUN (7-17) mg/dL Creatinine (0.52-1.04) mg/dL Glucose (74-99) mg/dL POC Glucose (mg/dL) 279 H 214 H 172 H (70-110) mg/dL Albumin (3.5-5.0) g/dL 05/21/22 05/21/22 05/21/22 Range/Units 06:01 06:21 06:30 RBC (3.80-5.40) m/uL Hgb (11.4-16.0) gm/dL Hct (34.0-46.0) % MCV (80.0-100.0) fL MCHC (31.0-37.0) g/dL RDW (11.5-15.5) % Neutrophils # (1.3-7.7) k/uL Lymphocytes # (1.0-4.8) k/uL BUN (7-17) mg/dL Creatinine (0.52-1.04) mg/dL Glucose (74-99) mg/dL POC Glucose (mg/dL) 56 L 64 L 61 L (70-110) mg/dL Albumin (3.5-5.0) g/dL 05/21/22 05/21/22 05/21/22 Range/Units 06:48 07:11 07:11 RBC 3.31 L (3.80-5.40) m/uL Hgb 10.4 L (11.4-16.0) gm/dL Hct 33.6 L (34.0-46.0) % MCV 101.3 H (80.0-100.0) fL MCHC 30.9 L (31.0-37.0) g/dL RDW 16.3 H (11.5-15.5) % Neutrophils # 7.9 H (1.3-7.7) k/uL Lymphocytes # 0.7 L (1.0-4.8) k/uL BUN 24 H (7-17) mg/dL Creatinine 1.96 H (0.52-1.04) mg/dL Glucose 164 H (74-99) mg/dL POC Glucose (mg/dL) 132 H (70-110) mg/dL Albumin 3.3 L (3.5-5.0) g/dL Microbiology - Last 24 Hours (Table) 05/20/22 05:45 Urine Culture - Preliminary Urine,Voided
[2022-05-21 11:57] LABS: Glucose,Whole Blood 143 mg/dL (70-110)
[2022-05-21] MEDS: CHOLECALCIFEROL 25 MCG (1000 IU) TABLET PO SCH (12:01)
[2022-05-21] MEDS: DILTIAZEM ORAL 30 MG TAB PO SCH ×3 (12:02→20:37)
[2022-05-21] MEDS: SODIUM CHLORIDE 0.9% 1,000 ML IV SCH (14:25)
[2022-05-21 16:30] LABS: Glucose,Whole Blood 157 mg/dL (70-110)
[2022-05-21] MEDS: INSULIN DETEMIR (LEVEMIR) 100 UNIT/ML SYR SQ SCH (20:36)
[2022-05-21] MEDS: MONTELUKAST 10 MG TAB PO SCH (20:36)
[2022-05-21] MEDS: MULTIVITAMINS, THERA 1 EACH TAB PO SCH (20:36)
[2022-05-21] MEDS: MELATONIN 5 MG TABLET PO SCH (20:36)
[2022-05-21] MEDS: ATORVASTATIN 40 MG TAB PO SCH (20:36)
[2022-05-21 20:38] LABS: Glucose,Whole Blood 179 mg/dL (70-110)
[2022-05-22 02:01] LABS: Glucose,Whole Blood 143 mg/dL (70-110)
[2022-05-22] MEDS: ACETAMINOPHEN TAB 325 MG TAB PO PRN (03:42)
[2022-05-22 05:58] LABS: Anisocytosis Slight; Basophils # (A) 0.1 k/uL (0-0.2); Basophils % (A) 1 %; Eosinophils # (A) 0.3 k/uL (0-0.7); Eosinophils % (A) 4 %; HCT 32.5 % (34.0-46.0); HGB 9.9 gm/dL (11.4-16.0); Hypochromasia Marked; Lymphocytes # (A) 0.6 k/uL (1.0-4.8); Lymphocytes % (A) 7 %; MCH 30.3 pg (25.0-35.0); MCHC 30.3 g/dL (31.0-37.0); MCV 99.9 fL (80.0-100.0); Macrocytosis Slight; Mean Platelet Volume 7.9; Monocytes # (A) 0.5 k/uL (0-1.0); Monocytes % (A) 7 %; Neutrophils # (A) 5.8 k/uL (1.3-7.7); Neutrophils % (A) 78 %; Platelet Count 227 k/uL (150-450); RBC 3.25 m/uL (3.80-5.40); RDW 16.2 % (11.5-15.5); WBC 7.4 k/uL (3.8-10.6)
[2022-05-22 06:10] LABS: Albumin 3.2 g/dL (3.5-5.0); Calcium 8.6 mg/dL (8.4-10.2); Potassium 3.6 mmol/L (3.5-5.1); Total Bilirubin 0.9 mg/dL (0.2-1.3)
[2022-05-22 06:23] LABS: Glucose,Whole Blood 129 mg/dL (70-110)
[2022-05-22] MEDS: INSULIN ASPART (NovoLOG) 100 UNIT/ML VIAL SQ SCH ×4 (06:25→20:29)
[2022-05-22] MEDS: CHOLECALCIFEROL 25 MCG (1000 IU) TABLET PO SCH (08:45)
[2022-05-22] MEDS: FERROUS SULFATE 325 MG TAB PO SCH ×2 (08:46→20:20)
[2022-05-22] MEDS: SODIUM BICARBONATE TAB 650 MG TAB PO SCH ×2 (08:46→20:20)
[2022-05-22] MEDS: ISOSORBIDE MONONITRATE ER 30 MG TAB.ER.24H PO SCH (08:46)
[2022-05-22] MEDS: lisinopriL 5 MG TAB PO SCH (08:46)
[2022-05-22] MEDS: APIXABAN 2.5 MG TABLET PO SCH ×2 (08:46→20:20)
[2022-05-22] MEDS: METOPROLOL TARTRATE 50 MG TAB PO SCH ×2 (08:46→18:28)
[2022-05-22] MEDS: FAMOTIDINE 20 MG TAB PO SCH (08:47)
[2022-05-22] MEDS: AMIODARONE 100 MG TAB PO SCH (08:47)
[2022-05-22] MEDS: buPROPion SR 150 MG TABLET.ER PO SCH ×2 (08:47→18:28)
[2022-05-22] MEDS: SPIRONOLACTONE 25 MG TAB PO SCH (08:47)
[2022-05-22] MEDS: DILTIAZEM ORAL 30 MG TAB PO SCH ×3 (08:47→20:20)
[2022-05-22] MEDS: polyethylene glycoL 3350 17 GM POWD.PACK PO SCH (08:47)
--- NOTE | 2022-05-22 11:03 | P.PN ---
Subjective Progress Note Date: 05/22/22 HISTORY OF PRESENT ILLNESS: This is a 77-year-old female with a past medical history significant for hy pertension, hyperlipidemia, diabetes, atrial fibrillation, nonischemic cardiomyopathy with ejection fraction around 30%, and cardioversion in October 2021. Patient follows in the office with Dr. Abdalla. Patient states she had a mechanical fall and fell on her right shoulder as well as states she hit her head. She feels sore all over however no chest pain or pressure. She additionally feels short of breath which has been going on the last few days. She has been refusing Lasix. She also unable to supply a clear history and appears somewhat confused. She has had 3 hospitalizations this month. * EKG shows atrial fibrillation with controlled rates with nonspecific ST depressions in the inferior and lateral leads. * White blood cell 9.8, hemoglobin 9.6, creatinine 1.6, proBNP 12,000 previously 5000, troponin 0.014, 0.016. * Most recent echocardiogram obtained in October 2021 revealed ejection fraction 30%, global hypokinesis, mild MR, and moderate TR * Cardiac catheterization history: Unknown 05/21 Heart rate is running in the 90s to 100. BUN 24 creatinine 1.96 which is increased from 1.54. Patient is currently on Lopressor 100 mg twice daily and Lasix 40 mg every day IV. 05/22 Heart rate is controlled in the 80s today. Blood pressure 154/71 pulse ox 97% on 2 L. Yesterday we added Cardizem 30 mg 3 times daily and discontinued IV Lasix. Repeat blood work reveals BUN 26 and creatinine 1.81, hemoglobin 9.9. PHYSICAL EXAM: VITAL SIGNS: Reviewed. GENERAL: Well-developed in no acute distress. HEENT: Head is normocephalic. Pupils are equal, round. Sclerae anicteric. Mucous membranes of the mouth are moist. Neck supple. No JVD or thyromegaly LUNGS: Respirations even and unlabored. HEART: Tachycardic. Iregular rate and rhythm. S1 and S2 heard. ABDOMEN: Soft. Nondistended. Nontender. EXTREMITIES: Normal range of motion. No clubbing or cyanosis. Peripheral pulses intact. No lower extremity edema NEUROLOGIC: Lethargic. Oriented x 1. ASSESSMENT: Mechanical fall Acute on chronic systolic heart failure Paroxysmal atrial fibrillation with RVR History of cardioversion, October 2021 Nonischemic cardiomyopathy, ejection fraction 30% Hypertension Hyperlipidemia Diabetes Former nicotine dependence PLAN: Patient with mechanical fall and has had multiple admissions with debility and altered mental status. Discontinue IV Lasix Recheck BMP in the morning Continue patient on Cardizem 30 mg oral every 8 hours Continue other cardiac medications including Imdur, Lopressor, Aldactone and lisinopril Further recommendations as patient progresses. Nurse practitioner note has been reviewed, I agree with the documented findings and plan of care. Patient was seen and examined. Objective - Vital Signs Vital signs: Vital Signs Temp 97.4 F L 05/22/22 08:00 Pulse 82 05/22/22 08:00 Resp 18 05/22/22 08:00 BP 154/71 05/22/22 08:00 Pulse Ox 97 05/22/22 08:00 FiO2 Intake & Output 05/21/22 05/22/22 05/22/22 18:59 06:59 18:59 Intake Total 476 600 Output Total 650 400 Balance -174 -400 600 Weight 78.7 kg Intake: Intake, IV Titration 600 Amount Sodium Chloride 0.9% 1, 600 000 ml @ 50 mls/hr IV . Q20H [facility] Rx#:[id number] Oral 476 Output: Urine 650 400 Other: Voiding Method Diaper Diaper Incontinent Incontinent External Catheter External Catheter # Voids 1 - Labs CBC & Chem 7: 05/22/22 05:33 05/22/22 05:33 Labs: Abnormal Lab Results - Last 24 Hours (Table) 05/21/22 05/21/22 05/21/22 Range/Units 11:53 16:17 20:33 RBC (3.80-5.40) m/uL Hgb (11.4-16.0) gm/dL Hct (34.0-46.0) % MCHC (31.0-37.0) g/dL RDW (11.5-15.5) % Lymphocytes # (1.0-4.8) k/uL Carbon Dioxide (22-30) mmol/L BUN (7-17) mg/dL Creatinine (0.52-1.04) mg/dL Glucose (74-99) mg/dL POC Glucose (mg/dL) 143 H 157 H 179 H (70-110) mg/dL Total Protein (6.3-8.2) g/dL Albumin (3.5-5.0) g/dL 05/22/22 05/22/22 05/22/22 Range/Units 01:59 05:33 05:33 RBC 3.25 L (3.80-5.40) m/uL Hgb 9.9 L (11.4-16.0) gm/dL Hct 32.5 L (34.0-46.0) % MCHC 30.3 L (31.0-37.0) g/dL RDW 16.2 H (11.5-15.5) % Lymphocytes # 0.6 L (1.0-4.8) k/uL Carbon Dioxide 33 H (22-30) mmol/L BUN 26 H (7-17) mg/dL Creatinine 1.81 H (0.52-1.04) mg/dL Glucose 111 H (74-99) mg/dL POC Glucose (mg/dL) 143 H (70-110) mg/dL Total Protein 6.0 L (6.3-8.2) g/dL Albumin 3.2 L (3.5-5.0) g/dL 05/22/22 Range/Units 06:22 RBC (3.80-5.40) m/uL Hgb (11.4-16.0) gm/dL Hct (34.0-46.0) % MCHC (31.0-37.0) g/dL RDW (11.5-15.5) % Lymphocytes # (1.0-4.8) k/uL Carbon Dioxide (22-30) mmol/L BUN (7-17) mg/dL Creatinine (0.52-1.04) mg/dL Glucose (74-99) mg/dL POC Glucose (mg/dL) 129 H (70-110) mg/dL Total Protein (6.3-8.2) g/dL Albumin (3.5-5.0) g/dL Microbiology - Last 24 Hours (Table) 05/20/22 12:15 Blood Culture - Preliminary Blood No Growth after 24 hours
[2022-05-22 12:04] LABS: Glucose,Whole Blood 108 mg/dL (70-110)
[2022-05-22 16:56] LABS: Glucose,Whole Blood 329 mg/dL (70-110)
--- NOTE | 2022-05-22 17:19 | PN ---
PROGRESS NOTE DATE OF SERVICE: 05/21/2022 SUBJECTIVE: This 77-year-old woman was admitted with CHF acute exacerbation, also had right shoulder injury. The patient closely monitored. Orthopedics has seen the patient, recommended arm sling for clavicle fracture. No surgical intervention. No chest pain. No palpitations. No fever. OBJECTIVE: VITAL SIGNS: Pulse is 93, blood pressure 158/87, respirations 18. CHEST: Clear. A few scattered rhonchi. ABDOMEN: Soft. NERVOUS SYSTEM: No focal deficits. EXTREMITIES: Right shoulder pain. LABS: Reviewed. ASSESSMENT: 1. Congestive heart failure acute exacerbation. 2. Right shoulder injury, possibly clavicle fracture, on conservative line of treatment. 3. Acute urinary tract infection, present on admission. 4. Atrial fibrillation. 5. Diabetes mellitus, type 2. 6. Hypertension. 7. Chronic complex medical issues. RECOMMENDATIONS: Recommend to continue current medications and symptomatic treatment. Otherwise, at this time, I recommend symptomatic treatment. We will repeat labs. The patient is on empiric antibiotics. Further recommendations to follow. MMODL / IJN: [id number] /
[2022-05-22] MEDS: MONTELUKAST 10 MG TAB PO SCH (20:19)
[2022-05-22] MEDS: ATORVASTATIN 40 MG TAB PO SCH (20:19)
[2022-05-22] MEDS: SODIUM CHLORIDE 0.9% 1,000 ML IV SCH (20:19)
[2022-05-22] MEDS: MULTIVITAMINS, THERA 1 EACH TAB PO SCH (20:20)
[2022-05-22] MEDS: HYDROcodone/APAP 5-325MG 1 EACH TAB PO PRN (20:20)
[2022-05-22] MEDS: MELATONIN 5 MG TABLET PO SCH (20:20)
[2022-05-22 20:26] LABS: Glucose,Whole Blood 220 mg/dL (70-110)
[2022-05-22] MEDS: INSULIN DETEMIR (LEVEMIR) 100 UNIT/ML SYR SQ SCH (20:29)
--- NOTE | 2022-05-23 04:19 | PN ---
PROGRESS NOTE DATE OF SERVICE: 05/22/2022 SUBJECTIVE: This 77-year-old woman was admitted with CHF acute exacerbation, improved significantly. Patient has right shoulder pain also. No chest pain. No palpitation. OBJECTIVE: VITAL SIGNS: Pulse 82, blood pressure 150/79, respirations 18. HEENT: Conjunctivae are normal. NECK: No carotid bruits. CARDIOVASCULAR: S1, S2. CHEST: A few scattered rhonchi. ABDOMEN: Soft. LEGS: Has minimal edema. LABORATORY DATA: Reviewed. ASSESSMENT: 1. Congestive heart failure acute exacerbation. 2. Right shoulder injury, possibly clavicular fracture. 3. Acute urinary tract infection, present on admission. 4. Atrial fibrillation. 5. Diabetes mellitus type 2. 6. Hypertension. 7. Complex medical issues. RECOMMENDATION AND DISCUSSION: Recommend to continue current medications and symptomatic treatment. Repeat labs. Patient is on empiric antibiotics. Further recommendations to follow. Prognosis guarded. MMODL / IJN: [id number] /
[2022-05-23 06:17] LABS: Glucose,Whole Blood 74 mg/dL (70-110)
[2022-05-23] MEDS: INSULIN ASPART (NovoLOG) 100 UNIT/ML VIAL SQ SCH ×4 (06:20→20:52)
[2022-05-23 06:26] LABS: Anisocytosis Slight; Basophils % (A) 0 %; Eosinophils # (A) 0.1 k/uL (0-0.7); Eosinophils % (A) 2 %; HCT 30.3 % (34.0-46.0); HGB 9.5 gm/dL (11.4-16.0); Hypochromasia Marked; Lymphocytes # (A) 0.5 k/uL (1.0-4.8); Lymphocytes % (A) 7 %; MCH 31.1 pg (25.0-35.0); MCHC 31.2 g/dL (31.0-37.0); MCV 99.5 fL (80.0-100.0); Macrocytosis Slight; Mean Platelet Volume 7.5; Monocytes # (A) 0.5 k/uL (0-1.0); Monocytes % (A) 7 %; Neutrophils # (A) 5.5 k/uL (1.3-7.7); Neutrophils % (A) 80 %; Platelet Count 215 k/uL (150-450); RBC 3.05 m/uL (3.80-5.40); RDW 16.1 % (11.5-15.5); WBC 6.8 k/uL (3.8-10.6)
[2022-05-23 07:15] LABS: Calcium 8.2 mg/dL (8.4-10.2); Potassium 3.2 mmol/L (3.5-5.1)
[2022-05-23] MEDS: NON FORMULARY DRUG (Vit C/E/Zn/Coppr/Lutein/Zeaxan [Preservision Areds 2 Softgel] 1 EACH C PO SCH ×3 (07:19→17:02)
[2022-05-23] MEDS: AMIODARONE 200 MG TAB PO SCH (08:36)
[2022-05-23] MEDS: APIXABAN 2.5 MG TABLET PO SCH ×2 (08:36→20:53)
[2022-05-23] MEDS: lisinopriL 5 MG TAB PO SCH (08:36)
[2022-05-23] MEDS: FERROUS SULFATE 325 MG TAB PO SCH ×2 (08:36→20:52)
[2022-05-23] MEDS: DILTIAZEM ORAL 30 MG TAB PO SCH ×3 (08:36→20:53)
[2022-05-23] MEDS: SPIRONOLACTONE 25 MG TAB PO SCH (08:36)
[2022-05-23] MEDS: polyethylene glycoL 3350 17 GM POWD.PACK PO SCH (08:36)
[2022-05-23] MEDS: METOPROLOL TARTRATE 50 MG TAB PO SCH ×2 (08:36→17:30)
[2022-05-23] MEDS: ISOSORBIDE MONONITRATE ER 30 MG TAB.ER.24H PO SCH (08:37)
[2022-05-23] MEDS: buPROPion SR 150 MG TABLET.ER PO SCH ×2 (08:37→17:31)
[2022-05-23] MEDS: CHOLECALCIFEROL 25 MCG (1000 IU) TABLET PO SCH (08:37)
[2022-05-23] MEDS: FAMOTIDINE 20 MG TAB PO SCH (08:37)
[2022-05-23] MEDS: SODIUM BICARBONATE TAB 650 MG TAB PO SCH ×2 (08:37→20:53)
[2022-05-23 11:57] LABS: Glucose,Whole Blood 63 mg/dL (70-110)
--- NOTE | 2022-05-23 12:06 | P.PN ---
Subjective Progress Note Date: 05/23/22 HISTORY OF PRESENT ILLNESS: This is a 77-year-old female with a past medical history significant for hy pertension, hyperlipidemia, diabetes, atrial fibrillation, nonischemic cardiomyopathy with ejection fraction around 30%, and cardioversion in October 2021. Patient follows in the office with Dr. Abdalla. Patient states she had a mechanical fall and fell on her right shoulder as well as states she hit her head. She feels sore all over however no chest pain or pressure. She additionally feels short of breath which has been going on the last few days. She has been refusing Lasix. She also unable to supply a clear history and appears somewhat confused. She has had 3 hospitalizations this month. * EKG shows atrial fibrillation with controlled rates with nonspecific ST depressions in the inferior and lateral leads. * White blood cell 9.8, hemoglobin 9.6, creatinine 1.6, proBNP 12,000 previously 5000, troponin 0.014, 0.016. * Most recent echocardiogram obtained in October 2021 revealed ejection fraction 30%, global hypokinesis, mild MR, and moderate TR * Cardiac catheterization history: Unknown 05/21 Heart rate is running in the 90s to 100. BUN 24 creatinine 1.96 which is increased from 1.54. Patient is currently on Lopressor 100 mg twice daily and Lasix 40 mg every day IV. 05/22 Heart rate is controlled in the 80s today. Blood pressure 154/71 pulse ox 97% on 2 L. Yesterday we added Cardizem 30 mg 3 times daily and discontinued IV Lasix. Repeat blood work reveals BUN 26 and creatinine 1.81, hemoglobin 9.9. 05/23 Patient is more interactive today. She denies any chest pain but states she always has shortness of breath. No lower extremity edema. Hemoglobin is 9.5, potassium 3.2, BUN 24 creatinine 1.58 slightly improved from yesterday. Patient was started on Cardizem 30 mg every 8 hours and continued on Lopressor 100 mg twice daily. 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 PHYSICAL EXAM: VITAL SIGNS: Reviewed. GENERAL: Well-developed in no acute distress. HEENT: Head is normocephalic. Pupils are equal, round. Sclerae anicteric. Mucous membranes of the mouth are moist. Neck supple. No JVD or thyromegaly LUNGS: Respirations even and unlabored. HEART: Irrregular rate and rhythm. S1 and S2 heard. ABDOMEN: Soft. Nondistended. Nontender. EXTREMITIES: Normal range of motion. No clubbing or cyanosis. Peripheral pulses intact. No lower extremity edema NEUROLOGIC: Lethargic. Oriented x 1. ASSESSMENT: Mechanical fall Acute on chronic systolic heart failure Paroxysmal atrial fibrillation with RVR, currently controlled rate History of cardioversion, October 2021 Nonischemic cardiomyopathy, ejection fraction 30% Hypertension Hyperlipidemia Diabetes Former nicotine dependence PLAN: Patient with mechanical fall and has had multiple admissions with debility and altered mental status. Discontinue IV Lasix Continue patient on Cardizem 30 mg oral every 8 hours and Lopressor 100 mg twice daily Continue other cardiac medications including Imdur, Lopressor, Aldactone and lisinopril Further recommendations as patient progresses. Nurse practitioner note has been reviewed, I agree with the documented findings and plan of care. Patient was seen and examined. Objective - Vital Signs Vital signs: Vital Signs Temp 97.9 F 05/22/22 20:00 Pulse 99 05/23/22 04:00 Resp 18 05/23/22 04:00 BP 134/64 05/23/22 04:00 Pulse Ox 99 05/23/22 04:00 FiO2 Intake & Output 05/22/22 05/23/22 05/23/22 18:59 06:59 18:59 Intake Total 600 485 Output Total 100 500 Balance 500 -15 Weight 80.5 kg Intake: Intake, IV Titration 600 Amount Sodium Chloride 0.9% 1, 600 000 ml @ 50 mls/hr IV . Q20H [facility] Rx#:[id number] Oral 485 Output: Urine 100 500 Other: Voiding Method Diaper Diaper Incontinent Incontinent External Catheter External Catheter - Labs CBC & Chem 7: 05/23/22 05:59 05/23/22 05:59 Labs: Abnormal Lab Results - Last 24 Hours (Table) 05/22/22 05/22/22 05/23/22 Range/Units 16:55 20:25 05:59 RBC 3.05 L (3.80-5.40) m/uL Hgb 9.5 L (11.4-16.0) gm/dL Hct 30.3 L (34.0-46.0) % RDW 16.1 H (11.5-15.5) % Lymphocytes # 0.5 L (1.0-4.8) k/uL Potassium (3.5-5.1) mmol/L Chloride (98-107) mmol/L Carbon Dioxide (22-30) mmol/L BUN (7-17) mg/dL Creatinine (0.52-1.04) mg/dL Glucose (74-99) mg/dL POC Glucose (mg/dL) 329 H 220 H (70-110) mg/dL Calcium (8.4-10.2) mg/dL 05/23/22 Range/Units 05:59 RBC (3.80-5.40) m/uL Hgb (11.4-16.0) gm/dL Hct (34.0-46.0) % RDW (11.5-15.5) % Lymphocytes # (1.0-4.8) k/uL Potassium 3.2 L (3.5-5.1) mmol/L Chloride 108 H (98-107) mmol/L Carbon Dioxide 31 H (22-30) mmol/L BUN 24 H (7-17) mg/dL Creatinine 1.58 H (0.52-1.04) mg/dL Glucose 45 L* (74-99) mg/dL POC Glucose (mg/dL) (70-110) mg/dL Calcium 8.2 L (8.4-10.2) mg/dL Microbiology - Last 24 Hours (Table) 05/20/22 12:15 Blood Culture - Preliminary Blood No Growth after 48 hours 05/20/22 05:45 Urine Culture - Final Urine,Voided Enterococcus faecalis VRE
[2022-05-23 12:24] LABS: Glucose,Whole Blood 94 mg/dL (70-110)
[2022-05-23 16:26] LABS: Glucose,Whole Blood 92 mg/dL (70-110)
[2022-05-23] MEDS: SODIUM CHLORIDE 0.9% 1,000 ML IV SCH (19:30)
[2022-05-23 20:05] LABS: Glucose,Whole Blood 235 mg/dL (70-110)
--- NOTE | 2022-05-23 20:40 | P.CONS ---
History of Present Illness - Reason for Consult Consult date: 05/23/22 VRE Requesting physician: Mike Woodruff - Chief Complaint Weakness and increasing shortness of breath x few days - History of Present Illness Patient is a 77-year female presenting to the ER 4 days ago on 05/19/2022 from the senior care for evaluation of increasing shortness of breath apparently has been getting worse for the last day or 2 before presentation to the hospital patient apparently also have a fall at the senior care 3 days before the patient was sent to the hospital, patient on presentation the hospital has been afebrile and no fever has been recorded during this hospital stay patient was mildly hypoxic on presentation to hospital and is curr ently 97% on 2 L nasal cannula, patient denies having any headache or URI symptoms has been complaining of shortness of breath but no significant cough or sputum production from nausea and decreased appetite but no vomiting has been complaining of some pain to the right flank area more of a sharp in nature 3-4 out of 10 and no radiation denies any diarrhea or other constipated from weak urinary symptoms, patient did have a chest x-ray with evidence of congestive heart failure with and is being managed by cardiology services also evidence of right clavicular fracture for the patient was evaluated by orthopedics patient did have significantly positive UA with urine has been finalized with the VRE that has prompted this infectious disease consultation patient did have negative COVID RSV and influenza PCR blood cultures obtained so far negative Review of Systems Positive point has been mentioned in the HPI rest of the systems are negative Past Medical History Past Medical History: Atrial Fibrillation, Cancer, Heart Failure, Diabetes Mellitus, GERD/Reflux, Hypertension, Osteoarthritis (OA), Renal Disease Additional Past Medical History / Comment(s): IDDM type II, neuropathy bilateral feet, current L heel ulcer, cardiomegaly, CKD stage III, anemia, generalized weakness/FALLS, vertigo, covid 02/2021, uterine cancer with hysterectomy, bowel cancer with resection, i History of Any Multi-Drug Resistant Organisms: None Reported Past Surgical History: Adenoidectomy, Bowel Resection, Hysterectomy, Tonsillectomy Additional Past Surgical History / Comment(s): Abdominal laparoscopy, several D&Cs, bilateral cataract removal/lens implant. Past Anesthesia/Blood Transfusion Reactions: No Reported Reaction, Motion Sickness Past Psychological History: Depression Smoking Status: Former smoker Past Alcohol Use History: None Reported Past Drug Use History: None Reported - Past Family History Mother Family Medical History: Cancer Additional Family Medical History / Comment(s): Uterine cancer and of nonhodgkins lymphoma Father Family Medical History: Congestive Heart Failure (CHF) Family Family Medical History: No Reported History Medications and Allergies Home Medications Medication Instructions Recorded Confirmed Type Atorvastatin [Lipitor] 40 mg PO HS 08/04/21 05/19/22 History Famotidine [Pepcid] 20 mg PO DAILY 08/04/21 05/19/22 History Ferrous Sulfate [Iron (65 MG 325 mg PO BID 08/04/21 05/19/22 History Elemental)] Lactulose 30 ml PO DAILY PRN 08/04/21 05/19/22 History Meclizine [Antivert] 12.5 mg PO Q8H PRN 08/04/21 05/19/22 History Multivitamins, Thera [Multivitamin 1 tab PO HS 08/04/21 05/19/22 History (formulary)] Simethicone [Simethicone Chew] 80 mg PO Q4H PRN 08/04/21 05/19/22 History Sodium Bicarbonate 650 mg PO BID 08/04/21 05/19/22 History Vit C/E/Zn/Coppr/Lutein/Zeaxan 2 cap PO BID@0800,1600 08/04/21 05/19/22 History [Preservision Areds 2 Softgel] buPROPion HCL [Wellbutrin SR] 150 mg PO BID@0800,1600 08/04/21 05/19/22 History Spironolactone [Aldactone] 25 mg PO DAILY #30 tab 08/09/21 05/19/22 Rx Montelukast [Singulair] 10 mg PO HS 11/11/21 05/19/22 History Metamucil 28% Packet 1 packet PO HS 04/17/22 05/19/22 History Mupirocin 2% Oint [Bactroban 2% 1 applic TOPICAL Q12H PRN 04/17/22 05/19/22 History Oint] Sennosides [Senokot] 8.6 mg PO Q12H PRN 04/17/22 05/19/22 History Melatonin 5 mg PO HS tab 04/25/22 05/19/22 Rx Acetaminophen Tab [Tylenol] 650 mg PO Q6H PRN 04/29/22 05/19/22 History Cholecalciferol [Vitamin D3 (25 25 mcg PO DAILY@0800 04/29/22 05/19/22 History Mcg = 1000 Iu)] polyethylene glycoL 3350 [Miralax] 17 gm PO DAILY@0800 04/29/22 05/19/22 History House Supplement 120 ml PO DAILY 05/04/22 05/19/22 History Isosorbide Mononitrate ER [Imdur] 30 mg PO DAILY@0800 05/04/22 05/19/22 History Amoxic-Pot Clav 500-125 mg 1 tab PO Q12HR 7 Days #14 tab 05/24/22 Rx [Augmentin 500-125 mg] Apixaban [Eliquis] 5 mg PO BID tab 05/27/22 Rx Furosemide [Lasix] 40 mg PO DAILY tab 05/27/22 Rx Hydrocodone/Acetaminophen 1 tab PO Q6H PRN #12 tab 05/27/22 Rx [Hydrocodone/Acetaminophen 5-325] Insulin Glargine,Hum.rec.anlog 10 unit SQ HS #0 05/27/22 05/19/22 Rx [Lantus Solostar Pen] Metoprolol Tartrate [Lopressor] 12.5 mg PO DAILY tab 05/27/22 Rx cloNIDine HCL [Catapres] 0.1 mg PO BID tab 05/27/22 Rx lisinopriL [Zestril] 20 mg PO BID tab 05/27/22 Rx Allergies Allergy/AdvReac Type Severity Reaction Status Date / Time amlodipine Allergy HIVES Verified 05/19/22 11:48 hydralazine Allergy HIVES Verified 05/19/22 11:48 Sulfa (Sulfonamide Allergy HIVES Verified 05/19/22 11:48 Antibiotics) Physical Exam Vitals: Vital Signs Pulse Pulse Resp BP Pulse Ox 05/23/22 16:00 73 20 141/89 97 05/23/22 14:00 73 87 18 05/23/22 12:00 73 18 123/83 98 05/23/22 08:00 76 87 18 146/77 98 05/23/22 04:00 99 18 134/64 99 05/23/22 00:00 72 18 169/74 100 Intake and Output 12/26/22 12/26/22 12/26/22 06:59 14:59 22:59 Intake Total 485 240 Output Total 500 Balance -15 240 Intake: Oral 485 240 Output: Urine 500 Other: Voiding Method Diaper Diaper Incontinent Incontinent External Catheter External Catheter # Voids 0 Weight 80.5 kg 80.5 kg GENERAL DESCRIPTION: Elderly female lying in bed, no distress. No tachypnea or accessory muscle of respiration use. HEENT: Shows Pallor , no scleral icterus. Oral mucous membrane is dry. No p haryngeal erythema or thrush NECK: Trachea central, no thyromegaly. LUNGS: Unlabored breathing. Decreased breath sounds at the base. HEART: S1, S2, regular rate and rhythm. No loud murmur ABDOMEN: Soft, no tenderness , guarding or rigidity, no organomegaly EXTREMITIES: No edema of feet. SKIN: No rash, no masses palpable. NEUROLOGICAL: The patient is awake, alert, oriented x3, mood and affect normal. Results CBC & Chem 7: 05/27/22 07:08 05/27/22 07:08 Labs: Abnormal Lab Results - Last 24 Hours (Table) 05/23/22 05/23/22 05/23/22 Range/Units 05:59 05:59 11:52 RBC 3.05 L (3.80-5.40) m/uL Hgb 9.5 L (11.4-16.0) gm/dL Hct 30.3 L (34.0-46.0) % RDW 16.1 H (11.5-15.5) % Lymphocytes # 0.5 L (1.0-4.8) k/uL Potassium 3.2 L (3.5-5.1) mmol/L Chloride 108 H (98-107) mmol/L Carbon Dioxide 31 H (22-30) mmol/L BUN 24 H (7-17) mg/dL Creatinine 1.58 H (0.52-1.04) mg/dL Glucose 45 L* (74-99) mg/dL POC Glucose (mg/dL) 63 L (70-110) mg/dL Calcium 8.2 L (8.4-10.2) mg/dL 05/23/22 Range/Units 20:04 RBC (3.80-5.40) m/uL Hgb (11.4-16.0) gm/dL Hct (34.0-46.0) % RDW (11.5-15.5) % Lymphocytes # (1.0-4.8) k/uL Potassium (3.5-5.1) mmol/L Chloride (98-107) mmol/L Carbon Dioxide (22-30) mmol/L BUN (7-17) mg/dL Creatinine (0.52-1.04) mg/dL Glucose (74-99) mg/dL POC Glucose (mg/dL) 235 H (70-110) mg/dL Calcium (8.4-10.2) mg/dL Microbiology - Last 24 Hours (Table) 05/20/22 12:15 Blood Culture - Preliminary Blood No Growth after 72 hours Assessment and Plan (1) UTI (urinary tract infection) Current Visit: No Status: Acute Code(s): N39.0 - URINARY TRACT INFECTION, SITE NOT SPECIFIED SNOMED Code(s): 77759538 Plan: 1patient presented to hospital with increasing shortness of breath and weakness which is likely multifactorial did have component of CHF for the patient is being managed by cardiology service no evidence clinically of pneumonia patient also have a fall and weakness significantly positive UA and some vague urinary symptoms possible component of UTI not entirely excluded with the urine showing a VRE however penicillin sensitive. 2discontinue Rocephin. 3we will start the patient on Unasyn 3 g every 8 hours with the plan to transition to oral antibiotic on discharge We will follow on clinical condition and cultures to further adjust medication if needed Thank you for this consultation we will follow the patient along with you Time with Patient: Greater than 30
[2022-05-23] MEDS: HYDROcodone/APAP 5-325MG 1 EACH TAB PO PRN (20:52)
[2022-05-23] MEDS: INSULIN DETEMIR (LEVEMIR) 100 UNIT/ML SYR SQ SCH (20:52)
[2022-05-23] MEDS: MULTIVITAMINS, THERA 1 EACH TAB PO SCH (20:53)
[2022-05-23] MEDS: ATORVASTATIN 40 MG TAB PO SCH (20:53)
[2022-05-23] MEDS: MONTELUKAST 10 MG TAB PO SCH (20:53)
[2022-05-23] MEDS: MELATONIN 5 MG TABLET PO SCH (20:53)
--- NOTE | 2022-05-23 21:58 | PN ---
PROGRESS NOTE DATE OF SERVICE: 05/23/2022 SUBJECTIVE: This 77-year-old woman was admitted with CHF exacerbation, slightly drowsy today. No chest pain, no palpitations, no fever. OBJECTIVE: VITAL SIGNS: Pulse is 76, blood pressure 140/77. HEENT: Conjunctivae normal. NECK: No jugular venous distention. CARDIOVASCULAR: S1 and S2. RESPIRATORY: Diminished at the bases, scattered rhonchi and crackles. ABDOMEN: Soft, nontender. LABS: Reviewed. ASSESSMENT: 1. Congestive heart failure acute exacerbation. 2. Right shoulder injury, possibly clavicular fracture. 3. Acute urinary tract infection, present on admission. 4. Atrial fibrillation. 5. Diabetes mellitus, type 2. 6. Hypertension. 7. Complex medical issues. 8. Urinary tract infection with VRE. RECOMMENDATIONS: Recommended to continue current management and symptomatic treatment. Otherwise, will obtain infectious disease evaluation. Other than that, follow with Cardiology, orthopedic surgery, and guarded prognosis. Further recommendations to follow. MMODL / IJN: [id number] /
[2022-05-23] MEDS: AMPICILLIN-SULBACTAM 3 GM in SODIUM CHLORIDE 0.9% 100 ML IVPB SCH (23:09)
[2022-05-24] MEDS: SODIUM CHLORIDE 0.9% 1,000 ML IV SCH ×2 (04:40→20:19)
[2022-05-24 06:05] LABS: Glucose,Whole Blood 104 mg/dL (70-110)
[2022-05-24] MEDS: INSULIN ASPART (NovoLOG) 100 UNIT/ML VIAL SQ SCH ×4 (06:15→20:18)
[2022-05-24 07:09] LABS: Anisocytosis Slight; Basophils % (A) 1 %; Eosinophils # (A) 0.1 k/uL (0-0.7); Eosinophils % (A) 2 %; HGB 10.2 gm/dL (11.4-16.0); Hypochromasia Marked; Lymphocytes # (A) 0.6 k/uL (1.0-4.8); Lymphocytes % (A) 8 %; MCHC 30.8 g/dL (31.0-37.0); MCV 100.6 fL (80.0-100.0); Macrocytosis Slight; Mean Platelet Volume 7.7; Monocytes # (A) 0.5 k/uL (0-1.0); Monocytes % (A) 7 %; Neutrophils # (A) 5.7 k/uL (1.3-7.7); Neutrophils % (A) 79 %; Platelet Count 234 k/uL (150-450); RBC 3.28 m/uL (3.80-5.40); RDW 16.1 % (11.5-15.5); WBC 7.2 k/uL (3.8-10.6)
[2022-05-24 07:25] LABS: Calcium 8.4 mg/dL (8.4-10.2); Potassium 3.6 mmol/L (3.5-5.1)
[2022-05-24] MEDS: SODIUM BICARBONATE TAB 650 MG TAB PO SCH ×2 (08:44→20:18)
[2022-05-24] MEDS: SPIRONOLACTONE 25 MG TAB PO SCH (08:44)
[2022-05-24] MEDS: lisinopriL 5 MG TAB PO SCH (08:44)
[2022-05-24] MEDS: FERROUS SULFATE 325 MG TAB PO SCH ×2 (08:44→20:18)
[2022-05-24] MEDS: FAMOTIDINE 20 MG TAB PO SCH (08:44)
[2022-05-24] MEDS: buPROPion SR 150 MG TABLET.ER PO SCH ×2 (08:44→17:14)
[2022-05-24] MEDS: AMPICILLIN-SULBACTAM 3 GM in SODIUM CHLORIDE 0.9% 100 ML IVPB SCH ×2 (08:44→20:17)
[2022-05-24] MEDS: METOPROLOL TARTRATE 50 MG TAB PO SCH ×2 (08:44→17:14)
[2022-05-24] MEDS: CHOLECALCIFEROL 25 MCG (1000 IU) TABLET PO SCH (08:44)
[2022-05-24] MEDS: ISOSORBIDE MONONITRATE ER 30 MG TAB.ER.24H PO SCH (08:44)
[2022-05-24] MEDS: polyethylene glycoL 3350 17 GM POWD.PACK PO SCH (08:44)
[2022-05-24] MEDS: DILTIAZEM ORAL 30 MG TAB PO SCH ×3 (08:44→20:18)
[2022-05-24] MEDS: APIXABAN 2.5 MG TABLET PO SCH (08:44)
[2022-05-24] MEDS: AMIODARONE 200 MG TAB PO SCH (08:44)
[2022-05-24] MEDS: NON FORMULARY DRUG (Vit C/E/Zn/Coppr/Lutein/Zeaxan [Preservision Areds 2 Softgel] 1 EACH C PO SCH ×2 (08:45→17:12)
[2022-05-24 12:12] LABS: Glucose,Whole Blood 88 mg/dL (70-110)
--- NOTE | 2022-05-24 15:12 | CDI ---
Documentation Clarification Form Date: 05/24/2022 02:47:00 PM From: Brenda Perkins RN, CCDS Admit Date: 05/19/2022 02:51:00 PM Patient Name: Anabel Muñoz Visit Number: [id number] Discharge Date: ATTENTION: The Clinical Documentation Specialists (CDI) and [facility] Coding Staff appreciate your assistance in clarifying documentation. Please respond to the clarification below the line at the bottom and electronically sign. The CDI & [facility] Coding staff will review the response and follow-up if needed. Please note: Queries are made part of the Legal Health Record. If you have any questions, please contact the author of this message via ITS. Dr. Mike Woodruff Your patient has [insert documentation of shortness of breath. EMS records review she is on oxygen at the F, not clear how much oxygen she is on. Based on this information and the findings below, is there an additional diagnosis that is clinically appropriate for this patient? History/Risk Factors: Atrial Fibrillation CHF, DM, CKD stage III Uterine cancer, bowel cancer, Former smoker Home oxygen: Yes Clinical Indicators: 77-year-old female present to ER with shortness of breath. the provider at [facility] was reportedly concerned about the mottling in her feet and wanted to rule out an MN. she also had a fall. Respiratory exam: Wheezes, rhonchi Vital signs: 05/19 Vital signs 136/99 99 20 97.3 100% Ra 05/19 @ 14:52 Talks in Respirations 28, Sat's 84 % RA 05/19 CXR: Pulmonary vascular congestion with cardiomegaly. Correlate for congestive heart failure. Right clavicular fracture Treatment: Telemetry monitoring Monitor O2 Sat's (titrate) Breathing tx: Duoneb 0.5 MG-3 /3ML Soln Lasix 40MG IV Daily 05/20-05/21 Is there an additional diagnosis that is clinically appropriate for this patient? [ ] Acute Hypoxic Respiratory Failure (pO2 <60 mm Hg or SpO2 <91% on room air) [ ] Acute Hypercapnic Respiratory Failure (pCO2 >50 and pH <7.35) [ ] Acute on Chronic hypoxic Respiratory Failure [ ] Chronic hypoxic Respiratory Failure [ ] Other Diagnosis, please specify [ ] Unable to determine (Template Last Revised: July 2020) Acute Hypoxic Respiratory Failure (pO2 <60 mm Hg or SpO2 <91% on room air) [facility]
[2022-05-24 16:51] LABS: Glucose,Whole Blood 122 mg/dL (70-110)
[2022-05-24 20:09] LABS: Glucose,Whole Blood 140 mg/dL (70-110)
[2022-05-24] MEDS: INSULIN DETEMIR (LEVEMIR) 100 UNIT/ML SYR SQ SCH (20:17)
[2022-05-24] MEDS: MONTELUKAST 10 MG TAB PO SCH (20:18)
[2022-05-24] MEDS: APIXABAN 5 MG TAB PO SCH (20:18)
[2022-05-24] MEDS: MULTIVITAMINS, THERA 1 EACH TAB PO SCH (20:18)
[2022-05-24] MEDS: ATORVASTATIN 40 MG TAB PO SCH (20:18)
[2022-05-24] MEDS: MELATONIN 5 MG TABLET PO SCH (20:18)
--- NOTE | 2022-05-24 22:21 | P.PN ---
Subjective Progress Note Date: 05/24/22 Principal diagnosis: VRE urinary tract infection Patient is a 77-year female presenting to the ER 4 days ago on 05/19/2022 from the [facility] for evaluation of increasing shortness of breath apparently has been getting worse for the last day or 2 before presentation to the hospital patient apparently also have a fall at the [facility] 3 days before the patient was sent to the hospital, patient also have a vague urinary symptoms positive UA and urine has been finalized with the VRE penicillin sensitive. On today's evaluation that is 05/24/2022, the patient denies having any fever or chills has been complaining of generalized body aches, decreased appetite some nausea but no vomiting abdominal pain and no diarrhea Objective - Vital Signs Vital signs: Vital Signs Temp 98.5 F 05/24/22 04:00 Pulse 83 05/24/22 08:00 Resp 20 05/24/22 08:00 BP 136/62 05/24/22 08:00 Pulse Ox 97 05/24/22 08:00 FiO2 Intake & Output 05/23/22 05/24/22 05/24/22 18:59 06:59 18:59 Intake Total 240 240 Output Total 450 Balance 240 -450 240 Weight 80.5 kg 77.5 kg Intake: Oral 240 240 Output: Urine 450 Other: Voiding Method Diaper Diaper Diaper Incontinent Incontinent Incontinent External Catheter External Catheter External Catheter # Voids 0 - Exam GENERAL DESCRIPTION: An elderly female lying in bed in no distress RESPIRATORY SYSTEM: Unlabored breathing , decreased breath sounds at bases HEART: S1 S2 regular rate and rhythm , ABDOMEN: Soft , no tenderness EXTREMITIES: No edema feet - Labs CBC & Chem 7: 05/24/22 06:06 05/24/22 06:06 Labs: Abnormal Lab Results - Last 24 Hours (Table) 05/23/22 05/24/22 05/24/22 Range/Units 20:04 06:06 06:06 RBC 3.28 L (3.80-5.40) m/uL Hgb 10.2 L (11.4-16.0) gm/dL Hct 33.0 L (34.0-46.0) % MCV 100.6 H (80.0-100.0) fL MCHC 30.8 L (31.0-37.0) g/dL RDW 16.1 H (11.5-15.5) % Lymphocytes # 0.6 L (1.0-4.8) k/uL Chloride 108 H (98-107) mmol/L BUN 24 H (7-17) mg/dL Creatinine 1.59 H (0.52-1.04) mg/dL POC Glucose (mg/dL) 235 H (70-110) mg/dL Microbiology - Last 24 Hours (Table) 05/20/22 12:15 Blood Culture - Preliminary Blood No Growth after 72 hours Assessment and Plan (1) UTI (urinary tract infection) Current Visit: No Status: Acute Code(s): N39.0 - URINARY TRACT INFECTION, SITE NOT SPECIFIED SNOMED Code(s): 80163049 Plan: 1patient presented to hospital with increasing shortness of breath and weakness which is likely multifactorial did have component of CHF for the patient is being managed by cardiology service no evidence clinically of pneumonia patient also have a fall and weakness significantly positive UA and some vague urinary symptoms possible component of UTI not entirely excluded with the urine showing a VRE however penicillin sensitive. 2patient to continue with Unasyn 3 g every 8 hours with the plan to transition to oral Augmentin on discharge, discussed with the [employer]INE OPERATOR for admitting team Time with Patient: Less than 30
[2022-05-24] MEDS: HYDROcodone/APAP 5-325MG 1 EACH TAB PO PRN (23:12)
--- NOTE | 2022-05-25 02:17 | PN ---
PROGRESS NOTE DATE OF SERVICE: 05/24/2022 SUBJECTIVE: This 77-year-old woman was admitted with CHF acute exacerbation, also had right shoulder injury, clavicular fracture. ECF rehab is being planned. No chest pain. No palpitations. No fever. OBJECTIVE: VITAL SIGNS: Pulse 90, blood pressure 121/80, respirations 16. HEENT: Conjunctivae are normal. NECK: No JVD. CARDIOVASCULAR: S1, S2. RESPIRATIONS: Breath sounds diminished at the bases. A few scattered rhonchi. ABDOMEN: Soft. NERVOUS SYSTEM: Diffusely weak. LABORATORY DATA: Reviewed. ASSESSMENT: 1. Congestive heart failure acute exacerbation. 2. Right shoulder injury, possibly clavicular fracture. 3. Acute urinary tract infection, present on admission. 4. Atrial fibrillation. 5. Diabetes mellitus, type 2. 6. Hypertension. 7. Complex medical issues. 8. Urinary tract infection with vancomycin-resistant enterococcus. RECOMMENDATIONS: Recommend to continue current management and symptomatic treatment. Otherwise, continue with antibiotics. Monitor fluid/electrolyte balance closely. Repeat labs. Possible ECF rehab. Prognosis guarded. Further recommendations to follow. MMODL / IJN: [id number] /
[2022-05-25] MEDS: ACETAMINOPHEN TAB 325 MG TAB PO PRN (03:32)
--- NOTE | 2022-05-25 05:08 | PN ---
PROGRESS NOTE SUBJECTIVE: Mrs. Muñoz is in atrial fib, persistent. She came in with a fall, had some trauma, but that has resolved. She also was in heart failure which has improved. She is on anticoagulation, Eliquis 2.5 mg b.i.d. I will increase the dose to 5 mg b.i.d. and perform electrical cardioversion tomorrow. She understands the risks, benefits, options, and rationale. PHYSICAL EXAMINATION: VITALS: Stable. NECK: JVD has improved. HEART: S1, S2 with irregular rhythm, short systolic murmur. LUNGS: Reveal improved air entry. ABDOMEN: Soft. LOWER EXTREMITY: Edema has improved. MMODL / IJN: [id number] /
[2022-05-25] MEDS: INSULIN ASPART (NovoLOG) 100 UNIT/ML VIAL SQ SCH ×4 (06:01→20:30)
[2022-05-25 06:02] LABS: Glucose,Whole Blood 83 mg/dL (70-110)
[2022-05-25] MEDS ORDERED: SODIUM CHLORIDE 0.9% 1,000 ML IV ONE (08:31)
[2022-05-25] MEDS: NON FORMULARY DRUG (Vit C/E/Zn/Coppr/Lutein/Zeaxan [Preservision Areds 2 Softgel] 1 EACH C PO SCH (09:45)
[2022-05-25 09:51] LABS: Glucose,Whole Blood 46 mg/dL (70-110)
[2022-05-25 09:52] LABS: Glucose,Whole Blood 43 mg/dL (70-110)
[2022-05-25] MEDS: AMPICILLIN-SULBACTAM 3 GM in SODIUM CHLORIDE 0.9% 100 ML IVPB SCH ×2 (10:07→20:24)
[2022-05-25 10:10] LABS: Basophils % (A) 1 %; Eosinophils # (A) 0.1 k/uL (0-0.7); Eosinophils % (A) 2 %; HCT 31.3 % (34.0-46.0); HGB 9.8 gm/dL (11.4-16.0); Hypochromasia Marked; Lymphocytes # (A) 0.8 k/uL (1.0-4.8); Lymphocytes % (A) 10 %; MCH 30.9 pg (25.0-35.0); MCHC 31.2 g/dL (31.0-37.0); MCV 99.1 fL (80.0-100.0); Macrocytosis Slight; Mean Platelet Volume 7.7; Monocytes # (A) 0.5 k/uL (0-1.0); Monocytes % (A) 7 %; Neutrophils # (A) 5.9 k/uL (1.3-7.7); Neutrophils % (A) 77 %; Platelet Count 230 k/uL (150-450); RBC 3.15 m/uL (3.80-5.40); RDW 15.9 % (11.5-15.5); WBC 7.6 k/uL (3.8-10.6)
[2022-05-25 10:12] LABS: Glucose,Whole Blood 205 mg/dL (70-110)
[2022-05-25 10:24] LABS: Calcium 8.6 mg/dL (8.4-10.2); Potassium 3.3 mmol/L (3.5-5.1)
[2022-05-25 10:48] LABS: Glucose,Whole Blood 138 mg/dL (70-110)
[2022-05-25] MEDS ORDERED: Potassium Replacement Protocol 1 EACH MISC MISCELLANE PRN (11:03)
[2022-05-25] MEDS ORDERED: POTASSIUM CHLORIDE ER 20 MEQ TAB.ER PO SCH (12:00)
[2022-05-25 12:01] LABS: Glucose,Whole Blood 110 mg/dL (70-110)
[2022-05-25] MEDS: buPROPion SR 150 MG TABLET.ER PO SCH ×2 (12:51→18:04)
[2022-05-25] MEDS: polyethylene glycoL 3350 17 GM POWD.PACK PO SCH (12:51)
[2022-05-25] MEDS: FAMOTIDINE 20 MG TAB PO SCH (12:51)
[2022-05-25] MEDS: CHOLECALCIFEROL 25 MCG (1000 IU) TABLET PO SCH (12:51)
[2022-05-25] MEDS: SODIUM BICARBONATE TAB 650 MG TAB PO SCH ×2 (12:52→20:23)
[2022-05-25] MEDS: lisinopriL 5 MG TAB PO SCH (12:52)
[2022-05-25] MEDS: FERROUS SULFATE 325 MG TAB PO SCH ×2 (12:52→20:23)
--- NOTE | 2022-05-25 14:16 | P.PN ---
Subjective Progress Note Date: 05/25/22 Principal diagnosis: VRE urinary tract infection Patient is a 77-year female presenting to the ER 4 days ago on 05/19/2022 from the skilled nursing for evaluation of increasing shortness of breath apparently has been getting worse for the last day or 2 before presentation to the hospital patient apparently also have a fall at the skilled nursing 3 days before the patient was sent to the hospital, patient also have a vague urinary symptoms positive UA and urine has been finalized with the VRE penicillin sensitive. On today's evaluation that is 05/25/2022, the patient remains to be afebrile, patient seemed to have problem with a rhythm issue and being monitored by [facility] planning for possible cardioversion, patient is currently lethargic and did not provide any history of vomiting or diarrhea was reported by the nursing staff Objective - Vital Signs Vital signs: Vital Signs Temp 97.6 F 05/25/22 08:05 Pulse 38 L 05/25/22 09:15 Resp 16 05/25/22 09:15 BP 155/69 05/25/22 09:15 Pulse Ox 98 05/25/22 09:15 FiO2 Intake & Output 05/24/22 05/25/22 05/25/22 18:59 06:59 18:59 Intake Total 340 100 Output Total 650 200 Balance -310 -200 100 Weight 78 kg Intake: IV 100 Intake, IV Titration 100 Amount Ampicillin-Sulbactam 3 gm 100 In Sodium Chloride 0.9% 100 ml @ 200 mls/hr IVPB Q8HR [facility] Rx#:[id number] Oral 240 Output: Urine 650 200 Other: Voiding Method Indwelling Catheter Indwelling Catheter Indwelling Catheter - Exam GENERAL DESCRIPTION: An elderly female lying in bed in no distress RESPIRATORY SYSTEM: Unlabored breathing , decreased breath sounds at bases HEART: S1 S2 regular rate and rhythm , ABDOMEN: Soft , no tenderness EXTREMITIES: No edema feet - Labs CBC & Chem 7: 05/27/22 07:08 05/27/22 07:08 Labs: Abnormal Lab Results - Last 24 Hours (Table) 05/24/22 05/24/22 05/25/22 Range/Units 16:49 20:07 09:49 RBC (3.80-5.40) m/uL Hgb (11.4-16.0) gm/dL Hct (34.0-46.0) % RDW (11.5-15.5) % Lymphocytes # (1.0-4.8) k/uL Potassium (3.5-5.1) mmol/L Chloride (98-107) mmol/L BUN (7-17) mg/dL Creatinine (0.52-1.04) mg/dL Glucose (74-99) mg/dL POC Glucose (mg/dL) 122 H 140 H 46 L (70-110) mg/dL 05/25/22 05/25/22 05/25/22 Range/Units 09:51 09:51 09:51 RBC 3.15 L (3.80-5.40) m/uL Hgb 9.8 L (11.4-16.0) gm/dL Hct 31.3 L (34.0-46.0) % RDW 15.9 H (11.5-15.5) % Lymphocytes # 0.8 L (1.0-4.8) k/uL Potassium 3.3 L (3.5-5.1) mmol/L Chloride 111 H (98-107) mmol/L BUN 26 H (7-17) mg/dL Creatinine 1.55 H (0.52-1.04) mg/dL Glucose 38 L* (74-99) mg/dL POC Glucose (mg/dL) 43 L (70-110) mg/dL 05/25/22 05/25/22 Range/Units 10:11 10:37 RBC (3.80-5.40) m/uL Hgb (11.4-16.0) gm/dL Hct (34.0-46.0) % RDW (11.5-15.5) % Lymphocytes # (1.0-4.8) k/uL Potassium (3.5-5.1) mmol/L Chloride (98-107) mmol/L BUN (7-17) mg/dL Creatinine (0.52-1.04) mg/dL Glucose (74-99) mg/dL POC Glucose (mg/dL) 205 H 138 H (70-110) mg/dL Microbiology - Last 24 Hours (Table) 05/20/22 12:15 Blood Culture - Preliminary Blood No Growth after 96 hours Assessment and Plan (1) UTI (urinary tract infection) Current Visit: No Status: Acute Code(s): N39.0 - URINARY TRACT INFECTION, SITE NOT SPECIFIED SNOMED Code(s): 36414467 Plan: 1patient presented to hospital with increasing shortness of breath and weakness which is likely multifactorial did have component of CHF for the patient is being managed by cardiology service no evidence clinically of pneumonia patient also have a fall and weakness significantly positive UA and some vague urinary s ymptoms possible component of UTI not entirely excluded with the urine showing a VRE however penicillin sensitive. 2patient currently being treated with Unasyn 3 g every 8 hours which will be continued while inpatient and the plan to transition to oral Augmentin on discharge, once stable from cardiology standpoint Time with Patient: Less than 30
[2022-05-25] MEDS: METOPROLOL TARTRATE 50 MG TAB PO SCH (14:17)
[2022-05-25] MEDS: DILTIAZEM ORAL 30 MG TAB PO SCH (14:17)
[2022-05-25] MEDS: AMIODARONE 200 MG TAB PO SCH (14:17)
[2022-05-25] MEDS: ISOSORBIDE MONONITRATE ER 30 MG TAB.ER.24H PO SCH (14:17)
[2022-05-25] MEDS: POTASSIUM CHLORIDE 10 MEQ in WATER FOR INJECTION 1 100ML.BAG IVPB SCH ×4 (14:27→21:42)
--- NOTE | 2022-05-25 14:54 | CE ---
CARDIAC ELECTROPHYSIOLOGY REPORT PROCEDURE PERFORMED: Electrical cardioversion. INDICATION: Persistent atrial fibrillation. Ms. Anabel Muñoz was electively scheduled for cardioversion today, but she was hospitalized because of congestive heart failure, a fall, and some pneumonia-type picture. She has been consistently on Eliquis. Her atrial fibrillation rate was in the high 90s. She was already on amiodarone and beta-ilene. PROCEDURE NOTE: Under the influence of [id number] intravenous anesthetic agent with the attendance of the anesthesiologist, a single shock was delivered with anterior and posterior patches of 200 joules in a synchronized fashion. She converted to sinus rhythm, but had sinus bradycardia at 42 beats per minute, hemodynamically stable, neurologically intact. This was a successful electrical cardioversion. We will hold her beta-ilene, amiodarone, and Cardizem for 24 hours and see how she does. There was no family available to communicate. She was sent to the room in a stable condition. MMODL / MIREYAN: [id number] /
[2022-05-25 16:51] LABS: Glucose,Whole Blood 90 mg/dL (70-110)
[2022-05-25] MEDS: APIXABAN 5 MG TAB PO SCH ×2 (17:57→20:23)
[2022-05-25] MEDS: lisinopriL 10 MG TAB PO SCH (18:03)
[2022-05-25] MEDS: SPIRONOLACTONE 25 MG TAB PO SCH (18:04)
[2022-05-25] MEDS: SODIUM CHLORIDE 0.9% 1,000 ML IV SCH (18:04)
--- NOTE | 2022-05-25 18:24 | PN ---
PROGRESS NOTE Ms. Muñoz underwent electrical cardioversion today. She is in sinus rhythm/sinus bradycardia at 42 beats per minute, hemodynamically stable. Blood pressure is slightly higher. I initially suggested amlodipine, but she has some issue with this, probably edema. I will switch her to increased hydralazine at 50 t.i.d. I explained to her that if she remains in sinus rhythm with improved heart rate, we will consider discharge in the next 48 hours. We will hold the amiodarone and high-dose metoprolol that she was taking. MMODL / IJN: [id number] /
[2022-05-25] MEDS: ATORVASTATIN 40 MG TAB PO SCH (20:23)
[2022-05-25] MEDS: MONTELUKAST 10 MG TAB PO SCH (20:23)
[2022-05-25] MEDS: HYDROcodone/APAP 5-325MG 1 EACH TAB PO PRN (20:23)
[2022-05-25] MEDS: MULTIVITAMINS, THERA 1 EACH TAB PO SCH (20:24)
[2022-05-25] MEDS: MELATONIN 5 MG TABLET PO SCH (20:29)
[2022-05-25 20:30] LABS: Glucose,Whole Blood 168 mg/dL (70-110)
[2022-05-25] MEDS: INSULIN DETEMIR (LEVEMIR) 100 UNIT/ML SYR SQ SCH (21:41)
--- NOTE | 2022-05-26 04:38 | P.PN ---
Subjective Progress Note Date: 05/25/22 This is a 77-year-old female who was recently admitted with congestive heart failure acute exacerbation with cardiology following and plan is for cardioversion today for persistent atrial fibrillation. Patient is maintained on oral anticoagulation the form of eliquis along with metoprolol and amiodarone. Patient is currently sinus bradycardia and recommend continue telemetry monitoring and cardiology will continue to follow with medication adjustments. Patient also with a right shoulder injury, clavicle fracture being conservatively managed. Patient with weakness will be going to ECF once cleared by cardiology. Patient also being followed by infectious disease for urinary tract infection and patient is maintained on ampicillin due to VRE and we'll transition to Augmentin 500 mg twice daily for 1 week per ID recommendations. Recommend continue with Accu-Cheks before meals and at bedtime as blood sugars have been on the lower side and will decrease the dose of long-acting and continue with sliding scale. Patient denies chest pain or shortness of breath. Patient is afebrile denies nausea or vomiting and tolerating diet. Review of systems: Constitutional: No reports of fatigue, fever, or chills Cardiovascular: No reports of chest pain or palpitations Respiratory: No reports of worsening shortness of breath GI: no reports of nausea, no reports of of vomiting, or diarrhea : No reports of dysuria or retention Neurovascular: reports of generalized weakness, reports right shoulder pain All medications have been reviewed Active Medications Acetaminophen (Acetaminophen Tab 325 Mg Tab) 650 mg PO Q6HR PRN PRN Reason: Mild Pain or Fever > 100.5 Last Admin: 05/25/22 03:32 Dose: 650 mg Hydrocodone Bitart/Acetaminophen (Hydrocodone/Apap 5-325mg 1 Each Tab) 1 each PO Q6H PRN PRN Reason: Moderate Pain (Scale 4 to 6) Last Admin: 05/25/22 20:23 Dose: 1 each Apixaban (Apixaban 5 Mg Tab) 5 mg PO BID [facility]; Protocol Last Admin: 05/25/22 20:23 Dose: 5 mg Atorvastatin Calcium (Atorvastatin 40 Mg Tab) 40 mg PO HS [facility] Last Admin: 05/25/22 20:23 Dose: 40 mg Bupropion HCl (Bupropion Sr 150 Mg Tablet.Er) 150 mg PO BID@0800,1600 [facility] Last Admin: 05/25/22 18:04 Dose: 150 mg Cholecalciferol (Cholecalciferol 25 Mcg (1000 Iu) Tablet) 25 mcg PO DAILY@0800 [facility] Last Admin: 05/25/22 12:51 Dose: Not Given Dextrose/Water (Dextrose 50% Syringe 50 Ml) 25 ml IVP PER PROTOCOL PRN; Protocol PRN Reason: Hypoglycemia Last Admin: 05/21/22 06:33 Dose: 25 ml Dextrose/Water (Dextrose 50% Syringe 50 Ml) 50 ml IVP PER PROTOCOL PRN; Prot ocol PRN Reason: Hypoglycemia Last Admin: 05/25/22 09:59 Dose: 50 ml Famotidine (Famotidine 20 Mg Tab) 20 mg PO DAILY [facility] Last Admin: 05/25/22 12:51 Dose: Not Given Ferrous Sulfate (Ferrous Sulfate 325 Mg Tab) 325 mg PO BID [facility] Last Admin: 05/25/22 20:23 Dose: 325 mg Sodium Chloride (Saline 0.9%) 1,000 mls @ 50 mls/hr IV .Q20H [facility] Last Admin: 05/25/22 18:04 Dose: 50 mls/hr Ampicillin Sodium/Sulbactam (Sodium 3 gm/ Sodium Chloride) 100 mls @ 200 mls/hr IVPB Q12HR [facility]; Protocol Last Admin: 05/25/22 20:24 Dose: 200 mls/hr Insulin Aspart (Insulin Aspart (Novolog) 100 Unit/Ml Vial) 0 unit SQ [facility]; Protocol Last Admin: 05/25/22 20:30 Dose: Not Given Insulin Detemir (Insulin Detemir (Levemir) 100 Unit/Ml Syr) 10 unit SQ [facility] Lactulose (Lactulose 20 Gm/30 Ml Cup) 20 gm PO DAILY PRN PRN Reason: Constipation Last Admin: 05/21/22 12:01 Dose: 20 gm Lisinopril (Lisinopril 10 Mg Tab) 10 mg PO BID [facility] Last Admin: 05/25/22 18:03 Dose: 10 mg Meclizine HCl (Meclizine 12.5 Mg Tab) 12.5 mg PO Q8H PRN PRN Reason: dizziness Melatonin (Melatonin 5 Mg Tablet) 5 mg PO HS [facility] Last Admin: 05/25/22 20:29 Dose: 5 mg Miscellaneous Information (Potassium Replacement Protocol 1 Each Misc) 1 each MISCELLANE DAILY PRN; Protocol PRN Reason: Per Protocol Montelukast Sodium (Montelukast 10 Mg Tab) 10 mg PO HS [facility] Last Admin: 05/25/22 20:23 Dose: 10 mg Multivitamins (Multivitamins, Thera 1 Each Tab) 1 each PO HS [facility] Last Admin: 05/25/22 20:24 Dose: Not Given Naloxone HCl (Naloxone 0.4 Mg/Ml 1 Ml Vial) 0.2 mg IV Q2M PRN PRN Reason: Opioid Reversal Non-Formulary Medication (Vit C/E/Zn/Coppr/Lutein/Zeaxan [Preservision Areds 2 Softgel]) 2 cap PO BID@0800,1600 [facility] Last Admin: 05/25/22 09:45 Dose: Not Given Ondansetron HCl (Ondansetron 4 Mg/2 Ml Vial) 4 mg IVP Q8HR PRN PRN Reason: Nausea And Vomiting Polyethylene Glycol (Polyethylene Glycol 3350 17 Gm Powd.Pack) 17 gm PO DAILY@0800 [facility] Last Admin: 05/25/22 12:51 Dose: Not Given Senna (Sennosides 8.6 Mg Tab) 8.6 mg PO Q12H PRN PRN Reason: Constipation Last Admin: 05/21/22 09:54 Dose: 8.6 mg Simethicone (Simethicone 80 Mg Chewable) 80 mg PO Q4H PRN PRN Reason: Heartburn Sodium Bicarbonate (Sodium Bicarbonate Tab 650 Mg Tab) 650 mg PO BID [facility] Last Admin: 05/25/22 20:23 Dose: 650 mg Spironolactone (Spironolactone 25 Mg Tab) 25 mg PO DAILY [facility] Last Admin: 05/25/22 18:04 Dose: 25 mg PHYSICAL EXAMINATION: GENERAL: The patient is alert and oriented x3, Well developed, well nourished. Obese HEENT: Pupils are round and equally reacting to light. EOMI. no scleral icterus. No conjunctival pallor. Normocephalic, atraumatic. No pharyngeal erythema. No thyromegaly. CARDIOVASCULAR: S1 and S2 muffled PULMONARY: diminished breath sounds bilaterally with no wheezing or rhonchi noted. ABDOMEN: soft. Nontender on exam. obese. non-distended, normoactive bowel sounds. No palpable organomegaly. MUSCULOSKELETAL: No joint swelling or deformity. EXTREMITIES: No cyanosis, clubbing, or pedal edema. NEUROLOGICAL: Gross neurological examination did not reveal any focal deficits. Diffuse weakness SKIN: No rashes. Assessment: Congestive heart failure, acute exacerbation Right shoulder injury, clavicle fracture Acute urinary tract infection, present on admission enterococcus VRE Persistent atrial fibrillation, status post cardioversion on 05/25/2022 Diabetes mellitus, type II, insulin-dependent uncontrolled with hyper and hypoglycemia Hypertension History of osteoarthritis Chronic kidney disease GI prophylaxis DVT prophylaxis Full code Plan: Recommend to continue with current medications and management with cardiology and infectious disease following. Patient is status post cardioversion for persistent atrial fibrillation currently bradycardia and cardiology making adjustments to medications recommending continue telemetry monitoring for 24-48 hours. Patient is maintained on oral anticoagulation and will continue Patient with acute urinary tract infection with VRE on admission currently on ampicillin and will transition to oral Augmentin 500 mg twice daily for 1 week per ID recommendations to complete course Recommend PT/OT therapy daily and continue with sling of the right shoulder due to clavicle fracture Recommend monitor Accu-Cheks before meals and at bedtime and as needed as patient has been having episodes of hypoglycemia and adjustments have been made to medications and recommend to continue with decreased dose of long-acting along with sliding scale Encouraged oral intake and increased activity as tolerated Discharge planning to ECF once cleared by cardiology Due to multiple complex medical issues, prognosis is guarded. The impression and plan of care has been dictated by Lela Nieves, nurse practitioner as directed. Dr. Ranjan MD I have performed a history and examination and MDM of this patient, discussed the same with the dictator, and agree with the dictator's assessment and plan a s written ,documented as a scribe. Based on total visit time, I have performed more than 50% of the visit. Any additional findings or plans will be noted. Objective - Vital Signs Vital signs: Vital Signs Temp 98 F 05/25/22 20:00 Pulse 52 L 05/26/22 02:00 Resp 18 05/26/22 02:00 BP 156/79 05/26/22 00:00 Pulse Ox 94 L 05/26/22 00:00 FiO2 Intake & Output 05/25/22 05/25/22 05/26/22 06:59 18:59 06:59 Intake Total 100 900 Output Total 200 700 150 Balance -200 -600 750 Weight 78 kg Intake: IV 100 Intake, IV Titration 700 Amount Potassium Chloride 10 meq 300 In Water For Injection 1 100ml.bag @ 100 mls/hr IVPB Q1HR [facility] Rx#: [id number] Sodium Chloride 0.9% 1, 400 000 ml @ 0 mls/hr IV .[employer] [facility] [facility] Rx#:[id number] Oral 200 Output: Urine 200 700 150 Other: Voiding Method Indwelling Catheter Indwelling Catheter Indwelling Catheter - Labs CBC & Chem 7: 05/25/22 09:51 05/25/22 09:51 Labs: Abnormal Lab Results - Last 24 Hours (Table) 05/25/22 05/25/22 05/25/22 Range/Units 09:49 09:51 09:51 RBC 3.15 L (3.80-5.40) m/uL Hgb 9.8 L (11.4-16.0) gm/dL Hct 31.3 L (34.0-46.0) % RDW 15.9 H (11.5-15.5) % Lymphocytes # 0.8 L (1.0-4.8) k/uL Potassium 3.3 L (3.5-5.1) mmol/L Chloride 111 H (98-107) mmol/L BUN 26 H (7-17) mg/dL Creatinine 1.55 H (0.52-1.04) mg/dL Glucose 38 L* (74-99) mg/dL POC Glucose (mg/dL) 46 L (70-110) mg/dL 05/25/22 05/25/22 05/25/22 Range/Units 09:51 10:11 10:37 RBC (3.80-5.40) m/uL Hgb (11.4-16.0) gm/dL Hct (34.0-46.0) % RDW (11.5-15.5) % Lymphocytes # (1.0-4.8) k/uL Potassium (3.5-5.1) mmol/L Chloride (98-107) mmol/L BUN (7-17) mg/dL Creatinine (0.52-1.04) mg/dL Glucose (74-99) mg/dL POC Glucose (mg/dL) 43 L 205 H 138 H (70-110) mg/dL 05/25/22 Range/Units 20:28 RBC (3.80-5.40) m/uL Hgb (11.4-16.0) gm/dL Hct (34.0-46.0) % RDW (11.5-15.5) % Lymphocytes # (1.0-4.8) k/uL Potassium (3.5-5.1) mmol/L Chloride (98-107) mmol/L BUN (7-17) mg/dL Creatinine (0.52-1.04) mg/dL Glucose (74-99) mg/dL POC Glucose (mg/dL) 168 H (70-110) mg/dL Microbiology - Last 24 Hours (Table) 05/20/22 12:15 Blood Culture - Preliminary Blood No Growth after 120 hours
[2022-05-26 06:17] LABS: Glucose,Whole Blood 97 mg/dL (70-110)
[2022-05-26] MEDS: INSULIN ASPART (NovoLOG) 100 UNIT/ML VIAL SQ SCH ×4 (08:57→20:31)
[2022-05-26] MEDS: lisinopriL 10 MG TAB PO SCH ×2 (08:58→20:28)
[2022-05-26] MEDS: SODIUM BICARBONATE TAB 650 MG TAB PO SCH ×2 (08:58→20:27)
[2022-05-26] MEDS: CHOLECALCIFEROL 25 MCG (1000 IU) TABLET PO SCH (08:58)
[2022-05-26] MEDS: FERROUS SULFATE 325 MG TAB PO SCH ×2 (08:58→20:27)
[2022-05-26] MEDS: APIXABAN 5 MG TAB PO SCH ×2 (08:58→20:27)
[2022-05-26] MEDS: SPIRONOLACTONE 25 MG TAB PO SCH (08:58)
[2022-05-26] MEDS: FAMOTIDINE 20 MG TAB PO SCH (08:58)
[2022-05-26] MEDS: buPROPion SR 150 MG TABLET.ER PO SCH ×2 (08:58→20:28)
[2022-05-26] MEDS: polyethylene glycoL 3350 17 GM POWD.PACK PO SCH (08:58)
[2022-05-26] MEDS: NON FORMULARY DRUG (Vit C/E/Zn/Coppr/Lutein/Zeaxan [Preservision Areds 2 Softgel] 1 EACH C PO SCH ×2 (08:59→19:41)
[2022-05-26] MEDS: AMPICILLIN-SULBACTAM 3 GM in SODIUM CHLORIDE 0.9% 100 ML IVPB SCH ×2 (08:59→20:27)
[2022-05-26 09:50] LABS: Calcium 8.7 mg/dL (8.4-10.2); Potassium 4.1 mmol/L (3.5-5.1)
[2022-05-26 11:45] LABS: Glucose,Whole Blood 159 mg/dL (70-110)
[2022-05-26] MEDS: FUROSEMIDE 40 MG TAB PO SCH (12:05)
[2022-05-26] MEDS: HYDROcodone/APAP 5-325MG 1 EACH TAB PO PRN (14:01)
[2022-05-26 16:35] LABS: Glucose,Whole Blood 154 mg/dL (70-110)
--- NOTE | 2022-05-26 18:08 | P.PN ---
Subjective Progress Note Date: 05/26/22 Hospital course: Patient is a very pleasant 77-year-old female with a past medical history of nonischemic cardiomyopathy, chronic systolic congestive heart failure, chronic persistent atrial fibrillation status post previous failed cardioversions on anticoagulation with Eliquis, hypertension, hyperlipidemia, diabetes, and dementia who presented to the emergency department on 05/19/2022 from [facility] for evaluation of increasing shortness of breath and fall resulting in right shoulder injury. She underwent full evaluation in the emergency department and was found to again be an acute exacerbation of chronic systolic heart failure with proBNP of 1200 and chest x-ray consistent with congestive heart failure and right clavicular fracture. EKG revealed atrial fib rillation with a controlled ventricular rate. Patient admitted under hospitalist services with consultation to cardiology and orthopedic surgery. Troponins were trended and all negative at less than 0.0123 draws. Urinalysis resulting positive for infection and urine culture positive for Enterococcus faecalis VRE and infectious disease was consulted. Cardiology evaluated and took patient for cardioversion on 05/25/22 secondary to persistent atrial fibrillation Physical exam: Patient seen and fully evaluated at bedside. Denies having any new pains or complaints at this time. Patient hypertensive this morning adjustments were made to blood pressure medication regimen by cardiology at this time. Likely plan for discharge back to [facility] tomorrow morning. Vital signs reviewed and stable. General: Nontoxic, no distress and appears stated age. Derm: Skin warm and dry, normal coloration for ethnicity. Right arm sling. Head: Atraumatic, normocephalic and symmetric. Eyes: EOMs intact, no lid lag, and anicteric sclera Mouth: no lip lesions, mucus membranes moist Cardiovascular: regular rate and rhythm with normal S1S2, no murmur, positive posterior tibial pulses bilaterally, and cap refill < 2 seconds. Lungs: Respirations even, regular, and unlabored on room air. Lungs bibasilar crackles. Abdominal: soft, nontender to palpation, no guarding, no appreciable organomegaly Ext: ROM intact. No gross muscle atrophy, no edema, no contractures Neuro: Speech clear, face symmetrical and CN II-XII grossly intact with no noted focal neuro deficits Psych: Alert and oriented x2 Appropriate and pleasant affect. Assessment and Plan of Care: Congestive heart failure, acute exacerbation of systolic heart failure with previously known EF of 45% Persistent atrial fibrillation, status post cardioversion on 05/25/2022 Sinus Bradycardia -Telemetry monitoring -Cardiology following anticipation for cardioversion on 05/25/22. -Cardiology adjusting cardiac medications, recommending continued telemetry monitoring -Daily weights with I's and O's. Patient has had 850 mL output over the past 24 hours. -Continue Lasix 40 mg IVP daily. -Continue cardiac medication regimen with Eliquis, atorvastatin furosemide, lisinopril, Aldactone and metoprolol. Right clavicular fracture Fall at [facility] -Maintain sling to right arm/shoulder due to clavicle fracture. Nonweightbearing right arm. -Orthopedic surgery following recommending conservative management -[facility]/OT Insulin-dependent diabetes mellitus type 2 -Continue glycemic protocol with NovoLog sliding scale and Levemir 10 units nightly. Enterococcus faecalis VRE UTI -Continue IV antibiotic Unasyn -Infectious disease following -Plan for discharge on Augmentin 500 mg twice a day 1 additional week per recommendations of infectious disease. CODE STATUS: Full code DVT prophylaxis: Irma Discussed with: Patient and RN Anticipated discharge date: Likely tomorrow morning Anticipated discharge place: return to [facility] A total of 32 minutes was spent on the care of this complex patient more than 50% of the time was spent in counseling and care coordination. Objective - Vital Signs Vital signs: Vital Signs Temp 98.3 F 05/26/22 04:00 Pulse 50 L 05/26/22 04:00 Resp 18 05/26/22 04:00 BP 138/72 05/26/22 04:00 Pulse Ox 95 05/26/22 04:00 FiO2 Intake & Output 05/25/22 05/26/22 05/26/22 18:59 06:59 18:59 Intake Total 100 900 Output Total 700 150 Balance -600 750 Intake: IV 100 Intake, IV Titration 700 Amount Potassium Chloride 10 meq 300 In Water For Injection 1 100ml.bag @ 100 mls/hr IVPB Q1HR [facility] Rx#: [id number] Sodium Chloride 0.9% 1, 400 000 ml @ 0 mls/hr IV [facility] Rx#:[id number] Oral 200 Output: Urine 700 150 Other: Voiding Method Indwelling Catheter Indwelling Catheter - Labs CBC & Chem 7: 05/25/22 09:51 05/26/22 08:46 Labs: Abnormal Lab Results - Last 24 Hours (Table) 05/25/22 05/25/22 05/25/22 Range/Units 09:49 09:51 09:51 RBC 3.15 L (3.80-5.40) m/uL Hgb 9.8 L (11.4-16.0) gm/dL Hct 31.3 L (34.0-46.0) % RDW 15.9 H (11.5-15.5) % Lymphocytes # 0.8 L (1.0-4.8) k/uL Potassium 3.3 L (3.5-5.1) mmol/L Chloride 111 H (98-107) mmol/L BUN 26 H (7-17) mg/dL Creatinine 1.55 H (0.52-1.04) mg/dL Glucose 38 L* (74-99) mg/dL POC Glucose (mg/dL) 46 L (70-110) mg/dL 05/25/22 05/25/22 05/25/22 Range/Units 09:51 10:11 10:37 RBC (3.80-5.40) m/uL Hgb (11.4-16.0) gm/dL Hct (34.0-46.0) % RDW (11.5-15.5) % Lymphocytes # (1.0-4.8) k/uL Potassium (3.5-5.1) mmol/L Chloride (98-107) mmol/L BUN (7-17) mg/dL Creatinine (0.52-1.04) mg/dL Glucose (74-99) mg/dL POC Glucose (mg/dL) 43 L 205 H 138 H (70-110) mg/dL 05/25/22 Range/Units 20:28 RBC (3.80-5.40) m/uL Hgb (11.4-16.0) gm/dL Hct (34.0-46.0) % RDW (11.5-15.5) % Lymphocytes # (1.0-4.8) k/uL Potassium (3.5-5.1) mmol/L Chloride (98-107) mmol/L BUN (7-17) mg/dL Creatinine (0.52-1.04) mg/dL Glucose (74-99) mg/dL POC Glucose (mg/dL) 168 H (70-110) mg/dL Microbiology - Last 24 Hours (Table) 05/20/22 12:15 Blood Culture - Preliminary Blood No Growth after 120 hours
[2022-05-26] MEDS: SODIUM CHLORIDE 0.9% 1,000 ML IV SCH ×2 (19:40→20:28)
[2022-05-26] MEDS: ATORVASTATIN 40 MG TAB PO SCH (20:27)
[2022-05-26] MEDS: MELATONIN 5 MG TABLET PO SCH (20:27)
[2022-05-26] MEDS: MULTIVITAMINS, THERA 1 EACH TAB PO SCH (20:27)
[2022-05-26] MEDS: MONTELUKAST 10 MG TAB PO SCH (20:28)
[2022-05-26 20:32] LABS: Glucose,Whole Blood 118 mg/dL (70-110)
[2022-05-26] MEDS ORDERED: INSULIN DETEMIR (LEVEMIR) 100 UNIT/ML SYR SQ SCH (21:00)
[2022-05-26] MEDS ORDERED: cloNIDine HCL 0.1 MG TAB PO STA (21:51)
--- NOTE | 2022-05-27 01:13 | PN ---
PROGRESS NOTE SUBJECTIVE: Ms. Muñoz is doing well. She is in a sinus rhythm at 52. She had cardioversion yesterday. I am recommending that we leave her on metoprolol tartrate 12.5 mg in the morning and switch her to oral Lasix 40 mg, increase activity and hopefully she can be discharged later on today or in the next 24 hours. Discussed my thoughts in detail with the patient. OBJECTIVE: VITAL SIGNS: Stable. HEART: S1, S2 heard normally, but distantly regular short systolic murmur. LUNGS: Reveal improved air entry. ABDOMEN: Soft. LOWER EXTREMITY: Edema has improved. MMODL / IJN: [id number] /
[2022-05-27 01:15] VITALS: RESP 16
[2022-05-27 06:09] LABS: Glucose,Whole Blood 80 mg/dL (70-110)
[2022-05-27] MEDS: INSULIN ASPART (NovoLOG) 100 UNIT/ML VIAL SQ SCH ×3 (06:10→16:58)
[2022-05-27 08:02] LABS: HCT 35.9 % (34.0-46.0); HGB 10.8 gm/dL (11.4-16.0); Hypochromasia Marked; MCH 30.5 pg (25.0-35.0); MCHC 30.2 g/dL (31.0-37.0); MCV 100.9 fL (80.0-100.0); Macrocytosis Slight; Mean Platelet Volume 7.5; Platelet Count 205 k/uL (150-450); RBC 3.56 m/uL (3.80-5.40); RDW 15.7 % (11.5-15.5); WBC 9.9 k/uL (3.8-10.6)
[2022-05-27 08:35] LABS: Albumin 3.5 g/dL (3.5-5.0); Calcium 8.7 mg/dL (8.4-10.2); Magnesium 1.8 mg/dL (1.6-2.3); Potassium 3.3 mmol/L (3.5-5.1); Total Bilirubin 1.3 mg/dL (0.2-1.3); Total Protein 6.7 g/dL (6.3-8.2)
[2022-05-27] MEDS: AMPICILLIN-SULBACTAM 3 GM in SODIUM CHLORIDE 0.9% 100 ML IVPB SCH (08:45)
[2022-05-27] MEDS: FUROSEMIDE 40 MG TAB PO SCH (08:48)
[2022-05-27] MEDS: APIXABAN 5 MG TAB PO SCH (08:48)
[2022-05-27] MEDS: SODIUM BICARBONATE TAB 650 MG TAB PO SCH (08:49)
[2022-05-27] MEDS: FAMOTIDINE 20 MG TAB PO SCH (08:49)
[2022-05-27] MEDS: SPIRONOLACTONE 25 MG TAB PO SCH (08:49)
[2022-05-27] MEDS: FERROUS SULFATE 325 MG TAB PO SCH (08:49)
[2022-05-27] MEDS: NON FORMULARY DRUG (Vit C/E/Zn/Coppr/Lutein/Zeaxan [Preservision Areds 2 Softgel] 1 EACH C PO SCH ×2 (08:50→16:58)
[2022-05-27] MEDS: buPROPion SR 150 MG TABLET.ER PO SCH (08:50)
[2022-05-27] MEDS: CHOLECALCIFEROL 25 MCG (1000 IU) TABLET PO SCH (08:50)
[2022-05-27] MEDS ORDERED: lisinopriL 20 MG TAB PO SCH (09:00)
[2022-05-27] MEDS ORDERED: cloNIDine HCL 0.1 MG TAB PO SCH (09:00)
[2022-05-27] MEDS ORDERED: METOPROLOL TARTRATE 12.5 MG TAB PO SCH (09:00)
[2022-05-27] MEDS: polyethylene glycoL 3350 17 GM POWD.PACK PO SCH (09:32)
[2022-05-27] MEDS ORDERED: LABETALOL 5 MG/ML VIAL MDV IVP STA ×2 (09:47→10:14)
[2022-05-27] MEDS ORDERED: KETOROLAC 15 MG/ML 1 ML VIAL IVP STA (10:00)
[2022-05-27] MEDS ORDERED: POTASSIUM CHLORIDE ER 20 MEQ TAB.ER PO STA (10:04)
[2022-05-27 11:47] LABS: Glucose,Whole Blood 103 mg/dL (70-110)
[2022-05-27 12:10] VITALS: PULSE 62; TEMP 97.5
[2022-05-27 12:46] VITALS: BMI 31.4
--- NOTE | 2022-05-27 14:52 | P.PN ---
Subjective Progress Note Date: 05/26/22 Principal diagnosis: VRE urinary tract infection Patient is a 77-year female presenting to the ER 4 days ago on 05/19/2022 from the [facility] for evaluation of increasing shortness of breath apparently has been getting worse for the last day or 2 before presentation to the hospital patient apparently also have a fall at the [facility] 3 days before the patient was sent to the hospital, patient also have a vague urinary symptoms positive UA and urine has been finalized with the VRE penicillin sensitive. On today's evaluation that is 05/26/2022, the patient continues to be afebrile, patient breathing comfortably on nasal cannula oxygen, denies any chest pain or shortness of breath occasional cough no nausea no vomiting and no diarrhea Objective - Vital Signs Vital signs: Vital Signs Temp 97.7 F 05/26/22 08:00 Pulse 58 L 05/26/22 08:00 Resp 20 05/26/22 08:00 BP 193/71 05/26/22 08:00 Pulse Ox 94 L 05/26/22 08:00 FiO2 Intake & Output 05/25/22 05/26/22 05/26/22 18:59 06:59 18:59 Intake Total 100 900 Output Total 700 150 525 Balance -600 750 -525 Intake: IV 100 Intake, IV Titration 700 Amount Potassium Chloride 10 meq 300 In Water For Injection 1 100ml.bag @ 100 mls/hr IVPB Q1HR [facility] Rx#: [id number] Sodium Chloride 0.9% 1, 400 000 ml @ 0 mls/hr IV [facility] Rx#:[id number] Oral 200 Output: Urine 700 150 525 Other: Voiding Method Indwelling Catheter Indwelling Catheter Indwelling Catheter - Exam GENERAL DESCRIPTION: An elderly female lying in bed in no distress RESPIRATORY SYSTEM: Unlabored breathing , decreased breath sounds at bases HEART: S1 S2 regular rate and rhythm , ABDOMEN: Soft , no tenderness EXTREMITIES: No edema feet - Labs CBC & Chem 7: 05/27/22 07:08 05/27/22 07:08 Labs: Abnormal Lab Results - Last 24 Hours (Table) 05/25/22 05/26/22 05/26/22 Range/Units 20:28 08:46 11:44 Chloride 112 H (98-107) mmol/L BUN 27 H (7-17) mg/dL Creatinine 1.43 H (0.52-1.04) mg/dL POC Glucose (mg/dL) 168 H 159 H (70-110) mg/dL Microbiology - Last 24 Hours (Table) 05/20/22 12:15 Blood Culture - Preliminary Blood No Growth after 120 hours Assessment and Plan (1) UTI (urinary tract infection) Current Visit: No Status: Acute Code(s): N39.0 - URINARY TRACT INFECTION, SITE NOT SPECIFIED SNOMED Code(s): 28525784 Plan: 1patient presented to hospital with increasing shortness of breath and weakness which is likely multifactorial did have component of CHF for the patient is being managed by cardiology service no evidence clinically of pneumonia patient also have a fall and weakness significantly positive UA and some vague urinary symptoms possible component of UTI not entirely excluded with the urine showing a VRE however penicillin sensitive. 2patient seemed to show some clinical improvement she will continue with Unasyn and finishing therapy with oral Augmentin Time with Patient: Less than 30
--- NOTE | 2022-05-27 14:53 | P.PN ---
Subjective Progress Note Date: 05/27/22 Principal diagnosis: VRE urinary tract infection Patient is a 77-year female presenting to the ER 4 days ago on 05/19/2022 from the group home for evaluation of increasing shortness of breath apparently has been getting worse for the last day or 2 before presentation to the hospital patient apparently also have a fall at the group home 3 days before the patient was sent to the hospital, patient also have a vague urinary symptoms positive UA and urine has been finalized with the VRE penicillin sensitive. On today's evaluation that is 05/27/2022, the patient denies any fever or chills, patient breathing comfortably on nasal cannula oxygen, the patient denies any chest pain or shortness of breath occasional cough no nausea no vomiting and no diarrhea, feeling slightly better Objective - Vital Signs Vital signs: Vital Signs Temp 97.5 F L 05/27/22 12:00 Pulse 62 05/27/22 12:00 Resp 16 05/27/22 12:00 BP 154/79 05/27/22 12:00 Pulse Ox 97 05/27/22 12:00 FiO2 Intake & Output 05/26/22 05/27/22 05/27/22 18:59 06:59 18:59 Intake Total 1585 Output Total 525 2400 575 Balance -525 -927 -540 Intake: Intake, IV Titration 1100 Amount Ampicillin-Sulbactam 3 gm 100 In Sodium Chloride 0.9% 100 ml @ 200 mls/hr IVPB Q12HR [facility] Rx#:[id number] Sodium Chloride 0.9% 1, 1000 000 ml @ 0 mls/hr IV .[facility] Rx#:[id number] Oral 485 Output: Urine 525 2400 575 Other: Voiding Method Indwelling Catheter Indwelling Catheter Indwelling Catheter - Exam GENERAL DESCRIPTION: An elderly female lying in bed in no distress RESPIRATORY SYSTEM: Unlabored breathing , decreased breath sounds at bases HEART: S1 S2 regular rate and rhythm , ABDOMEN: Soft , no tenderness EXTREMITIES: No edema feet - Labs CBC & Chem 7: 05/27/22 07:08 05/27/22 07:08 Labs: Abnormal Lab Results - Last 24 Hours (Table) 05/26/22 05/26/22 05/27/22 Range/Units 16:34 20:30 07:08 RBC 3.56 L (3.80-5.40) m/uL Hgb 10.8 L (11.4-16.0) gm/dL MCV 100.9 H (80.0-100.0) fL MCHC 30.2 L (31.0-37.0) g/dL RDW 15.7 H (11.5-15.5) % Potassium (3.5-5.1) mmol/L Chloride (98-107) mmol/L BUN (7-17) mg/dL Creatinine (0.52-1.04) mg/dL Glucose (74-99) mg/dL POC Glucose (mg/dL) 154 H 118 H (70-110) mg/dL Alkaline Phosphatase (38-126) U/L 05/27/22 Range/Units 07:08 RBC (3.80-5.40) m/uL Hgb (11.4-16.0) gm/dL MCV (80.0-100.0) fL MCHC (31.0-37.0) g/dL RDW (11.5-15.5) % Potassium 3.3 L (3.5-5.1) mmol/L Chloride 108 H (98-107) mmol/L BUN 23 H (7-17) mg/dL Creatinine 1.34 H (0.52-1.04) mg/dL Glucose 67 L (74-99) mg/dL POC Glucose (mg/dL) (70-110) mg/dL Alkaline Phosphatase 145 H (38-126) U/L Microbiology - Last 24 Hours (Table) 05/20/22 12:15 Blood Culture - Final Blood No Growth after 144 hours Assessment and Plan (1) UTI (urinary tract infection) Current Visit: No Status: Acute Code(s): N39.0 - URINARY TRACT INFECTION, SITE NOT SPECIFIED SNOMED Code(s): 41382479 Plan: 1patient presented to hospital with increasing shortness of breath and weakness which is likely multifactorial did have component of CHF for the patient is being managed by cardiology service no evidence clinically of pneumonia patient also have a fall and weakness significantly positive UA and some vague urinary symptoms possible component of UTI not entirely excluded with the urine showing a VRE however penicillin sensitive. 2patient slowly clinically improving with Unasyn and finishing therapy with oral Augmentin 5 days on discharge Time with Patient: Less than 30
--- NOTE | 2022-05-27 14:59 | P.DS ---
Providers Date of admission: 05/19/22 14:51 Expected date of discharge: 05/27/22 Attending physician: Richelle Andrade, Consults: 05/19/22 17:02 Consult Physician Urgent Consulting Provider: Huseyin Crump Consult Reason/Comments: CHF exacerbation Do you want consulting provider notified?: Yes 05/23/22 16:53 Consult Physician Routine Consulting Provider: Elayne Washington Consult Reason/Comments: VRE Do you want consulting provider notified?: Yes Primary care physician: [facility] Course: Discharge Diagnosis: Congestive heart failure, acute exacerbation of systolic heart failure with previously known EF of 45% Persistent atrial fibrillation, status post cardioversion on 05/25/2022 Sinus Bradycardia Hypertensive urgency, multiple medication changes were made. After better optimizing blood pressure control. Patient being discharged on metoprolol 12.5 mg daily, clonidine 0.1 mg twice daily, lisinopril 20 mg twice daily, and isosorbide mononitrate 30 mg daily. Right clavicular fracture. It is important to wear your arm sling at all times when out of bed. Encourage elbow, wrist, and hand movements. No motion of the shoulder. Patient will also have to follow up with orthopedic surgeon, Dr. Galvan in 2 weeks for repeat x-rays[facility] Maintain sling to right arm/shoulder due to clavicle fracture. Nonweightbearing right arm. Continue fall precautions and provide assistance as needed. Being back to alf facility for continued PT/OT Insulin-dependent diabetes mellitus type 2 Continue Levemir 10 units nightly. Enterococcus faecalis VRE UTI. Patient underwent treatment with IV antibiotic Unasyn and being discharged on Augmentin 500 mg twice a day 1 additional week per recommendations of infectious disease. Hospital Course: Patient is a very pleasant 77-year-old female with a past medical history of nonischemic cardiomyopathy, chronic systolic congestive heart failure, chronic persistent atrial fibrillation status post previous failed cardioversions on anticoagulation with Eliquis, hypertension, hyperlipidemia, diabetes, and dementia who presented to the emergency department on 05/19/2022 from [facility] for evaluation of increasing shortness of breath and fall resulting in right shoulder injury. She underwent full evaluation in the emergency department and was found to again be an acute exacerbation of chronic systolic heart failure with proBNP of 1200 and chest x-ray consistent with congestive heart failure and right clavicular fracture. EKG revealed atrial fibrillation with a controlled ventricular rate. Patient admitted under hospitalist services with consultation to cardiology and orthopedic surgery. Troponins were trended and all negative at less than 0.0123 draws. Urinalysis resulting positive for infection and urine culture positive for Enterococcus faecalis VRE and patient to continue IV antibiotic with Unasyn and infectious disease was consulted. Cardiology evaluated and took patient for cardioversion on 05/25/22 secondary to persistent atrial fibrillation. Patient then experienced episodes of sinus bradycardia which resolved followed by hypertensive urgency and multiple medication changes were made. After better optimization of blood pressure and heart rate, Patient has been cleared by cardiology for outpatient follow-up in our office and is being discharged on metoprolol 12.5 mg daily, clonidine 0.1 mg twice daily, lisinopril 20 mg twice daily, and isosorbide mononitrate 30 mg daily. Patient to wear arm sling at all times when out of bed. Encourage elbow, wrist, and hand movements. No motion of the shoulder. Patient will also have to follow up with orthopedic surgeon, Dr. Galvan in 2 weeks for repeat x-rays. Lastly, for treatment of VRE UTI patient to complete antibiotic course on oral Augmentin 500 mg twice daily 1 additional week per recommendations of infectious disease. Patient medically stable for discharge back to alf facility at this time. Physical exam: Vital signs reviewed and stable. General: Nontoxic, no distress and appears stated age. Derm: Skin warm and dry, normal coloration for ethnicity. Right arm sling. Head: Atraumatic, normocephalic and symmetric. Eyes: EOMs intact, no lid lag, and anicteric sclera Mouth: no lip lesions, mucus membranes moist Cardiovascular: regular rate and rhythm with normal S1S2, no murmur, positive posterior tibial pulses bilaterally, and cap refill < 2 seconds. Lungs: Respirations even, regular, and unlabored on room air. Lungs bibasilar crackles. Abdominal: soft, nontender to palpation, no guarding, no appreciable organomegaly Ext: ROM intact. No gross muscle atrophy, no edema, no contractures Neuro: Speech clear, face symmetrical and CN II-XII grossly intact with no noted focal neuro deficits Psych: Alert and oriented x2 Appropriate and pleasant affect. A total of 38 minutes of time were spent preparing this complex discharge summary. Pt was discharged on 05/27/22 at 2:37 PM. Patient Condition at Discharge: Stable Plan - Discharge Summary Discharge Rx Participant: No New Discharge Prescriptions: New Amoxic-Pot Clav 500-125 mg [Augmentin 500-125 mg] 1 tab PO Q12HR 7 Days #14 tab Furosemide [Lasix] 40 mg PO DAILY tab Metoprolol Tartrate [Lopressor] 12.5 mg PO DAILY tab cloNIDine HCL [Catapres] 0.1 mg PO BID tab lisinopriL [Zestril] 20 mg PO BID tab Apixaban [Eliquis] 5 mg PO BID tab Continue Sodium Bicarbonate 650 mg PO BID Ferrous Sulfate [Iron (65 MG Elemental)] 325 mg PO BID Multivitamins, Thera [Multivitamin (formulary)] 1 tab PO HS Spironolactone [Aldactone] 25 mg PO DAILY #30 tab Metamucil 28% Packet 1 packet PO HS Mupirocin 2% Oint [Bactroban 2% Oint] 1 applic TOPICAL Q12H PRN PRN Reason: scabs Melatonin 5 mg PO HS tab polyethylene glycoL 3350 [Miralax] 17 gm PO DAILY@0800 House Supplement 120 ml PO DAILY Hydrocodone/Acetaminophen [Hydrocodone/Acetaminophen 5-325] 1 tab PO Q6H PRN #12 tab PRN Reason: Moderate Pain (Scale 4 To 6) Vit C/E/Zn/Coppr/Lutein/Zeaxan [Preservision Areds 2 Softgel] 2 cap PO BID@0800,1600 Famotidine [Pepcid] 20 mg PO DAILY Atorvastatin [Lipitor] 40 mg PO HS buPROPion HCL [Wellbutrin SR] 150 mg PO BID@0800,1600 Meclizine [Antivert] 12.5 mg PO Q8H PRN PRN Reason: dizziness Lactulose 30 ml PO DAILY PRN PRN Reason: Constipation Simethicone [Simethicone Chew] 80 mg PO Q4H PRN PRN Reason: Heartburn Montelukast [Singulair] 10 mg PO HS Sennosides [Senokot] 8.6 mg PO Q12H PRN PRN Reason: Constipation Cholecalciferol [Vitamin D3 (25 Mcg = 1000 Iu)] 25 mcg PO DAILY@0800 Acetaminophen Tab [Tylenol] 650 mg PO Q6H PRN PRN Reason: Fever And/ Or Pain Isosorbide Mononitrate ER [Imdur] 30 mg PO DAILY@0800 Changed Insulin Glargine,Hum.rec.anlog [Lantus Solostar Pen] 10 unit SQ HS #0 Discontinued Amiodarone [Cordarone] 200 mg PO DAILY@0800 Apixaban [Eliquis] 2.5 mg PO BID lisinopriL [Zestril] 5 mg PO DAILY tab Metoprolol Tartrate [Lopressor] 100 mg PO BID@0800,1600 Discharge Medication List Atorvastatin [Lipitor] 40 mg PO HS 08/04/21 [History] Famotidine [Pepcid] 20 mg PO DAILY 08/04/21 [History] Ferrous Sulfate [Iron (65 MG Elemental)] 325 mg PO BID 08/04/21 [History] Lactulose 30 ml PO DAILY PRN 08/04/21 [History] Meclizine [Antivert] 12.5 mg PO Q8H PRN 08/04/21 [History] Multivitamins, Thera [Multivitamin (formulary)] 1 tab PO HS 08/04/21 [History] Simethicone [Simethicone Chew] 80 mg PO Q4H PRN 08/04/21 [History] Sodium Bicarbonate 650 mg PO BID 08/04/21 [History] Vit C/E/Zn/Coppr/Lutein/Zeaxan [Preservision Areds 2 Softgel] 2 cap PO BID@0800,1600 08/04/21 [History] buPROPion HCL [Wellbutrin SR] 150 mg PO BID@0800,1600 08/04/21 [History] Spironolactone [Aldactone] 25 mg PO DAILY #30 tab 08/09/21 [Rx] Montelukast [Singulair] 10 mg PO HS 11/11/21 [History] Metamucil 28% Packet 1 packet PO HS 04/17/22 [History] Mupirocin 2% Oint [Bactroban 2% Oint] 1 applic TOPICAL Q12H PRN 04/17/22 [History] Sennosides [Senokot] 8.6 mg PO Q12H PRN 04/17/22 [History] Melatonin 5 mg PO HS tab 04/25/22 [Rx] Acetaminophen Tab [Tylenol] 650 mg PO Q6H PRN 04/29/22 [History] Cholecalciferol [Vitamin D3 (25 Mcg = 1000 Iu)] 25 mcg PO DAILY@0800 04/29/22 [History] polyethylene glycoL 3350 [Miralax] 17 gm PO DAILY@0800 04/29/22 [History] House Supplement 120 ml PO DAILY 05/04/22 [History] Isosorbide Mononitrate ER [Imdur] 30 mg PO DAILY@0800 05/04/22 [History] Amoxic-Pot Clav 500-125 mg [Augmentin 500-125 mg] 1 tab PO Q12HR 7 Days #14 tab 05/24/22 [Rx] Apixaban [Eliquis] 5 mg PO BID tab 05/27/22 [Rx] Furosemide [Lasix] 40 mg PO DAILY tab 05/27/22 [Rx] Hydrocodone/Acetaminophen [Hydrocodone/Acetaminophen 5-325] 1 tab PO Q6H PRN #12 tab 05/27/22 [Rx] Insulin Glargine,Hum.rec.anlog [Lantus Solostar Pen] 10 unit SQ HS #0 05/27/22 [ Rx] Metoprolol Tartrate [Lopressor] 12.5 mg PO DAILY tab 05/27/22 [Rx] cloNIDine HCL [Catapres] 0.1 mg PO BID tab 05/27/22 [Rx] lisinopriL [Zestril] 20 mg PO BID tab 05/27/22 [Rx] Follow up Appointment(s)/Referral(s): Marilia Abdalla MD [STAFF PHYSICIAN] - 1 Week Gary Crawford DO [Primary Care Provider] - 1-2 days Ce Galvan DO [Doctor of Osteopathic Medicine] - 2 Weeks Activity/Diet/Wound Care/Special Instructions: Activity: As tolerated with assistance. It is important to wear your arm sling at all times when out of bed. Encourage elbow, wrist, and hand movements. No motion of the shoulder. Diet: Heart healthy and carb consistent diet. Avoid salts, or foods with hidden salts such as canned or boxed foods and frozen dinners. Extra salt makes your heart work harder and traps the fluid in your body for longer. Special Instructions: Weigh yourself every morning after you urinate. If you gain 3 pounds overnight or more than 5 pounds in one week, call your primary physician and planishing hammer operator for guidance on your medications or they may want to see you in their office. Keep a daily log of your weights and be sure to bring with you at follow up visits with your PCP and planishing hammer operator. Take all of your medications as directed, especially your water pills. NEVER skip a dose. And remember to keep all of your doctor's appointments and follow- up as needed. Elevate your legs when you are not up moving around to help with circulation and prevent swelling. Compression stockings are also a great way to improve lower extremity circulation and prevent/improve lower extremity edema. Call your primary care provider and planishing hammer operator if you notice any extra swelling in your legs, ankles, feet or abdomen, if you have a new dry cough, if your shortness of breath worsens with activity or at rest, or if you feel more fatigued. You will also have to follow up with orthopedic surgeon, Dr. Galvan in 2 weeks for repeat x-rays. Wishing you a very happy and healthy new year! Thank you for allowing us to participate in your care, it was truly a pleasure having you for our patient!!! Discharge Disposition: TRANSFER TO SNF/ECF
[2022-05-27 15:07] VITALS: BP 138/66
[2022-05-27 17:06] LABS: Glucose,Whole Blood 66 mg/dL (70-110)
[2022-05-27 17:14] LABS: Glucose,Whole Blood 90 mg/dL (70-110)
--- NOTE | 2022-05-27 21:01 | PN ---
PROGRESS NOTE SUBJECTIVE: This lady underwent electrical cardioversion 48 hours ago and had bradycardia. I held some of the medications. Blood pressure is elevated. I am adding clonidine 0.1 mg b.i.d., and also will increase the lisinopril to 20 mg b.i.d. If the blood pressure is well controlled, she can be discharged later on today. OBJECTIVE: VITAL SIGNS: Stable. Pressure is, however, elevated. HEART: S1 and S2 heard normally. Regular. Short systolic murmur. LUNGS: Reveal decent air entry. ABDOMEN: Soft. EXTREMITIES: Lower extremities reveal diminished pulses. CENTRAL NERVOUS SYSTEM: Normal. MMODL / IJN: [id number] /
== END 2022-05-27 17:21 | DRG 291 ==
LOC: EC 11:39 → 3SCARD 14:51
PROVIDERS: ADMIT Internal Medicine; ATTEND Internal Medicine
DX: I13.0 Hypertensive heart and chronic kidney disease with heart failure and stage 1 through stage 4 chronic kidney disease, or unspecified chronic kidney disease (principal); I50.23 Acute on chronic systolic (congestive) heart failure; I48.19 Other persistent atrial fibrillation; Z16.21 Resistance to vancomycin; N39.0 Urinary tract infection, site not specified; D63.1 Anemia in chronic kidney disease; I42.8 Other cardiomyopathies; E11.22 Type 2 diabetes mellitus with diabetic chronic kidney disease; E11.42 Type 2 diabetes mellitus with diabetic polyneuropathy; F03.90 Unspecified dementia, unspecified severity, without behavioral disturbance, psychotic disturbance, mood disturbance, and anxiety; Z79.01 Long term (current) use of anticoagulants; B95.2 Enterococcus as the cause of diseases classified elsewhere; I16.0 Hypertensive urgency; N18.30 Chronic kidney disease, stage 3 unspecified; E78.5 Hyperlipidemia, unspecified; M19.90 Unspecified osteoarthritis, unspecified site; R00.1 Bradycardia, unspecified; S42.031A Displaced fracture of lateral end of right clavicle, initial encounter for closed fracture; W18.30XA Fall on same level, unspecified, initial encounter; Z79.4 Long term (current) use of insulin; Z88.2 Allergy status to sulfonamides; Z88.8 Allergy status to other drugs, medicaments and biological substances; Z87.891 Personal history of nicotine dependence; Y92.129 Unspecified place in nursing home as the place of occurrence of the external cause; Z85.42 Personal history of malignant neoplasm of other parts of uterus; Z86.16 Personal history of COVID-19; Z79.899 Other long term (current) drug therapy; Z85.09 Personal history of malignant neoplasm of other digestive organs
CPT/HCPCS: 36415; 70450; 71046; 72125; 72128; 72131; 80048; 80053; 81001; 82803; 83605; 83735; 83880; 84484; 85025; 85027; 85610; 85730; 87040; 87077; 87086; 87186; 87636; 92960; 93005; 94640; 94760; 96374; 99285

== ENCOUNTER 2022-06-20 15:42 | Inpatient (IN) | payer MEDICARE, OTHER ==
[2022-06-20 18:03] LABS: Albumin 4.2 g/dL (3.5-5.0); Calcium 9.8 mg/dL (8.4-10.2); Magnesium 2.3 mg/dL (1.6-2.3); Potassium 5.2 mmol/L (3.5-5.1); Total Bilirubin 0.6 mg/dL (0.2-1.3); Total Protein 7.7 g/dL (6.3-8.2)
[2022-06-20 18:09] LABS: Basophils # (A) 0.1 k/uL (0-0.2); Basophils % (A) 1 %; Eosinophils # (A) 0.1 k/uL (0-0.7); Eosinophils % (A) 0 %; HCT 37.7 % (34.0-46.0); Lymphocytes # (A) 0.8 k/uL (1.0-4.8); Lymphocytes % (A) 7 %; MCH 29.9 pg (25.0-35.0); MCHC 31.8 g/dL (31.0-37.0); Mean Platelet Volume 6.9; Monocytes # (A) 0.7 k/uL (0-1.0); Monocytes % (A) 6 %; Neutrophils # (A) 9.4 k/uL (1.3-7.7); Neutrophils % (A) 83 %; Platelet Count 308 k/uL (150-450); RBC 4.01 m/uL (3.80-5.40); RDW 15.1 % (11.5-15.5); WBC 11.3 k/uL (3.8-10.6)
[2022-06-20] MEDS ORDERED: SODIUM CHLORIDE 0.9% 1,000 ML IV ONE (18:42)
[2022-06-20] MEDS ORDERED: LORazepam 2 MG/ML INJ IV STA (18:48)
[2022-06-20 18:57] LABS: Appearance,Urine Turbid (Clear); Bacteria,Urine Occasional /hpf; Bilirubin,Urine Negative (Negative); Blood,Urine Small (Negative); Color,Urine Light Yellow; Glucose,Urine (UA) Negative (Negative); Ketones,Urine Negative (Negative); Leukocyte Esterase,Urine Large (Negative); Nitrite,Urine Positive (Negative); Protein,Urine 1+ (Negative); RBC,Urine 10 /hpf (0-5); Specific Gravity,Urine 1.019 (1.001-1.035); Urobilinogen,Urine <2.0 mg/dL (<2.0); WBC,Urine >182 /hpf (0-5)
[2022-06-20] MEDS ORDERED: cefTRIAXone IN SWFI 1,000 MG/10 ML SYRINGE IVP STA (19:44)
[2022-06-20] MEDS ORDERED: NALOXONE 0.4 MG/ML 1 ML VIAL IV PRN (19:49)
--- NOTE | 2022-06-20 19:49 | ED ---
General Adult HPI - General Chief complaint: Nausea/Vomiting/Diarrhea Stated complaint: Nausea,Vomiting Time Seen by Provider: 06/20/22 16:02 Source: Caregiver Mode of arrival: EMS Limitations: physical limitation - History of Present Illness Initial comments: This is a 77-year-old female that presents emergency department via EMS from her nursing facility. It was reported by the nursing facility the patient has been feeling "off" and had nausea and vomiting reported over the last 1 week. When the patient did arrive, the patient was resting in bed, without any acute distress. The patient denied any active nausea or vomiting. The patient was ANO 1-2 which was decreased from her baseline of ANO 3. There was no further history that could be obtained by EMS nor by the nursing facility. The patient could not provide any further answers any questions. - Related Data Home Medications Medication Instructions Recorded Confirmed Atorvastatin [Lipitor] 40 mg PO HS@199908/04/21 06/20/22 Famotidine [Pepcid] 20 mg PO DAILY@0800 08/04/21 06/20/22 Ferrous Sulfate [Iron (65 MG 325 mg PO BID 08/04/21 06/20/22 Elemental)] Lactulose 30 ml PO DAILY PRN 08/04/21 06/20/22 Meclizine [Antivert] 12.5 mg PO Q8H PRN 08/04/21 06/20/22 Multivitamins, Thera [Multivitamin 1 tab PO DAILY@0800 08/04/21 06/20/22 (formulary)] Vit C/E/Zn/Coppr/Lutein/Zeaxan 2 cap PO BID@0800,1600 08/04/21 06/20/22 [Preservision Areds 2 Softgel] buPROPion HCL [Wellbutrin SR] 150 mg PO BID 08/04/21 06/20/22 Montelukast [Singulair] 10 mg PO HS@199911/11/21 06/20/22 Metamucil 28% Packet 1 packet PO HS 04/17/22 06/20/22 Mupirocin 2% Oint [Bactroban 2% 1 applic TOPICAL Q12H PRN 04/17/22 06/20/22 Oint] Sennosides [Senokot] 8.6 mg PO Q12H PRN 04/17/22 06/20/22 Cholecalciferol [Vitamin D3 (25 25 mcg PO DAILY@0800 04/29/22 06/20/22 Mcg = 1000 Iu)] Isosorbide Mononitrate ER [Imdur] 30 mg PO DAILY@0800 05/04/22 06/20/22 Acetaminophen [Acetaminophen ER] 650 mg PO Q6H PRN 06/20/22 06/20/22 Furosemide [Lasix] 40 mg PO DAILY@0800 06/20/22 06/20/22 Insulin Glargine,Hum.rec.anlog 26 unit SQ HS@199906/20/22 06/20/22 [Lantus Solostar Pen] Magnesium Hydroxide [Milk of 2,400 mg PO Q72H PRN 06/20/22 06/20/22 Magnesia] Melatonin 5 mg PO HS@199906/20/22 06/20/22 Metoprolol Tartrate [Lopressor] 12.5 mg PO DAILY@0800 06/20/22 06/20/22 Na Phos,M-B/Na Phos,Di-Ba [Fleet 133 ml RECTAL DAILY PRN 06/20/22 06/20/22 Adult] Ondansetron [Zofran] 4 mg PO Q6H PRN 06/20/22 06/20/22 Potassium Chloride ER [K-Dur 20] 20 meq PO DAILY@0800 06/20/22 06/20/22 Simethicone [Mylanta Gas Minis] 125 mg PO QID 06/20/22 06/20/22 Sodium Bicarbonate Tab 650 mg PO BID 06/20/22 06/20/22 Spironolactone [Aldactone] 25 mg PO BID@0800,1600 06/20/22 06/20/22 bisacodyL [Dulcolax] 10 mg RECTAL DAILY PRN 06/20/22 06/20/22 Previous Rx's Medication Instructions Recorded Apixaban [Eliquis] 5 mg PO BID tab 05/27/22 Hydrocodone/Acetaminophen 1 tab PO Q6H PRN #12 tab 05/27/22 [Hydrocodone/Acetaminophen 5-325] cloNIDine HCL [Catapres] 0.1 mg PO BID tab 05/27/22 lisinopriL [Zestril] 20 mg PO BID tab 12/30/22 Allergies Allergy/AdvReac Type Severity Reaction Status Date / Time amlodipine Allergy HIVES Verified 06/20/22 16:26 hydralazine Allergy HIVES Verified 06/20/22 16:26 Sulfa (Sulfonamide Allergy HIVES Verified 06/20/22 16:26 Antibiotics) Review of Systems ROS Statement: Those systems with pertinent positive or pertinent negative responses have been documented in the HPI. ROS Other: All systems not noted in ROS Statement are negative. Past Medical History Past Medical History: Atrial Fibrillation, Cancer, Heart Failure, Diabetes Mellitus, GERD/Reflux, Hypertension, Osteoarthritis (OA), Renal Disease Additional Past Medical History / Comment(s): IDDM type II, neuropathy bilateral feet, current L heel ulcer, cardiomegaly, CKD stage III, anemia, generalized weakness/FALLS, vertigo, covid 02/2021, uterine cancer with hysterectomy, bowel cancer with resection, i History of Any Multi-Drug Resistant Organisms: None Reported Past Surgical History: Adenoidectomy, Bowel Resection, Hysterectomy, Tonsill ectomy Additional Past Surgical History / Comment(s): Abdominal laparoscopy, several D&Cs, bilateral cataract removal/lens implant. Past Anesthesia/Blood Transfusion Reactions: No Reported Reaction, Motion Sickness Past Psychological History: Depression Smoking Status: Former smoker Past Alcohol Use History: None Reported Past Drug Use History: None Reported - Past Family History Mother Family Medical History: Cancer Additional Family Medical History / Comment(s): Uterine cancer and of nonhodgkins lymphoma Father Family Medical History: Congestive Heart Failure (CHF) Family Family Medical History: No Reported History General Exam Limitations: altered mental status (ANO 1-2, decreased from her baseline) General appearance: alert, in no apparent distress Head exam: Present: atraumatic, normocephalic, normal inspection Eye exam: Present: normal appearance, PERRL Pupils: Present: normal accommodation ENT exam: Present: normal exam, normal oropharynx, mucous membranes moist Neck exam: Present: normal inspection, full ROM Respiratory exam: Present: normal lung sounds bilaterally Cardiovascular Exam: Present: regular rate, normal rhythm, normal heart sounds GI/Abdominal exam: Present: soft, normal bowel sounds Extremities exam: Present: normal inspection, full ROM Back exam: Present: normal inspection, full ROM Neurological exam: Present: alert, altered, CN II-XII intact Psychiatric exam: Present: normal affect, normal mood Skin exam: Present: warm, dry Course Vital Signs 06/20/22 06/20/22 15:43 19:04 Temperature 98.1 F Pulse Rate 61 71 Respiratory 16 16 Rate Blood Pressure 148/96 130/83 O2 Sat by Pulse 99 92 L Oximetry EKG Findings - EKG Comments: EKG Findings:: In EKG was obtained and interpreted by myself showing a rate of 63,. We'll 208, QRS duration 122 and QTC of 453. This EKG showed a normal sinus rhythm with no ST segment elevation or depression noted. Medical Decision Making - Medical Decision Making Was pt. sent in by a medical professional or institution (, PA, CENTRAL STERILIZATION TECHNICIAN, urgent care, hospital, or fpc...) When possible be specific @ -Yes, nursing facility Did you speak to anyone other than the patient for history (EMS, parent, family, police, friend...)? What history was obtained from this source @ -No Did you review nursing and triage notes (agree or disagree)? Why? @ -I reviewed and agree with nursing and triage notes Were old charts reviewed (outside hosp., previous admission, EMS record, old EKG, old radiological studies, urgent care reports/EKG's, fpc records)? Report findings @ -No old charts were reviewed Differential Diagnosis (chest pain, altered mental status, abdominal pain women, abdominal pain men, vaginal bleeding, weakness, fever, dyspnea, syncope, headache, dizziness, GI bleed, back pain, seizure, CVA, palpatations, mental health)? @ -UTI, RADHA EKG interpreted by me (3pts min.). @ -As above X-rays interpreted by me (1pt min.). @ -None done CT interpreted by me (1pt min.). @ -None done U/S interpreted by me (1pt. min.). @ -None done What testing was considered but not performed or refused? (CT, X-rays, U/S, labs)? Why? @ -CT head was considered as was a CT abdomen and pelvis. The patient did not have any signs of trauma and had a UTI which could cause her altered mental status. CT abdomen and pelvis was also not obtained as the patient denied of any acute abdominal pain on physical exam. What meds were considered but not given or refused? Why? @ -None Did you discuss the management of the patient with other professionals (professionals i.e. , PA, CENTRAL STERILIZATION TECHNICIAN, lab, RT, psych nurse, social media marketer, harmonica maker, teacher, navigation officer, correctional case manager)? Give summary @ -Yes, admitting physician Was smoking cessation discussed for >3mins.? @ -No Was critical care preformed (if so, how long)? @ -No Were there social determinants of health that impacted care today? How? (Homelessness, low income, unemployed, alcoholism, drug addiction, transportation, low edu. Level, literacy, decrease access to med. care, halfway, rehab)? @ -No Was there de-escalation of care discussed even if they declined (Discuss DNR or withdrawal of care, Hospice)? DNR status @ -No What co-morbidities impacted this encounter? (DM, HTN, Smoking, COPD, CAD, Cancer, CVA, ARF, Chemo, Hep., AIDS, mental health diagnosis, sleep apnea, morbid obesity)? @ -Hypertension, dementia, DM Was patient admitted / discharged? Hospital course, mention meds given and route, prescriptions, significant lab abnormalities, going to OR and other pertinent info. @ -The patient was evaluated emergency department. Physical exam, the patient was altered however vital signs were stable. Laboratory workup did show a significant acute kidney injury as well as a significant UTI. The patient did begin to be aggressive and wanted to leave, try to get out of bed. Due to the patient's confusion, the patient was given Ativan in order to protect herself from falling out of bed. The patient was given antibiotics for treatment of her UTI. The patient was also given 1 L normal saline fluid as the patient did have an RADHA. Due to the UTI as well as the RADHA the patient did require further treatment and admission. The patient's primary care physician was being covered by Dr. Osborne, and he did accept the admission at 1856. The patient was admitted in stable condition. Undiagnosed new problem with uncertain prognosis? @ -No Drug Therapy requiring intensive monitoring for toxicity (Heparin, Nitro, Insulin, Cardizem)? @ -No Were any procedures done? @ -No Diagnosis/symptom? @ -UTI in the setting of altered mental status Acute, or Chronic, or Acute on Chronic? @ -Acute Uncomplicated (without systemic symptoms) or Complicated (systemic symptoms)? @ -Complicated Side effects of treatment? @ -No Exacerbation, Progression, or Severe Exacerbation? @ -No Poses a threat to life or bodily function? How? (Chest pain, USA, MD, pneumonia, PE, COPD, DKA, ARF, appy, cholecystitis, CVA, Diverticulitis, Homicidal, Suicidal, threat to staff... and all critical care pts) @ -Yes, patient is altered and could cause harm to herself Diagnosis/symptom? @ -RADHA Acute, or Chronic, or Acute on Chronic? @ -Acute Uncomplicated (without systemic symptoms) or Complicated (systemic symptoms)? @ -Uncomplicated Side effects of treatment? @ -none Exacerbation, Progression, or Severe Exacerbation] @ -no Poses a threat to life or bodily function? @ -no - Lab Data Result diagrams: 06/20/22 16:34 06/20/22 16:34 Lab Results 06/20/22 06/20/22 06/20/22 Range/Units 16:34 16:34 16:34 WBC 11.3 H (3.8-10.6) k/uL RBC 4.01 (3.80-5.40) m/uL Hgb 12.0 (11.4-16.0) gm/dL Hct 37.7 (34.0-46.0) % MCV 94.0 D (80.0-100.0) fL MCH 29.9 (25.0-35.0) pg MCHC 31.8 (31.0-37.0) g/dL RDW 15.1 (11.5-15.5) % Plt Count 308 (150-450) k/uL MPV 6.9 Neutrophils % 83 % Lymphocytes % 7 % Monocytes % 6 % Eosinophils % 0 % Basophils % 1 % Neutrophils # 9.4 H (1.3-7.7) k/uL Lymphocytes # 0.8 L (1.0-4.8) k/uL Monocytes # 0.7 (0-1.0) k/uL Eosinophils # 0.1 (0-0.7) k/uL Basophils # 0.1 (0-0.2) k/uL Sodium 141 (137-145) mmol/L Potassium 5.2 H (3.5-5.1) mmol/L Chloride 99 (98-107) mmol/L Carbon Dioxide 30 (22-30) mmol/L Anion Gap 12 mmol/L BUN 50 H (7-17) mg/dL Creatinine 4.72 H (0.52-1.04) mg/dL Est GFR (CKD-EPI)AfAm 9 (>60 ml/min/1.73 sqM) Est GFR (CKD-EPI)NonAf 8 (>60 ml/min/1.73 sqM) Glucose 80 (74-99) mg/dL Calcium 9.8 (8.4-10.2) mg/dL Magnesium 2.3 (1.6-2.3) mg/dL Total Bilirubin 0.6 (0.2-1.3) mg/dL AST 24 (14-36) U/L ALT 24 (4-34) U/L Alkaline Phosphatase 203 H (38-126) U/L Troponin I 0.026 (0.000-0.034) ng/mL Total Protein 7.7 (6.3-8.2) g/dL Albumin 4.2 (3.5-5.0) g/dL Lipase 53 (23-300) U/L Urine Color Urine Appearance (Clear) Urine pH (5.0-8.0) Ur Specific Otley (1.001-1.035) Urine Protein (Negative) Urine Glucose (UA) (Negative) Urine Ketones (Negative) Urine Blood (Negative) Urine Nitrite (Negative) Urine Bilirubin (Negative) Urine Urobilinogen (<2.0) mg/dL Ur Leukocyte Esterase (Negative) Urine RBC (0-5) /hpf Urine WBC (0-5) /hpf Urine WBC Clumps (None) /hpf Urine Bacteria (None) /hpf Influenza Type A (PCR) (Not Detectd) Influenza Type B (PCR) (Not Detectd) RSV (PCR) (Not Detectd) SARS-CoV-2 (PCR) (Not Detectd) 06/20/22 06/20/22 Range/Units 16:34 16:55 WBC (3.8-10.6) k/uL RBC (3.80-5.40) m/uL Hgb (11.4-16.0) gm/dL Hct (34.0-46.0) % MCV (80.0-100.0) fL MCH (25.0-35.0) pg MCHC (31.0-37.0) g/dL RDW (11.5-15.5) % Plt Count (150-450) k/uL MPV Neutrophils % % Lymphocytes % % Monocytes % % Eosinophils % % Basophils % % Neutrophils # (1.3-7.7) k/uL Lymphocytes # (1.0-4.8) k/uL Monocytes # (0-1.0) k/uL Eosinophils # (0-0.7) k/uL Basophils # (0-0.2) k/uL Sodium (137-145) mmol/L Potassium (3.5-5.1) mmol/L Chloride (98-107) mmol/L Carbon Dioxide (22-30) mmol/L Anion Gap mmol/L BUN (7-17) mg/dL Creatinine (0.52-1.04) mg/dL Est GFR (CKD-EPI)AfAm (>60 ml/min/1.73 sqM) Est GFR (CKD-EPI)NonAf (>60 ml/min/1.73 sqM) Glucose (74-99) mg/dL Calcium (8.4-10.2) mg/dL Magnesium (1.6-2.3) mg/dL Total Bilirubin (0.2-1.3) mg/dL AST (14-36) U/L ALT (4-34) U/L Alkaline Phosphatase (38-126) U/L Troponin I (0.000-0.034) ng/mL Total Protein (6.3-8.2) g/dL Albumin (3.5-5.0) g/dL Lipase (23-300) U/L Urine Color Light Yellow Urine Appearance Turbid H (Clear) Urine pH 7.0 (5.0-8.0) Ur Specific Otley 1.019 (1.001-1.035) Urine Protein 1+ H (Negative) Urine Glucose (UA) Negative (Negative) Urine Ketones Negative (Negative) Urine Blood Small H (Negative) Urine Nitrite Positive H (Negative) Urine Bilirubin Negative (Negative) Urine Urobilinogen <2.0 (<2.0) mg/dL Ur Leukocyte Esterase Large H (Negative) Urine RBC 10 H (0-5) /hpf Urine WBC >182 H (0-5) /hpf Urine WBC Clumps Many H (None) /hpf Urine Bacteria Occasional H (None) /hpf Influenza Type A (PCR) Not Detected (Not Detectd) Influenza Type B (PCR) Not Detected (Not Detectd) RSV (PCR) Not Detected (Not Detectd) SARS-CoV-2 (PCR) Not Detected (Not Detectd) Disposition Clinical Impression: Dehydration, RADHA (acute kidney injury), AMS (altered mental status), UTI (urinary tract infection) Disposition: ADMITTED IP TO THIS [facility] Condition: Stable Is patient prescribed a controlled substance at d/c from ED?: No Referrals: Gary Crawford DO [Primary Care Provider] - 1-2 days Time of Disposition: 18:45 Decision to Admit Reason: Admit from EC Decision Date: 06/20/22 Decision Time: 18:45
[2022-06-20] MEDS ORDERED: ACETAMINOPHEN 650 MG PO PRN (20:28)
[2022-06-20] MEDS ORDERED: ONDANSETRON 4 MG/2 ML VIAL IVP PRN (20:29)
[2022-06-20] MEDS ORDERED: CALCIUM CARBONATE 500 MG CHEWABLE PO PRN (20:29)
[2022-06-20] MEDS ORDERED: LACTULOSE 20 GM/30 ML CUP PO PRN (20:29)
[2022-06-20] MEDS ORDERED: ACETAMINOPHEN TAB 325 MG TAB PO PRN (20:29)
--- NOTE | 2022-06-20 20:44 | XR ---
EXAMINATION TYPE: XR chest 2V DATE OF EXAM: 06/20/2022 7:58 PM COMPARISON: Chest radiographs from 05/19/2022 TECHNIQUE: XR chest 2V Frontal and lateral views of the chest. CLINICAL INDICATION:Female, 77 years old with history of AMS; FINDINGS: Lungs/Pleura: There is no evidence of pleural effusion, focal consolidation, or pneumothorax. Pulmonary vascularity: Pulmonary vascular congestion. Heart/mediastinum: Cardiomediastinal silhouette is enlarged and stable. Musculoskeletal: No acute osseous pathology. Unchanged irregularity to the distal right clavicle as s een on prior radiographs system with fracture. IMPRESSION: 1. Cardiomegaly and mild pulmonary vascular congestion. Correlate with BNP for congestive heart fail ure. 2. Right distal clavicle fracture as seen on prior radiographs.
[2022-06-20] MEDS ORDERED: diphenhydrAMINE 50 MG/ML 1 ML VIAL IVP STA (20:48)
[2022-06-20] MEDS: buPROPion SR 150 MG TABLET.ER PO SCH (21:01)
[2022-06-20] MEDS: SODIUM BICARBONATE TAB 650 MG TAB PO SCH (21:01)
[2022-06-20] MEDS: cloNIDine HCL 0.1 MG TAB PO SCH (21:01)
[2022-06-20] MEDS: HALOPERIDOL LACTATE 5 MG/ML 1 ML VIAL IVP PRN (22:00)
[2022-06-20] MEDS: HYDROcodone/APAP 5-325MG 1 EACH TAB PO PRN (22:48)
[2022-06-21] MEDS: SODIUM CHLORIDE 0.9% 1,000 ML IV SCH ×4 (00:12→23:17)
[2022-06-21 06:31] LABS: African American GFR (CKD) 12 (>60 ml/min/1.73 sqM); Anion Gap 10 mmol/L; Blood Urea Nitrogen 45 mg/dL (7-17); Calcium 8.9 mg/dL (8.4-10.2); Carbon Dioxide 25 mmol/L (22-30); Chloride 106 mmol/L (98-107); Non-African American GFR(CKD) 10 (>60 ml/min/1.73 sqM); Potassium 4.7 mmol/L (3.5-5.1); Sodium 141 mmol/L (137-145)
[2022-06-21 06:48] LABS: Glucose 38 mg/dL (74-99)
[2022-06-21] MEDS ORDERED: DEXTROSE 50% SYRINGE 50 ML IVP STA ×2 (06:48→06:51)
[2022-06-21 07:35] LABS: Glucose,Whole Blood 180 mg/dL (70-110)
--- NOTE | 2022-06-21 07:53 | CT ---
EXAMINATION TYPE: CT brain rich keller con DATE OF EXAM: 06/21/2022 COMPARISON: 05/19/2022 HISTORY: Fall, AMS CT DLP: 1118.[address] of the brain was performed. The ventricles, basal cisterns and sulci overlying the cerebral convexities demonstrate mild to moder ate enlargement. Remote insult left temporal lobe. There is no evidence for intracranial hemorrhage or sulcal effacement. There is decreased attenuatio n about the periventricular white matter and deep white matter of both cerebral hemispheres, compatib le with chronic small vessel ischemia. No mass effects are seen. If symptoms persist consider MRI. Osseous calvarium is intact. IMPRESSION: 1. Age related atrophic and chronic small vessel ischemic change without acute intracranial process seen at this time. CT Cervical Spine: Unenhanced CT of the cervical spine was performed with bone and soft tissue window settings submitted . Coronal and sagittal reconstruction is obtained. There is normal alignment and prevertebral soft tissues. No evidence for acute cervical fracture . Scattered degenerative disc disease and spondylosis. Biapical scarring. IMPRESSION: 1. No evidence for acute fracture or subluxation of the cervical spine.
--- NOTE | 2022-06-21 07:58 | CT ---
EXAMINATION TYPE: CT facial bones wo con DATE OF EXAM: 06/21/2022 COMPARISON: None HISTORY: Fall, AMS CT DLP: Included in brain/c=spine mGycm Unenhanced CT of the facial bones was performed in the axial and coronal planes. Bone and soft tissu e window settings are submitted. There is soft tissue swelling about the nasion. There is nondepressed nondisplaced fracture of the nasal bone on the left. No additional fractures ar e seen with certainty. The globes are intact. Mucosal thickening right maxillary sinus with obstruction of the right ostiomeatal unit. Nasal septum deviated from left to right. IMPRESSION: 1. There is nondepressed nondisplaced fracture of the nasal bone on the left. No additional fracture s are seen with certainty.
[2022-06-21] MEDS ORDERED: METOPROLOL TARTRATE 12.5 MG TAB PO SCH (08:00)
[2022-06-21 09:46] LABS: Glucose,Whole Blood 137 mg/dL (70-110)
[2022-06-21] MEDS: SODIUM BICARBONATE TAB 650 MG TAB PO SCH ×2 (10:20→20:06)
[2022-06-21] MEDS: buPROPion SR 150 MG TABLET.ER PO SCH ×2 (10:20→20:37)
[2022-06-21] MEDS: ISOSORBIDE MONONITRATE ER 30 MG TAB.ER.24H PO SCH (10:21)
[2022-06-21] MEDS: cloNIDine HCL 0.1 MG TAB PO SCH (10:21)
[2022-06-21] MEDS: FAMOTIDINE 20 MG TAB PO SCH (10:21)
--- NOTE | 2022-06-21 19:15 | P.HPIM ---
History of Present Illness H&P Date: 06/21/22 Chief Complaint: not feeling well this is a 77-year-old patient is a resident of [facility]. Chronic stable medical conditions include atrial fibrillation, CHF-EF 30%, cognitive impairment, diabetes, GERD, hypertension, osteoarthritis, peripheral neuropathy, CK D stage III, chronic anemia, bowel cancer with resection, urine and bowel incontinence, insomnia. Patient has a public legal guardian. Patient not able to give much of her history. As per the EMS report: Staff at the [facility] stated that patient has been vomiting for about a week. Has been getting weak and tired. Not even able to get out of bed. Patient does complain of decreased appetite dry mouth tired rundown. Denies any fever and chills. Denies any pain. Lethargic. . review of systems 1difficult to obtain because patient somewhat lethargic Past medical history to include: Paroxysmal Atrial fibrillation-successful cardioversion on April 2022, CHF-EF 30%, cognitive impairment, diabetes, GERD, hypertension, auditory arthritis, peripheral neuropathy, CK D stage III, anemia, bowel cancer resection, urine bowel incontinence, insomnia Social history: Resident at [facility]. Patient smoked for 58 years stopped in 2019. No alcohol. Has a public guardian Physical examination: VITAL SIGNS: 98.1, 61, 16, 148/96, 99% room air GENERAL: BMI 25.6, laying in bed tired lethargic. EYES: Pupils equal. Conjunctiva normal. HEENT: External appearance of nose and ears normal, oral cavity dry mucous membranes, no teeth. NECK: JVD not raised; masses not palpable. HEART: First and second heart sounds are normal; no edema. LUNGS: Respiratory rate normal; decreased breath sound. ABDOMEN: Soft, nontender, liver spleen not palpable, no masses palpable. PSYCH: Lethargic but able to answer some simple questionsl. MUSCULOSKELETAL:No Clubbing/cyanosis;muscles-grossly intact, OA NEUROLOGICAL: Cranial nerves grossly intact; no facial asymmetry, power and sensation grossly intact. LYMPHATICS: No lymph nodes palpable in the axilla and neck INVESTIGATIONS, reviewed in the clinical context: June 21: BUN 45 creatinine 3.99 EKG tracing personally reviewed by me-normal sinus rhythm. Rate 63 nonspecific T-wave changes. Chest x-ray film personally reviewed by me-cardiomegaly. Infiltrate versus edema White count 11.3 hemoglobin 12 platelets 308 potassium 5.2 BUN 50 creatinine 4.7 to UA positive for nitrite, leuk trase trace, WBC Influenza type A/type B/RSV/COVID-19: Not detected Previous labs: Creatinine 1.34 on 05/27/2022 Assessment and plan: -Acute metabolic encephalopathy from renal failure -Acute kidney injury combination of prerenal and ATN, patient has been vomiting for 2 weeks. Also been on Lasix, Aldactone, LEA inhibitor Hold renal offensive medications for now. Hydrate. -Acute UTI with cystitis IV ceftriaxone -Paroxysmal atrial fibrillation, currently in sinus rhythm Decrease eliquis to 2.5 twice a day. Lopressor 12.5 -Hyperlipidemia Lipitor -Chronic congestive heart failure from systolic dysfunction EF 30%. Currently hold off diuretics. Follow volume status. I and O's. -Depression and anxiety not otherwise specified Wellbutrin SR 150 mg twice a day -Essential hypertension, currently blood pressure running low. Hold off diuretics. DC Catapres. 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 IV fluids. Follow Accu-Cheks. Past Medical History Past Medical History: Atrial Fibrillation, Cancer, Heart Failure, Diabetes Mellitus, GERD/Reflux, Hypertension, Osteoarthritis (OA), Renal Disease Additional Past Medical History / Comment(s): IDDM type II, neuropathy bilateral feet, current L heel ulcer, cardiomegaly, CKD stage III, anemia, generalized weakness/FALLS, vertigo, covid 02/2021, uterine cancer with hysterectomy, bowel cancer with resection, i History of Any Multi-Drug Resistant Organisms: None Reported Past Surgical History: Adenoidectomy, Bowel Resection, Hysterectomy, T onsillectomy Additional Past Surgical History / Comment(s): Abdominal laparoscopy, several D&Cs, bilateral cataract removal/lens implant. Past Anesthesia/Blood Transfusion Reactions: No Reported Reaction, Motion Sickness Past Psychological History: Depression Smoking Status: Former smoker Past Alcohol Use History: None Reported Past Drug Use History: None Reported - Past Family History Mother Family Medical History: Cancer Additional Family Medical History / Comment(s): Uterine cancer and of nonhodgkins lymphoma Father Family Medical History: Congestive Heart Failure (CHF) Family Family Medical History: No Reported History Medications and Allergies Home Medications Medication Instructions Recorded Confirmed Type Atorvastatin [Lipitor] 40 mg PO HS@199908/04/21 06/20/22 History Famotidine [Pepcid] 20 mg PO DAILY@0800 08/04/21 06/20/22 History Ferrous Sulfate [Iron (65 MG 325 mg PO BID 08/04/21 06/20/22 History Elemental)] Lactulose 30 ml PO DAILY PRN 08/04/21 06/20/22 History Meclizine [Antivert] 12.5 mg PO Q8H PRN 08/04/21 06/20/22 History Multivitamins, Thera [Multivitamin 1 tab PO DAILY@0800 08/04/21 06/20/22 History (formulary)] Vit C/E/Zn/Coppr/Lutein/Zeaxan 2 cap PO BID@0800,1600 08/04/21 06/20/22 History [Preservision Areds 2 Softgel] buPROPion HCL [Wellbutrin SR] 150 mg PO BID 08/04/21 06/20/22 History Montelukast [Singulair] 10 mg PO HS@199911/11/21 06/20/22 History Metamucil 28% Packet 1 packet PO HS 04/17/22 06/20/22 History Mupirocin 2% Oint [Bactroban 2% 1 applic TOPICAL Q12H PRN 04/17/22 06/20/22 History Oint] Sennosides [Senokot] 8.6 mg PO Q12H PRN 04/17/22 06/20/22 History Cholecalciferol [Vitamin D3 (25 25 mcg PO DAILY@0800 04/29/22 06/20/22 History Mcg = 1000 Iu)] Isosorbide Mononitrate ER [Imdur] 30 mg PO DAILY@0800 05/04/22 06/20/22 History Apixaban [Eliquis] 5 mg PO BID tab 05/27/22 06/20/22 Rx Hydrocodone/Acetaminophen 1 tab PO Q6H PRN #12 tab 05/27/22 06/20/22 Rx [Hydrocodone/Acetaminophen 5-325] cloNIDine HCL [Catapres] 0.1 mg PO BID tab 05/27/22 06/20/22 Rx lisinopriL [Zestril] 20 mg PO BID tab 05/27/22 06/20/22 Rx Acetaminophen [Acetaminophen ER] 650 mg PO Q6H PRN 06/20/22 06/20/22 History Furosemide [Lasix] 40 mg PO DAILY@0800 06/20/22 06/20/22 History Insulin Glargine,Hum.rec.anlog 26 unit SQ HS@199906/20/22 06/20/22 History [Lantus Solostar Pen] Magnesium Hydroxide [Milk of 2,400 mg PO Q72H PRN 06/20/22 06/20/22 History Magnesia] Melatonin 5 mg PO HS@199906/20/22 06/20/22 History Metoprolol Tartrate [Lopressor] 12.5 mg PO DAILY@0800 06/20/22 06/20/22 History Na Phos,M-B/Na Phos,Di-Ba [Fleet 133 ml RECTAL DAILY PRN 06/20/22 06/20/22 History Adult] Ondansetron [Zofran] 4 mg PO Q6H PRN 06/20/22 06/20/22 History Potassium Chloride ER [K-Dur 20] 20 meq PO DAILY@0800 06/20/22 06/20/22 History Simethicone [Mylanta Gas Minis] 125 mg PO QID 06/20/22 06/20/22 History Sodium Bicarbonate Tab 650 mg PO BID 06/20/22 06/20/22 History Spironolactone [Aldactone] 25 mg PO BID@0800,1600 06/20/22 06/20/22 History bisacodyL [Dulcolax] 10 mg RECTAL DAILY PRN 06/20/22 06/20/22 History Allergies Allergy/AdvReac Type Severity Reaction Status Date / Time amlodipine Allergy HIVES Verified 06/20/22 16:26 hydralazine Allergy HIVES Verified 06/20/22 16:26 Sulfa (Sulfonamide Allergy HIVES Verified 06/20/22 16:26 Antibiotics) Physical Exam Vitals: Vital Signs Temp Pulse Resp BP Pulse Ox 01/24/23 10:23 84 18 130/64 95 06/21/22 07:36 75 18 173/71 96 06/21/22 06:00 62 14 118/53 97 06/21/22 01:30 72 16 168/69 98 06/21/22 00:30 116/51 98 06/21/22 00:00 95/47 97 06/20/22 23:30 145/132 06/20/22 23:00 122/108 91 L 06/20/22 22:30 190/173 06/20/22 22:00 106/58 94 L 06/20/22 21:30 163/76 97 06/20/22 21:26 73 16 163/76 98 06/20/22 21:00 159/88 97 06/20/22 20:30 149/107 94 L 06/20/22 20:00 149/107 96 06/20/22 19:30 71 130/83 95 06/20/22 19:04 71 16 130/83 92 L 06/20/22 19:00 72 147/70 06/20/22 18:30 64 152/64 06/20/22 18:00 64 22 148/96 97 06/20/22 17:30 62 12 148/96 06/20/22 17:00 61 13 148/96 98 06/20/22 16:30 60 12 148/96 96 06/20/22 16:00 148/96 100 06/20/22 15:45 148/96 98 06/20/22 15:43 98.1 F 61 16 148/96 99 Intake and Output 06/20/22 06/21/22 06/21/22 22:59 06:59 14:59 Other: Weight 63.503 kg Results CBC & Chem 7: 06/20/22 16:34 06/21/22 05:33 Labs: Abnormal Lab Results - Last 24 Hours (Table) 06/20/22 06/20/22 06/20/22 Range/Units 16:34 16:34 16:34 WBC 11.3 H (3.8-10.6) k/uL Neutrophils # 9.4 H (1.3-7.7) k/uL Lymphocytes # 0.8 L (1.0-4.8) k/uL Potassium 5.2 H (3.5-5.1) mmol/L BUN 50 H (7-17) mg/dL Creatinine 4.72 H (0.52-1.04) mg/dL Glucose (74-99) mg/dL POC Glucose (mg/dL) (70-110) mg/dL Alkaline Phosphatase 203 H (38-126) U/L Urine Appearance Turbid H (Clear) Urine Protein 1+ H (Negative) Urine Blood Small H (Negative) Urine Nitrite Positive H (Negative) Ur Leukocyte Esterase Large H (Negative) Urine RBC 10 H (0-5) /hpf Urine WBC >182 H (0-5) /hpf Urine WBC Clumps Many H (None) /hpf Urine Bacteria Occasional H (None) /hpf 06/21/22 06/21/22 06/21/22 Range/Units 05:33 07:33 09:45 WBC (3.8-10.6) k/uL Neutrophils # (1.3-7.7) k/uL Lymphocytes # (1.0-4.8) k/uL Potassium (3.5-5.1) mmol/L BUN 45 H (7-17) mg/dL Creatinine 3.99 H (0.52-1.04) mg/dL Glucose 38 L* (74-99) mg/dL POC Glucose (mg/dL) 180 H 137 H (70-110) mg/dL Alkaline Phosphatase (38-126) U/L Urine Appearance (Clear) Urine Protein (Negative) Urine Blood (Negative) Urine Nitrite (Negative) Ur Leukocyte Esterase (Negative) Urine RBC (0-5) /hpf Urine WBC (0-5) /hpf Urine WBC Clumps (None) /hpf Urine Bacteria (None) /hpf
[2022-06-21] MEDS: MONTELUKAST 10 MG TAB PO SCH (20:06)
[2022-06-21] MEDS: APIXABAN 2.5 MG TABLET PO SCH (20:06)
[2022-06-21] MEDS: METOPROLOL TARTRATE 12.5 MG TAB PO SCH (20:06)
[2022-06-21] MEDS: ATORVASTATIN 40 MG TAB PO SCH (20:06)
[2022-06-21] MEDS: MELATONIN 5 MG TABLET PO SCH (20:06)
[2022-06-21] MEDS: HYDROcodone/APAP 5-325MG 1 EACH TAB PO PRN (20:37)
[2022-06-22 05:25] LABS: Glucose,Whole Blood 75 mg/dL (70-110)
[2022-06-22 06:14] LABS: Calcium 8.8 mg/dL (8.4-10.2); Potassium 4.4 mmol/L (3.5-5.1)
[2022-06-22] MEDS: APIXABAN 2.5 MG TABLET PO SCH ×3 (08:34→23:05)
[2022-06-22] MEDS: FAMOTIDINE 20 MG TAB PO SCH (08:34)
[2022-06-22] MEDS: ISOSORBIDE MONONITRATE ER 30 MG TAB.ER.24H PO SCH (08:34)
[2022-06-22] MEDS: METOPROLOL TARTRATE 12.5 MG TAB PO SCH (08:34)
[2022-06-22] MEDS: SODIUM BICARBONATE TAB 650 MG TAB PO SCH ×2 (08:34→21:15)
[2022-06-22] MEDS: buPROPion SR 150 MG TABLET.ER PO SCH ×2 (08:34→21:15)
[2022-06-22 11:34] LABS: Glucose,Whole Blood 195 mg/dL (70-110)
[2022-06-22] MEDS: SODIUM CHLORIDE 0.9% 1,000 ML IV SCH (12:07)
[2022-06-22] MEDS: HALOPERIDOL LACTATE 5 MG/ML 1 ML VIAL IVP PRN (12:31)
[2022-06-22] MEDS ORDERED: METOPROLOL TARTRATE 12.5 MG TAB PO ONE (13:30)
[2022-06-22 16:42] LABS: Glucose,Whole Blood 221 mg/dL (70-110)
--- NOTE | 2022-06-22 18:16 | P.PN ---
Progress Note - Text Progress Note Date: 06/22/22 Chief Complaint: not feeling well this is a 77-year-old patient is a resident of [facility]. Chronic stable medical conditions include atrial fibrillation, CHF-EF 30%, cognitive impairment, diabetes, GERD, hypertension, osteoarthritis, peripheral neuropathy, CK D stage III, chronic anemia, bowel cancer with resection, urine and bowel incontinence, insomnia. Patient has a public legal guardian. Patient not able to give much of her history. As per the EMS report: Staff at the [facility] stated that patient has been vomiting for about a week. Has been getting weak and tired. Not even able to get out of bed. Patient does complain of decreased appetite dry mouth tired rundown. Denies any fever and chills. Denies any pain. Lethargic. Admitted with acute kidney injury, acute metabolic encephalopathy, acute UTI with cystitis. Diuretics discontinued. IV fluids. IV ceftriaxone. June 22: Overflow in the ICU. More awake, answering simple questions.. Up in a chair. Eating a bit. IV fluids cutback to 75 mL. IV ceftriaxone. . Active Medications Acetaminophen (Acetaminophen Tab 325 Mg Tab) 650 mg PO Q6HR PRN PRN Reason: Mild Pain or Fever > 100.5 Hydrocodone Bitart/Acetaminophen (Hydrocodone/Apap 5-325mg 1 Each Tab) 1 each PO Q6H PRN PRN Reason: Moderate Pain (Scale 4 to 6) Last Admin: 06/21/22 20:37 Dose: 1 each Apixaban (Apixaban 2.5 Mg Tablet) 2.5 mg PO BID [facility]; Protocol Last Admin: 06/22/22 08:34 Dose: 2.5 mg Atorvastatin Calcium (Atorvastatin 40 Mg Tab) 40 mg PO HS@2000 [facility] Last Admin: 06/21/22 20:06 Dose: 40 mg Bupropion HCl (Bupropion Sr 150 Mg Tablet.Er) 150 mg PO BID [facility] Last Admin: 06/22/22 08:34 Dose: 150 mg Calcium Carbonate/Glycine (Calcium Carbonate 500 Mg Chewable) 1,000 mg PO Q4HR PRN PRN Reason: Dyspepsia Famotidine (Famotidine 20 Mg Tab) 20 mg PO DAILY@0800 [facility] Last Admin: 06/22/22 08:34 Dose: 20 mg Haloperidol Lactate (Haloperidol Lactate 5 Mg/Ml 1 Ml Vial) 2.5 mg IVP Q8HR PRN PRN Reason: Agitation or Acute Psychosis Last Admin: 06/22/22 12:31 Dose: 2.5 mg Ceftriaxone Sodium 1 gm/ (Sodium Chloride) 50 mls @ 100 mls/hr IVPB Q12H [facility]; Protocol Last Admin: 06/22/22 15:50 Dose: 100 mls/hr Sodium Chloride (Saline 0.9%) 1,000 mls @ 75 mls/hr IV .[id number] [facility] Last Admin: 06/22/22 12:07 Dose: 100 mls/hr Isosorbide Mononitrate (Isosorbide Mononitrate Er 30 Mg Tab.Er.24h) 30 mg PO DAILY@0800 [facility] Last Admin: 06/22/22 08:34 Dose: 30 mg Lactulose (Lactulose 20 Gm/30 Ml Cup) 20 gm PO DAILY PRN PRN Reason: Constipation Melatonin (Melatonin 5 Mg Tablet) 5 mg PO HS@1999 [facility] Last Admin: 06/21/22 20:06 Dose: 5 mg Metoprolol Tartrate (Metoprolol Tartrate 25 Mg Tab) 25 mg PO BID [facility] Montelukast Sodium (Montelukast 10 Mg Tab) 10 mg PO HS@1999 [facility] Last Admin: 06/21/22 20:06 Dose: 10 mg Naloxone HCl (Naloxone 0.4 Mg/Ml 1 Ml Vial) 0.2 mg IV Q2M PRN PRN Reason: Opioid Reversal Ondansetron HCl (Ondansetron 4 Mg/2 Ml Vial) 4 mg IVP Q8HR PRN PRN Reason: Nausea And Vomiting Sodium Bicarbonate (Sodium Bicarbonate Tab 650 Mg Tab) 650 mg PO BID [facility] Last Admin: 06/22/22 08:34 Dose: 650 mg Past medical history to include: Paroxysmal Atrial fibrillation-successful cardioversion on April 2022, CHF-EF 30%, cognitive impairment, diabetes, GERD, hypertension, auditory arthritis, peripheral neuropathy, CK D stage III, anemia, bowel cancer resection, urine bowel incontinence, insomnia Social history: Resident at [facility]. Patient smoked for 58 years stopped in 2019. No alcohol. Has a public guardian Physical examination: VITAL SIGNS: 98.2, 67, 18, 145/60, 97% room air GENERAL: Operative cannula, more awake EYES: Pupils equal. Conjunctiva normal. HEENT: External appearance of nose and ears normal, oral cavity dry mucous membranes, no teeth. NECK: JVD not raised; masses not palpable. HEART: First and second heart sounds are normal; no edema. LUNGS: Respiratory rate normal; decreased breath sound. ABDOMEN: Soft, nontender, liver spleen not palpable, no masses palpable. PSYCH: Bit more awake answering simple questions. MUSCULOSKELETAL:No Clubbing/cyanosis;muscles-grossly intact, OA INVESTIGATIONS, reviewed in the clinical context: June 22: Potassium 4.4 BUN 44 creatinine 3.37 procalcitonin 0.13 June 21: BUN 45 creatinine 3.99 EKG tracing personally reviewed by me-normal sinus rhythm. Rate 63 nonspecific T-wave changes. Chest x-ray film personally reviewed by me-cardiomegaly. Infiltrate versus edema White count 11.3 hemoglobin 12 platelets 308 potassium 5.2 BUN 50 creatinine 4.7 to UA positive for nitrite, leuk trase trace, WBC Influenza type A/type B/RSV/COVID-19: Not detected Previous labs: Creatinine 1.34 on 05/27/2022 Assessment and plan: -Acute metabolic encephalopathy from renal failure: Slow improvement -Acute kidney injury combination of prerenal and ATN, patient has been vomiting for 2 weeks. Also been on Lasix, Aldactone, LEA inhibitor: Slow to respond Hold renal offensive medications for now. Continue IV fluids -Acute UTI with cystitis IV ceftriaxone -Paroxysmal atrial fibrillation, currently in sinus rhythm Decrease eliquis to 2.5 twice a day. Lopressor 12.5 -Hyperlipidemia Lipitor -Chronic congestive heart failure from systolic dysfunction EF 30%. Currently hold off diuretics. Follow volume status. I and O's. -Depression and anxiety not otherwise specified Wellbutrin SR 150 mg twice a day -Essential hypertension, currently blood pressure running low. Hold off diuretics. DC Catapres. Change Lopressor to 25 mg twice a day. 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 IV ceftriaxone. IV fluids to 75 mL an hour. Encourage oral intake. Change Lopressor to 25 mg twice a day. Follow labs in the morning.
[2022-06-22 19:59] LABS: Glucose,Whole Blood 170 mg/dL (70-110)
[2022-06-22] MEDS: MELATONIN 5 MG TABLET PO SCH (21:15)
[2022-06-22] MEDS: MONTELUKAST 10 MG TAB PO SCH (21:15)
[2022-06-22] MEDS: METOPROLOL TARTRATE 25 MG TAB PO SCH (21:15)
[2022-06-22] MEDS: ATORVASTATIN 40 MG TAB PO SCH (21:16)
[2022-06-22] MEDS ORDERED: OXYMETAZOLINE 0.05% NASL SPRAY 1 SPRAY BOTTLE NASAL PRN (21:35)
[2022-06-23] MEDS: SODIUM CHLORIDE 0.9% 1,000 ML IV SCH ×2 (02:55→14:36)
[2022-06-23 04:31] LABS: Calcium 8.3 mg/dL (8.4-10.2); Potassium 4.1 mmol/L (3.5-5.1)
[2022-06-23 06:47] LABS: Glucose,Whole Blood 129 mg/dL (70-110)
[2022-06-23 07:47] LABS: HCT 28.8 % (34.0-46.0); MCH 30.9 pg (25.0-35.0); MCHC 32.6 g/dL (31.0-37.0); MCV 94.7 fL (80.0-100.0); Mean Platelet Volume 8.3; Platelet Count 259 k/uL (150-450); RBC 3.05 m/uL (3.80-5.40); RDW 14.4 % (11.5-15.5); WBC 10.9 k/uL (3.8-10.6)
[2022-06-23 07:54] LABS: HGB 9.4 gm/dL (11.4-16.0)
[2022-06-23] MEDS: APIXABAN 2.5 MG TABLET PO SCH (09:00)
[2022-06-23] MEDS: buPROPion SR 150 MG TABLET.ER PO SCH ×2 (10:43→20:32)
[2022-06-23] MEDS: ISOSORBIDE MONONITRATE ER 30 MG TAB.ER.24H PO SCH (10:43)
[2022-06-23] MEDS: SODIUM BICARBONATE TAB 650 MG TAB PO SCH ×2 (10:43→20:32)
[2022-06-23] MEDS: FAMOTIDINE 20 MG TAB PO SCH (10:43)
[2022-06-23] MEDS: METOPROLOL TARTRATE 25 MG TAB PO SCH ×2 (10:43→20:32)
[2022-06-23 11:38] LABS: Glucose,Whole Blood 134 mg/dL (70-110)
[2022-06-23 16:35] LABS: Glucose,Whole Blood 147 mg/dL (70-110)
--- NOTE | 2022-06-23 17:44 | P.PN ---
Progress Note - Text Progress Note Date: 06/23/22 Chief Complaint: not feeling well this is a 77-year-old patient is a resident of [facility]. Chronic stable medical conditions include atrial fibrillation, CHF-EF 30%, cognitive impairment, diabetes, GERD, hypertension, osteoarthritis, peripheral neuropathy, CK D stage III, chronic anemia, bowel cancer with resection, urine and bowel incontinence, insomnia. Patient has a public legal guardian. Patient not able to give much of her history. As per the EMS report: Staff at the [facility] stated that patient has been vomiting for about a week. Has been getting weak and tired. Not even able to get out of bed. Patient does complain of decreased appetite dry mouth tired rundown. Denies any fever and chills. Denies any pain. Lethargic. Admitted with acute kidney injury, acute metabolic encephalopathy, acute UTI with cystitis. Diuretics discontinued. IV fluids. IV ceftriaxone. June 22: Overflow in the ICU. More awake, answering simple questions.. Up in a chair. Eating a bit. IV fluids cutback to 75 mL. IV ceftriaxone. June 23: Patient had nasal bleeding yesterday evening. Eliquis has been held. Some nausea. Creatinine coming down slowly to 2.3. He declined food. Up in a chair. Change IV ceftriaxone to Keflex . Active Medications Acetaminophen (Acetaminophen Tab 325 Mg Tab) 650 mg PO Q6HR PRN PRN Reason: Mild Pain or Fever > 100.5 Hydrocodone Bitart/Acetaminophen (Hydrocodone/Apap 5-325mg 1 Each Tab) 1 each PO Q6H PRN PRN Reason: Moderate Pain (Scale 4 to 6) Last Admin: 06/21/22 20:37 Dose: 1 each Atorvastatin Calcium (Atorvastatin 40 Mg Tab) 40 mg PO HS@2000 [facility] Last Admin: 06/22/22 21:16 Dose: 40 mg Bupropion HCl (Bupropion Sr 150 Mg Tablet.Er) 150 mg PO BID [facility] Last Admin: 06/23/22 10:43 Dose: 150 mg Calcium Carbonate/Glycine (Calcium Carbonate 500 Mg Chewable) 1,000 mg PO Q4HR PRN PRN Reason: Dyspepsia Famotidine (Famotidine 20 Mg Tab) 20 mg PO DAILY@0800 [facility] Last Admin: 06/23/22 10:43 Dose: 20 mg Haloperidol Lactate (Haloperidol Lactate 5 Mg/Ml 1 Ml Vial) 2.5 mg IVP Q8HR PRN PRN Reason: Agitation or Acute Psychosis Last Admin: 06/22/22 12:31 Dose: 2.5 mg Ceftriaxone Sodium 1 gm/ (Sodium Chloride) 50 mls @ 100 mls/hr IVPB Q12H [facility]; Protocol Last Admin: 06/23/22 14:35 Dose: 100 mls/hr Sodium Chloride (Saline 0.9%) 1,000 mls @ 75 mls/hr IV .[id number] [facility] Last Admin: 06/23/22 14:36 Dose: 75 mls/hr Isosorbide Mononitrate (Isosorbide Mononitrate Er 30 Mg Tab.Er.24h) 30 mg PO DAILY@0800 [facility] Last Admin: 06/23/22 10:43 Dose: 30 mg Lactulose (Lactulose 20 Gm/30 Ml Cup) 20 gm PO DAILY PRN PRN Reason: Constipation Melatonin (Melatonin 5 Mg Tablet) 5 mg PO HS@1999 [facility] Last Admin: 06/22/22 21:15 Dose: 5 mg Metoprolol Tartrate (Metoprolol Tartrate 25 Mg Tab) 25 mg PO BID [facility] Last Admin: 06/23/22 10:43 Dose: 25 mg Montelukast Sodium (Montelukast 10 Mg Tab) 10 mg PO HS@1999 [facility] Last Admin: 06/22/22 21:15 Dose: 10 mg Naloxone HCl (Naloxone 0.4 Mg/Ml 1 Ml Vial) 0.2 mg IV Q2M PRN PRN Reason: Opioid Reversal Ondansetron HCl (Ondansetron 4 Mg/2 Ml Vial) 4 mg IVP Q8HR PRN PRN Reason: Nausea And Vomiting Oxymetazoline HCl (Oxymetazoline 0.05% Nasl [place] 1 [place] Bottle) 3 spray NASAL Q4HR PRN PRN Reason: Dry Nasal Passages Last Admin: 06/22/22 22:02 Dose: 3 spray Sodium Bicarbonate (Sodium Bicarbonate Tab 650 Mg Tab) 650 mg PO BID [facility] Last Admin: 06/23/22 10:43 Dose: 650 mg Past medical history to include: Paroxysmal Atrial fibrillation-successful cardioversion on April 2022, CHF-EF 30%, cognitive impairment, diabetes, GERD, hypertension, auditory arthritis, peripheral neuropathy, CK D stage III, anemia, bowel cancer resection, urine bowel incontinence, insomnia Social history: Resident at [facility]. Patient smoked for 58 years stopped in 2019. No alcohol. Has a public guardian Physical examination: VITAL SIGNS: 97.2, 64, 18, 11 10/31/1998, 95% room air GENERAL: Operative cannula, more awake EYES: Pupils equal. Conjunctiva normal. HEENT: External appearance of nose and ears normal, oral cavity dry mucous membranes, no teeth. NECK: JVD not raised; masses not palpable. HEART: First and second heart sounds are normal; no edema. LUNGS: Respiratory rate normal; decreased breath sound. ABDOMEN: Soft, nontender, liver spleen not palpable, no masses palpable. PSYCH: Bit more awake answering simple questions. MUSCULOSKELETAL:No Clubbing/cyanosis;muscles-grossly intact, OA INVESTIGATIONS, reviewed in the clinical context: June 22: Potassium 4.4 BUN 44 creatinine 3.37 procalcitonin 0.13 June 21: BUN 45 creatinine 3.99 EKG tracing personally reviewed by me-normal sinus rhythm. Rate 63 nonspecific T-wave changes. Chest x-ray film personally reviewed by me-cardiomegaly. Infiltrate versus edema White count 11.3 hemoglobin 12 platelets 308 potassium 5.2 BUN 50 creatinine 4.7 to UA positive for nitrite, leuk trase trace, WBC Influenza type A/type B/RSV/COVID-19: Not detected Previous labs: Creatinine 1.34 on 05/27/2022 Assessment and plan: -Acute metabolic encephalopathy from renal failure: Improved -Acute kidney injury combination of prerenal and ATN, patient has been vomiting for 2 weeks. Also been on Lasix, Aldactone, LEA inhibitor: Slow to respond Hold renal offensive medications for now. Continue IV fluids -Acute UTI with cystitis IV ceftriaxone-changed to Keflex 500 mg 4 times a day -Nasal bone fracture secondary to fall yesterday morning. Leading to bleeding. Was on eliquis. ENT was consulted. Not fitting intervention from them currently. Eliquis held -Acute blood loss anemia from nasal bleeding. Eliquis held. -Paroxysmal atrial fibrillation, currently in sinus rhythm Decrease eliquis to 2.5 twice a day. Lopressor 12.5 -Hyperlipidemia Lipitor -Chronic congestive heart failure from systolic dysfunction EF 30%. Currently hold off diuretics. Follow volume status. I and O's. -Depression and anxiety not otherwise specified Wellbutrin SR 150 mg twice a day -Essential hypertension, currently blood pressure running low. Hold off diuretics. DC Catapres. Change Lopressor to 25 mg twice a day. 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 Stop IV ceftriaxone. Start Keflex. Continue hydration. Discussed with patient. Irma beebe. Follow H&H.
[2022-06-23 20:26] LABS: Glucose,Whole Blood 195 mg/dL (70-110)
[2022-06-23] MEDS: ATORVASTATIN 40 MG TAB PO SCH (20:31)
[2022-06-23] MEDS: MELATONIN 5 MG TABLET PO SCH (20:32)
[2022-06-23] MEDS: MONTELUKAST 10 MG TAB PO SCH (20:32)
[2022-06-23] MEDS ORDERED: CEPHALEXIN 500 MG CAP PO SCH (22:00)
[2022-06-24] MEDS: SODIUM CHLORIDE 0.9% 1,000 ML IV SCH ×2 (02:36→16:07)
[2022-06-24 06:16] LABS: Basophils # (A) 0.1 k/uL (0-0.2); Basophils % (A) 1 %; Eosinophils # (A) 0.2 k/uL (0-0.7); Eosinophils % (A) 2 %; HCT 30.2 % (34.0-46.0); HGB 9.8 gm/dL (11.4-16.0); Lymphocytes % (A) 9 %; MCH 30.2 pg (25.0-35.0); MCHC 32.4 g/dL (31.0-37.0); Monocytes # (A) 0.5 k/uL (0-1.0); Monocytes % (A) 4 %; Neutrophils # (A) 9.3 k/uL (1.3-7.7); Neutrophils % (A) 82 %; Platelet Count 249 k/uL (150-450); RBC 3.25 m/uL (3.80-5.40); RDW 14.3 % (11.5-15.5); WBC 11.3 k/uL (3.8-10.6)
[2022-06-24 06:32] LABS: Calcium 8.6 mg/dL (8.4-10.2); Potassium 3.4 mmol/L (3.5-5.1)
[2022-06-24 07:19] LABS: Glucose,Whole Blood 108 mg/dL (70-110)
[2022-06-24 08:26] VITALS: TEMP 98.4
[2022-06-24] MEDS ORDERED: CEPHALEXIN 500 MG CAP PO SCH (09:00)
[2022-06-24] MEDS: buPROPion SR 150 MG TABLET.ER PO SCH (09:23)
[2022-06-24] MEDS: FAMOTIDINE 20 MG TAB PO SCH (09:23)
[2022-06-24] MEDS: SODIUM BICARBONATE TAB 650 MG TAB PO SCH (09:23)
[2022-06-24] MEDS: ISOSORBIDE MONONITRATE ER 30 MG TAB.ER.24H PO SCH (09:23)
[2022-06-24] MEDS: METOPROLOL TARTRATE 25 MG TAB PO SCH (09:24)
[2022-06-24 11:21] LABS: Glucose,Whole Blood 158 mg/dL (70-110)
[2022-06-24 13:47] VITALS: BP 183/69; PULSE 60; RESP 14
--- NOTE | 2022-06-24 13:53 | P.DS ---
Providers Date of admission: 06/20/22 19:50 Expected date of discharge: 06/24/22 Attending physician: Kyler Osborne Consults: 06/21/22 09:06 Consult Physician Stat Consulting Provider: Prateek Mitchell Consult Reason/Comments: FX nasal bone. Do you want consulting provider notified?: Yes Primary care physician: [facility] Course: Chief Complaint: not feeling well this is a 77-year-old patient is a resident of [facility]. Chronic stable medical conditions include atrial fibrillation, CHF-EF 30%, cognitive impairment, diabetes, GERD, hypertension, osteoarthritis, peripheral neuropathy, CK D stage III, chronic anemia, bowel cancer with resection, urine and bowel incontinence, insomnia. Patient has a public legal guardian. Patient not able to give much of her history. As per the EMS report: Staff at the [facility] stated that patient has been vomiting for about a week. Has been getting weak and tired. Not even able to get out of bed. Patient does complain of decreased appetite dry mouth tired rundown. Denies any fever and chills. Denies any pain. Lethargic. Admitted with acute kidney injury, acute metabolic encephalopathy, acute UTI with cystitis. Diuretics discontinued. IV fluids. IV ceftriaxone. June 22: Overflow in the ICU. More awake, answering simple questions.. Up in a chair. Eating a bit. IV fluids cutback to 75 mL. IV ceftriaxone. June 23: Patient had nasal bleeding yesterday evening. Eliquis has been held. Some nausea. Creatinine coming down slowly to 2.3. declined food. Up in a chair. Change IV ceftriaxone to Keflex June 24: Feeling better. Hemoglobin stable. Eliquis be resumed. Patient to follow-up with ENT outpatient. Discussed with patient. Complete course of Keflex for UTI. Hold lisinopril. Change Lopressor to 25 twice a day. Discussion and discharge planning more than 35 minutes. Past medical history to include: Paroxysmal Atrial fibrillation-successful cardioversion on April 2022, CHF-EF 30%, cognitive impairment, diabetes, GERD, hypertension, auditory arthritis, peripheral neuropathy, CK D stage III, anemia, bowel cancer resection, urine bowel incontinence, insomnia Social history: Resident at [facility]. Patient smoked for 58 years stopped in 2018. No alcohol. Has a public guardian Physical examination: VITAL SIGNS: 98.4, 74, 13, 150/63, 94% room air GENERAL: Comfortable Up in chair. EYES: Pupils equal. Conjunctiva normal. HEENT: External appearance of nose and ears normal, oral cavity dry mucous membr anes, no teeth. NECK: JVD not raised; masses not palpable. HEART: First and second heart sounds are normal; no edema. LUNGS: Respiratory rate normal; decreased breath sound. ABDOMEN: Soft, nontender, liver spleen not palpable, no masses palpable. PSYCH: Bit more awake answering simple questions. MUSCULOSKELETAL:No Clubbing/cyanosis;muscles-grossly intact, OA INVESTIGATIONS, reviewed in the clinical context: June 23: White count 9.3 hemoglobin 9.8 progression 3.4 BUN 23 creatinine 1.77 procalcitonin 0.13 EKG tracing personally reviewed by me-normal sinus rhythm. Rate 63 nonspecific T-wave changes. Chest x-ray film personally reviewed by me-cardiomegaly. Infiltrate versus edema White count 11.3 hemoglobin 12 platelets 308 potassium 5.2 BUN 50 creatinine 4.7 to UA positive for nitrite, leuk trase trace, WBC Influenza type A/type B/RSV/COVID-19: Not detected Previous labs: Creatinine 1.34 on 05/27/2022 Assessment and plan: -Acute metabolic encephalopathy from renal failure: Improved -Acute kidney injury combination of prerenal and ATN, patient has been vomiting for 2 weeks. Also been on Lasix, Aldactone, LEA inhibitor: Improved IV fluids -Acute UTI with cystitis IV ceftriaxone-changed to Keflex 500 mg twice a day for 5 days -Nasal bone fracture secondary to fall . Leading to bleeding. Was on eliquis. ENT was consulted. He'll follow with Dr. Prateek Mitchell outpatient. Eliquis was temporarily held. -Acute blood loss anemia from nasal bleeding. Eliquis held. -Paroxysmal atrial fibrillation, currently in sinus rhythm eliquis to 2.5 twice a day. Lopressor 12.5 -Hyperlipidemia Lipitor -Chronic congestive heart failure from systolic dysfunction EF 30%. -Depression and anxiety not otherwise specified Wellbutrin SR 150 mg twice a day -Essential hypertension, currently blood pressure running low. Continue Catapres. Change Lopressor to 25 mg twice a day. -Diabetes mellitus type 2, chronically on insulin Follow Accu-Cheks with sliding scale -GERD Pepcid -Primary osteoarthritis Pain control when necessary -Diabetic peripheral neuropathy -Chronic kidney disease stage III from diabetic nephropathy and hypertensive nephrosclerosis Creatinine 1.3 in April 2022 Disposition: ECF/[facility]iloe [facility] Plan - Discharge Summary Discharge Rx Participant: No New Discharge Prescriptions: New Cephalexin [Keflex] 500 mg PO Q12HR #10 cap Oxymetazoline 0.05% Nasl Sedg[place] [Afrin 0.05% Nasal [place]] 3 spray NASAL Q4HR PRN ml PRN Reason: Dry Nasal Passages Continue Ferrous Sulfate [Iron (65 MG Elemental)] 325 mg PO BID Multivitamins, Thera [Multivitamin (formulary)] 1 tab PO DAILY@0800 Metamucil 28% Packet 1 packet PO HS Mupirocin 2% Oint [Bactroban 2% Oint] 1 applic TOPICAL Q12H PRN PRN Reason: scabs Hydrocodone/Acetaminophen [Hydrocodone/Acetaminophen 5-325] 1 tab PO Q6H PRN #12 tab PRN Reason: Moderate Pain (Scale 4 To 6) Ondansetron [Zofran] 4 mg PO Q6H PRN PRN Reason: Nausea And Vomiting Sodium Bicarbonate Tab 650 mg PO BID Melatonin 5 mg PO HS@2000 Vit C/E/Zn/Coppr/Lutein/Zeaxan [Preservision Areds 2 Softgel] 2 cap PO BID@0800,1600 Famotidine [Pepcid] 20 mg PO DAILY@0800 Atorvastatin [Lipitor] 40 mg PO HS@2000 buPROPion HCL [Wellbutrin SR] 150 mg PO BID Lactulose 30 ml PO DAILY PRN PRN Reason: Constipation Montelukast [Singulair] 10 mg PO HS@2000 Sennosides [Senokot] 8.6 mg PO Q12H PRN PRN Reason: Constipation Cholecalciferol [Vitamin D3 (25 Mcg = 1000 Iu)] 25 mcg PO DAILY@0800 Isosorbide Mononitrate ER [Imdur] 30 mg PO DAILY@0800 cloNIDine HCL [Catapres] 0.1 mg PO BID tab Magnesium Hydroxide [Milk of Magnesia] 2,400 mg PO Q72H PRN PRN Reason: Constipation Na Phos,M-B/Na Phos,Di-Ba [Fleet Adult] 133 ml RECTAL DAILY PRN PRN Reason: Constipation bisacodyL [Dulcolax] 10 mg RECTAL DAILY PRN PRN Reason: Constipation Acetaminophen [Acetaminophen ER] 650 mg PO Q6H PRN PRN Reason: Pain Simethicone [Mylanta Gas Minis] 125 mg PO QID Spironolactone [Aldactone] 25 mg PO BID@0800,1600 Potassium Chloride ER [K-Dur 20] 20 meq PO DAILY@0800 Furosemide [Lasix] 40 mg PO DAILY@0800 Changed Apixaban [Eliquis] 2.5 mg PO BID #0 tab Metoprolol Tartrate [Lopressor] 12.5 mg PO BID #0 Insulin Glargine,Hum.rec.anlog [Lantus Solostar Pen] 10 unit SQ HS@1999 #0 Discontinued Meclizine [Antivert] 12.5 mg PO Q8H PRN PRN Reason: dizziness lisinopriL [Zestril] 20 mg PO BID tab Discharge Medication List Atorvastatin [Lipitor] 40 mg PO HS@199908/04/21 [History] Famotidine [Pepcid] 20 mg PO DAILY@0800 08/04/21 [History] Ferrous Sulfate [Iron (65 MG Elemental)] 325 mg PO BID 08/04/21 [History] Lactulose 30 ml PO DAILY PRN 08/04/21 [History] Multivitamins, Thera [Multivitamin (formulary)] 1 tab PO DAILY@0800 08/04/21 [History] Vit C/E/Zn/Coppr/Lutein/Zeaxan [Preservision Areds 2 Softgel] 2 cap PO BID@0800,1600 08/04/21 [History] buPROPion HCL [Wellbutrin SR] 150 mg PO BID 08/04/21 [History] Montelukast [Singulair] 10 mg PO HS@199911/11/21 [History] Metamucil 28% Packet 1 packet PO HS 04/17/22 [History] Mupirocin 2% Oint [Bactroban 2% Oint] 1 applic TOPICAL Q12H PRN 04/17/22 [History] Sennosides [Senokot] 8.6 mg PO Q12H PRN 04/17/22 [History] Cholecalciferol [Vitamin D3 (25 Mcg = 1000 Iu)] 25 mcg PO DAILY@0800 04/29/22 [History] Isosorbide Mononitrate ER [Imdur] 30 mg PO DAILY@0800 05/04/22 [History] Hydrocodone/Acetaminophen [Hydrocodone/Acetaminophen 5-325] 1 tab PO Q6H PRN #12 tab 05/27/22 [Rx] cloNIDine HCL [Catapres] 0.1 mg PO BID tab 05/27/22 [Rx] Acetaminophen [Acetaminophen ER] 650 mg PO Q6H PRN 06/20/22 [History] Furosemide [Lasix] 40 mg PO DAILY@0800 06/20/22 [History] Magnesium Hydroxide [Milk of Magnesia] 2,400 mg PO Q72H PRN 06/20/22 [History] Melatonin 5 mg PO HS@199906/20/22 [History] Na Phos,M-B/Na Phos,Di-Ba [Fleet Adult] 133 ml RECTAL DAILY PRN 06/20/22 [History] Ondansetron [Zofran] 4 mg PO Q6H PRN 06/20/22 [History] Potassium Chloride ER [K-Dur 20] 20 meq PO DAILY@0800 06/20/22 [History] Simethicone [Mylanta Gas Minis] 125 mg PO QID 06/20/22 [History] Sodium Bicarbonate Tab 650 mg PO BID 06/20/22 [History] Spironolactone [Aldactone] 25 mg PO BID@0800,1600 06/20/22 [History] bisacodyL [Dulcolax] 10 mg RECTAL DAILY PRN 06/20/22 [History] Apixaban [Eliquis] 2.5 mg PO BID #0 tab 06/24/22 [Rx] Cephalexin [Keflex] 500 mg PO Q12HR #10 cap 06/24/22 [Rx] Insulin Glargine,Hum.rec.anlog [Lantus Solostar Pen] 10 unit SQ HS@1999 #0 06/24/22 [Rx] Metoprolol Tartrate [Lopressor] 12.5 mg PO BID #0 06/24/22 [Rx] Oxymetazoline 0.05% Nasl Sedgwick [Afrin 0.05% Nasal [place]] 3 spray NASAL Q4HR PRN ml 06/24/22 [Rx] Follow up Appointment(s)/Referral(s): Gary Crawford DO [Primary Care Provider] - 1-2 days Prateek Mitchell MD [STAFF PHYSICIAN] - 1 Week
== END 2022-06-24 16:33 | DRG 682 ==
LOC: EC 15:42 → 5NMEDONC 19:50 → 1SOBS 06-21 11:44 → 2SICU 06-21 18:22 → 5NMEDONC 06-24 01:02
PROVIDERS: ADMIT Hospitalist; ATTEND Hospitalist
DX: N17.0 Acute kidney failure with tubular necrosis (principal); G93.41 Metabolic encephalopathy; I13.0 Hypertensive heart and chronic kidney disease with heart failure and stage 1 through stage 4 chronic kidney disease, or unspecified chronic kidney disease; I50.22 Chronic systolic (congestive) heart failure; N30.00 Acute cystitis without hematuria; D62 Acute posthemorrhagic anemia; L97.429 Non-pressure chronic ulcer of left heel and midfoot with unspecified severity; E86.0 Dehydration; S02.2XXA Fracture of nasal bones, initial encounter for closed fracture; W19.XXXA Unspecified fall, initial encounter; Y92.239 Unspecified place in hospital as the place of occurrence of the external cause; R04.0 Epistaxis; N18.30 Chronic kidney disease, stage 3 unspecified; M19.91 Primary osteoarthritis, unspecified site; K21.9 Gastro-esophageal reflux disease without esophagitis; E11.22 Type 2 diabetes mellitus with diabetic chronic kidney disease; I48.0 Paroxysmal atrial fibrillation; G47.00 Insomnia, unspecified; E78.5 Hyperlipidemia, unspecified; G31.84 Mild cognitive impairment of uncertain or unknown etiology; E11.42 Type 2 diabetes mellitus with diabetic polyneuropathy; D63.1 Anemia in chronic kidney disease; R32 Unspecified urinary incontinence; R15.9 Full incontinence of feces; Z20.822 Contact with and (suspected) exposure to COVID-19; Z86.16 Personal history of COVID-19; Z85.42 Personal history of malignant neoplasm of other parts of uterus; Z79.899 Other long term (current) drug therapy; Z79.4 Long term (current) use of insulin; Z79.01 Long term (current) use of anticoagulants; Z87.891 Personal history of nicotine dependence; Z85.038 Personal history of other malignant neoplasm of large intestine; Z88.8 Allergy status to other drugs, medicaments and biological substances; Z88.2 Allergy status to sulfonamides
CPT/HCPCS: 36415; 70450; 70486; 71046; 72125; 80048; 80053; 81001; 83690; 83735; 84145; 84484; 85025; 85027; 87636; 93005; 96361; 96374; 96375; 99285

== ENCOUNTER 2022-12-02 05:40 | Day surgery (SDC) | payer MEDICARE, OTHER ==
[2022-11-25 10:49] VITALS: BMI 25.4
[2022-12-02] MEDS ORDERED: ONDANSETRON 4 MG/2 ML VIAL IVP ONE (06:35)
[2022-12-02] MEDS ORDERED: LACTATED RINGERS 1,000 ML IV SCH (06:35)
[2022-12-02] MEDS ORDERED: DEXAMETHASONE SOD PHOSPHATE 4 MG/ML 1 ML VIAL IV ONE (06:35)
[2022-12-02] MEDS ORDERED: HYDROmorphone 0.5 MG/0.5 ML SYRINGE IVP PRN (07:00)
[2022-12-02] MEDS ORDERED: INDOCYANINE GREEN 25 MG VIAL IV STA (07:03)
[2022-12-02] MEDS ORDERED: HEPARIN SODIUM,PORCINE/PF 5,000 UNIT/0.5 ML SYRINGE SQ PRN (07:03)
--- NOTE | 2022-12-02 07:03 | P.GSHP ---
History of Present Illness H&P Date: 12/02/22 CHIEF COMPLAINT: Cholecystitis HISTORY OF PRESENT ILLNESS: The patient is a 77-year-old female who presents with history of epigastric including right upper quadrant abdominal pain for over 3 months. She underwent diagnostic studies for her gallbladder. Separately her clinical picture was consistent with cholecystitis. Now she presents for surgical intervention. PAST MEDICAL HISTORY: Please see list PAST SURGICAL HISTORY: Please see list MEDICATIONS: Please see list ALLERGIES: Please see list SOCIAL HISTORY: Please see list FAMILY HISTORY: Please see list REVIEW OF ORGAN SYSTEMS: CONSTITUTIONAL: No reports of fevers or chills. RESPIRATORY: No recent pneumonias. CARDIOVASCULAR: Denies chest pain or palpitations GI: No blood in stools MUSCULOSKELETAL: Has occasional joint pain including back pain. NEURO: No seizure disorders or headaches. No recent stroke. GENITOURINARY: No active blood in urine. No urinary hesitancy. HEMATOLOGIC: No personal or family history of DVTs or pulmonary emboli. SKIN: No skin cancer. PHYSICAL EXAM: VITAL SIGNS: Afebrile vital signs stable GENERAL: Well-developed pleasant in no acute distress. HEENT: No scleral icterus. Extraocular movements grossly intact. Moist buccal mucosa. NECK: Supple without lymphadenopathy. CHEST: Unlabored respirations. Equal bilateral excursions. CARDIOVASCULAR: Regular rate regular rhythm rhythm. Distal 2+ pulses. ABDOMEN: Soft, nondistended. Tender along the epigastrium and right upper q uadrant. MUSCULOSKELETAL: No clubbing, cyanosis, or edema. NEURO: Cranial nerves II to XII within normal limits. No focal or lateralizing signs. PSYCH: Alert and oriented to person, place and time. SKIN: Well-perfused good skin turgor. ASSESSMENT: 1. Epigastric and right upper quadrant abdominal pain 2. Chronic cholecystitis 3. Symptomatic gallstones. PLAN: 1. Will need a robotic cholecystectomy possible open. Benefits and risks were described. 2. Heparin for DVT prophylaxis 5000 units. 3. Antibiotic prophylaxis. 4. CBC and CMP on day of procedure 5. Non-narcotic pre and post op pain management reviewed. 6. Indocyanine green for biliary imaging. Past Medical History Past Medical History: Atrial Fibrillation, Cancer, Heart Failure, Dementia, Diabetes Mellitus, GERD/Reflux, Hypertension, Osteoarthritis (OA), Renal Disease Additional Past Medical History / Comment(s): IDDM type II, neuropathy bilateral feet, CKD stage III, anemia, generalized weakness/FALLS, vertigo, uterine cancer with hysterectomy, bowel cancer with resection. CURRENT SKIN ISSUES PER JULIA AT [facility] 11/25/22-RIGHT MEDIAL LOWER LEG SORE, LEFT ELBOW SKIN TEAR, RIGHT PROXIMAL OUTER FOREARM SKIN TEAR. History of Any Multi-Drug Resistant Organisms: VRE Date of last positivie culture/infection: [facility] staff unsure of date MDRO Source:: urine Past Surgical History: Adenoidectomy, Bowel Resection, Hysterectomy, Tonsillectomy Additional Past Surgical History / Comment(s): Abdominal laparoscopy, several D&Cs, bilateral cataract removal/lens implant, cardioversion Past Anesthesia/Blood Transfusion Reactions: No Reported Reaction, Motion Sickness Additional Past Anesthesia/Blood Transfusion Reaction / Comment(s): hx of vertigo Past Psychological History: Depression Additional Psychological History / Comment(s): Pt resides at [facility]. She has dementia. She has a public legal guardian. She is wheelchair bound. Incontinent of urine and stool on occasion. Smoking Status: Former smoker Past Alcohol Use History: None Reported Additional Past Alcohol Use History / Comment(s): Pt started smoking in 1959 and quit in 2018 Past Drug Use History: None Reported - Past Family History Mother Family Medical History: Cancer Additional Family Medical History / Comment(s): Uterine cancer and of nonhodgkins lymphoma Father Family Medical History: Congestive Heart Failure (CHF) Family Family Medical History: No Reported History Medications and Allergies Home Medications Medication Instructions Recorded Confirmed Type Famotidine [Pepcid] 20 mg PO HS 08/04/21 11/25/22 History Ferrous Sulfate [Iron (65 MG 325 mg PO BID 08/04/21 11/25/22 History Elemental)] Lactulose 30 ml PO DAILY PRN 08/04/21 11/25/22 History Montelukast [Singulair] 10 mg PO HS 11/11/21 11/25/22 History Metamucil 28% Packet 1 packet PO HS 04/17/22 11/25/22 History Mupirocin 2% Oint [Bactroban 2% 1 applic TOPICAL Q12H PRN 04/17/22 11/25/22 History Oint] Sennosides [Senokot] 8.6 mg PO BID PRN 04/17/22 11/25/22 History Isosorbide Mononitrate ER [Imdur] 30 mg PO DAILY@0800 05/04/22 11/25/22 History Acetaminophen [Acetaminophen ER] 650 mg PO Q6H PRN 06/20/22 11/25/22 History Melatonin 5 mg PO HS 06/20/22 11/25/22 History Ondansetron [Zofran] 4 mg PO Q6H PRN 06/20/22 11/25/22 History Sodium Bicarbonate Tab 650 mg PO BID 06/20/22 11/25/22 History Spironolactone [Aldactone] 25 mg PO BID 06/20/22 11/25/22 History bisacodyL [Dulcolax] 10 mg RECTAL Q72H PRN 06/20/22 11/25/22 History Apixaban [Eliquis] 2.5 mg PO BID #0 tab 06/24/22 11/25/22 Rx Amiodarone HCl [Pacerone] 200 mg PO DAILY 11/25/22 11/25/22 History D-Mannose 1 cap PO QAM 11/25/22 11/25/22 History Hydrocodone/Acetaminophen 1 tab PO Q8H PRN 11/25/22 11/25/22 History [Hydrocodone/Acetaminophen 5-325] Insulin Glargine,Hum.rec.anlog 5 unit SQ QAM 11/25/22 11/25/22 History [Lantus Solostar Pen] LORazepam [Ativan] 0.5 mg PO BID PRN 11/25/22 11/25/22 History LORazepam [Ativan] 0.5 mg PO HS PRN 11/25/22 11/25/22 History Lactobacillus Acidophilus 1 each PO BID 11/25/22 11/25/22 History [Acidophilus] Metoprolol Tartrate [Lopressor] 25 mg PO BID 11/25/22 11/25/22 History Morphine Sulfate [Morphine Sulfate 0.25 ml PO Q6H PRN 11/25/22 11/25/22 History Oral Soln Concentrate] buPROPion HCL [buPROPion HCL SR] 150 mg PO Q12HR 11/25/22 11/25/22 History risperiDONE [RisperDAL] 2 mg PO HS 11/25/22 11/25/22 History Allergies Allergy/AdvReac Type Severity Reaction Status Date / Time amlodipine Allergy HIVES Verified 11/25/22 10:29 hydralazine Allergy HIVES Verified 11/25/22 10:29 Sulfa (Sulfonamide Allergy HIVES Verified 11/25/22 10:29 Antibiotics)
[2022-12-02 07:04] LABS: Glucose,Whole Blood 69 mg/dL (70-110)
[2022-12-02] MEDS ORDERED: ACETAMINOPHEN TAB 500 MG TAB PO STA (07:04)
[2022-12-02 07:14] LABS: Basophils # (A) 0.1 k/uL (0-0.2); Basophils % (A) 1 %; Eosinophils # (A) 0.3 k/uL (0-0.7); Eosinophils % (A) 4 %; HGB 11.2 gm/dL (11.4-16.0); Hypochromasia Slight; Lymphocytes % (A) 13 %; MCH 31.6 pg (25.0-35.0); MCHC 31.9 g/dL (31.0-37.0); MCV 99.1 fL (80.0-100.0); Macrocytosis Slight; Mean Platelet Volume 7.1; Monocytes # (A) 0.6 k/uL (0-1.0); Monocytes % (A) 9 %; Neutrophils % (A) 70 %; Platelet Count 220 k/uL (150-450); RBC 3.53 m/uL (3.80-5.40); RDW 15.6 % (11.5-15.5); WBC 7.2 k/uL (3.8-10.6)
[2022-12-02 07:17] VITALS: BP 136/89; PULSE 95; RESP 16; TEMP 97.6
[2022-12-02] MEDS ORDERED: DEXTROSE 50% SYRINGE 50 ML IVP ONE (07:18)
[2022-12-02 07:32] LABS: ALT 16 U/L (4-34); AST 22 U/L (14-36); African American GFR (CKD) 22 (>60 ml/min/1.73 sqM); Albumin 3.5 g/dL (3.5-5.0); Alkaline Phosphatase 91 U/L (38-126); Anion Gap 9 mmol/L; Blood Urea Nitrogen 45 mg/dL (7-17); Calcium 8.8 mg/dL (8.4-10.2); Carbon Dioxide 25 mmol/L (22-30); Chloride 109 mmol/L (98-107); Glucose 69 mg/dL (74-99); Non-African American GFR(CKD) 19 (>60 ml/min/1.73 sqM); Sodium 143 mmol/L (137-145); Total Bilirubin 0.4 mg/dL (0.2-1.3); Total Protein 6.6 g/dL (6.3-8.2)
--- NOTE | 2022-12-02 07:53 | P.HPADDEND ---
H&P Addendum H&P Addendum Date: 12/02/22 Patient presents as a resident of [facility]. Patient took all multivitamins including blood thinner, Eliquis last night into this morning. Patient seen by anesthesia requesting cancellation due to high risk of bleeding. Certified nurse supply assistant at bedside including patient and nurse with review of multiple medications. Patient advised to discontinue blood thinner with last dose 12/13/2022. 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 Coordination of care to facility advised.
== END 2022-12-02 07:44 | disposition home or self-care (01) ==
LOC: OR 05:40
PROVIDERS: ATTEND Surgery Plastic and Reconstructive Surgery
DX: Z53.8 Procedure and treatment not carried out for other reasons (principal); K80.10 Calculus of gallbladder with chronic cholecystitis without obstruction; G89.18 Other acute postprocedural pain; I13.0 Hypertensive heart and chronic kidney disease with heart failure and stage 1 through stage 4 chronic kidney disease, or unspecified chronic kidney disease; N18.30 Chronic kidney disease, stage 3 unspecified; E11.22 Type 2 diabetes mellitus with diabetic chronic kidney disease; I48.91 Unspecified atrial fibrillation; K21.9 Gastro-esophageal reflux disease without esophagitis; M19.90 Unspecified osteoarthritis, unspecified site; F03.93 Unspecified dementia, unspecified severity, with mood disturbance; Z85.42 Personal history of malignant neoplasm of other parts of uterus; Z79.4 Long term (current) use of insulin; Z79.01 Long term (current) use of anticoagulants; Z90.710 Acquired absence of both cervix and uterus; Z90.49 Acquired absence of other specified parts of digestive tract; Z90.89 Acquired absence of other organs; Z98.890 Other specified postprocedural states; Z87.891 Personal history of nicotine dependence; Z82.49 Family history of ischemic heart disease and other diseases of the circulatory system; Z88.8 Allergy status to other drugs, medicaments and biological substances; Z88.2 Allergy status to sulfonamides; Z79.899 Other long term (current) drug therapy
CPT/HCPCS: 80053; 85025